=== PATIENT | female | born 1985 | race Caucasian/White ===

== ENCOUNTER 2017-01-21 23:23 | Inpatient (IN) | payer OTHER ==
[2017-01-21] MEDS ORDERED: ONDANSETRON 4 MG/2 ML VIAL IVP ONE (23:37)
[2017-01-21] MEDS ORDERED: NORMAL SALINE 10 ML SYRINGE FLUSH IVP PRN (23:37)
[2017-01-21] MEDS ORDERED: Sodium Chloride 0.9% 1,000 ML PRIMARY IV ONE (23:37)
[2017-01-21] MEDS: HYDROmorphone 2 MG/1 ML IVP ONE (23:42)
[2017-01-22] MEDS ORDERED: diphenhydrAMINE 50 MG/1 ML VIAL IVP ONE ×2 (00:05→01:56)
[2017-01-22] MEDS ORDERED: methylPREDNISolone 125 MG/2 ML VIAL IVP ONE (00:05)
[2017-01-22 00:19] LABS: BLOOD UREA NITROGEN 9 mg/dL (7-22); BUN/CREATININE RATIO 12.85 (6-20); CALCIUM 9.2 mg/dL (8.7-10.7); EST GLOMERULAR FILTRATION > 60 (>60 ml/min/1.73m(2)); LIPASE 52 IU/L (23-300); SERUM ALBUMIN 4.2 g/dL (3.5-4.8)
[2017-01-22 00:21] LABS: C-REACTIVE PROTEIN < 0.5 mg/dL (0.0-0.9)
[2017-01-22] MEDS: HYDROmorphone 2 MG/1 ML IVP ONE (00:34)
[2017-01-22] MEDS ORDERED: fentaNYL Inj 100 MCG/2 ML VIAL ONE (02:00)
[2017-01-22] MEDS ORDERED: fentaNYL Inj 100 MCG/2 ML VIAL IVP ONE (02:04)
[2017-01-22 02:35] LABS: BASOPHILS # (AUTO) 0.02 10*3/UL; BASOPHILS % (AUTO) 0.2 % (0-1); EOSINOPHILS # (AUTO) 0.04 10*3/UL; EOSINOPHILS % (AUTO) 0.4 % (0-8); HEMATOCRIT 42.3 % (37.0-47.0); HEMOGLOBIN 14.3 g/dL (12.0-16.0); LYMPHOCYTES # (AUTO) 1.59 10*3/uL; MEAN CORPUSCULAR HEMOGLOBIN 31.8 PG (27-31); MEAN CORPUSCULAR HGB CONC 33.8 g/dL (33-37); MEAN PLATELET VOLUME 10.2 FL (7.4-12.2); MONOCYTES # (AUTO) 0.25 10*3/UL (0.3-0.8); MONOCYTES % (AUTO) 2.5 % (5-15); NEUTROPHILS # (AUTO) 8.06 10*3/UL; NEUTROPHILS % (AUTO) 80.9 % (50-80); PLATELET MORPHOLOGY COMMENT NORMAL MORPHOLOGY (NORM); RBC MORPHOLOGY COMMENT NORMAL MORPHOLOGY (NORM); WBC MORPHOLOGY COMMENT NORMAL MORPHOLOGY (NORM)
[2017-01-22] MEDS ORDERED: Ertapenem Inj 1 GM in Sodium Chloride 0.9% 100 ML IV SCH (03:45)
[2017-01-22] MEDS ORDERED: MORPHINE SULFATE 2 MG/1 ML IV PRN (03:49)
[2017-01-22] MEDS ORDERED: NORMAL SALINE 10 ML SYRINGE FLUSH IVP PRN ×4 (03:49→09:49)
[2017-01-22] MEDS ORDERED: Sodium Chloride 0.9% 1,000 ML PRIMARY IV SCH (04:00)
--- NOTE | 2017-01-22 04:04 | PDOC ---
Nausea/Vomiting/Diarrhea HPI - General Chief Complaint: Nausea / Vomiting / Diarrhea Stated Complaint: abdominal pain, nausea and vomiting Date Seen by Provider: 01/21/17 Time Seen by Provider: 23:55 Source: POSITIVE: Patient Exam Limitations: POSITIVE: No limitations Nurse's Notes Reviewed & Considered: Yes - History of Present Illness Initial Comments: The patient is a biological male transgender who identifies as a female. He states that for the past 24 hours he's had right-sided abdominal pain, somewhat more in the upper quadrant that in the lower quadrant. He states he had a fever earlier today. He states that in the past he had an ultrasound which showed gallstones; old records were reviewed and he did have a gallbladder and liver ultrasound on 06/14/2012 for evaluation of right upper quadrant abdominal pain which showed cholesterol flakes versus tiny gallstones. Subsequent HIDA scan done 06/14/2012 was normal, however. 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 However, he states that 2 weeks ago he had a " mini stroke"and was taken off of his Coumadin at that time. He has a history of chronic pain, narcotic dependent. He takes oxycodone and OxyContin as an outpatient. History of narcotic dependency. He smokes a pack of cigarettes per day. He states he does not use alcohol. 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 He's had breast augmentation. He states he is allergic to iodine, but has had IV contrast in the past but states he has been premedicated with Benadryl prior to IV contrast. Body Location Affected: REPORTS: Abdomen Timing: REPORTS: Constant Duration: >24 hours (Approximately 24 hours) Severity: Moderate Quality: REPORTS: "Pain" Abdominal Pain Onset Location: REPORTS: RUQ, RLQ Abdominal Pain Radiation: REPORTS: No radiation Context: REPORTS: None Modifying Factors: improves with: Vomiting, Palpation Associated Symptoms: REPORTS: Vomiting, Abdominal Pain (Right sided as above; see diagram) Similar Symptoms Previously: Yes (history of right upper abdominal discomfort in the past as above.) Recent Care Received: REPORTS: Denies Any Prior Injuries Related to Current Complaint?: No - Patient Home Medications Home Medications: Home Medications Estradiol 4 mg PO BID 10/14/15 Spironolactone 100 mg PO DAILY 10/14/15 Ondansetron [Zofran Odt] 8 mg SL Q6H PRN PRN 02/17/16 oxyCODONE ER Tab [OxyCONTIN Tab] 30 mg PO Q4HR 04/28/16 Amitriptyline HCl 100 mg PO BEDTIME 01/22/17 Gabapentin 300 mg PO PRN PRN 01/22/17 oxyCODONE IR Tab [OxyIR Tab] 60 mg PO Q4H 01/22/17 - Patient Allergies Allergies/Adverse Reactions: Allergies Allergy/AdvReac Type Severity Reaction Status Date / Time cyclobenzaprine HCl Allergy Severe HIVES Verified 01/22/17 00:36 [From Flexeril] venom-honey bee Allergy Severe Anaphylaxis Verified 01/22/17 00:36 [bee venom (honey bee)] iodine Allergy Intermediate RASH Verified 01/22/17 00:36 Iodine and Iodide Containing Allergy Intermediate VOMITING Verified 01/22/17 00: 36 Produc ketorolac tromethamine Allergy Intermediate HIVES Verified 01/22/17 00:36 [From Toradol] lactose [Lactose] Allergy Intermediate NOT Verified 01/22/17 00:36 APPLICABLE adhesive tape AdvReac Intermediate RASH Verified 01/22/17 00:36 SEA FOOD AdvReac Intermediate HIVES Uncoded 01/22/17 00:36 Past Medical History - heen HEENT History: Hard of Hearing, Other (please comment) Additional HEENT History: 50% loss in r ear, MULTIPLE DENTAL CARIES Cardiovascular History: Hypertension, Previous RI, Other (please comment) Additional Cardiovasular History: OPEN HEART SURGERY TO REMOVE THYMOMA (2012) Respiratory History: Asthma, Other (please comment) Additional Respiratory History: SMOKER Gastrointestinal History: GERD, Peptic Ulcer Disease Additional Gastrointestinal History: ABD PAIN N/V Genitourinary History: Denies History Additional Genitourinary History: N/A Endocrine History: Denies History Musculoskeletal History: Arthritis, Back Pain Prosthesis or Implant: Yes (breasts; has lump left breast. 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 PT STATES SHE HAD A STROKE 12/26 Blood Disorders: Other (please comment) Additional Blood Disorders History: Non-Hodgkin's lymphoma Psychiatric History: Depression, Anxiety Disorders, OCD, PTSD Additional Psychiatric History: hx self cutting History of Sexually Transmitted Diseases: No Female Reproductive History: Denies History Obstetrical History: Denies History Cancer History: Other (please comment) Cancer Treatment / Date(s) of Treatment: 2001 In Past Year Been Physically Harmed or Verbally Threatened: No History of MDRO: Yes Other Type of MDRO: MRSA in throat 5 years ago, been tested multiple times within last month History of Other Communicable Diseases: No History of Exposure to Communicable Disease: No Tobacco Use: Current Every Day Smoker Alcohol Use: None Substance Use Type: None, Opiate Pain Medication Previous Surgical History: Yes Type / Date of Surgery: BREAST AUGMENTATION, RIGHT KNEE SURG.X3, RIGHT HAND SURG.X3, ORCHIECTOMY, TONSILLECTOMY, LYMPH NODE REMOVAL.; OPEN HEART SURGERY, THYMOMA REMOVAL; HERNIA REPAIR Anesthesia Reactions: No Malignant Hyperthermia: No Significant Family History: No pertinent family hx Past Medical History Reviewed: Reviewed - No Changes ROS - Limitations ROS Limitations: No Limitations Constitution: REPORTS: Fever Cardiovascular: REPORTS: Denies Cardiac Symptoms Respiratory: REPORTS: Denies Resp Symptoms Neurological: REPORTS: Denies Neuro Symptoms Gastrointestinal: REPORTS: Abdominal Pain, Nausea, Vomitting Endocrine: REPORTS: Denies Symptoms Musculoskeletal: REPORTS: Denies MS Symptoms Genitourinary: REPORTS: Denies Symptoms Eyes: REPORTS: Denies Symptoms ENT: REPORTS: Denies Symptoms Skin: REPORTS: Denies Skin Symptoms Lympathic: REPORTS: Denies Lympathic Symptoms Immunologic: POSITIVE: Denies Symptoms Psychiatric: POSITIVE: Denies Psych Symptoms Nausea/Vomiting/Diarrhea Exam - General Appearance General Appearance: POSITIVE: Alert, Cooperative, No Acute Distress, No Evidence of Trauma - HEENT HEENT: POSITIVE: Head Inspection Nml, Eyes Inspection Nml, Ears Inspection Nml, Nose Inspection Nml, Oral/Dental Inspect. Nml, Pharynx Inspect. Nml, PERRL, EOMI - Neck Neck: POSITIVE: Supple, Normal Inspection, Non Tender - Respiratory Respiratory: POSITIVE: No Respiratory Distress, Breath Sounds Normal, Chest Non- Tender - Cardiovascular Cardiovascular: POSITIVE: Regular Rate and Rhythm, Heart Sounds Normal, Equal Pulses, Strong Pulses Peripheral Pulses: Radial (R): 2+, Radial (L): 2+ - Chest Chest: POSITIVE: Non Tender - Abdomen Abdomen: Soft: (All Quadrants), Normal Bowel Sounds: (All Quadrants), Denies Tenderness: (LLQ), (LUQ), No Splenomegaly: (All Quadrants), No Hepatomegaly: ( All Quadrants), No Guarding: (All Quadrants), No Rebound: (All Quadrants), No Palpable Pulse: (All Quadrants), No Palpabale Mass: (All Quadrants), No Distention: (All Quadrants), No Rigidity: (All Quadrants), Tenderness Noted: ( RUQ), (RLQ) Additional Abdominal Details: Abdominal examination shows bowel sounds to be present. Patient expresses tenderness on palpation in the right half the abdomen; actually is somewhat more tender in the right upper quadrant than in the right lower quadrant. No masses, organomegaly or rebound. - Back Back: POSITIVE: Normal Inspection. 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 Lab Results Reviewed: Yes Lab Results:: Laboratory Results 01/22/17 01/22/17 Range/Units 00:03 03:45 WBC 9.97 (4.8-10.8) 10^3/uL RBC 4.50 (4.20-5.40) 10^6/uL Hgb 14.3 (12.0-16.0) g/dL Hct 42.3 (37.0-47.0) % MCV 94.0 (81-99) FL MCH 31.8 H (27-31) PG MCHC 33.8 (33-37) g/dL RDW Std Deviation 43.3 (39-50) fL RDW Coeff of Brennan 12.9 (11.5-14.5) % Plt Count 264 (140-350) 10*3/uL MPV 10.2 (7.4-12.2) FL Immature Gran % (Auto) 0.1 (0-5) % Neut % (Auto) 80.9 H (50-80) % Lymph % (Auto) 15.9 (10-50) % Candler % (Auto) 2.5 L (5-15) % Eos % (Auto) 0.4 (0-8) % Baso % (Auto) 0.2 (0-1) % Immature Gran # (Auto) 0.01 10*3/UL Neut # (Auto) 8.06 10*3/UL Lymph # (Auto) 1.59 10*3/uL Candler # (Auto) 0.25 L (0.3-0.8) 10*3/UL Eos # (Auto) 0.04 10*3/UL Baso # (Auto) 0.02 10*3/UL WBC Morphology Comment Normal morphology (NORM) Plt Morphology Comment Normal morphology (NORM) RBC Morph Comment Normal morphology (NORM) PT 10.6 (9.7-11.4) secs INR 1.03 (0.00-5.90) N/A Sodium 137 (135-145) meq/L Potassium 3.1 L (3.8-5.2) meq/L Chloride 105 (98-112) meq/L Carbon Dioxide 23 (23-33) meq/L Anion Gap 9 (5-20) BUN 9 (7-22) mg/dL Creatinine 0.7 (0.50-1.20) mg/dL Estimated GFR > 60 (>60 ml/min/1.73m(2)) BUN/Creatinine Ratio 12.85 (6-20) Glucose 96 (78-110) mg/dL Calculated Osmolality 282.0 (267-292) mOsm/kg Calcium 9.2 (8.7-10.7) mg/dL Total Bilirubin 0.9 (0.3-1.2) mg/dL AST 50 H (8-39) IU/L ALT 48 (9-52) IU/L Alkaline Phosphatase 80 (38-126) IU/L C-Reactive Protein < 0.5 (0.0-0.9) mg/dL Total Protein 7.5 (6.1-8.0) g/dL Albumin 4.2 (3.5-4.8) g/dL Globulin 3.2 (2.50-4.10) g/dL Albumin/Globulin Ratio 1.30 (1.3-2.0) mg/g Amylase 82 (30-110) U/L Lipase 52 (23-300) IU/L Serum Alcohol < 10 (0-10) mg/dL - Patient's Progress Pain Medication Addressed: POSITIVE: Yes (Dilaudid and fentanyl given for pain; Zofran for nausea) School/Work Release Addressed: POSITIVE: Not Applicable Re-examine Time: 03:15 Re-Examine Comment: Discomfort somewhat less. 1 g Invanz ordered. Case discussed with Dr. Duff, surgeon Status: POSITIVE: Unchanged, Re-Examined - Consult Consult (If Yes, Name of Consulting MD & Time Called): Yes (Dr. Duff, surgeon,[id number]) Consulting MD will see pt:: [place]ITIVE[place] [facility] [place] Counseled: POSITIVE: Patient, RE: Lab Results, RE: Radiology Results, RE: DX, RE : Need for F/U Patient Care Time - Estimated PCT Patient Care Time (In Minutes): 60 Vital Signs - Recent Vital Signs Vital Signs: Vital Signs (Last 8 hours) Temp Pulse Resp BP Pulse Ox 01/21/17 23:23 97.6 F 91 18 122/86 95 - VS Reviewed Vital Signs Reviewed: Yes Discharge Clinical Impression: Abdominal pain, Appendicitis Discharge Disposition: Admit to Inpatient Condition: Stable Follow Up With: Michelle Suggs [Primary Care Provider] - Date Decision to Admit to Inpatient: 01/22/17 Time Decision to Admit to Inpatient: 03:15
--- NOTE | 2017-01-22 04:59 | PDOC ---
History and Physical - History of Present Illness Date and Time of Service: 01/23/2016 at 0 450 Chief Complaint: Abdominal pain History of Present Illness: This is a 34-year-old female who comes in with a multitude of abdominal complaints. Started with right lower quadrant pain that has now kind come generalized. There is associated nausea vomiting and diarrhea. Patient states that the nausea vomiting has occurred first patient has a complicated history with multiple postoperative infections. SHe states she still fighting a hand infection from surgery that he had. She is on long-term antibiotic therapy currently taken Ancef. She states states that she had a fever. But, been afebrile in the emergency department. Patient's white count is within normal limits. CT scan was read as an early appendicitis Past Medical History Medical History: 1. Right hand cellulitis. 2. History of non-Hodgkin's lymphoma. 3. Developmental dysplasia of the hips bilaterally Surgical History: Hip surgery. Hernia repair about 6 months ago. Breast augmentation. Boxers fracture repair on right hand with subsequent hardware removal with one of the screws having a broken had and still being in place. Patient states that her last surgery was about 8 years ago or so for this. Pertinent Family History: Significant for diabetes Past Social History: He is engaged and has a fianc. Smokes. 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 Tobacco Use: Current Every Day Smoker Do you dip or chew tobacco: No Substance Use Type: None, Opiate Pain Medication Medication / Allergies Home Medications: Home Medications Medication Instructions Recorded Confirmed Type Estradiol 4 mg PO BID 10/14/15 01/22/17 History Spironolactone 100 mg PO DAILY 10/14/15 01/22/17 History Ondansetron [Zofran Odt] 8 mg SL Q6H PRN PRN 02/17/16 01/22/17 History oxyCODONE ER Tab [OxyCONTIN Tab] 30 mg PO Q4HR 04/28/16 01/22/17 History Amitriptyline HCl 100 mg PO BEDTIME 01/22/17 01/22/17 History Gabapentin 300 mg PO PRN PRN 01/22/17 01/22/17 History oxyCODONE IR Tab [OxyIR Tab] 60 mg PO Q4H 01/22/17 01/22/17 History Allergies/Adverse Reactions: Allergies Allergy/AdvReac Type Severity Reaction Status Date / Time cyclobenzaprine HCl Allergy Severe HIVES Verified 01/22/17 00:36 [From Flexeril] venom-honey bee Allergy Severe Anaphylaxis Verified 01/22/17 00:36 [bee venom (honey bee)] iodine Allergy Intermediate RASH Verified 01/22/17 00:36 Iodine and Iodide Containing Allergy Intermediate VOMITING Verified 01/22/17 00: 36 Produc ketorolac tromethamine Allergy Intermediate HIVES Verified 01/22/17 00:36 [From Toradol] lactose [Lactose] Allergy Intermediate NOT Verified 01/22/17 00:36 APPLICABLE adhesive tape AdvReac Intermediate RASH Verified 01/22/17 00:36 SEA FOOD AdvReac Intermediate HIVES Uncoded 01/22/17 00:36 Review of Systems - Constitutional Constitutional: REPORTS: Negative System Review - Integumentary Integumentary: REPORTS: Negative System Review - Respiratory Respiratory: REPORTS: Negative System Review, Other (Patient states he just got over pneumonia) - Cardiovascular Cardiovascular: REPORTS: Palpitations, Other (Had atrial fibrillation after his chest surgery) - Gastrointestinal Gastrointestinal / Abdominal: REPORTS: Nausea, Vomiting, Diarrhea - Genitourinary Genitourinary: REPORTS: Negative System Review - Musculoskeletal Musculoskeletal: REPORTS: Joint Pain - Hands - Hematlogic / Lymphatic Hematologic / Lymphatic: REPORTS: Lymphoma Exam - General General Appearance: POSITIVE: No Acute Distress, Cooperative - Eye Eye Exam: POSITIVE: PERRL, EOMI - ENT ENT Exam: POSITIVE: Normal Exam - Neck Neck Exam: POSITIVE: Full ROM - Respiratory Respiratory Exam: POSITIVE: Clear to Auscultation - Bilaterally, Breathing Non Labored - Cardiovascular Cardiovascular Exam: POSITIVE: RRR, No Murmur - GI/Abdominal GI/Abdominal Exam: POSITIVE: Normal Bowel Sounds, Non Distended, Positive for RUQ Pain, No Hepatomegaly, No Splenomegaly Additional GI/Abdominal Exam Details: Patient also has left lower quadrant pain on deep palpation Results - Labs CBC and BMP: 01/22/17 00:03 01/22/17 00:03 Assessment and Plan - Patient Problems (1) Appendicitis Current Visit: Yes Status: Acute - Assessment / Plan Additional Assessment/Plan Details: A lengthy discussion with Joanna about treatment options. I talked about both nonoperative and operative interventions. I discussed demonstrate laparoscopic versus open. Went over the risk and benefits of but all treatment options. Patient understands these. Joanna has elected to have a laparoscopic appendectomy. This be taken at first available time which is roughly around 8 AM
[2017-01-22] MEDS ORDERED: NALOXONE 0.4 MG/1 ML VIAL IVP PRN (05:35)
[2017-01-22] MEDS ORDERED: Lactated Ringers 1,000 ML PRIMARY IV SCH ×3 (05:35→09:49)
[2017-01-22] MEDS ORDERED: MORPHINE SULFATE 2 MG/1 ML IVP PRN (05:35)
[2017-01-22 06:03] LABS: BILIRUBIN,URINE NEGATIVE (NEG); COLOR,URINE YELLOW; GLUCOSE, URINE (UA) NEGATIVE (NEG); NITRATE,URINE NEGATIVE (NEG); OCCULT BLOOD,URINE Trace-intact (NEG); PROTEIN,URINE NEGATIVE (NEG); UROBILINOGEN,URINE 0.2 EU/dL (0.2)
[2017-01-22 06:13] LABS: CLARITY,URINE CLEAR (CLEAR); RBC,URINE 0-1 /hpf; SQUAMOUS EPITHELIAL CELL,UR RARE; URINE SAMPLE TYPE CLEAN CATCH URINE; WBC,URINE 0
[2017-01-22] MEDS ORDERED: ROCURONIUM 10 MG/1 ML - 5 ML VIAL IVP ONE (07:55)
[2017-01-22] MEDS ORDERED: KETAMINE 100 MG/1 ML - 5 ML ONE (07:58)
[2017-01-22] MEDS ORDERED: KETOROLAC 30 MG/1 ML VIAL ONE (07:58)
[2017-01-22] MEDS ORDERED: LIDOCAINE MPF 2% - 5 ML (20 MG/1 ML) ONE (07:58)
[2017-01-22] MEDS ORDERED: MIDAZOLAM 5 MG/1 ML ONE (07:58)
[2017-01-22] MEDS ORDERED: fentaNYL Inj 250 MCG/5 ML VIAL ONE (07:58)
[2017-01-22] MEDS ORDERED: ONDANSETRON 4 MG/2 ML VIAL ONE (07:58)
[2017-01-22] MEDS ORDERED: BUPivacaine Inj 0.25% PF - 10ml vial ONE (08:14)
[2017-01-22] MEDS ORDERED: ONDANSETRON 4 MG/2 ML VIAL IVP PRN (08:15)
[2017-01-22] MEDS ORDERED: HYDROmorphone 2 MG/1 ML IVP PRN (08:15)
[2017-01-22] MEDS ORDERED: PROMETHAZINE 25 MG/1 ML VIAL IM PRN (08:15)
[2017-01-22] MEDS ORDERED: fentaNYL Inj 100 MCG/2 ML VIAL IVP PRN (08:15)
[2017-01-22] MEDS ORDERED: METOPROLOL TARTRATE 5 MG/5 ML VIAL ONE (08:42)
[2017-01-22] MEDS ORDERED: HYDROmorphone 2 MG/1 ML ONE ×3 (08:43→09:49)
[2017-01-22] MEDS ORDERED: Lactated Ringers 1,000 ML PRIMARY IV ONE (08:51)
[2017-01-22] MEDS ORDERED: SUGAMMADEX SODIUM 200 MG/2 ML VIAL IV ONE (09:05)
[2017-01-22] MEDS ORDERED: Acetaminophen 1000mg Inj 100 ML IV ONE (09:29)
[2017-01-22] MEDS ORDERED: Acetaminophen 1000mg Inj 1,000 MG in Premix 1 BAG IV ONE (09:29)
--- NOTE | 2017-01-22 09:36 | GEN.OPNOTE ---
Operative Note Surgery Date: 01/22/17 Preoperative Diagnosis: Appendicitis Postoperative Diagnosis: Appendicitis Procedure: Laparoscopic appendectomy Surgeon: Cristhian Rangel MD Anesthesia Provider: Timoteo Plata CRNA Anesthesia Type: General Estimated Blood Loss (mL): 2 Fluids: Please see anesthesia notes in EMR. Patient got 1 g of Invanz emergency department Pathology: Appendix sent to pathology Indications: Patient had enlargement and mucosal enhancement appendix on a CT scan Findings: Swollen appendix Complications: None Operative Summary: Patient is brought in operative room. Placed supine position. Given general trach anesthesia. Prepped draped sterile fashion. Timeout performed per protocols. Made a small incision below the umbilicus. Pneumoperitoneum was made after insertion of a Veress needle. After adequate pneumoperitoneum, a 10 mm trocar was placed using the Visiport. Under direct laparoscopic visualization a 5 mm was placed through stab incision just above the pubic bone. We identified a swollen appendix. Patient had no other inflammatory condition that is identified. There is no pus or purulent material in the abdominal cavity. Patient's gallbladder liver spleen and stomach and remainder small intestine: Appeared be normal. No evidence incisional or inguinal hernias. I then placed a 10 mm through a stab incision left lower quadrant under direct laparoscopic visualization. Appropriate sedation was obtained. Using the gyrus I cauterized and divided the mesoappendix. The 2 Endoloops on the base of the appendix and then dividing the appendix using the gyrus. Appendix is brought up to the 10 mm trocar site. Reinspection showed no active bleeding. No current fluid. No evidence of intra-abdominal injuries. Pneumoperitoneum was deinsufflated. The fascial defects were closed with simple running sutures of 0 Vicryl suture. Skin reapproximated using 4-0 Vicryl continuous running septic restitch is. Steri-Strips applied sterile dressings applied. Counts were correct. Patient transferred recovery room in stable condition. Patient Problems - Patient Problem List (1) Appendicitis Current Visit: Yes Status: Acute
[2017-01-22] MEDS ORDERED: GABAPENTIN 300 MG CAPSULE PO PRN (09:49)
[2017-01-22] MEDS: oxyCODONE ER 10 MG TAB PO SCH ×2 (10:50→15:16)
[2017-01-22] MEDS: NICOTINE 14 MG /DAY PATCH TRANSDERM SCH ×2 (10:50→15:16)
[2017-01-22] MEDS ORDERED: oxyCODONE IR Tab 15 MG TAB PO SCH (13:00)
[2017-01-22 14:53] VITALS: RESP 16; TEMP 98.8
--- NOTE | 2017-01-22 15:03 | DCSUMMARY ---
Discharge Summary Admit Date: 01/22/17 Discharge Date: 01/22/17 Admitting Diagnosis: appendicitis Discharge Diagnosis: Appendicitis localized peritonitis Primary Surgery and Date: Appendectomy laparoscopic Hospital Course: Patient came in the hospital for observation for acute appendicitis. Patient was given a dose of Invanz. Patient then wanted to have laparoscopic appendectomy. She underwent a laparoscopic appendectomy without any problems. Patient was ready be discharged on the day of surgery. She is discharged in stable and improved condition. Patient takes chronic narcotics so she'll go back to her her normal dose. She'll follow-up with her primary care doctor and to 3 days discussed DVT prophylaxis (since patient has a known history of DVTs. ) For laparoscopic appendectomy I do not feel DVT prophylaxis as needed. Also patient follow-up with me in one week Exam - Vitals Vital Signs: Vital Signs Temperature 98.8 F Temperature Source Temporal Artery Scan Pulse Rate [Pulse Oximeter] 94 Pulse Rate 93 Respiratory Rate 16 Blood Pressure [Right Arm] 119/75 Blood Pressure 126/70 Pulse Ox 95 Oxygen Flow Rate 2 Oxygen Flow Rate 2 Oxygen Delivery Method Room Air Height 5 ft 9 in Weight 80.966 kg - GI/Abdominal Additional GI/Abdominal Exam Details: Dressings are dry. Patient has incisional pain only. Patient Problems - Patient Problem List (1) Appendicitis Current Visit: Yes Status: Acute
[2017-01-22] MEDS ORDERED: ESTRADIOL 4 MG PO SCH (21:00)
[2017-01-22] MEDS ORDERED: AMITRIPTYLINE 25 MG TABLET PO SCH (21:00)
[2017-01-23] MEDS ORDERED: Ertapenem Inj 1 GM in Sodium Chloride 0.9% 100 ML IV SCH (04:00)
[2017-01-23] MEDS ORDERED: Spironolactone Tab 50 MG TAB PO SCH (09:00)
--- NOTE | 2017-01-26 14:31 | DI ---
CT ABDOMEN WITHOUT CONTRAST, CT PELVIS WITHOUT CONTRAST. Clinical information: Abdominal pain. Comparison CT 05/14/14. Technique: Axial images were acquired from the lung bases through the ischial tuberosities without c ontrast. MPR. Absent IV contrast precludes adequate evaluation of viscera and vessels, including lymph nodes. Findings Chest: Lungs: Bibasilar atelectasis without focal consolidation or pleural effusion. No pneumothorax. Pericardial effusion: No pericardial effusion. Breast augmentation changes noted. Abdomen: Liver: No calcification or adjacent inflammatory change. Gallbladder: Distended with bile, no adjacent inflammatory change. Pancreas: No adjacent inflammatory change. Adrenals: Usual non-contrast appearance. Spleen: Usual non-contrast appearance. Kidneys/Ureters: Normal position. No hydronephrosis. Bilateral punctate nephroliths. Pelvis: Bowel: Non-obstructive pattern. Appendix is mildly enlarged, measuring 7-8mm(coronal image # 50; axia l image 84). Small right lower quadrant lymph nodes are present. No significant inflammatory change o r adjacent fluid collection. Peritoneum: No large volume free intraperitoneal fluid or air noted. Bladder: Distended with urine. Bones: No acute osseous abnormality. Impression: 1. Appendix is mildly enlarged (7-8mm) and retrocecal in location. Findings concerning for early patricia endicitis. Small right lower quadrant lymph nodes are present. No significant inflammatory change or adjacent fluid collection. Correlation with clinical exam and laboratory values requested. 2. Small, bilateral nephroliths which have a similar appearance to the comparison study. No ureteral calculi or hydronephrosis.
--- NOTE | 2017-01-26 14:31 | DI ---
EXAMINATION: CT ABDOMEN AND CT PELVIS WITH CONTRAST. COMPARISON: Noncontrast CT from 2 hours prior. CLINICAL STATEMENT: Abdomen pain. TECHNIQUE: Helical CT scanning was performed from the lung bases, through the abdomen and pelvis, to the level of lesser trochanters following the administration of IV contrast material. MPR. Overall im age quality satisfactory. FINDINGS: LUNG BASES/LOWER HEART: Basilar atelectasis, no focal basilar consolidation, pleural effusion or pneumothorax. No pericardial effusion. ABDOMEN/PELVIS: LIVER: Homogeneous parenchymal attenuation. GALLBLADDER: Distended with bile, no calcified gallstones noted. No adjacent inflammatory change. PANCREAS: No adjacent inflammatory change. ADRENAL GLANDS: Maintain their triangular shape. SPLEEN: Normal enhancement pattern. KIDNEYS: Anatomic location. No hydronephrosis. 1.3 cm left interpolar low attenuation lesion, probabl e cyst. GREAT VESSELS: Enhance unremarkably. FREE INTRAPERITONEAL FLUID: No large volume. VARIABLY DISTENDED BOWEL LOOPS: Non-obstructive bowel gas pattern. APPENDIX: Measures mildly enlarged at 7-8mm (coronal image 50) with mild increased mucosal enhancemen t suggested of the distal appendix. No significant adjacent inflammatory change is noted. OSSEOUS STRUCTURES: No acute osseous abnormality. IMPRESSION: 1. Mild enlargement of the appendix measuring 7-8 mm with mild wall enhancement and prominent adjacen t lymph nodes. CT findings concerning for early appendicitis. No significant adjacent stranding, fl uid collection or evidence of perforation. 2. Punctate nephroliths, non-obstructive. 3. Small, probable left renal cyst. @ RECOMMENDATION: Surgical consultation and correlation with examination and laboratory values.
== END 2017-01-22 13:13 | disposition home or self-care (01) | DRG 340 ==
LOC: ER 23:23 → MED/SURG 01-22 03:49 → OPS 01-22 08:15 → MED/SURG 01-22 09:55
PROVIDERS: ADMIT Emergency Medicine; ATTEND Surgery
PROC: 0DTJ4ZZ Resection of Appendix, Percutaneous Endoscopic Approach (ICD-10-PCS; principal; 2017-01-22 08:21)
DX: K35.3 Acute appendicitis with localized peritonitis (principal)
CPT/HCPCS: 74176; 74177; 80053; 80320; 81001; 81003; 82150; 83690; 85025; 85610; 86140; 99284; J0131; J1170; J1200; J1335; J1885; J2001; J2250; J2270; J2405; J3010; J7030; J7050; J7120

== ENCOUNTER 2017-02-01 10:14 | Inpatient (IN) | payer OTHER ==
[2017-02-01 10:32] LABS: HEMATOCRIT 41.1 % (37.0-47.0); HEMOGLOBIN 13.8 g/dL (12.0-16.0); MEAN CORPUSCULAR HEMOGLOBIN 31.9 PG (27-31); MEAN CORPUSCULAR HGB CONC 33.6 g/dL (33-37); MEAN CORPUSCULAR VOLUME 94.9 FL (81-99); MEAN PLATELET VOLUME 10.3 FL (7.4-12.2); RED BLOOD COUNT 4.33 10^6/uL (4.20-5.40)
[2017-02-01 10:44] LABS: PLATELET MORPHOLOGY COMMENT NORMAL MORPHOLOGY (NORM); RBC MORPHOLOGY COMMENT NORMAL MORPHOLOGY (NORM); WBC MORPHOLOGY COMMENT NORMAL MORPHOLOGY (NORM)
[2017-02-01 10:45] LABS: BAND NEUTROPHILS % 2 % (0-10); BASOPHILS % (MANUAL) 0 % (0-1); EOSINOPHILS % (MANUAL) 0 % (0-8); LYMPHOCYTES % (MANUAL) 17 % (10-50); MONOCYTES % (MANUAL) 5 % (0-12); NEUTROPHILS % (MANUAL) 76 % (50-80)
[2017-02-01] MEDS ORDERED: diphenhydrAMINE 50 MG/1 ML VIAL ONE (11:00)
[2017-02-01] MEDS ORDERED: diphenhydrAMINE 50 MG/1 ML VIAL IVP ONE ×2 (11:03→15:41)
[2017-02-01] MEDS ORDERED: NORMAL SALINE 10 ML SYRINGE FLUSH IVP PRN ×4 (12:30→15:41)
[2017-02-01] MEDS ORDERED: Ertapenem Inj 1 GM in Sodium Chloride 0.9% 100 ML IV SCH (12:30)
[2017-02-01] MEDS ORDERED: Lactated Ringers 1,000 ML PRIMARY IV SCH ×3 (12:30→15:30)
[2017-02-01] MEDS ORDERED: Ondansetron ODT Tab 4 MG TAB PO PRN ×2 (12:32→15:41)
[2017-02-01] MEDS ORDERED: oxyCODONE IR Tab 15 MG TAB PO SCH (12:45)
--- NOTE | 2017-02-01 13:01 | DI ---
CT ABDOMEN SCAN WITH IV CONTRAST, 02/01/2017 10:20 AM : Clinical History: Status post appendectomy approximately 10 days earlier. Now with right lower quadra nt pain and fever. The additional history was supplied to me by the attending physician. Previous Exam: 01/22/2014. Scans are performed from the lower lung bases through the liver and kidneys with IV contrast. 636, ml of Isovue 300 was injected IV. The patient declined rectal contrast. The lung bases are clear. The liver is normal. The gallbladder is grossly normal. There is no abnorma lity of the spleen, pancreas, and adrenal glands. Both kidneys are normal in size, shape, position an d contour. There is no hydronephrosis or hydroureter. Both kidneys demonstrate nonobstructing 4-5 mm diameter renal calculi. There is one calculus in the lower pole of the right kidney and a calculus in the left upper pole and another in the left lower pole. No ureteral calculi are identified. There ar e no abnormally enlarged lymph nodes in the upper abdomen, but they have increased in size and number since the previous study. No ascites is present. READIN. There are bilateral small 4-5 mm nonobstructing renal calculi without evidence of hydronephrosis or hydroureter or ureteral calculi. 2. The remainder of the exam is normal. The lymph nodes in the upper abdomen have increased in size and number since the last study but are not pathologic by CT criteria. CT PELVIS SCAN WITH IV CONTRAST, 02/01/2017 10:20 AM: Clinical History: See above. Previous Exam: 01/22/2017. Scans are performed from just superior to the umbilicus to the symphysis pubis with IV contrast. This is the same bolus of contrast used for the CT scans of the abdomen. Scans through the lower abdomen and pelvis show no masses or abnormal fluid collections. There is an increase in the number and size of the lymph nodes in the right side of the pelvis since the last exa m. There is a roughly 5 x 5 x 6 cm fluid containing mass in the right lower quadrant and this also gagnon s gas bubbles within it. The perimeter of this mass shows enhancement and is consistent with a postop erative abscess. There are loops of bowel draped over the anterior aspect of this mass. The small bow el is normal. The terminal ileum and ileocecal valve are draped over the superior aspect of this mass . The remainder of the colon is normal. There are no hernias. READING: There is a 5 x 5 x 6 cm fluid and gas filled mass in the right lower quadrant consistent with a posto perative abscess.
[2017-02-01] MEDS ORDERED: fentaNYL Inj 250 MCG/5 ML VIAL ONE (13:16)
[2017-02-01] MEDS ORDERED: ROCURONIUM 10 MG/1 ML - 5 ML VIAL IVP ONE (13:16)
[2017-02-01] MEDS ORDERED: MIDAZOLAM 5 MG/1 ML ONE (13:17)
[2017-02-01] MEDS ORDERED: KETAMINE 100 MG/1 ML - 5 ML ONE (13:17)
--- NOTE | 2017-02-01 13:37 | PDOC ---
History and Physical - History of Present Illness Date and Time of Service: 02/01/2017 at 1330 Chief Complaint: Fevers History of Present Illness: Patient is about 2 weeks out from having an appendectomy. Patient is been having persistent fevers since surgery. She's been running up to 103 fever. The fevers now are every 12 hours. She's developing right lower quadrant abdominal pain. Patient is in fevers first postoperative day sows fell is atelectasis. Now since the fevers are more persistent and cyclic a white count was ordered which is 13,000 CT scan shows of fluid collection in the right lower quadrant consistent with an abscess Past Medical History Medical History: Status post excision of thymoma. Breast augmentation. Appendectomy Tobacco Use: Current Every Day Smoker Substance Use Type: Opiate Pain Medication Medication / Allergies Home Medications: Home Medications Medication Instructions Recorded Confirmed Type Estradiol 4 mg PO BID 10/14/15 02/01/17 History Spironolactone 100 mg PO DAILY 10/14/15 02/01/17 History Ondansetron [Zofran Odt] 8 mg SL Q6H PRN PRN 02/17/16 02/01/17 History oxyCODONE ER Tab [OxyCONTIN Tab] 30 mg PO BID 04/28/16 02/01/17 History Amitriptyline HCl 100 mg PO BEDTIME 01/22/17 02/01/17 History oxyCODONE IR Tab [OxyIR Tab] 60 mg PO Q4H 01/22/17 02/01/17 History Promethazine HCl [Phenergan] 25 mg PO BEDTIME 02/01/17 02/01/17 History Allergies/Adverse Reactions: Allergies Allergy/AdvReac Type Severity Reaction Status Date / Time cyclobenzaprine HCl Allergy Severe HIVES Verified 01/22/17 06:39 [From Flexeril] venom-honey bee Allergy Severe Anaphylaxis Verified 01/22/17 06:39 [bee venom (honey bee)] iodine Allergy Intermediate RASH Verified 01/22/17 06:39 Iodine and Iodide Containing Allergy Intermediate VOMITING Verified 01/22/17 06: 39 Produc ketorolac tromethamine Allergy Intermediate HIVES Verified 01/22/17 06:39 [From Toradol] lactose [Lactose] Allergy Intermediate NOT Verified 01/22/17 06:39 APPLICABLE adhesive tape AdvReac Intermediate RASH Verified 01/22/17 06:39 SEA FOOD AdvReac Intermediate HIVES Uncoded 01/22/17 06:39 Review of Systems - Constitutional Constitutional: REPORTS: General Health Good, Fever/Chills - Integumentary Integumentary: REPORTS: Negative System Review - Respiratory Respiratory: REPORTS: Negative System Review - Cardiovascular Cardiovascular: REPORTS: Negative System Review - Gastrointestinal Gastrointestinal / Abdominal: REPORTS: Abdominal Pain - Musculoskeletal Musculoskeletal: REPORTS: Negative System Review Exam - Vitals Vital Signs: Vital Signs Temperature 102.8 F Temperature Source Oral Pulse Rate [Pulse Oximeter] 133 Pulse Rate [Apical] 131 Respiratory Rate 18 Blood Pressure [Left Arm] 129/75 Pulse Ox 91 Oxygen Delivery Method Room Air Height 5 ft 9.5 in Weight 77.247 kg - General General Appearance: POSITIVE: No Acute Distress, Cooperative - Head Head Exam: POSITIVE: Normocephalic - Eye Eye Exam: POSITIVE: PERRL - Neck Neck Exam: POSITIVE: Full ROM - Respiratory Respiratory Exam: POSITIVE: Clear to Auscultation - Bilaterally, Breathing Non Labored - Cardiovascular Cardiovascular Exam: POSITIVE: RRR - GI/Abdominal GI/Abdominal Exam: POSITIVE: Normal Bowel Sounds, Non Distended, Soft, Positive for RUQ Pain, No Hepatomegaly, No Splenomegaly - Rectal Rectal Exam: POSITIVE: Deferred - External Exam: POSITIVE: Deferred - Extremities Extremities Exam: POSITIVE: Full ROM Results - Labs CBC and BMP: 02/01/17 10:21 Labs - Last 24 Hours: Laboratory Results 02/01/17 Range/Units 10:21 WBC 13.39 H (4.8-10.8) 10^3/uL RBC 4.33 (4.20-5.40) 10^6/uL Hgb 13.8 (12.0-16.0) g/dL Hct 41.1 (37.0-47.0) % MCV 94.9 (81-99) FL MCH 31.9 H (27-31) PG MCHC 33.6 (33-37) g/dL RDW Std Deviation 42.3 (39-50) fL RDW Coeff of Brennan 12.4 (11.5-14.5) % Plt Count 382 H (140-350) 10*3/uL MPV 10.3 (7.4-12.2) FL Neutrophils % (Manual) 76 (50-80) % Band Neutrophils % 2 (0-10) % Lymphocytes % (Manual) 17 (10-50) % Monocytes % (Manual) 5 (0-12) % Eosinophils % (Manual) 0 (0-8) % Basophils % (Manual) 0 (0-1) % Metamyelocytes % Not Reportable Myelocytes % Not Reportable Promyelocytes % Not Reportable Blast Cells Not Reportable WBC Morphology Comment Normal morphology (NORM) Plt Morphology Comment Normal morphology (NORM) RBC Morph Comment Normal morphology (NORM) Assessment and Plan - Patient Problems (1) Postoperative abscess Current Visit: Yes Status: Acute - Assessment / Plan Additional Assessment/Plan Details: Patient has a postoperative abscess. Most likely related to an appendectomy. The CT scan has been reviewed by this radiologist at [facility]. He does not see a clear plane to do a percutaneous drainage. Therefore, the patient needs have open I&D of abscess. Risks benefits surgery explained to her. She has signed informed consent.
[2017-02-01] MEDS ORDERED: LIDOCAINE W/ SODIUM BICARB 0.5 ML SYR ONE (13:50)
[2017-02-01] MEDS ORDERED: ESMOLOL HCL 100 MG/10 ML VIAL ONE (14:11)
[2017-02-01] MEDS ORDERED: HYDROmorphone 2 MG/1 ML ONE ×2 (14:18→14:52)
[2017-02-01] MEDS ORDERED: SUGAMMADEX SODIUM 200 MG/2 ML VIAL IV ONE (14:48)
[2017-02-01] MEDS ORDERED: Lactated Ringers 2,000 ML PRIMARY IV ONE (14:48)
[2017-02-01] MEDS ORDERED: Acetaminophen 1000mg Inj 100 ML IV ONE (15:07)
--- NOTE | 2017-02-01 15:11 | GEN.OPNOTE ---
Operative Note Surgery Date: 02/01/17 Preoperative Diagnosis: Postoperative abscess Postoperative Diagnosis: Appendiceal abscess Procedure: I&D of the abscess Surgeon: Cristhian Rangel MD Anesthesia Provider: Dolores Montanez CRNA Anesthesia Type: General Estimated Blood Loss (mL): 5 Fluids: Lactated Ringer's please see anesthesia notes in EMR. 1 g of Invanz Pathology: Cultures obtained Indications: Patient is partially 2 weeks out from having an appendectomy. Patient is developed postoperative appendiceal abscess. The CT scan was viewed by invasive radiologist. The invasive radiologist did not think he can do a percutaneous drainage of the abscess cavity. Findings: Appendiceal abscess Operative Summary: Patient is brought in operative room placed supine position given general trach anesthesia. Prepped draped sterile fashion. Timeout performed per protocols. I then made a skin incision overlying the palpable mass. Hemostasis obtained left cautery dissection to [place] tissue left cautery. Patient has small lipoma that was removed. I then did a Fabricio Miah muscle-splitting incision. Posterior sheath was opened sharply. Patient had omentum covering large phlegmonous mass. I believe this represented abscess cavity. I gently peeled off's loop was small bowel. This allowed me get into the abscess cavity. There is a large amount of greenish purulent material. No fecalith material seen. I then obtained cultures from the abscess cavity. We irrigated until clear. I then further broke up any loculations. There appeared be adequate hemostasis. A large round drain was then brought out through a percutaneous incision and place into the abscess cavity. Was a posterior sheath with 0 Vicryl contents running suture. Anterior fascia she was 0 Prolene contents running suture. Skin was then irrigated with a 30 mL syringe through an 18 angiocatheter to irrigate out the subcutaneous tissue. Skin reapproximated using tico. The drain is soft up to suction. The patient tolerates it well the were no competitions. Counts were correct. Patient Problems - Patient Problem List (1) Postoperative abscess Current Visit: Yes Status: Acute
[2017-02-01] MEDS ORDERED: ATROPINE SULFATE 0.4 MG/1 ML VIAL IVP PRN (15:21)
[2017-02-01] MEDS ORDERED: ONDANSETRON 4 MG/2 ML VIAL IVP PRN ×2 (15:21→20:50)
[2017-02-01] MEDS ORDERED: Ondansetron ODT Tab 8 MG TAB PO PRN (15:21)
[2017-02-01] MEDS ORDERED: PROMETHAZINE 25 MG/1 ML VIAL IM PRN (15:21)
[2017-02-01] MEDS ORDERED: HYDROmorphone 2 MG/1 ML IVP PRN (15:21)
[2017-02-01] MEDS ORDERED: PROMETHAZINE 25 MG/1 ML VIAL IM ONE (15:25)
[2017-02-01] MEDS ORDERED: fentaNYL Inj 100 MCG/2 ML VIAL ONE (15:37)
[2017-02-01] MEDS ORDERED: Meperidine Inj 50 MG/ML CARPUJECT IVP ONE (15:41)
[2017-02-01] MEDS ORDERED: fentaNYL Inj 100 MCG/2 ML VIAL IVP PRN (15:41)
[2017-02-01] MEDS ORDERED: MORPHINE SULFATE 2 MG/1 ML IVP PRN (15:41)
[2017-02-01] MEDS: oxyCODONE IR Tab 15 MG TAB PO SCH ×2 (16:10→20:36)
[2017-02-01] MEDS ORDERED: MORPHINE SULFATE 10 MG/1 ML IV PRN (16:18)
[2017-02-01] MEDS ORDERED: MORPHINE SULFATE 4 MG/1 ML IV PRN (16:18)
[2017-02-01] MEDS ORDERED: MORPHINE SULFATE 2 MG/1 ML IV PRN (16:18)
[2017-02-01] MEDS: Meperidine Inj 50 MG/ML CARPUJECT IVP PRN ×7 (17:16→23:43)
[2017-02-01] MEDS: HEPARIN 5000 UNIT/1 ML SUBCUT SCH (17:43)
[2017-02-01] MEDS: oxyCODONE ER 10 MG TAB PO SCH (18:51)
[2017-02-01] MEDS ORDERED: oxyCODONE ER 10 MG TAB PO SCH (19:00)
[2017-02-01] MEDS: Lactated Ringers 1,000 ML PRIMARY IV SCH (19:01)
[2017-02-01] MEDS: Metoprolol TARTRATE Tab 25 MG TAB PO SCH (20:35)
[2017-02-01] MEDS: AMITRIPTYLINE 25 MG TABLET PO SCH (20:36)
[2017-02-01] MEDS: NICOTINE 21 MG /DAY PATCH TRANSDERM SCH (20:38)
[2017-02-01] MEDS ORDERED: AMITRIPTYLINE 25 MG TABLET PO SCH (21:00)
[2017-02-01] MEDS: ESTRADIOL 4 MG PO SCH (23:14)
[2017-02-01] MEDS: Acetaminophen 1000mg Inj 1,000 MG in Premix 1 BAG IV PRN (23:40)
[2017-02-02] MEDS: HEPARIN 5000 UNIT/1 ML SUBCUT SCH ×3 (01:02→16:15)
[2017-02-02] MEDS: Meperidine Inj 50 MG/ML CARPUJECT IVP PRN ×7 (01:03→08:23)
[2017-02-02] MEDS: oxyCODONE IR Tab 15 MG TAB PO SCH ×6 (01:03→20:30)
[2017-02-02 05:22] LABS: BASOPHILS # (AUTO) 0.03 10*3/UL; BASOPHILS % (AUTO) 0.3 % (0-1); EOSINOPHILS # (AUTO) 0.06 10*3/UL; EOSINOPHILS % (AUTO) 0.5 % (0-8); HEMATOCRIT 35.7 % (37.0-47.0); HEMOGLOBIN 11.9 g/dL (12.0-16.0); LYMPHOCYTES # (AUTO) 2.08 10*3/uL; MEAN CORPUSCULAR HEMOGLOBIN 31.7 PG (27-31); MEAN CORPUSCULAR HGB CONC 33.3 g/dL (33-37); MEAN CORPUSCULAR VOLUME 95.2 FL (81-99); MEAN PLATELET VOLUME 10.6 FL (7.4-12.2); MONOCYTES # (AUTO) 2.04 10*3/UL (0.3-0.8); MONOCYTES % (AUTO) 17.3 % (5-15); NEUTROPHILS # (AUTO) 7.53 10*3/UL; NEUTROPHILS % (AUTO) 63.9 % (50-80); RED BLOOD COUNT 3.75 10^6/uL (4.20-5.40)
[2017-02-02] MEDS: Lactated Ringers 1,000 ML PRIMARY IV SCH ×4 (05:22→22:57)
[2017-02-02 05:42] LABS: BLOOD UREA NITROGEN 6 mg/dL (7-22); CALCIUM 8.2 mg/dL (8.7-10.7); EST GLOMERULAR FILTRATION > 60 (>60 ml/min/1.73m(2))
[2017-02-02 05:51] LABS: PLATELET MORPHOLOGY COMMENT NORMAL MORPHOLOGY (NORM); RBC MORPHOLOGY COMMENT NORMAL MORPHOLOGY (NORM); WBC MORPHOLOGY COMMENT NORMAL MORPHOLOGY (NORM)
[2017-02-02] MEDS: oxyCODONE ER 10 MG TAB PO SCH (07:03)
[2017-02-02] MEDS ORDERED: MEPERIDINE HCL/PF 100 MG/1 ML INJECTION ONE (08:16)
[2017-02-02] MEDS: NICOTINE 21 MG /DAY PATCH TRANSDERM SCH (08:24)
[2017-02-02] MEDS: Spironolactone Tab 50 MG TAB PO SCH (08:25)
[2017-02-02] MEDS: Metoprolol TARTRATE Tab 25 MG TAB PO SCH ×2 (08:25→20:30)
[2017-02-02] MEDS ORDERED: Meperidine Inj 50 MG/ML CARPUJECT IM PRN (08:33)
[2017-02-02] MEDS ORDERED: oxyCODONE ER 10 MG TAB PO ONE (08:47)
[2017-02-02] MEDS ORDERED: Spironolactone Tab 50 MG TAB PO SCH (09:00)
[2017-02-02] MEDS ORDERED: Ertapenem Inj 1 GM in Sodium Chloride 0.9% 100 ML IV SCH (12:30)
[2017-02-02] MEDS: ESTRADIOL 4 MG PO SCH ×2 (12:44→21:00)
[2017-02-02] MEDS: MEPERIDINE HCL/PF 100 MG/1 ML INJECTION IM PRN ×4 (12:47→23:16)
--- NOTE | 2017-02-02 13:05 | CRNA.PROGR ---
Anesthesia Note Anesthesia Progress Note: Up in chair at bedside. Still getting i.v Vital Signs (24 hrs) Temp Pulse Pulse Pulse Resp BP BP 02/02/17 12:16 97.8 F 97 18 110/64 02/02/17 06:58 98.5 F 106 H 18 02/02/17 05:01 02/02/17 04:07 98.2 F 84 16 02/02/17 01:00 98.7 F 91 18 02/01/17 20:58 100.6 F H 110 H 20 02/01/17 19:00 131 H 110 H 20 02/01/17 18:17 99.9 F H 105 H 20 02/01/17 17:00 98.9 F 121 H 18 02/01/17 16:29 99.3 F 113 H 20 02/01/17 15:50 99.2 F 97 17 122/76 02/01/17 15:40 99.0 F 110 H 20 141/82 02/01/17 15:30 99.0 F 110 H 20 128/72 02/01/17 15:25 100.1 F H 109 H 18 130/82 02/01/17 15:20 100.2 F H 112 H 20 122/89 02/01/17 15:15 99.8 F H 115 H 22 102/74 02/01/17 15:10 99.8 F H 116 H 19 125/98 02/01/17 15:05 99.8 F H 112 H 20 111/77 BP Pulse Ox 02/02/17 12:16 92 02/02/17 06:58 119/71 91 02/02/17 05:01 97 02/02/17 04:07 110/71 98 02/02/17 01:00 108/62 98 02/01/17 20:58 118/64 97 02/01/17 19:00 02/01/17 18:17 112/61 95 02/01/17 17:00 114/66 94 02/01/17 16:29 115/63 90 02/01/17 15:50 02/01/17 15:40 02/01/17 15:30 02/01/17 15:25 02/01/17 15:20 02/01/17 15:15 02/01/17 15:10 02/01/17 15:05 supplement to oral pain meds. States pain control is getting better.Transient nausea last night. Denies sore throat or respiratory difficulties. No apparent anesthetic difficulties.
[2017-02-02] MEDS ORDERED: LIDOCAINE W/ SODIUM BICARB 0.5 ML SYR ONE (17:28)
[2017-02-02] MEDS: AMITRIPTYLINE 25 MG TABLET PO SCH (20:30)
[2017-02-02] MEDS: OXYCODONE 40 MG PO SCH (20:30)
[2017-02-02] MEDS ORDERED: Patch Removal PATCH TRANSDERM SCH (21:00)
[2017-02-02] MEDS: Acetaminophen 1000mg Inj 1,000 MG in Premix 1 BAG IV PRN (22:36)
[2017-02-03] MEDS: HEPARIN 5000 UNIT/1 ML SUBCUT SCH ×2 (00:25→08:48)
[2017-02-03] MEDS: oxyCODONE IR Tab 15 MG TAB PO SCH ×3 (00:25→08:40)
[2017-02-03] MEDS: MEPERIDINE HCL/PF 100 MG/1 ML INJECTION IM PRN (03:00)
[2017-02-03 05:11] LABS: RED BLOOD COUNT 3.64 10^6/uL (4.20-5.40)
[2017-02-03 05:36] LABS: HEMATOCRIT 35.2 % (37.0-47.0); HEMOGLOBIN 11.5 g/dL (12.0-16.0); MEAN CORPUSCULAR HEMOGLOBIN 31.6 PG (27-31); MEAN CORPUSCULAR HGB CONC 32.7 g/dL (33-37); MEAN CORPUSCULAR VOLUME 96.7 FL (81-99)
[2017-02-03] MEDS ORDERED: LIDOCAINE W/ SODIUM BICARB 0.5 ML SYR ONE (06:24)
[2017-02-03 06:50] LABS: PLATELET MORPHOLOGY COMMENT NORMAL MORPHOLOGY (NORM); RBC MORPHOLOGY COMMENT NORMAL MORPHOLOGY (NORM); WBC MORPHOLOGY COMMENT SEE COMMENTS (NORM)
[2017-02-03 06:51] LABS: NEUTROPHILS % (MANUAL) 47 % (50-80)
[2017-02-03 06:52] LABS: BAND NEUTROPHILS % 0 % (0-10); BASOPHILS % (MANUAL) 1 % (0-1); EOSINOPHILS % (MANUAL) 2 % (0-8); LYMPHOCYTES % (MANUAL) 43 % (10-50); MONOCYTES % (MANUAL) 7 % (0-12)
[2017-02-03] MEDS: NICOTINE 21 MG /DAY PATCH TRANSDERM SCH (08:40)
[2017-02-03] MEDS: OXYCODONE 40 MG PO SCH (08:41)
[2017-02-03] MEDS: Spironolactone Tab 50 MG TAB PO SCH (08:41)
[2017-02-03] MEDS: Metoprolol TARTRATE Tab 25 MG TAB PO SCH (08:42)
[2017-02-03] MEDS: ESTRADIOL 4 MG PO SCH (08:50)
[2017-02-03 08:53] VITALS: RESP 20; TEMP 98.7
[2017-02-03] MEDS ORDERED: metroNIDAZOLE Tab 500 MG TAB PO SCH (09:00)
[2017-02-03] MEDS ORDERED: CIPROFLOXACIN 500 MG TABLET PO SCH (09:00)
--- NOTE | 2017-02-15 11:45 | DCSUMMARY ---
Discharge Summary Admit Date: 02/01/17 Discharge Date: 02/03/17 Admitting Diagnosis: postoperative abscess Discharge Diagnosis: Postoperative abscess Primary Surgery and Date: 02/01/2017 I&D of an abscess Hospital Course: Patient came in with fever. CT scan showed she had a 6 cm abscess. The abscess cannot be drained percutaneously therefore she was taken to surgery for an I&D of abscess. Patient had loculations of abscess that were broken up at the time. Drain was placed. Postoperatively patient did very well. Her white count returned to normal. She was afebrile. Only having serous fluid out of the wound. Patient was able to be discharged on antibiotics and the drain. She 'll follow-up in one week's time. The patient will be discharged on her normal pain medication. This will be managed by her primary care provider. Joanna does understand from her use of narcotics that she is going to have pain that may not be controlled by her normal dose of her narcotics. Therefore, she is always 1 have some postoperative pain. Exam - Vitals Vital Signs: Vital Signs Temperature 98.7 F Temperature Source Temporal Artery Scan Pulse Rate [Pulse Oximeter] 93 Pulse Rate [Apical] 90 Pulse Rate 97 Respiratory Rate 20 Blood Pressure [Right Arm] 123/81 Blood Pressure [Left Arm] 110/64 Blood Pressure 122/76 Pulse Ox 94 Oxygen Flow Rate 2.5 Oxygen Flow Rate 3 Oxygen Delivery Method Room Air Height 5 ft 9 in Weight 80.921 kg - General General Appearance: POSITIVE: No Acute Distress, Cooperative - Respiratory Respiratory Exam: POSITIVE: Clear to Auscultation - Bilaterally - Cardiovascular Cardiovascular Exam: POSITIVE: RRR - GI/Abdominal GI/Abdominal Exam: POSITIVE: Non Tender, Non Distended Patient Problems - Patient Problem List (1) Postoperative abscess Status: Acute
== END 2017-02-03 11:56 | disposition home or self-care (01) | DRG 356 ==
LOC: CT 10:14 → MED/SURG 12:00 → OPS 13:45 → MED/SURG 15:55
PROVIDERS: ADMIT Surgery; ATTEND Surgery
PROC: 0W9G00Z Drainage of Peritoneal Cavity with Drainage Device, Open Approach (ICD-10-PCS; principal; 2017-02-01 13:00)
DX: R10.30 Lower abdominal pain, unspecified (principal); K35.3 Acute appendicitis with localized peritonitis; R50.82 Postprocedural fever; Z09 Encounter for follow-up examination after completed treatment for conditions other than malignant neoplasm
CPT/HCPCS: 36415; 74177; 80048; 85007; 85025; 87070; 87075; 87077; 87185; 87186; 87205; 87641; 94150; 94761; J0131; J1170; J1200; J1335; J1644; J2175; J2250; J2270; J2405; J2550; J3010; J7050; J7120

== ENCOUNTER 2017-02-12 11:58 | Inpatient (IN) | payer OTHER ==
[2017-02-12] MEDS ORDERED: NORMAL SALINE 10 ML SYRINGE FLUSH IVP PRN ×2 (12:24→16:19)
[2017-02-12] MEDS ORDERED: ONDANSETRON 4 MG/2 ML VIAL IVP ONE (12:24)
[2017-02-12] MEDS ORDERED: Sodium Chloride 0.9% 1,000 ML PRIMARY IV ONE (12:24)
[2017-02-12] MEDS ORDERED: HYDROmorphone 2 MG/1 ML IVP ONE ×2 (12:24→13:48)
[2017-02-12 13:10] LABS: BASOPHILS # (AUTO) 0.06 10*3/UL; BASOPHILS % (AUTO) 0.9 % (0-1); EOSINOPHILS # (AUTO) 0.24 10*3/UL; EOSINOPHILS % (AUTO) 3.4 % (0-8); HEMATOCRIT 46.4 % (37.0-47.0); HEMOGLOBIN 15.5 g/dL (12.0-16.0); MEAN CORPUSCULAR HEMOGLOBIN 31.7 PG (27-31); MEAN CORPUSCULAR HGB CONC 33.4 g/dL (33-37); MEAN CORPUSCULAR VOLUME 94.9 FL (81-99); MEAN PLATELET VOLUME 10.5 FL (7.4-12.2); MONOCYTES # (AUTO) 0.59 10*3/UL (0.3-0.8); MONOCYTES % (AUTO) 8.4 % (5-15); NEUTROPHILS # (AUTO) 3.63 10*3/UL; NEUTROPHILS % (AUTO) 51.6 % (50-80); RED BLOOD COUNT 4.89 10^6/uL (4.20-5.40)
[2017-02-12 13:14] LABS: PLATELET MORPHOLOGY COMMENT NORMAL MORPHOLOGY (NORM); RBC MORPHOLOGY COMMENT NORMAL MORPHOLOGY (NORM); WBC MORPHOLOGY COMMENT NORMAL MORPHOLOGY (NORM)
[2017-02-12 13:21] LABS: BLOOD UREA NITROGEN 7 mg/dL (7-22); CALCIUM 9.6 mg/dL (8.7-10.7); EST GLOMERULAR FILTRATION > 60 (>60 ml/min/1.73m(2)); LIPASE 148 IU/L (23-300); SERUM ALBUMIN 4.7 g/dL (3.5-4.8)
[2017-02-12] MEDS ORDERED: methylPREDNISolone 125 MG/2 ML VIAL IVP ONE (13:35)
[2017-02-12] MEDS ORDERED: diphenhydrAMINE 50 MG/1 ML VIAL IVP ONE (13:35)
--- NOTE | 2017-02-12 14:35 | DI ---
HISTORY: Abdominal pain. Rupture of operative images and site with pus. Appendectomy on 01/22/2017. Post operative abscess 02/01/2017. COMPARISON: Prior study of 02/01/2017. TECHNIQUE: Contiguous axial enhanced images of the abdomen and pelvis were obtained from the lung ba ses through the ischial tuberosities. The images were then submitted for interpretation. FINDINGS: There are bilateral breast implants. Limited sections of the lung bases demonstrate no foc al pulmonary mass. ThelLiver, spleen, gallbladder, pancreas, both kidneys, and both adrenal glands demonstrate no acute interval change. Cystic-appearing lesion, and calcification in the left kidney appear stable. The previously noted intraperitoneal abscess in the right lower quadrant, is smaller. This measures probably 1.4 cm in the current study, and was approximately 6.0 cm on the prior study. The patient is status post appendectomy. There is a residual phlegmon noted in the right lower quadr ant. The urinary bladder is partially distended. The uterus is not clearly identified. The aorta and IVC demonstrate no acute findings. There is moderate constipation. The small bowel loops are not dilated. There is no free intraperito hermilo air. There is subcutaneous emphysema overlying the skin of the right lower quadrant. Visualized osseous structures demonstrate no destructive abnormality. IMPRESSION: 1. Compared to prior exam, the right lower quadrant abscess is smaller. There is a phlegmon in the r ight lower quadrant. Oral and rectal contrast would be helpful. Fistulas cannot be excluded.
[2017-02-12] MEDS ORDERED: Meperidine Inj 50 MG/ML CARPUJECT IVP PRN (16:07)
[2017-02-12 16:18] LABS: BILIRUBIN,URINE NEGATIVE (NEG); CLARITY,URINE CLEAR (CLEAR); COLOR,URINE YELLOW; GLUCOSE, URINE (UA) NEGATIVE (NEG); NITRATE,URINE NEGATIVE (NEG); OCCULT BLOOD,URINE NEGATIVE (NEG); PH,URINE 5.5 (5.0-8.5); PROTEIN,URINE NEGATIVE (NEG); URINE SAMPLE TYPE CLEAN CATCH URINE; UROBILINOGEN,URINE 0.2 EU/dL (0.2)
[2017-02-12] MEDS ORDERED: LIDOCAINE W/ SODIUM BICARB 0.5 ML SYR SUBD PRN (16:19)
[2017-02-12] MEDS ORDERED: OXYCODONE HCL PO PRN (16:19)
--- NOTE | 2017-02-12 16:21 | PDOC ---
History and Physical - History of Present Illness History of Present Illness: This very nice 31-year-old patient with past medical history significant for multiple postop infections on chronic antibiotics was seen by infectious disease in [place] on chronic antibiotics the patient no longer sees them. Had some right lower quadrant pain in early January diagnosed with appendicitis with CT scan and was taken to the OR by Dr. ana Shook she had a postop abscess which was taking care of Dr. ana Shook and the patient apparently is on Clinda and Keflex at one time now Cipro. Comes back to the ER because her wound dehiscence and abscess on CT scan in the right lower quadrant but only 1.5 cm compared to 6 it was earlier in the month. She states that she is resistant to antibiotics Dr. Graham and discussed the case with Dr. Wright he called me and he wanted the patient on Invanz. I added that 1 g of Vanco 1 because of her gram-positive cocci on initial Gram stain. At present time the patient is comfortable with her usual home meds for chronic pain but the patient states that last time she was here she had to have some Demerol on top of what she usually takes. Demerol is the only medication that did help her after multiple trials of others Past Medical History Medical History: Status post excision of thymoma. Breast augmentation. Appendectomy Surgical History: Hip surgery. Hernia repair about 6 months ago. Breast augmentation. Boxers fracture repair on right hand with subsequent hardware removal with one of the screws having a broken had and still being in place. Patient states that her last surgery was about 8 years ago or so for this. Pertinent Family History: Significant for diabetes Past Social History: He is engaged and has a fianc. Smokes. 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 Tobacco Use: Current Every Day Smoker Do you dip or chew tobacco: No Substance Use Type: Opiate Pain Medication Medication / Allergies Home Medications: Home Medications Medication Instructions Recorded Confirmed Type Estradiol 2 tab PO BID 10/14/15 02/01/17 History Spironolactone 1 tab PO DAILY 10/14/15 02/01/17 History Amitriptyline HCl 2 tab PO BEDTIME 01/22/17 02/01/17 History Metoprolol Tartrate Tab 1 tab PO BID 02/01/17 02/01/17 History [Lopressor Tab] Promethazine HCl [Phenergan] 1 tab PO BEDTIME 02/01/17 02/01/17 History Ciprofloxacin HCl [Cipro HCl] 500 mg PO BID #14 tab 02/03/17 Rx metroNIDAZOLE Tab [Flagyl Tab] 500 mg PO TID #21 tab 02/03/17 Rx Ondansetron [Ondansetron Odt] 1 tab PO Q8H PRN tab 02/07/17 History Oxycodone HCl 2 tab PO Q4H PRN tab 02/07/17 History Oxycodone HCl [Oxycodone Hcl Er] 1 tab PO BID tab 02/07/17 History Allergies/Adverse Reactions: Allergies Allergy/AdvReac Type Severity Reaction Status Date / Time cyclobenzaprine HCl Allergy Severe HIVES Verified 02/02/17 22:40 [From Flexeril] venom-honey bee Allergy Severe Anaphylaxis Verified 02/02/17 22:40 [bee venom (honey bee)] iodine Allergy Intermediate RASH Verified 02/02/17 22:40 Iodine and Iodide Containing Allergy Intermediate VOMITING Verified 02/02/17 22: 40 Produc ketorolac tromethamine Allergy Intermediate HIVES Verified 02/02/17 22:40 [From Toradol] lactose [Lactose] Allergy Intermediate NOT Verified 02/02/17 22:40 APPLICABLE adhesive tape AdvReac Intermediate RASH Verified 02/02/17 22:40 SEA FOOD AdvReac Intermediate HIVES Uncoded 02/02/17 22:40 Review of Systems - Review of Systems All Systems: Reviewed & No Additional Complaints Except as Stated - Respiratory Respiratory: DENIES: Negative System Review, Cough, Sputum, Dyspnea At Rest, Dyspnea with Exertion, Pleuritic Pain, Hemoptysis, Wheezing, Other, See HPI - Cardiovascular Cardiovascular: DENIES: Negative System Review, Chest Pain, Edema, Syncope, Palpitations, Orthopnea, Paroxysmal Nocturnal Dyspnea, Other, See HPI - Gastrointestinal Gastrointestinal / Abdominal: REPORTS: See HPI - Neurological Neurologic: DENIES: Negative System Review, Headache, Numbness/Paresthesia, Tremors, Weakness, Seizures, Head Trauma, LOC, Dizziness, Confusion, Memory Loss , Difficulty Walking, Incoordination, Other, See HPI Exam - Vitals Vital Signs: Vital Signs Temperature 98.2 F Temperature Source Temporal Artery Scan Pulse Rate [Pulse Oximeter 119 Radial] Pulse Rate 101 Respiratory Rate 16 Blood Pressure [Right Arm] 101/74 Blood Pressure 122/82 Pulse Ox 98 Oxygen Delivery Method Room Air Height 5 ft 9 in Weight 72.575 kg - General General Appearance: POSITIVE: No Acute Distress, Cooperative - Head Head Exam: POSITIVE: Normal Inspection, Normocephalic, Atraumatic - Respiratory Respiratory Exam: POSITIVE: Clear to Auscultation - Bilaterally, Breathing Non Labored, Normal To Percussion - Cardiovascular Cardiovascular Exam: POSITIVE: RRR, No Murmur, No Clicks, No Gallops - GI/Abdominal GI/Abdominal Exam: POSITIVE: Normal Bowel Sounds, Non Tender, Non Distended, Soft Additional GI/Abdominal Exam Details: Wound the right lower quadrant is that he states does not look red - Extremities Extremities Exam: POSITIVE: No Clubbing Present, No Edema Present - Neurological Neurological Exam: POSITIVE: Alert, Oriented x 3, CN II-XII Intact, No Facial Droop, Speech Intact / Clear Results - Labs CBC and BMP: 02/12/17 12:40 02/12/17 12:40 Labs - Last 24 Hours: Laboratory Results 02/12/17 Range/Units 12:40 WBC 7.03 (4.8-10.8) 10^3/uL RBC 4.89 (4.20-5.40) 10^6/uL Hgb 15.5 (12.0-16.0) g/dL Hct 46.4 (37.0-47.0) % MCV 94.9 (81-99) FL MCH 31.7 H (27-31) PG MCHC 33.4 (33-37) g/dL RDW Std Deviation 44.2 (39-50) fL RDW Coeff of Brennan 13.1 (11.5-14.5) % Plt Count 436 H (140-350) 10*3/uL MPV 10.5 (7.4-12.2) FL Immature Gran % (Auto) 0.1 (0-5) % Neut % (Auto) 51.6 (50-80) % Lymph % (Auto) 35.6 (10-50) % Falls % (Auto) 8.4 (5-15) % Eos % (Auto) 3.4 (0-8) % Baso % (Auto) 0.9 (0-1) % Immature Gran # (Auto) 0.01 10*3/UL Neut # (Auto) 3.63 10*3/UL Lymph # (Auto) 2.50 10*3/uL Falls # (Auto) 0.59 (0.3-0.8) 10*3/UL Eos # (Auto) 0.24 10*3/UL Baso # (Auto) 0.06 10*3/UL WBC Morphology Comment Normal morphology (NORM) Plt Morphology Comment Normal morphology (NORM) RBC Morph Comment Normal morphology (NORM) Sodium 139 (135-145) meq/L Potassium 4.4 (3.8-5.2) meq/L Chloride 102 (98-112) meq/L Carbon Dioxide 23 (23-33) meq/L Anion Gap 14 (5-20) BUN 7 (7-22) mg/dL Creatinine 0.7 (0.50-1.20) mg/dL Estimated GFR > 60 (>60 ml/min/1.73m(2)) BUN/Creatinine Ratio 10.00 (6-20) Glucose 84 (78-110) mg/dL Calculated Osmolality 284.0 (267-292) mOsm/kg Calcium 9.6 (8.7-10.7) mg/dL Total Bilirubin 0.3 (0.3-1.2) mg/dL AST 20 (8-39) IU/L ALT 36 (9-52) IU/L Alkaline Phosphatase 122 (38-126) IU/L Total Protein 8.4 H (6.1-8.0) g/dL Albumin 4.7 (3.5-4.8) g/dL Globulin 3.7 (2.50-4.10) g/dL Albumin/Globulin Ratio 1.20 L (1.3-2.0) mg/g Amylase 115 H (30-110) U/L Lipase 148 (23-300) IU/L Assessment and Plan - Patient Problems (1) Postoperative abscess Current Visit: No Status: Acute Comment: Case was discussed with general surgery Dr. Graham will discuss this with the ER and nurses for wound dressing and antibiotics (2) Wound dehiscence Current Visit: Yes Status: Acute Comment: Deferred to general surgery patient will like to see the surgeon that was involved initially which is Dr. ana Shook I will give him a call tomorrow (3) Chronic pain syndrome Current Visit: No Status: Acute Comment: Resume home meds
[2017-02-12] MEDS: Meperidine Inj 50 MG/ML CARPUJECT IVP PRN ×3 (16:40→23:21)
[2017-02-12] MEDS: Ertapenem Inj 1 GM in Sodium Chloride 0.9% 100 ML IV SCH (16:48)
[2017-02-12] MEDS ORDERED: oxyCODONE IR Tab 15 MG TAB PO PRN (17:01)
[2017-02-12] MEDS: oxyCODONE IR Tab 15 MG TAB PO PRN ×2 (17:20→20:50)
--- NOTE | 2017-02-12 17:25 | CONSULT ---
Consult Note - Consult Consult Date: 02/12/17 Reason for Consult: PreOp Consulation : General Surgery Requesting Physician: Dr. Johana Haynes Primary Care Provider: Rodney Rangel MD - History of Present Illness History of Present Illness: Patient is a 31-year-old who underwent laparoscopic appendectomy on 01/22/2017. Her appendix was normal without appendicitis. She had postoperative fever and chills. On 02/01/[address] scan which showed a large abscess. Interventional radiology felt it was not amenable to percutaneous drainage. Dr. Rangel took her back to surgery and did an open drainage of the abscess. A Brian-Yang drain was placed. Cultures grew Escherichia coli on the aerobic cultures and Bacteroides fragilis on the anaerobic cultures. She was sent home on Augmentin. She saw Dr. Rangel last week on 02/07/2017 and he removed the drain. She presented to the emergency room today. The wound had dehisced. She reports greenish yellow thick drainage. Her white count was normal. She reports fevers at home to 103. She is eating okay. Her bowel function is normal. CT scan was done which shows a small 1.4 cm abscess with a surrounding phlegmon. Patient has been on antibiotics for a long time, she reports the last year and a half. These have mostly been for a staph infection in her arm. Patient was admitted to the hospitalist service and I'm asked to see her in consultation. Review of Systems - Constitutional Constitutional: REPORTS: Fever/Chills, See HPI - Gastrointestinal Gastrointestinal / Abdominal: REPORTS: Abdominal Pain, See HPI Past Medical History Medical History: Status post excision of thymoma. Breast augmentation. Appendectomy Surgical History: Hip surgery. Hernia repair about 6 months ago. Breast augmentation. Boxers fracture repair on right hand with subsequent hardware removal with one of the screws having a broken had and still being in place. Patient states that her last surgery was about 8 years ago or so for this. Excision of thymoma. Appendectomy, laparoscopic. Open drainage of wound abscess with drain placement. Pertinent Family History: Significant for diabetes Past Social History: He is engaged and has a fianc. Smokes. 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 Tobacco Use: Current Every Day Smoker Do you dip or chew tobacco: No Substance Use Type: Opiate Pain Medication Medication / Allergies Home Medications: Home Medications Medication Instructions Recorded Confirmed Type Estradiol 2 tab PO BID 10/14/15 02/01/17 History Spironolactone 1 tab PO DAILY 10/14/15 02/01/17 History Amitriptyline HCl 2 tab PO BEDTIME 01/22/17 02/01/17 History Metoprolol Tartrate Tab 1 tab PO BID 02/01/17 02/01/17 History [Lopressor Tab] Promethazine HCl [Phenergan] 1 tab PO BEDTIME 02/01/17 02/01/17 History Ciprofloxacin HCl [Cipro HCl] 500 mg PO BID #14 tab 02/03/17 Rx metroNIDAZOLE Tab [Flagyl Tab] 500 mg PO TID #21 tab 02/03/17 Rx Ondansetron [Ondansetron Odt] 1 tab PO Q8H PRN tab 02/07/17 History Oxycodone HCl 2 tab PO Q4H PRN tab 02/07/17 History Oxycodone HCl [Oxycodone Hcl Er] 1 tab PO BID tab 02/07/17 History Allergies/Adverse Reactions: Allergies Allergy/AdvReac Type Severity Reaction Status Date / Time cyclobenzaprine HCl Allergy Severe HIVES Verified 02/02/17 22:40 [From Flexeril] venom-honey bee Allergy Severe Anaphylaxis Verified 02/02/17 22:40 [bee venom (honey bee)] iodine Allergy Intermediate RASH Verified 02/02/17 22:40 Iodine and Iodide Containing Allergy Intermediate VOMITING Verified 02/02/17 22: 40 Produc ketorolac tromethamine Allergy Intermediate HIVES Verified 02/02/17 22:40 [From Toradol] lactose [Lactose] Allergy Intermediate NOT Verified 02/02/17 22:40 APPLICABLE adhesive tape AdvReac Intermediate RASH Verified 02/02/17 22:40 SEA FOOD AdvReac Intermediate HIVES Uncoded 02/02/17 22:40 Exam - Vitals Vital Signs: Vital Signs Pulse Rate [Pulse Oximeter 107 Radial] Respiratory Rate 20 Oxygen Delivery Method Room Air Height 5 ft 9 in Weight 72.575 kg - General General Appearance: POSITIVE: No Acute Distress, Cooperative - Respiratory Respiratory Exam: POSITIVE: Clear to Auscultation - Bilaterally, Breathing Non Labored - Cardiovascular Cardiovascular Exam: POSITIVE: RRR, No Murmur - GI/Abdominal GI/Abdominal Exam: POSITIVE: Normal Bowel Sounds, Non Distended, Soft Additional GI/Abdominal Exam Details: Open right lower quadrant appendectomy incision. Minimal drainage at this time. Tender around the incision. Results - Labs CBC and BMP: 02/12/17 12:40 02/12/17 12:40 - Imaging Status: Image Reviewed by Me, Report Reviewed by Me Assessment and Plan - Patient Problems (1) status post drainage intra-abdominal abs Current Visit: Yes Status: Acute Priority: High Diagnosis Date: 02/01/17 Comment: Abscess incompletely treated. Have recommended admission for inpatient antibiotics. Would recommend at least 3 days of inpatient IV antibiotics. With her failure of oral antibiotics probably needs to complete a 10 day course of IV antibiotics. We will consider an additional 7-10 days of oral antibiotics after the IV antibiotics have been completed. Sometime around 5-7 days I would consider a follow-up CT scan to check for resolution of the abscess. The phlegmon and 1.4 cm abscess should resolve with appropriate antibiotics. We will check the cultures from the current wound infection when they are available. I discussed all this in detail with the patient. We will proceed as outlined. There is no indication for surgical intervention at this time. (2) Wound dehiscence Current Visit: Yes Status: Acute Priority: High Diagnosis Date: 02/12/17 Comment: This is secondary to a postoperative wound infection. We will need to treat with twice a day normal saline and gauze dressing changes. Wound will need to heal by secondary intention. No evidence of fascial disruption. (3) Status post laparoscopic appendectomy Current Visit: Yes Status: Acute Priority: Low Diagnosis Date: 01/22/17 Comment: Complicated by postoperative intra-abdominal abscess.
--- NOTE | 2017-02-12 19:09 | PDOC ---
Abdomen/Flank HPI - General Chief Complaint: Integumentary Stated Complaint: RIGHT ABDOMINAL SURGICAL SITE DEHISCENCE Date Seen by Provider: 02/12/17 Time Seen by Provider: 12:05 Source: POSITIVE: Patient, Old records Exam Limitations: POSITIVE: No limitations Nurse's Notes Reviewed & Considered: Yes - History of Present Illness Initial Comments: The patient is 31 years old. 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 Patient underwent an appendectomy 3 weeks ago. He states that 10 or 11 days ago patient developed a intra-abdominal abscess and had repeat surgery for its drainage. Patient states that yesterday he began to notice some "leaking of fluid"at the incision site in the right lower quadrant. 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 Patient states he thinks he may have been running a fever for the last 5-6 days. Patient has had a resection of a thymoma in the past. No vomiting, diarrhea, melena, hematochezia, hematemesis, dysuria or hematuria. Body Location Affected: REPORTS: Abdomen Timing: REPORTS: Abrupt Duration: 1-3 hours Severity: Moderate Quality: REPORTS: "Pain" Abdominal Pain Onset Location: REPORTS: RLQ Abdominal Pain Radiation: REPORTS: No radiation Context: REPORTS: Other (Patient states he was "stretching out" when the surgical site dehisced.), Recent Surgery (As above) Modifying Factors: improves with: Nothing Associated Symptoms: REPORTS: Fever (Possibly). DENIES: Denies symptoms, Back pain, Bloody Emesis, Chest pain, Coffee Grounds Emesis, Chills, Diaphoresis, Fatigue, Headache, Heartburn, Loss of Appetite, Nausea, Rash, Shortness of breath, Swelling/mass in abdomen, Syncope, Testicular Pain, Vomiting, Weakness, Grossly Bloody Diarrhea, Constipation, Diarrhea, Dysuria, Incontinent Stool, Incontinent Urine, Mucous Diarrhea, Difficulty Walking, Dizziness, Light Headedness, Numbness, Other Similar Symptoms Previously: Yes (as above) Recent Care Received: REPORTS: Recently Seen, Treated by MD, Hospitalized, Surgery (As above) Any Prior Injuries Related to Current Complaint?: No - Patient Home Medications Home Medications: Home Medications Estradiol 2 tab PO BID 10/14/15 Spironolactone 1 tab PO DAILY 10/14/15 Amitriptyline HCl 2 tab PO BEDTIME 01/22/17 Metoprolol Tartrate Tab [Lopressor Tab] 1 tab PO BID 02/01/17 Promethazine HCl [Phenergan] 1 tab PO BEDTIME 02/01/17 Ciprofloxacin HCl [Cipro HCl] 500 mg PO BID #14 tab 02/03/17 metroNIDAZOLE Tab [Flagyl Tab] 500 mg PO TID #21 tab 02/03/17 Ondansetron [Ondansetron Odt] 1 tab PO Q8H PRN tab 02/07/17 Oxycodone HCl 2 tab PO Q4H PRN tab 02/07/17 Oxycodone HCl [Oxycodone Hcl Er] 1 tab PO BID tab 02/07/17 - Patient Allergies Allergies/Adverse Reactions: Allergies Allergy/AdvReac Type Severity Reaction Status Date / Time cyclobenzaprine HCl Allergy Severe HIVES Verified 02/02/17 22:40 [From Flexeril] venom-honey bee Allergy Severe Anaphylaxis Verified 02/02/17 22:40 [bee venom (honey bee)] iodine Allergy Intermediate RASH Verified 02/02/17 22:40 Iodine and Iodide Containing Allergy Intermediate VOMITING Verified 02/02/17 22: 40 Produc ketorolac tromethamine Allergy Intermediate HIVES Verified 02/02/17 22:40 [From Toradol] lactose [Lactose] Allergy Intermediate NOT Verified 02/02/17 22:40 APPLICABLE adhesive tape AdvReac Intermediate RASH Verified 02/02/17 22:40 SEA FOOD AdvReac Intermediate HIVES Uncoded 02/02/17 22:40 Past Medical History - heen HEENT History: Deaf Additional HEENT History: 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 Blood Disorders: Other (please comment) Additional Blood Disorders History: DVT Psychiatric History: Denies History Additional Psychiatric History: hx self cutting History of Sexually Transmitted Diseases: No Obstetrical History: Denies History Cancer History: Other (please comment) Cancer Treatment / Date(s) of Treatment: 2001 In Past Year Been Physically Harmed or Verbally Threatened: No History of MDRO: No Other Type of MDRO: staph History of Other Communicable Diseases: No History of Exposure to Communicable Disease: No Tobacco Use: Current Every Day Smoker Alcohol Use: None Substance Use Type: Opiate Pain Medication Previous Surgical History: Yes Type / Date of Surgery: BREAST AUGMENTATION, RIGHT KNEE SURG.X3, RIGHT HAND SURG.X3, ORCHIECTOMY, TONSILLECTOMY, LYMPH NODE REMOVAL.; OPEN HEART SURGERY, THYMOMA REMOVAL; HERNIA REPAIR Anesthesia Reactions: No Malignant Hyperthermia: No Significant Family History: Asthma, Heart disease, Cancer, Diabetes, Hypertension Past Medical History Reviewed: Reviewed - No Changes ROS - Limitations ROS Limitations: No Limitations Constitution: REPORTS: Fever (Subjectively) Cardiovascular: REPORTS: Denies Cardiac Symptoms Respiratory: REPORTS: Denies Resp Symptoms Neurological: REPORTS: Denies Neuro Symptoms Gastrointestinal: REPORTS: Denies GI Symptoms, Abdominal Pain, Other ( dehiscence of surgical site, appendectomy. As above) Endocrine: REPORTS: Denies Symptoms Musculoskeletal: REPORTS: Denies MS Symptoms Genitourinary: REPORTS: Denies Symptoms Eyes: REPORTS: Denies Symptoms ENT: REPORTS: Denies Symptoms Skin: REPORTS: Denies Skin Symptoms Lympathic: REPORTS: Denies Lympathic Symptoms Immunologic: POSITIVE: Denies Symptoms Psychiatric: POSITIVE: Denies Psych Symptoms Abdominal/Flank Pain PE - General Appearance General Appearance: POSITIVE: Alert, Cooperative, No Acute Distress, No Evidence of Trauma - HEENT HEENT: POSITIVE: Head Inspection Nml, Eyes Inspection Nml, Ears Inspection Nml, Nose Inspection Nml, Oral/Dental Inspect. Nml, Pharynx Inspect. Nml, PERRL, EOMI - Neck Neck: POSITIVE: Normal Inspection, No Apparent Injury - Respiratory Respiratory: POSITIVE: No Respiratory Distress, Breath Sounds Normal, Chest Non- Tender - Cardiovascular Cardiovascular: POSITIVE: Regular Rate and Rhythm, Heart Sounds Normal, Equal Pulses, Strong Pulses Peripheral Pulses: Radial (R): 2+, Radial (L): 2+ - Chest Chest: POSITIVE: Non Tender - Abdomen Abdomen: Soft: (All Quadrants), Normal Bowel Sounds: (All Quadrants), Denies Tenderness: (LLQ), (LUQ), (RUQ), No Splenomegaly: (All Quadrants), No Hepatomegaly: (All Quadrants), No Guarding: (All Quadrants), No Rebound: (All Quadrants), No Palpable Pulse: (All Quadrants), No Palpabale Mass: (All Quadrants), No Distention: (All Quadrants), No Rigidity: (All Quadrants), Tenderness Noted: (RLQ) Additional Abdominal Details: Abdominal examination shows surgical site from previous appendectomy to be dehisced. Dehiscence probed. Underlying fascia appears to be intact. Mild surrounding erythema. Patient has local tenderness on direct palpation about the surgical site. Wound cultures taken along with Gram stain. - Back Back: POSITIVE: Normal Inspection. 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 There is some residual phlegmon noted in the right lower quadrant. Lab Results Reviewed: Yes Lab Results:: Laboratory Results 02/12/17 02/12/17 Range/Units 12:24 12:40 WBC 7.03 (4.8-10.8) 10^3/uL RBC 4.89 (4.20-5.40) 10^6/uL Hgb 15.5 (12.0-16.0) g/dL Hct 46.4 (37.0-47.0) % MCV 94.9 (81-99) FL MCH 31.7 H (27-31) PG MCHC 33.4 (33-37) g/dL RDW Std Deviation 44.2 (39-50) fL RDW Coeff of Brennan 13.1 (11.5-14.5) % Plt Count 436 H (140-350) 10*3/uL MPV 10.5 (7.4-12.2) FL Immature Gran % (Auto) 0.1 (0-5) % Neut % (Auto) 51.6 (50-80) % Lymph % (Auto) 35.6 (10-50) % Summers % (Auto) 8.4 (5-15) % Eos % (Auto) 3.4 (0-8) % Baso % (Auto) 0.9 (0-1) % Immature Gran # (Auto) 0.01 10*3/UL Neut # (Auto) 3.63 10*3/UL Lymph # (Auto) 2.50 10*3/uL Summers # (Auto) 0.59 (0.3-0.8) 10*3/UL Eos # (Auto) 0.24 10*3/UL Baso # (Auto) 0.06 10*3/UL WBC Morphology Comment Normal morphology (NORM) Plt Morphology Comment Normal morphology (NORM) RBC Morph Comment Normal morphology (NORM) Sodium 139 (135-145) meq/L Potassium 4.4 (3.8-5.2) meq/L Chloride 102 (98-112) meq/L Carbon Dioxide 23 (23-33) meq/L Anion Gap 14 (5-20) BUN 7 (7-22) mg/dL Creatinine 0.7 (0.50-1.20) mg/dL Estimated GFR > 60 (>60 ml/min/1.73m(2)) BUN/Creatinine Ratio 10.00 (6-20) Glucose 84 (78-110) mg/dL Calculated Osmolality 284.0 (267-292) mOsm/kg Calcium 9.6 (8.7-10.7) mg/dL Total Bilirubin 0.3 (0.3-1.2) mg/dL AST 20 (8-39) IU/L ALT 36 (9-52) IU/L Alkaline Phosphatase 122 (38-126) IU/L Total Protein 8.4 H (6.1-8.0) g/dL Albumin 4.7 (3.5-4.8) g/dL Globulin 3.7 (2.50-4.10) g/dL Albumin/Globulin Ratio 1.20 L (1.3-2.0) mg/g Amylase 115 H (30-110) U/L Lipase 148 (23-300) IU/L Ur Collection Type Clean catch urine Urine Color Yellow Urine Clarity Clear (CLEAR) Urine pH 5.5 (5.0-8.5) Ur Specific Pruden <=1.005 (1.005-1.030) Urine Protein Negative (NEG) mg/dl Urine Glucose (UA) Negative (NEG) mg/dL Urine Ketones Negative (NEG) Urine Occult Blood Negative (NEG) Urine Nitrate Negative (NEG) Urine Bilirubin Negative (NEG) Urine Urobilinogen 0.2 (0.2) EU/dL Ur Leukocyte Esterase Negative (NEG) Ur Culture Indicated? Culture not set - Patient's Progress Pain Medication Addressed: POSITIVE: Yes (Patient given Dilaudid IV for pain) School/Work Release Addressed: POSITIVE: Not Applicable Re-examine Time: 14:30 Status: POSITIVE: Unchanged, Re-Examined - Consult Consult (If Yes, Name of Consulting MD & Time Called): Yes (Dr. Graham, surgeon, [id number] Gama, hospitalist, [id number]) Consulting MD will see pt:: POSITIVE: [facility] [place] Admit Counseled: POSITIVE: Patient, RE: Lab Results, RE: Radiology Results, RE: DX, RE : Need for F/U Patient Care Time - Estimated PCT Patient Care Time (In Minutes): 50 Vital Signs - Recent Vital Signs Vital Signs: Vital Signs (Last 8 hours) Temp Pulse Resp BP Pulse Ox 02/12/17 13:30 97.8 F 107 H 20 125/74 95 02/12/17 12:08 97.3 F 119 H 16 101/74 98 - VS Reviewed Vital Signs Reviewed: Yes Discharge Clinical Impression: Abscess, Disruption of external surgical wound Discharge Disposition: Admit to Inpatient Condition: Stable Date Decision to Admit to Inpatient: 02/12/17 Time Decision to Admit to Inpatient: 14:30
[2017-02-12] MEDS: metroNIDAZOLE Tab 500 MG TAB PO SCH (20:26)
[2017-02-12] MEDS: Promethazine Tab 25 MG TAB PO SCH (20:27)
[2017-02-12] MEDS: AMITRIPTYLINE 25 MG TABLET PO SCH (20:27)
[2017-02-12] MEDS: Metoprolol TARTRATE Tab 25 MG TAB PO SCH (20:27)
[2017-02-12] MEDS: oxyCODONE ER 10 MG TAB PO SCH (20:29)
[2017-02-12] MEDS: Acetaminophen 1000mg Inj 1,000 MG in Premix 1 BAG IV PRN (20:31)
[2017-02-12] MEDS: ESTRADIOL 2 MG PO SCH (20:35)
[2017-02-13] MEDS: oxyCODONE IR Tab 15 MG TAB PO PRN ×6 (00:29→20:48)
[2017-02-13] MEDS: Meperidine Inj 50 MG/ML CARPUJECT IVP PRN ×12 (01:32→23:10)
[2017-02-13] MEDS: Acetaminophen 1000mg Inj 1,000 MG in Premix 1 BAG IV PRN ×4 (02:47→20:48)
[2017-02-13 04:58] LABS: BLOOD UREA NITROGEN 8 mg/dL (7-22); BUN/CREATININE RATIO 11.42 (6-20); CALCIUM 8.9 mg/dL (8.7-10.7); EST GLOMERULAR FILTRATION > 60 (>60 ml/min/1.73m(2)); SERUM ALBUMIN 3.6 g/dL (3.5-4.8)
[2017-02-13] MEDS: oxyCODONE ER 10 MG TAB PO SCH (08:45)
[2017-02-13] MEDS: ENOXAPARIN SODIUM 40 MG/0.4 ML SYRINGE SUBCUT SCH (08:45)
[2017-02-13] MEDS: Spironolactone Tab 50 MG TAB PO SCH (08:47)
[2017-02-13] MEDS: metroNIDAZOLE Tab 500 MG TAB PO SCH ×3 (08:47→20:49)
[2017-02-13] MEDS: Metoprolol TARTRATE Tab 25 MG TAB PO SCH ×2 (08:47→20:49)
[2017-02-13] MEDS: ESTRADIOL 2 MG PO SCH ×2 (09:16→22:08)
--- NOTE | 2017-02-13 10:54 | PDOC(PROG) ---
Interval History: Patient is doing great has no complaints her pain is the controlled. Objective : Data - Labs CBC and BMP: 02/12/17 12:40 02/13/17 04:40 Labs - Last 24 Hours: Laboratory Results 02/13/17 Range/Units 04:40 Sodium 137 (135-145) meq/L Potassium 4.5 (3.8-5.2) meq/L Chloride 103 (98-112) meq/L Carbon Dioxide 25 (23-33) meq/L Anion Gap 9 (5-20) BUN 8 (7-22) mg/dL Creatinine 0.7 (0.50-1.20) mg/dL Estimated GFR > 60 (>60 ml/min/1.73m(2)) BUN/Creatinine Ratio 11.42 (6-20) Glucose 153 H (78-110) mg/dL Calculated Osmolality 284.0 (267-292) mOsm/kg Calcium 8.9 (8.7-10.7) mg/dL Total Bilirubin 0.2 L (0.3-1.2) mg/dL AST 15 (8-39) IU/L ALT 26 (9-52) IU/L Alkaline Phosphatase 89 (38-126) IU/L Total Protein 6.6 (6.1-8.0) g/dL Albumin 3.6 (3.5-4.8) g/dL Globulin 3.0 (2.50-4.10) g/dL Albumin/Globulin Ratio 1.20 L (1.3-2.0) mg/g Objective : Exam - General General Appearance: Cooperative - Respiratory Respiratory Exam: Clear to Auscultation - Bilaterally, Breathing Non Labored, Normal To Percussion - Cardiovascular Cardiovascular Exam: RRR, No Murmur, No Clicks - GI/Abdominal GI/Abdominal Exam: Non Tender, Non Distended, Soft Assessment and Plan - Patient Problems (1) Postoperative abscess Current Visit: No Status: Acute Comment: Continue antibiotics and wound care. Wound care was also consulted . Cultures are still pending continue Invanz IV daily patient will need 10 days total. I appreciate Dr. Graham's help in the case from the surgical standpoint (2) Wound dehiscence Current Visit: Yes Status: Acute Priority: High Diagnosis Date: 02/12/17 (3) Chronic pain syndrome Current Visit: No Status: Acute Comment: Pain is controlled with patient's home meds plus additional Demerol which is the only other narcotic that helps from previous and past experiences and IV Tylenol the patient is very happy with the care and pain control
--- NOTE | 2017-02-13 11:56 | PDOC(PROG) ---
Date and Time of Service: 02/13/2017 11:45 AM Interval History: Overall about the same. Pain is controlled. Eating okay. Bowel function normal. Winger some pulling and tearing around the incision last night. Objective : Data - Labs CBC and BMP: 02/12/17 12:40 02/13/17 04:40 Labs - Last 24 Hours: Laboratory Results 02/13/17 Range/Units 04:40 Sodium 137 (135-145) meq/L Potassium 4.5 (3.8-5.2) meq/L Chloride 103 (98-112) meq/L Carbon Dioxide 25 (23-33) meq/L Anion Gap 9 (5-20) BUN 8 (7-22) mg/dL Creatinine 0.7 (0.50-1.20) mg/dL Estimated GFR > 60 (>60 ml/min/1.73m(2)) BUN/Creatinine Ratio 11.42 (6-20) Glucose 153 H (78-110) mg/dL Calculated Osmolality 284.0 (267-292) mOsm/kg Calcium 8.9 (8.7-10.7) mg/dL Total Bilirubin 0.2 L (0.3-1.2) mg/dL AST 15 (8-39) IU/L ALT 26 (9-52) IU/L Alkaline Phosphatase 89 (38-126) IU/L Total Protein 6.6 (6.1-8.0) g/dL Albumin 3.6 (3.5-4.8) g/dL Globulin 3.0 (2.50-4.10) g/dL Albumin/Globulin Ratio 1.20 L (1.3-2.0) mg/g - Vital Signs Vital Signs and I&O: Vital Signs - Last Taken Temperature 98.0 F 02/13/17 09:00 Pulse Rate 90 02/13/17 09:00 Respiratory Rate 20 02/13/17 09:00 Blood Pressure 127/73 02/13/17 09:00 Pulse Ox 93 02/13/17 09:00 Intake and Output (24hr x 4 totals) 02/11/17 02/12/17 02/13/17 02/14/17 05:59 05:59 05:59 05:59 Intake Total 740 700 Output Total 300 600 Balance 440 100 Objective : Exam - General General Appearance: No Acute Distress, Cooperative - Respiratory Respiratory Exam: Clear to Auscultation - Bilaterally, Breathing Non Labored - Cardiovascular Cardiovascular Exam: RRR, No Murmur - GI/Abdominal GI/Abdominal Exam: Normal Bowel Sounds, Non Distended, Soft Additional GI/Abdominal Exam Details: Incision looks good. Gently probed. Fascia is intact. Abdominal exam is benign. Assessment and Plan - Patient Problems (1) status post drainage intra-abdominal abs Current Visit: Yes Status: Acute Priority: High Diagnosis Date: 02/01/17 Comment: Wound infection. Continue wet-to-dry dressing changes. Needs further debridement. Await current cultures. See initial consultation regarding recommendations for antibiotics and follow-up CT scan. Surgery will plan to see every couple days unless an acute problem arises. Please do not hesitate to call if further input is needed. (2) Wound dehiscence Current Visit: Yes Status: Acute Priority: High Diagnosis Date: 02/12/17 Comment: Skin and subcutaneous tissue only. Fascia is intact. Continue local wound care.
[2017-02-13] MEDS: Ertapenem Inj 1 GM in Sodium Chloride 0.9% 100 ML IV SCH (16:18)
[2017-02-13] MEDS: NORMAL SALINE 10 ML SYRINGE FLUSH IVP PRN (19:25)
[2017-02-13] MEDS: OXYCODONE PO SCH ×2 (20:49)
[2017-02-13] MEDS: Promethazine Tab 25 MG TAB PO SCH (20:49)
[2017-02-13] MEDS: AMITRIPTYLINE 25 MG TABLET PO SCH (20:49)
[2017-02-14] MEDS: Meperidine Inj 50 MG/ML CARPUJECT IVP PRN ×11 (01:13→23:35)
[2017-02-14] MEDS: oxyCODONE IR Tab 15 MG TAB PO PRN ×6 (01:14→23:35)
[2017-02-14] MEDS: NORMAL SALINE 10 ML SYRINGE FLUSH IVP PRN ×2 (01:15→19:22)
[2017-02-14] MEDS: Acetaminophen 1000mg Inj 1,000 MG in Premix 1 BAG IV PRN ×4 (03:17→21:04)
--- NOTE | 2017-02-14 08:26 | PDOC(PROG) ---
Interval History: Patient is doing well eating breakfast pain is controlled. No nausea no vomiting no diarrhea no chest pain or shortness of breath Objective : Data - Labs CBC and BMP: 02/12/17 12:40 02/13/17 04:40 Objective : Exam - General General Appearance: No Acute Distress, Cooperative - Respiratory Respiratory Exam: Clear to Auscultation - Bilaterally, Breathing Non Labored, Normal To Percussion - Cardiovascular Cardiovascular Exam: RRR Assessment and Plan - Patient Problems (1) Postoperative abscess Current Visit: No Status: Acute Comment: Continue IV antibiotics cultures pending surgery on case. Pain is controlled (2) Wound dehiscence Current Visit: Yes Status: Acute Priority: High Diagnosis Date: 02/12/17 (3) Chronic pain syndrome Current Visit: No Status: Acute
[2017-02-14] MEDS: ENOXAPARIN SODIUM 40 MG/0.4 ML SYRINGE SUBCUT SCH (09:26)
[2017-02-14] MEDS: Spironolactone Tab 50 MG TAB PO SCH (09:26)
[2017-02-14] MEDS: OXYCODONE PO SCH ×4 (09:26→21:06)
[2017-02-14] MEDS: metroNIDAZOLE Tab 500 MG TAB PO SCH ×3 (09:26→21:05)
[2017-02-14] MEDS: Metoprolol TARTRATE Tab 25 MG TAB PO SCH ×2 (09:27→21:05)
[2017-02-14] MEDS: ESTRADIOL 2 MG PO SCH ×2 (10:22→21:06)
--- NOTE | 2017-02-14 12:05 | PTI REPORT ---
Thank you for the referral of Joanna Prado. She was seen on 02/13/17 for an inpatient evaluation secondary to an abdominal abscess that has dehisced. SUBJECTIVE: The patient is a 31-year-old female. The patient reports a complicated past medical history. She reports that she has been on antibiotics for the past 18 months due to difficulties with other surgical incisions opening up. She states most recently she had an appendectomy performed on 01/26/17 followed by a second surgery on 02/01/17 due to an abscess and at this time she is more than likely going to have a third surgery due to a CT scan revealing another abscess underneath the already present wound. She states she has seen multiple doctors and been on a wide variety of antibiotics and states that incisions dehiscing is something that she has had problems with for the past couple of years. She believes at this time that there is really no dressing that will close her present wound at this time due to the presence of another abscess in the fascia as seen by a CT scan. PAST MEDICAL HISTORY: Past medical history can be found in the patient's medical record. OBJECTIVE FINDINGS: The patient presents with a clean dressing over the wound. At this time upon removal, the wound measures 5 centimeters horizontally x 1 centimeter vertically and is 2 centimeters deep. The wound bed itself presents with approximately 20% granulated tissue and 80% slough tissue. With palpation, the patient reports a pain level of 8 to 9/10 on the verbal analog scale (0=no pain , 10=worst pain) following pain medication application. The wound bed presents with a minimal amount of seropurulent drainage as well as well defined edges. ASSESSMENT: Problem List: Infection Complications from an open wound Physical Therapy Goals: To be met by discharge from inpatient: Patient will promote clean wound healing. Patient's wound will decrease in size. TREATMENT PLAN: Patient will be seen on a PRN basis for wound care per wound presentation. INITIAL TREATMENT: Treatment today consisted of the initial evaluation followed by dressing the wound with a combination of Lidocaine Hydrogel and a Collagen Hydrogel in the wound bed with a Tielle secondary dressing. Both the patient and the nursing staff were educated on the purpose of the Lidocaine Hydrogel for pain purposes as well as the Collagen to promote collagen formation. DANDY
--- NOTE | 2017-02-14 12:23 | PT PM DAY ---
Diagnosis : Abdominal Abscess Dehiscence PM - Physical Therapy S: The patient reports that Dr. Graham came in to see her and states that he is not in agreeance with the current wound care treatment and would still like to have it packed with a wet to dry dressing; however, toward the end of the conversation, Dr. Graham did agree that the Lidocaine Hydrogel may be used to maintain a moist environment as well as to help with pain. O: This afternoon the patient's wound was dressed with a second application of Lidocaine Hydrogel followed by sterile saline soaked 4X4 placed in the wound bed. A: The patient is very frustrated at this point, believing that any type of wound care or wound healing is irrelevant. She was hospitalized, not for the open wound (she has treated multiple open wounds at home before) but because of the cyst laying deeper to that wound. She doesn't understand why there is such a focus on the wound healing vs. why she is not having surgery to dehisce and surgically debride the cyst that she was told she has from the CT scan. P: Continue seeing patient on a PRN basis. We changed wound care to the Lidocaine Hydrogel in the wound bed followed by the sterile saline soaked 4X4s with a secondary dressing per Dr. Graham. DANDY
[2017-02-14] MEDS: ONDANSETRON 4 MG/2 ML VIAL IVP PRN (16:34)
[2017-02-14] MEDS: Ertapenem Inj 1 GM in Sodium Chloride 0.9% 100 ML IV SCH (17:07)
[2017-02-14] MEDS: AMITRIPTYLINE 25 MG TABLET PO SCH (21:05)
[2017-02-14] MEDS: Promethazine Tab 25 MG TAB PO SCH (21:06)
[2017-02-15] MEDS: Meperidine Inj 50 MG/ML CARPUJECT IVP PRN ×6 (01:05→11:25)
[2017-02-15] MEDS: NORMAL SALINE 10 ML SYRINGE FLUSH IVP PRN ×2 (03:25→05:34)
[2017-02-15] MEDS: Acetaminophen 1000mg Inj 1,000 MG in Premix 1 BAG IV PRN ×2 (03:25→09:17)
[2017-02-15] MEDS: ONDANSETRON 4 MG/2 ML VIAL IVP PRN (03:26)
[2017-02-15] MEDS: oxyCODONE IR Tab 15 MG TAB PO PRN ×2 (03:26→09:17)
[2017-02-15 04:48] VITALS: RESP 20
[2017-02-15] MEDS: OXYCODONE PO SCH ×2 (08:44)
[2017-02-15] MEDS: ENOXAPARIN SODIUM 40 MG/0.4 ML SYRINGE SUBCUT SCH (08:44)
[2017-02-15] MEDS: metroNIDAZOLE Tab 500 MG TAB PO SCH (08:47)
[2017-02-15] MEDS: Spironolactone Tab 50 MG TAB PO SCH (08:47)
[2017-02-15] MEDS: Metoprolol TARTRATE Tab 25 MG TAB PO SCH (08:48)
[2017-02-15 09:07] VITALS: TEMP 97.4
[2017-02-15] MEDS: ESTRADIOL 2 MG PO SCH (11:18)
--- NOTE | 2017-02-15 11:18 | PDOC(PROG) ---
Date and Time of Service: 02/15/2017 at 1120 Interval History: Patient is a she did very well. Having no problems. Objective : Data - Labs CBC and BMP: 02/12/17 12:40 02/13/17 04:40 - Vital Signs Vital Signs and I&O: Vital Signs - Last Taken Temperature 97.4 F 02/15/17 09:00 Pulse Rate 88 02/15/17 09:00 Respiratory Rate 20 02/15/17 09:00 Blood Pressure 112/61 02/15/17 09:00 Pulse Ox 95 02/15/17 09:00 Intake and Output (24hr x 4 totals) 02/13/17 02/14/17 02/15/17 02/16/17 05:59 05:59 05:59 05:59 Intake Total 740 2530 1586 Output Total 300 1200 200 Balance 440 1330 1386 Objective : Exam - General General Appearance: No Acute Distress - GI/Abdominal Additional GI/Abdominal Exam Details: Wound is clean dry not erythematous abdomen soft nontender Assessment and Plan - Patient Problems (1) Dehiscence of external operation wound Current Visit: Yes Status: Acute - Assessment / Plan Additional Assessment/Plan Details: Would agree with current management of Invanz for 1 week and local wound care.
--- NOTE | 2017-02-15 11:45 | DCSUMMARY ---
Hospitalization Summary Hospital Course: Final Discharge Diagnosis: Current Visit Problems Problem Status Priority Diagnosed Code Wound dehiscence Acute High 02/12/17 T81.30XA status post drainage intra-abdominal abs Acute High 02/01/17 Status post laparoscopic appendectomy Acute Low 01/22/17 Z90.49 Abscess Acute L02.91 Dehiscence of external operation wound Acute T81.31XA Diagnostic Data, Laboratory Data, and Procedures of Signifigance: Laboratory Results 02/12/17 02/12/17 02/13/17 Range/Units 12:24 12:40 04:40 WBC 7.03 (4.8-10.8) 10^3/uL RBC 4.89 (4.20-5.40) 10^6/uL Hgb 15.5 (12.0-16.0) g/dL Hct 46.4 (37.0-47.0) % MCV 94.9 (81-99) FL MCH 31.7 H (27-31) PG MCHC 33.4 (33-37) g/dL RDW Std Deviation 44.2 (39-50) fL RDW Coeff of Brennan 13.1 (11.5-14.5) % Plt Count 436 H (140-350) 10*3/uL MPV 10.5 (7.4-12.2) FL Immature Gran % (Auto) 0.1 (0-5) % Neut % (Auto) 51.6 (50-80) % Lymph % (Auto) 35.6 (10-50) % Andrews % (Auto) 8.4 (5-15) % Eos % (Auto) 3.4 (0-8) % Baso % (Auto) 0.9 (0-1) % Immature Gran # (Auto) 0.01 10*3/UL Neut # (Auto) 3.63 10*3/UL Lymph # (Auto) 2.50 10*3/uL Andrews # (Auto) 0.59 (0.3-0.8) 10*3/UL Eos # (Auto) 0.24 10*3/UL Baso # (Auto) 0.06 10*3/UL WBC Morphology Comment Normal morphology (NORM) Plt Morphology Comment Normal morphology (NORM) RBC Morph Comment Normal morphology (NORM) Sodium 139 137 (135-145) meq/L Potassium 4.4 4.5 (3.8-5.2) meq/L Chloride 102 103 (98-112) meq/L Carbon Dioxide 23 25 (23-33) meq/L Anion Gap 14 9 (5-20) BUN 7 8 (7-22) mg/dL Creatinine 0.7 0.7 (0.50-1.20) mg/dL Estimated GFR > 60 > 60 (>60 ml/min/1.73m(2)) BUN/Creatinine Ratio 10.00 11.42 (6-20) Glucose 84 153 H (78-110) mg/dL Calculated Osmolality 284.0 284.0 (267-292) mOsm/kg Calcium 9.6 8.9 (8.7-10.7) mg/dL Total Bilirubin 0.3 0.2 L (0.3-1.2) mg/dL AST 20 15 (8-39) IU/L ALT 36 26 (9-52) IU/L Alkaline Phosphatase 122 89 (38-126) IU/L Total Protein 8.4 H 6.6 (6.1-8.0) g/dL Albumin 4.7 3.6 (3.5-4.8) g/dL Globulin 3.7 3.0 (2.50-4.10) g/dL Albumin/Globulin Ratio 1.20 L 1.20 L (1.3-2.0) mg/g Amylase 115 H (30-110) U/L Lipase 148 (23-300) IU/L Ur Collection Type Clean catch urine Urine Color Yellow Urine Clarity Clear (CLEAR) Urine pH 5.5 (5.0-8.5) Ur Specific [place] <=1.005 (1.005-1.030) Urine Protein Negative (NEG) mg/dl Urine Glucose (UA) Negative (NEG) mg/dL Urine Ketones Negative (NEG) Urine Occult Blood Negative (NEG) Urine Nitrate Negative (NEG) Urine Bilirubin Negative (NEG) Urine Urobilinogen 0.2 (0.2) EU/dL Ur Leukocyte Esterase Negative (NEG) Ur Culture Indicated? Culture not set Microbiology 02/12/17 12:35 Abdomen Gram Stain - Final 02/12/17 12:35 Abdomen Aerobic Culture - Preliminary History and Physical pertinent to Admission: Course of Hospitalization: This very nice 31-year-old patient with a history of multiple postop infections and chronic antibiotic treatment. The patient had the appendix taken out in early January , patient had the postop complication with abscess which was drained by Dr. ana Shook and continue antibiotics. Was admitted here for dehiscence of her wound Dr. Santino Graham general surgery was on consult reviewed CT scans. Patient was never septic wound care was initiated with wet-to-dry dressings and recommended IV Invanz for a total of 10 days and repeat CAT scan at the end of this course also this morning Dr. ana Shook saw the patient which also recommended the same plan he is using the Multidex for wound care and as instruction the patient on how to use it with wound care. I have arranged for IV home infusion if the patient is approved if not the patient will come to the hospital to get her daily dose of Invanz also the patient will follow-up with Dr. ana Shook as an outpatient On the date of discharge, the patient was examined: Gen.: No acute distress, alert, nontoxic Heart: Regular rate and rhythm, no murmurs, clicks, gallops, or rubs Lungs: Clear to auscultation bilaterally, breathing is nonlabored Abdomen/GI: Normal tones on auscultation, soft, nontender, nondistended patient was also examined by Dr. ana Shook in regards to the wound which he states looks great Musculoskeletal/extremities: No clubbing, cyanosis, or edema Vitals reviewed and are listed below Vital Signs (24 hrs) Temp Pulse Pulse Resp BP Pulse Ox 02/15/17 09:00 97.4 F 88 20 112/61 95 02/15/17 06:35 90 02/15/17 04:48 98.2 F 77 20 112/64 95 02/15/17 04:47 94 02/15/17 00:50 98.1 F 86 18 107/70 94 02/14/17 21:00 98.4 F 105 H 18 117/71 94 02/14/17 17:52 98.5 F 02/14/17 16:52 99.2 F 02/14/17 16:20 97.0 F 89 16 114/75 96 Assessment and Plan: 1. As per discharge assessments above 2. Disposition: Home 3. Condition on discharge, stable and improved. 4. Diet: regular diet 5. Activities: resume normal activities 6. Follow-Up: 1. PCP 2. Dr. ana Shook next week 7. Medications at the Time of Discharge: Home Medications Medication Instructions Recorded Confirmed Type Estradiol 2 tab PO BID 10/14/15 02/14/17 History Spironolactone 1 tab PO DAILY 10/14/15 02/14/17 History Amitriptyline HCl 2 tab PO BEDTIME 01/22/17 02/14/17 History Metoprolol Tartrate Tab 1 tab PO BID 02/01/17 02/14/17 History [Lopressor Tab] Promethazine HCl [Phenergan] 1 tab PO BEDTIME 02/01/17 02/14/17 History Ondansetron [Ondansetron Odt] 1 tab PO Q8H PRN tab 02/07/17 02/14/17 History Oxycodone HCl 2 tab PO Q4H PRN tab 02/07/17 02/14/17 History Oxycodone HCl [Oxycodone HCl ER] 1 tab PO BID tab 02/07/17 02/14/17 History Ertapenem Inj [INVanz Inj] 1 gm IV Q24H #7 vial 02/15/17 Rx 8. Time, care, counseling and coordination of care for this discharge is greater than 30 minutes. Exam - Vitals Vital Signs: Vital Signs Temperature 97.4 F Temperature Source Temporal Artery Scan Pulse Rate [Pulse Oximeter] 88 Pulse Rate [Pulse Oximeter 90 Radial] Respiratory Rate 20 Blood Pressure [Right Arm] 112/61 Pulse Ox 95 Oxygen Flow Rate 2 Oxygen Delivery Method Room Air Height 5 ft 9 in Weight 75.296 kg Patient Problems - Patient Problem List (1) Postoperative abscess Current Visit: No Status: Acute (2) Wound dehiscence Current Visit: Yes Status: Acute Diagnosis Date: 02/12/17 Priority: High (3) Chronic pain syndrome Current Visit: No Status: Acute
[2017-02-15] MEDS: Ertapenem Inj 1 GM in Sodium Chloride 0.9% 100 ML IV SCH (11:52)
--- NOTE | 2017-02-16 09:58 | PT AM DAY ---
Diagnosis : Abdominal Abscess AM - Physical Therapy S: The therapist spoke with nursing staff and they state the dressing was coming off early this morning, so the dressing was changed by the nursing staff. They state after her pain medications this afternoon, we may come up and change the dressings. DANDY
--- NOTE | 2017-02-16 10:19 | PT PM DAY ---
Diagnosis : Abdominal Abscess PM - Physical Therapy S: The patient reports she was given her IV pain medication approximately 10 minutes ago but still continues to have a lot of pain in the wound bed. She states she still hasn't heard anything new from Dr. Graham and is looking forward to seeing Dr. Rangel tomorrow, hoping that the cyst will be surgically dehisced and debrided. O: Today's therapy consisted of a dressing change to the abdomen. The wound was cleansed with wound cleanser followed by Lidocaine Hydrogel put in the wound bed and then a Saline soaked 4X4 followed by a secondary dressing of Mepilex. A: No notable changes were noted in the wound. There was a moderate amount of serosanguineous drainage on the old dressing. P: Continue seeing patient on a PRN basis for wound care. MTDD
--- NOTE | 2017-02-16 10:36 | PT PM DAY ---
Diagnosis : Abdominal Abscess PM - Physical Therapy S: The patient reports she is very irritated at this time. Dr. Rangel was consulted and has decided to keep the patient on an antibiotic regiment only. She is under the understanding the the surgeon will not perform any type of debridement surgery until the cyst shows up on a CT scan greater than 3 centimeters and at this point it is less than 2. She states she was also told by Dr. Rangel to participate with outpatient physical therapy once discharged; although she doesn't see what the point is of healing the wound when the cyst is still present. The patient also reports that Dr. Rangel wanted to change her wound care dressing to Multidex packed with gauze. O: Today's therapy consisted of a dressing change of Multidex in the wound base followed by saline soaked gauze and a 4X4 Mepilex. A: No change is noted in the wound at this time. P: The patient was advised to participate with outpatient physical therapy following discharge from the hospital. DANDY
== END 2017-02-15 12:45 | disposition home or self-care (01) | DRG 919 ==
LOC: ER 11:58 → MED/SURG 15:59
PROVIDERS: ADMIT Internal Medicine; ATTEND Internal Medicine
DX: T81.31XA Disruption of external operation (surgical) wound, not elsewhere classified, initial encounter (principal); K65.1 Peritoneal abscess; T81.4XXA Infection following a procedure, initial encounter
CPT/HCPCS: 36415; 74177; 80053; 81003; 82150; 83690; 85025; 87070; 87075; 87077; 87185; 87186; 87205; 94761; 96361; 96365; 96375; 96376; 97161; 99284; J0131; J1170; J1200; J1335; J1650; J2175; J2405; J3370; J7030; J7050; Q0169

== ENCOUNTER 2017-02-18 13:10 | Emergency (ER) | payer OTHER ==
[2017-02-18] MEDS ORDERED: MORPHINE SULFATE 2 MG/1 ML IVP ONE (13:16)
[2017-02-18] MEDS ORDERED: Sodium Chloride 0.9% 1,000 ML PRIMARY IV ONE (13:16)
[2017-02-18] MEDS ORDERED: ONDANSETRON 4 MG/2 ML VIAL IVP ONE (13:16)
--- NOTE | 2017-02-18 13:16 | PDOC ---
General Adult HPI - General Chief Complaint: General Medical Stated Complaint: energy drained, fever/chills Date Seen by Provider: 02/18/17 Time Seen by Provider: 13:16 Source: POSITIVE: Patient Exam Limitations: POSITIVE: No limitations - History of Present Illness Initial Comment: Mr. Prado is a 31 year old born male living as female coming in today with increased fevers and abdominal discomfort. She recently had her appendix out performed by Dr. perez did here here, which was accompanied by a postop. Negative abdominal abscess and infection. She's been on several different antibiotics, Keflex and Cipro. She was recently admitted to this hospital and she was started on Invanz and they were doing local wound care for the cutaneous incision that is still mildly infected. She was coming in for IV Invanz therapy today and the staff up there heard about her fevers and worsening pain and nausea and so they sent her here for evaluation.Speaking with Joanna, it sounds like she has been having the same issues over the past few weeks and today is just a continuation of that. She is using wet-to-dry dressings on her wound and reports that there is still some yellowish fluid coming out. The pain in the restaurant and is diffuse and bilateral lower quadrants. She denies any dysuria or hematuria has no constipation or diarrhea. Have you received a tetanus shot in the past 10 years?: Yes - Patient Home Medications Home Medications: Home Medications Estradiol 2 tab PO BID 10/14/15 Spironolactone 1 tab PO DAILY 10/14/15 Amitriptyline HCl 2 tab PO BEDTIME 01/22/17 Metoprolol Tartrate Tab [Lopressor Tab] 1 tab PO BID 02/01/17 Promethazine HCl [Phenergan] 1 tab PO BEDTIME 02/01/17 Ondansetron [Ondansetron Odt] 1 tab PO Q8H PRN tab 02/07/17 Oxycodone HCl 2 tab PO Q4H PRN tab 02/07/17 Oxycodone HCl [Oxycodone HCl ER] 1 tab PO BID tab 02/07/17 Ertapenem Inj [INVanz Inj] 1 gm IV Q24H #7 vial 02/15/17 Warfarin Sodium [Coumadin] 5 mg PO DAILY 02/18/17 - Patient Allergies Allergies/Adverse Reactions: Allergies Allergy/AdvReac Type Severity Reaction Status Date / Time cyclobenzaprine HCl Allergy Severe HIVES Verified 02/18/17 13:31 [From Flexeril] venom-honey bee Allergy Severe Anaphylaxis Verified 02/18/17 13:31 [bee venom (honey bee)] iodine Allergy Intermediate RASH Verified 02/18/17 13:31 Iodine and Iodide Containing Allergy Intermediate VOMITING Verified 02/18/17 13: 31 Produc ketorolac tromethamine Allergy Intermediate HIVES Verified 02/18/17 13:31 [From Toradol] lactose [Lactose] Allergy Intermediate NOT Verified 02/18/17 13:31 APPLICABLE adhesive tape AdvReac Intermediate RASH Verified 02/18/17 13:31 SEA FOOD AdvReac Intermediate HIVES Uncoded 02/16/17 13:25 Past Medical History - heen HEENT History: Deaf Additional HEENT History: 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 MRI scheduled ) Additional Musculoskeletal History: UPPER BACK AND NECK INJURY AT WORK IN [employer] FIELD Neurological History: TIA Additional Neurological History: pt reported neuropathy on first three toes on both feet. Blood Disorders: Other (please comment) Additional Blood Disorders History: DVT Psychiatric History: Denies History Additional Psychiatric History: hx self cutting History of Sexually Transmitted Diseases: No Cancer History: Other (please comment) Cancer Treatment / Date(s) of Treatment: 2001 History of MDRO: No Other Type of MDRO: staph History of Other Communicable Diseases: No History of Exposure to Communicable Disease: No Alcohol Use: None Substance Use Type: Opiate Pain Medication Previous Surgical History: Yes Type / Date of Surgery: BREAST AUGMENTATION, RIGHT KNEE SURG.X3, RIGHT HAND SURG.X3, ORCHIECTOMY, TONSILLECTOMY, LYMPH NODE REMOVAL.; OPEN HEART SURGERY, THYMOMA REMOVAL; HERNIA REPAIR Anesthesia Reactions: No Malignant Hyperthermia: No Significant Family History: Asthma, Heart disease, Cancer, Diabetes, Hypertension Past Medical History Reviewed: Reviewed - No Changes ROS - Limitations ROS Limitations: No Limitations Constitution: REPORTS: Chills, Weakness Cardiovascular: REPORTS: Denies Cardiac Symptoms Respiratory: REPORTS: Denies Resp Symptoms Neurological: REPORTS: Denies Neuro Symptoms Gastrointestinal: REPORTS: Abdominal Pain, Nausea, Vomitting Endocrine: REPORTS: Fatigue Musculoskeletal: REPORTS: Muscle Aches Genitourinary: REPORTS: Denies Symptoms Eyes: REPORTS: Denies Symptoms ENT: REPORTS: Denies Symptoms Skin: REPORTS: Skin Lesions Lympathic: REPORTS: Denies Lympathic Symptoms Immunologic: POSITIVE: Denies Symptoms Psychiatric: POSITIVE: Denies Psych Symptoms General Adult Exam - General Appearance General Appearance: POSITIVE: Alert, Cooperative, No Acute Distress - HEENT HEENT: POSITIVE: Head Inspection Nml, Eyes Inspection Nml, Ears Inspection Nml - Pupils Pupil Size: 3 mm: Bilateral - Neck Neck: POSITIVE: Normal Inspection - Respiratory Respiratory: POSITIVE: No Respiratory Distress, Breath Sounds Normal, Chest Non- Tender - Cardiovascular Cardiovascular: POSITIVE: Regular Rate & Rhythm Peripheral Pulses: Radial (R): 2+, Radial (L): 2+ - Abdomen Additional Abdominal Details: There is a 5 cm surgical incision overlying her right lower quadrant. The areas to palpation, however there is no erythema or excessive warmth. There is a small amount of fluid discharge but no allegra pus. The remainder of her lower quadrants on both sides are very tender to palpation with no distention or rebound. 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 Excessive stool in the colon with no evidence of obstruction. Cutaneous surgical wound does not extend past the peritoneum Lab Results Reviewed: Yes Lab Results:: Laboratory Results 02/18/17 02/18/17 Range/Units 13:41 15:18 WBC 10.67 (4.8-10.8) 10^3/uL RBC 4.45 (4.20-5.40) 10^6/uL Hgb 14.0 (12.0-16.0) g/dL Hct 42.7 (37.0-47.0) % MCV 96.0 (81-99) FL MCH 31.5 H (27-31) PG MCHC 32.8 L (33-37) g/dL RDW Std Deviation 44.6 (39-50) fL RDW Coeff of Brennan 13.0 (11.5-14.5) % Plt Count 278 (140-350) 10*3/uL MPV 10.3 (7.4-12.2) FL Immature Gran % (Auto) 0.1 (0-5) % Neut % (Auto) 78.8 (50-80) % Lymph % (Auto) 10.9 (10-50) % [place] % (Auto) 7.7 (5-15) % Eos % (Auto) 2.3 (0-8) % Baso % (Auto) 0.2 (0-1) % Immature Gran # (Auto) 0.01 10*3/UL Neut # (Auto) 8.41 10*3/UL Lymph # (Auto) 1.16 10*3/uL [place] # (Auto) 0.82 H (0.3-0.8) 10*3/UL Eos # (Auto) 0.25 10*3/UL Baso # (Auto) 0.02 10*3/UL WBC Morphology Comment Normal morphology (NORM) Plt Morphology Comment Normal morphology (NORM) RBC Morph Comment Normal morphology (NORM) PT 10.4 (9.7-11.4) secs INR 1.01 (0.00-5.90) N/A Sodium 139 (135-145) meq/L Potassium 3.8 (3.8-5.2) meq/L Chloride 102 (98-112) meq/L Carbon Dioxide 26 (23-33) meq/L Anion Gap 11 (5-20) BUN 4 L (7-22) mg/dL Creatinine 0.6 (0.50-1.20) mg/dL Estimated GFR > 60 (>60 ml/min/1.73m(2)) BUN/Creatinine Ratio 6.66 (6-20) Glucose 78 (78-110) mg/dL Calculated Osmolality 283.0 (267-292) mOsm/kg Calcium 8.8 (8.7-10.7) mg/dL Total Bilirubin 0.5 D (0.3-1.2) mg/dL AST 20 (8-39) IU/L ALT 37 (9-52) IU/L Alkaline Phosphatase 111 (38-126) IU/L Total Protein 7.0 (6.1-8.0) g/dL Albumin 4.0 (3.5-4.8) g/dL Globulin 2.9 (2.50-4.10) g/dL Albumin/Globulin Ratio 1.30 (1.3-2.0) mg/g Lipase 51 (23-300) IU/L - Patient's Progress MDM / ED Course: Ms. Prado is a 31-year-old born male living as female coming in today with continued abdominal discomfort and body aches. Her lab values were all reassuring. The CT scan showed that the abscess in her abdomen has resolved, and the wound to her abdominal wall does not go excessively deep. She received a dose of morphine for pain as well as some Zofran for nausea she also received 1 dose of Demerol for pain. I told her that the CT scan showed that her infection was improving. I recommended that she continue to follow up with her specialist for IV antibiotic therapy and monitoring of her recovery she verbalized her understanding Patient Care Time - Estimated PCT Patient Care Time (In Minutes): 30 Vital Signs - Recent Vital Signs Vital Signs: Vital Signs (Last 8 hours) Temp Pulse Resp BP Pulse Ox 02/18/17 13:20 98.7 F 134 H 16 136/90 97 - VS Reviewed Vital Signs Reviewed: Yes Discharge Clinical Impression: Fatigue, status post drainage intra-abdominal abs Discharge Disposition: Discharged to Home Condition: Fair Additional Instructions: Your CT scan showed that the abscess in your abdomen has healed and isn't there anymore. The wound in your abdominal wall does not go deep, so it is healing as well. Your lab values were all reassuring as well. Follow up with your specialists for continued IV antibiotics and monitoring of your recovery. Follow Up With: Michelle Suggs [Primary Care Provider] -
[2017-02-18] MEDS: NORMAL SALINE 10 ML SYRINGE FLUSH IVP PRN ×2 (13:25→14:31)
[2017-02-18 13:32] VITALS: RESP 16; TEMP 98.7
[2017-02-18 13:47] LABS: BASOPHILS # (AUTO) 0.02 10*3/UL; BASOPHILS % (AUTO) 0.2 % (0-1); EOSINOPHILS # (AUTO) 0.25 10*3/UL; EOSINOPHILS % (AUTO) 2.3 % (0-8); HEMATOCRIT 42.7 % (37.0-47.0); LYMPHOCYTES # (AUTO) 1.16 10*3/uL; MEAN CORPUSCULAR HEMOGLOBIN 31.5 PG (27-31); MEAN CORPUSCULAR HGB CONC 32.8 g/dL (33-37); MEAN PLATELET VOLUME 10.3 FL (7.4-12.2); MONOCYTES # (AUTO) 0.82 10*3/UL (0.3-0.8); MONOCYTES % (AUTO) 7.7 % (5-15); NEUTROPHILS # (AUTO) 8.41 10*3/UL; NEUTROPHILS % (AUTO) 78.8 % (50-80); PLATELET MORPHOLOGY COMMENT NORMAL MORPHOLOGY (NORM); RBC MORPHOLOGY COMMENT NORMAL MORPHOLOGY (NORM); RED BLOOD COUNT 4.45 10^6/uL (4.20-5.40); WBC MORPHOLOGY COMMENT NORMAL MORPHOLOGY (NORM)
[2017-02-18] MEDS ORDERED: Meperidine Inj 50 MG/ML CARPUJECT IVP ONE (13:50)
[2017-02-18 14:07] LABS: BLOOD UREA NITROGEN 4 mg/dL (7-22); BUN/CREATININE RATIO 6.66 (6-20); CALCIUM 8.8 mg/dL (8.7-10.7); EST GLOMERULAR FILTRATION > 60 (>60 ml/min/1.73m(2)); LIPASE 51 IU/L (23-300)
[2017-02-18] MEDS ORDERED: diphenhydrAMINE 50 MG/1 ML VIAL IVP ONE (14:12)
[2017-02-18] MEDS ORDERED: methylPREDNISolone Succ Inj 125 MG in Sodium Chloride 0.9% 100 ML IV ONE (14:17)
[2017-02-18] MEDS ORDERED: methylPREDNISolone 125 MG/2 ML VIAL ONE (14:22)
[2017-02-18] MEDS ORDERED: methylPREDNISolone 125 MG/2 ML VIAL IM ONE (14:33)
--- NOTE | 2017-02-18 15:43 | DI ---
HISTORY: Cough, fever. FINDINGS: The heart is within normal limits with post surgical sternal sutures in position. There i s slight accentuation of the pulmonary vasculature in both lung bases. The lung martin are otherwise essentially clear. IMPRESSION: 1. Slight accentuation of the pulmonary vasculature bilateral lung bases.
--- NOTE | 2017-02-18 16:08 | DI ---
HISTORY: Abdominal pain and fever status post appendectomy 01/22/2017. History of post-surgical abs cess. PREVIOUS EXAM: None available. TECHNIQUE: Multiple helically acquired CT images are obtained through the abdomen and pelvis followi ng the administration of intravenous contrast. FINDINGS: CT images demonstrate postsurgical changes within the right lower quadrant. There is some thickening of the scan, but there is no evidence of fluid collection. There is no free fluid within the abdomen. The urinary bladder is unremarkable. The lung bases are clear. The liver, gallbladder, spleen, pancreas and adrenals are unremarkable. There is a large amount of dried stool throughout the entire colon. IMPRESSION: 1. No evidence of subcutaneous abscess. 2. No evidence of intra-abdominal abscess.
== END 2017-02-18 16:39 | disposition home or self-care (01) ==
LOC: ER 13:10
DX: T81.4XXA Infection following a procedure, initial encounter (principal); R53.83 Other fatigue; M79.1 Myalgia; R50.9 Fever, unspecified
CPT/HCPCS: 36415; 71020; 74177; 80053; 83690; 85025; 85610; 96361; 96374; 96375; 99283; J1200; J2175; J2270; J2405; J7030

== ENCOUNTER 2017-02-19 13:40 | Inpatient (IN) | payer OTHER ==
[2017-02-19] MEDS ORDERED: NORMAL SALINE 10 ML SYRINGE FLUSH IVP PRN (14:01)
[2017-02-19] MEDS ORDERED: Sodium Chloride 0.9% 1,000 ML PRIMARY IV ONE (14:01)
[2017-02-19] MEDS ORDERED: ONDANSETRON 4 MG/2 ML VIAL IVP ONE (14:01)
[2017-02-19] MEDS ORDERED: HYDROmorphone 2 MG/1 ML IVP ONE (14:27)
[2017-02-19 14:32] LABS: BASOPHILS # (AUTO) 0.05 10*3/UL; BASOPHILS % (AUTO) 0.3 % (0-1); EOSINOPHILS # (AUTO) 0.06 10*3/UL; EOSINOPHILS % (AUTO) 0.3 % (0-8); HEMATOCRIT 43.1 % (37.0-47.0); HEMOGLOBIN 14.1 g/dL (12.0-16.0); LYMPHOCYTES # (AUTO) 3.11 10*3/uL; MEAN CORPUSCULAR HEMOGLOBIN 30.9 PG (27-31); MEAN CORPUSCULAR HGB CONC 32.7 g/dL (33-37); MEAN CORPUSCULAR VOLUME 94.5 FL (81-99); MEAN PLATELET VOLUME 10.9 FL (7.4-12.2); MONOCYTES # (AUTO) 1.29 10*3/UL (0.3-0.8); MONOCYTES % (AUTO) 6.8 % (5-15); NEUTROPHILS # (AUTO) 14.39 10*3/UL; RED BLOOD COUNT 4.56 10^6/uL (4.20-5.40)
[2017-02-19 14:33] LABS: PLATELET MORPHOLOGY COMMENT NORMAL MORPHOLOGY (NORM); RBC MORPHOLOGY COMMENT NORMAL MORPHOLOGY (NORM); WBC MORPHOLOGY COMMENT NORMAL MORPHOLOGY (NORM)
--- NOTE | 2017-02-19 14:35 | PDOC ---
General Adult HPI - General Chief Complaint: Abdomen Pain Stated Complaint: RLQ Abd Pain/Syncope Date Seen by Provider: 02/19/17 Time Seen by Provider: 13:45 Source: POSITIVE: Patient Exam Limitations: POSITIVE: No limitations Nurse's Notes Reviewed & Considered: Yes - History of Present Illness Initial Comment: The patient is a 31-year-old who presents to the emergency department with continued complaints of right lower quadrant abdominal pain, nausea and vomiting as well as an episode of passing out. Approximately a month ago she underwent appendectomy here per Dr. Rangel which was complicated postoperatively several weeks later with an intra-abdominal abscess that required surgical drainage. She subsequently developed a wound infection/ seroma which eventually dehisced superficially. She was recently in the hospital getting IV antibiotics and continues to get IV Invanz. She was seen here in the emergency room yesterday secondary to increased pain, fevers and vomiting. She underwent workup including CT scan of her abdomen and pelvis which did not show any recurrent abscess or any other acute findings. Since going home after her emergency room visit yesterday she has had persistent vomiting and has not been able to keep anything down. She also has had continued fever with a temperature earlier this morning of 102.6. Her significant other reports that earlier this morning she heard a thought and went to check on her and found her lying on the floor. She was breathing however was not responding for several minutes. She subsequently came around. The patient states that she does not feel that she is doing well at home and seems to be deteriorating ever since she was discharged from the hospital. After an episode of vomiting just prior to coming to the emergency department she had increased drainage from her incision site and has saturated several dressings with bloody fluid since then. She does have a history of prior DVT and is currently taking Coumadin however she has not been able to keep this down the past couple of days. Have you received a tetanus shot in the past 10 years?: Yes - Patient Home Medications Home Medications: Home Medications Estradiol 2 tab PO BID 10/14/15 Spironolactone 1 tab PO DAILY 10/14/15 Amitriptyline HCl 2 tab PO BEDTIME 01/22/17 Metoprolol Tartrate Tab [Lopressor Tab] 1 tab PO BID 02/01/17 Promethazine HCl [Phenergan] 1 tab PO BEDTIME 02/01/17 Ondansetron [Ondansetron Odt] 1 tab PO Q8H PRN tab 02/07/17 Oxycodone HCl 2 tab PO Q4H PRN tab 02/07/17 Oxycodone HCl [Oxycodone HCl ER] 1 tab PO BID tab 02/07/17 Ertapenem Inj [INVanz Inj] 1 gm IV Q24H #7 vial 02/15/17 Warfarin Sodium [Coumadin] 5 mg PO DAILY 02/18/17 - Patient Allergies Allergies/Adverse Reactions: Allergies Allergy/AdvReac Type Severity Reaction Status Date / Time cyclobenzaprine HCl Allergy Severe HIVES Verified 02/19/17 13:48 [From Flexeril] venom-honey bee Allergy Severe Anaphylaxis Verified 02/19/17 13:48 [bee venom (honey bee)] iodine Allergy Intermediate RASH Verified 02/19/17 13:48 Iodine and Iodide Containing Allergy Intermediate VOMITING Verified 02/19/17 13: 48 Produc ketorolac tromethamine Allergy Intermediate HIVES Verified 02/19/17 13:48 [From Toradol] lactose [Lactose] Allergy Intermediate NOT Verified 02/19/17 13:48 APPLICABLE adhesive tape AdvReac Intermediate RASH Verified 02/19/17 13:48 SEA FOOD AdvReac Intermediate HIVES Uncoded 02/19/17 13:48 Past Medical History - heen HEENT History: Deaf Additional HEENT History: 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 Blood Disorders: Other (please comment) Additional Blood Disorders History: DVT Psychiatric History: Denies History Additional Psychiatric History: hx self cutting History of Sexually Transmitted Diseases: No Female Reproductive History: Denies History LMP: N/A Obstetrical History: Denies History Cancer History: Other (please comment) Cancer Treatment / Date(s) of Treatment: 2001 In Past Year Been Physically Harmed or Verbally Threatened: No History of MDRO: No Other Type of MDRO: staph History of Other Communicable Diseases: No History of Exposure to Communicable Disease: No Tobacco Use: Current Every Day Smoker Alcohol Use: None Substance Use Type: Opiate Pain Medication Previous Surgical History: Yes Type / Date of Surgery: BREAST AUGMENTATION, RIGHT KNEE SURG.X3, RIGHT HAND SURG.X3, ORCHIECTOMY, TONSILLECTOMY, LYMPH NODE REMOVAL.; OPEN HEART SURGERY, THYMOMA REMOVAL; HERNIA REPAIR Anesthesia Reactions: No Malignant Hyperthermia: No Significant Family History: Asthma, Heart disease, Cancer, Diabetes, Hypertension Past Medical History Reviewed: Reviewed - No Changes ROS - Limitations ROS Limitations: No Limitations Constitution: REPORTS: Chills, Fever Cardiovascular: REPORTS: Chest Pain (She reports intermittent chest pains), Heart Racing. DENIES: Edema Respiratory: REPORTS: Cough Non Productive Neurological: DENIES: Numbness, Weakness Gastrointestinal: REPORTS: Abdominal Pain, Nausea, Vomitting, Diarrhea Genitourinary: REPORTS: Denies Symptoms Eyes: REPORTS: Denies Symptoms ENT: REPORTS: Denies Symptoms Skin: DENIES: Rash General Adult Exam - General Appearance General Appearance: POSITIVE: Alert, Cooperative, No Acute Distress - HEENT HEENT: POSITIVE: Head Inspection Nml, Eyes Inspection Nml, Ears Inspection Nml, Dry Mucous Membranes - Neck Neck: POSITIVE: Normal Inspection. NEGATIVE: Lymphadenopathy - Respiratory Respiratory: POSITIVE: No Respiratory Distress, Breath Sounds Normal, Other ( Midline scar from previous chest surgery) - Cardiovascular Cardiovascular: POSITIVE: Regular Rate & Rhythm, No Murmur Peripheral Pulses: Dorsalis-pedis (R): 2+, Dorsalis-pedis (L): 2+ - Abdomen Abdomen: Soft: (All Quadrants), No Distention: (All Quadrants) Additional Abdominal Details: She has an open incision in the right lower quadrant from recent surgery, this is dehisced down to the level of the muscle, the wound itself has good granulation tissue within the wound, there is minimal serosanguineous drainage from the wound, no surrounding erythema or induration - Skin Skin: POSITIVE: Normal Color, No Rash - Extremities Extremity: Normal ROM: (All Extremities), Normal Inspection: (All Extremities) - Neurological / Psychological Neurological: POSITIVE: Other (No focal neurologic deficits) General Adult Progress - Results Reviewed by me Lab Results Reviewed: Yes Lab Results:: Laboratory Results 02/19/17 Range/Units 14:20 WBC 18.93 H (4.8-10.8) 10^3/uL RBC 4.56 (4.20-5.40) 10^6/uL Hgb 14.1 (12.0-16.0) g/dL Hct 43.1 (37.0-47.0) % MCV 94.5 (81-99) FL MCH 30.9 (27-31) PG MCHC 32.7 L (33-37) g/dL RDW Std Deviation 43.5 (39-50) fL RDW Coeff of Brennan 12.9 (11.5-14.5) % Plt Count 291 (140-350) 10*3/uL MPV 10.9 (7.4-12.2) FL Immature Gran % (Auto) 0.2 (0-5) % Neut % (Auto) 76.0 (50-80) % Lymph % (Auto) 16.4 (10-50) % [place] % (Auto) 6.8 (5-15) % Eos % (Auto) 0.3 (0-8) % Baso % (Auto) 0.3 (0-1) % Immature Gran # (Auto) 0.03 10*3/UL Neut # (Auto) 14.39 10*3/UL Lymph # (Auto) 3.11 10*3/uL [place] # (Auto) 1.29 H (0.3-0.8) 10*3/UL Eos # (Auto) 0.06 10*3/UL Baso # (Auto) 0.05 10*3/UL WBC Morphology Comment Normal morphology (NORM) Plt Morphology Comment Normal morphology (NORM) RBC Morph Comment Normal morphology (NORM) PT 10.0 (9.7-11.4) secs INR 0.97 (0.00-5.90) N/A D-Dimer 0.28 (0.00-0.59) mg/L Sodium 140 (135-145) meq/L Potassium 3.7 L (3.8-5.2) meq/L Chloride 104 (98-112) meq/L Carbon Dioxide 22 L (23-33) meq/L Anion Gap 14 (5-20) BUN 8 (7-22) mg/dL Creatinine 0.7 (0.50-1.20) mg/dL Estimated GFR > 60 (>60 ml/min/1.73m(2)) BUN/Creatinine Ratio 11.42 (6-20) Glucose 98 (78-110) mg/dL Calculated Osmolality 287.0 (267-292) mOsm/kg Lactic Acid 1.0 (0.70-2.10) MMOL/L Calcium 9.4 (8.7-10.7) mg/dL Magnesium 1.7 (1.6-2.4) mg/dL Total Bilirubin 0.3 (0.3-1.2) mg/dL AST 20 (8-39) IU/L ALT 31 (9-52) IU/L Alkaline Phosphatase 117 (38-126) IU/L Troponin I < 0.012 (< 0.040) ng/mL C-Reactive Protein 2.9 H (0.0-0.9) mg/dL Total Protein 7.8 (6.1-8.0) g/dL Albumin 4.3 (3.5-4.8) g/dL Globulin 3.5 (2.50-4.10) g/dL Albumin/Globulin Ratio 1.20 L (1.3-2.0) mg/g Amylase 86 (30-110) U/L Lipase 55 (23-300) IU/L TSH 1.88 (0.2700-4.2000) uIU/mL EKG Interpreted/Reviewed By Me:: Yes EKG Interpretation:: POSITIVE: Normal Sinus Rhythm, Normal Rate, Normal QRS, Normal ST/T, Other (EKG was somewhat limited by artifact from movement) - Patient's Progress MDM / ED Course: An IV was already established and she received 1 L bolus of normal saline as well as Zofran and IV Dilaudid for pain and nausea. Blood cultures and lactate were obtained as well as EKG and other labs. The Dilaudid did not help at all for pain and she was given Demerol 50 mg IV. Her lab work reveals an elevated white count at 18,000. This was normal yesterday at 10,000. Her lactate is normal. Other lab work is essentially unremarkable except for a mildly low potassium at 3.7 and a bicarbonate of 22. Findings were discussed with the patient. Her elevated white count may be stress response from recent vomiting and dehydration as clinically she does not appear to have any worsening wound infection and had an normal CT of her abdomen yesterday. Findings were discussed with Dr. Hallman incision was made to admit observation. The patient is in agreement with this plan. - Consult Counseled: POSITIVE: Patient, RE: Lab Results, RE: DX Patient Care Time - Estimated PCT Patient Care Time (In Minutes): 35 Vital Signs - Recent Vital Signs Vital Signs: Vital Signs (Last 8 hours) Temp Pulse Pulse Resp BP 02/19/17 16:04 110 H 17 02/19/17 13:42 98.2 F 122 H 16 136/88 - VS Reviewed Vital Signs Reviewed: Yes Discharge Clinical Impression: Wound dehiscence, Nausea and vomiting, Abdominal pain, Leukocytosis, Syncope Discharge Disposition: Admit to Observation Condition: Fair
[2017-02-19 14:41] LABS: BLOOD UREA NITROGEN 8 mg/dL (7-22); BUN/CREATININE RATIO 11.42 (6-20); C-REACTIVE PROTEIN 2.9 mg/dL (0.0-0.9); CALCIUM 9.4 mg/dL (8.7-10.7); EST GLOMERULAR FILTRATION > 60 (>60 ml/min/1.73m(2)); LIPASE 55 IU/L (23-300); MAGNESIUM 1.7 mg/dL (1.6-2.4); SERUM ALBUMIN 4.3 g/dL (3.5-4.8)
--- NOTE | 2017-02-19 15:07 | EKG ---
[address] [place] [address] Measurements Intervals [place] Rate: 114 P: 80 GA: 132 QRS: 76 QRSD: 89 T: -32 QT: 302 QTc: 369 Interpretive Statements SINUS TACHYCARDIA with considerable baseline artifact somewhat compromising reading MODERATE T-WAVE ABNORMALITY, CONSIDER INFERIOR ISCHEMIA [-0.1+ mV T WAVE IN II/aVF] Compared to ECG 05/11/2013 11:12:38 T-wave abnormality now present Possible ischemia now present Sinus rhythm no longer present Electronically Signed On 02-20-17 08:07:43 MDT by Lisandro Dumont MD [email or web address]
[2017-02-19] MEDS ORDERED: Meperidine Inj 50 MG/ML CARPUJECT IVP ONE ×2 (15:09→21:16)
[2017-02-19] MEDS ORDERED: ERTAPENEM 1 GM VIAL IV SCH (16:00)
[2017-02-19] MEDS ORDERED: LIDOCAINE W/ SODIUM BICARB 0.5 ML SYR SUBD PRN (16:03)
[2017-02-19] MEDS ORDERED: Sodium Chloride 0.9% 100 ML IV ONE (16:27)
[2017-02-19] MEDS: Sodium Chloride 0.9% 1,000 ML PRIMARY IV SCH (16:41)
[2017-02-19] MEDS ORDERED: Sodium Chloride 0.9% 1,000 ML IV ONE (16:52)
--- NOTE | 2017-02-19 17:10 | PDOC ---
History and Physical - History of Present Illness Date and Time of Service: 02/19/2017, 1650 Chief Complaint: Abdominal pain History of Present Illness: This is a 31-year-old transgendered female who presents in the setting of a recent appendectomy done laparoscopically with subsequent abscess that developed. It is my understanding that on the initial surgery, pus was noted. The patient has been on Invanz, for about 7 days, and the abscess that occurred postoperatively and had to be drained surgically has resolved by CT scan as of yesterday. The patient has not had any fevers, but had nausea and vomiting and abdominal pain developed over night and worsened throughout the day. She came in for evaluation, and was given some Demerol, anti-emetics, and it was felt with a white blood cell count of 18,000 at the patient should be admitted. I will admitted the patient doesn't observation here initially, and after seeing her wound, I think the wound is best addressed with a wound VAC. We had some discussions about pain management as well as the patient has been a chronic narcotic user for chronic pain syndrome, and feels that Demerol works best and hospital situations. I do not prescribe Demerol in the hospital, but fentanyl may be something that will help. The patient is been trying to manage her pain at home but just got worse and it appeared that the lower quadrant wound in the abdomen got bigger. That is why she came in for evaluation. There did not appear to be any other exacerbating factors. She does admit to missing on Invanz dose yesterday. Past Medical History Medical History: 1. Status post excision of thymoma. 2. History of non- Hodgkin's lymphoma. 3. Breast augmentation. 4. Appendectomy with subsequent abscess that has now resolved and postoperative nonhealing wound. Surgical History: 1. 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 2. Hernia repair. 3. Breast augmentation. 4. Boxers fracture repair on right hand with subsequent hardware removal with one of the screws having a broken had and still being in place. Patient states that her last surgery was about 9 years ago or so for this. Working on trying to get the rest of the hardware out but has been having trouble getting an orthopedic surgeon. 5. Excision of thymoma. 6. Appendectomy, laparoscopic. 7. Open drainage of abdominal wound abscess with drain placement. Pertinent Family History: Significant for diabetes Past Social History: Smoker, does not drink alcohol. Lives in [place], [place]. Has a significant other with 5 kids and she states on primarily to help raise the 5 children. Her primary care provider is in [place], [place]. 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 Tobacco Use: Current Every Day Smoker Substance Use Type: Opiate Pain Medication (Chronic use due to chronic pain syndrome.) Alcohol Use: None Medication / Allergies Home Medications: Home Medications Medication Instructions Recorded Confirmed Type Estradiol 2 tab PO BID 10/14/15 02/19/17 History Spironolactone 1 tab PO DAILY 10/14/15 02/19/17 History Amitriptyline HCl 2 tab PO BEDTIME 01/22/17 02/19/17 History Metoprolol Tartrate Tab 1 tab PO BID 02/01/17 02/19/17 History [Lopressor Tab] Promethazine HCl [Phenergan] 1 tab PO BEDTIME 02/01/17 02/19/17 History Ondansetron [Ondansetron Odt] 1 tab PO Q8H PRN tab 02/07/17 02/19/17 History Oxycodone HCl 2 tab PO Q4H PRN tab 02/07/17 02/19/17 History Oxycodone HCl [Oxycodone HCl ER] 1 tab PO BID tab 02/07/17 02/19/17 History Ertapenem Inj [INVanz Inj] 1 gm IV Q24H #7 vial 02/15/17 02/19/17 Rx Warfarin Sodium [Coumadin] 5 mg PO DAILY 02/18/17 02/19/17 History Allergies/Adverse Reactions: Allergies Allergy/AdvReac Type Severity Reaction Status Date / Time cyclobenzaprine HCl Allergy Severe HIVES Verified 02/19/17 13:48 [From Flexeril] venom-honey bee Allergy Severe Anaphylaxis Verified 02/19/17 13:48 [bee venom (honey bee)] iodine Allergy Intermediate RASH Verified 02/19/17 13:48 Iodine and Iodide Containing Allergy Intermediate VOMITING Verified 02/19/17 13: 48 Produc ketorolac tromethamine Allergy Intermediate HIVES Verified 02/19/17 13:48 [From Toradol] lactose [Lactose] Allergy Intermediate NOT Verified 02/19/17 13:48 APPLICABLE adhesive tape AdvReac Intermediate RASH Verified 02/19/17 13:48 SEA FOOD AdvReac Intermediate HIVES Uncoded 02/19/17 13:48 Review of Systems - Review of Systems All Systems: Reviewed & No Additional Complaints Except as Stated (I did a 12 point review systems and it is negative other than that discussed in history present illness.) Exam - Vitals Vital Signs: Vital Signs Temperature 98.5 F Temperature Source Temporal Artery Scan Pulse Rate [Apical] 110 Pulse Rate 111 Respiratory Rate 20 Blood Pressure 117/86 Pulse Ox 92 Oxygen Delivery Method Room Air Height 5 ft 9 in Weight 165 lb - General General Appearance: POSITIVE: No Acute Distress, Cooperative - Head Head Exam: POSITIVE: Normal Inspection, Normocephalic, Atraumatic - Eye Eye Exam: POSITIVE: No Scleral Icterus - ENT ENT Exam: POSITIVE: Mucous Membranes Moist - Respiratory Respiratory Exam: POSITIVE: Clear to Auscultation - Bilaterally, Breathing Non Labored, Normal to Percussion and Palpation - Cardiovascular Cardiovascular Exam: POSITIVE: RRR (Was tachycardic in the emergency room, currently has a normal heart rate on my exam.), No Murmur, No Clicks, No Gallops , No Rubs, No JVD - GI/Abdominal GI/Abdominal Exam: POSITIVE: Normal Bowel Sounds, Non Distended, Soft Additional GI/Abdominal Exam Details: As a right lower quadrant 2-1/2-3 inch incision that is deep, appears to have great granulation tissue, does not appear infected. - External Exam: POSITIVE: Deferred Exam: POSITIVE: Deferred - Extremities Extremities Exam: POSITIVE: No Clubbing Present, No Edema Present, No Cyanosis Present Additional Extremities Exam Details: Right hand has scarring from prior surgeries, does not appear erythematous and is not tender to palpation. - Back Back Exam: POSITIVE: No CVA Tenderness - Neurological Neurological Exam: POSITIVE: Alert, Oriented x 3, No Facial Droop, Speech Intact / Clear, Moves All Extremities Equally - Psychiatric Psychiatric Exam: POSITIVE: Anxious - Integumentary Integumentary Exam: POSITIVE: Normal Color, Warm, Dry Additional Integumentary Exam Details: Incision as described above in right lower quadrant. Results - Labs CBC and BMP: 02/19/17 14:20 02/19/17 14:20 Labs - Last 24 Hours: Laboratory Results 02/19/17 Range/Units 14:20 WBC 18.93 H (4.8-10.8) 10^3/uL RBC 4.56 (4.20-5.40) 10^6/uL Hgb 14.1 (12.0-16.0) g/dL Hct 43.1 (37.0-47.0) % MCV 94.5 (81-99) FL MCH 30.9 (27-31) PG MCHC 32.7 L (33-37) g/dL RDW Std Deviation 43.5 (39-50) fL RDW Coeff of Brennan 12.9 (11.5-14.5) % Plt Count 291 (140-350) 10*3/uL MPV 10.9 (7.4-12.2) FL Immature Gran % (Auto) 0.2 (0-5) % Neut % (Auto) 76.0 (50-80) % Lymph % (Auto) 16.4 (10-50) % [place] % (Auto) 6.8 (5-15) % Eos % (Auto) 0.3 (0-8) % Baso % (Auto) 0.3 (0-1) % Immature Gran # (Auto) 0.03 10*3/UL Neut # (Auto) 14.39 10*3/UL Lymph # (Auto) 3.11 10*3/uL [place] # (Auto) 1.29 H (0.3-0.8) 10*3/UL Eos # (Auto) 0.06 10*3/UL Baso # (Auto) 0.05 10*3/UL WBC Morphology Comment Normal morphology (NORM) Plt Morphology Comment Normal morphology (NORM) RBC Morph Comment Normal morphology (NORM) PT 10.0 (9.7-11.4) secs INR 0.97 (0.00-5.90) N/A D-Dimer 0.28 (0.00-0.59) mg/L Sodium 140 (135-145) meq/L Potassium 3.7 L (3.8-5.2) meq/L Chloride 104 (98-112) meq/L Carbon Dioxide 22 L (23-33) meq/L Anion Gap 14 (5-20) BUN 8 (7-22) mg/dL Creatinine 0.7 (0.50-1.20) mg/dL Estimated GFR > 60 (>60 ml/min/1.73m(2)) BUN/Creatinine Ratio 11.42 (6-20) Glucose 98 (78-110) mg/dL Calculated Osmolality 287.0 (267-292) mOsm/kg Lactic Acid 1.0 (0.70-2.10) MMOL/L Calcium 9.4 (8.7-10.7) mg/dL Magnesium 1.7 (1.6-2.4) mg/dL Total Bilirubin 0.3 (0.3-1.2) mg/dL AST 20 (8-39) IU/L ALT 31 (9-52) IU/L Alkaline Phosphatase 117 (38-126) IU/L Troponin I < 0.012 (< 0.040) ng/mL C-Reactive Protein 2.9 H (0.0-0.9) mg/dL Total Protein 7.8 (6.1-8.0) g/dL Albumin 4.3 (3.5-4.8) g/dL Globulin 3.5 (2.50-4.10) g/dL Albumin/Globulin Ratio 1.20 L (1.3-2.0) mg/g Amylase 86 (30-110) U/L Lipase 55 (23-300) IU/L TSH 1.88 (0.2700-4.2000) uIU/mL - Imaging Status: Report Reviewed by Me (I reviewed the CT scan reports from yesterday, and there is no evidence of abscess.) Assessment and Plan - Patient Problems (1) Nonhealing surgical wound Current Visit: Yes Status: Acute Qualifiers: Encounter type: initial encounter Qualified Description: Non-healing surgical wound, initial encounter Qualifier Code(s): (T81.89XA) Other complications of procedures, not elsewhere classified, initial encounter (2) Postoperative abscess Current Visit: Yes Status: Acute (3) Dehydration Current Visit: Yes Status: Acute (4) Transgendered Current Visit: Yes Status: Acute (5) Leukocytosis Current Visit: Yes Status: Acute Comment: I think related to be margination with dehydration. (6) Tobacco abuse Current Visit: Yes Status: Acute (7) Chronic pain syndrome Current Visit: No Status: Acute - Assessment / Plan Additional Assessment/Plan Details: Admit the patient. Given the nonhealing surgical wound, I think the patient may need an inpatient stay to address wound care, hand arrange for wound VAC. Patient's having significant amount of pain surrounding the wound dressing changes that is requiring more than normal pain medications at home. Continue home medications although with history of DVTs, I think the patient might be better treated on Eliquis given difficulties of Coumadin management in a patient this young and what I suspect is probable noncompliance given a normal INR today. Continue Invanz and finish 4 more doses to complete 10 days of therapy. IV fluids. Check labs tomorrow. Nicotine patch. May discuss with surgery tomorrow as Dr. Rangel is back in town tomorrow and is television tube inspector tomorrow. I don't think there is any acute surgical issue right now. We'll have to do wet to dry dressing change for now until we can get a wound VAC placed tomorrow.
[2017-02-19] MEDS: oxyCODONE IR Tab 15 MG TAB PO PRN ×2 (17:13→20:58)
[2017-02-19] MEDS: HYDROmorphone 2 MG/1 ML IVP PRN ×2 (17:13→21:00)
[2017-02-19] MEDS ORDERED: NICOTINE 21 MG /DAY PATCH TRANSDERM ONE (17:21)
[2017-02-19] MEDS: ONDANSETRON 4 MG/2 ML VIAL IVP PRN ×2 (17:28→22:32)
[2017-02-19] MEDS: NORMAL SALINE 10 ML SYRINGE FLUSH IVP PRN ×2 (17:29→19:27)
[2017-02-19] MEDS: Meperidine Inj 50 MG/ML CARPUJECT IVP PRN ×2 (17:47→21:00)
[2017-02-19] MEDS: fentaNYL Inj 100 MCG/2 ML VIAL IVP PRN ×2 (19:27→22:35)
--- NOTE | 2017-02-19 20:25 | DI ---
CLINICAL HISTORY: Cough. PREVIOUS EXAM: February 18, 2017. FINDINGS/TECHNIQUE: PA and lateral views of the chest are obtained, and demonstrate clear lungs. The cardiomediastinum and bony thorax are unremarkable. Patient is status post sternotomy. There is no infiltrate nor effusion. Skeletal structures are unremarkable. IMPRESSION: 1. No acute disease.
[2017-02-19] MEDS: Promethazine Tab 25 MG TAB PO SCH (20:54)
[2017-02-19] MEDS: ACETAMINOPHEN 325 MG TABLET PO PRN (20:55)
[2017-02-19] MEDS: Apixaban Tab 2.5 MG TABLET PO SCH (20:56)
[2017-02-19] MEDS: Metoprolol TARTRATE Tab 25 MG TAB PO SCH (20:56)
[2017-02-19] MEDS: AMITRIPTYLINE 25 MG TABLET PO SCH (20:57)
[2017-02-19] MEDS: oxyCODONE ER 10 MG TAB PO SCH (20:58)
[2017-02-19] MEDS ORDERED: Warfarin 5 MG TAB PO SCH (21:00)
[2017-02-20] MEDS: diphenhydrAMINE 50 MG/1 ML VIAL IVP PRN ×3 (00:03→20:00)
[2017-02-20] MEDS: Sodium Chloride 0.9% 1,000 ML PRIMARY IV SCH ×3 (00:10→19:45)
[2017-02-20] MEDS: oxyCODONE IR Tab 15 MG TAB PO PRN ×6 (01:09→22:05)
[2017-02-20] MEDS: Meperidine Inj 50 MG/ML CARPUJECT IVP PRN ×6 (01:10→22:05)
[2017-02-20] MEDS: fentaNYL Inj 100 MCG/2 ML VIAL IVP PRN ×7 (01:10→22:05)
[2017-02-20] MEDS: ACETAMINOPHEN 325 MG TABLET PO PRN ×3 (04:55→17:51)
[2017-02-20] MEDS: ONDANSETRON 4 MG/2 ML VIAL IVP PRN ×4 (04:55→17:52)
[2017-02-20 06:05] LABS: BASOPHILS # (AUTO) 0.03 10*3/UL; BASOPHILS % (AUTO) 0.4 % (0-1); EOSINOPHILS # (AUTO) 0.39 10*3/UL; EOSINOPHILS % (AUTO) 5.2 % (0-8); HEMATOCRIT 36.9 % (37.0-47.0); HEMOGLOBIN 11.7 g/dL (12.0-16.0); LYMPHOCYTES # (AUTO) 3.76 10*3/uL; MEAN CORPUSCULAR HEMOGLOBIN 30.6 PG (27-31); MEAN CORPUSCULAR HGB CONC 31.7 g/dL (33-37); MEAN CORPUSCULAR VOLUME 96.6 FL (81-99); MEAN PLATELET VOLUME 11.2 FL (7.4-12.2); MONOCYTES # (AUTO) 0.68 10*3/UL (0.3-0.8); NEUTROPHILS # (AUTO) 2.65 10*3/UL; NEUTROPHILS % (AUTO) 35.3 % (50-80); RED BLOOD COUNT 3.82 10^6/uL (4.20-5.40)
[2017-02-20 06:17] LABS: PLATELET MORPHOLOGY COMMENT NORMAL MORPHOLOGY (NORM); RBC MORPHOLOGY COMMENT NORMAL MORPHOLOGY (NORM); WBC MORPHOLOGY COMMENT NORMAL MORPHOLOGY (NORM)
[2017-02-20 06:21] LABS: BLOOD UREA NITROGEN 7 mg/dL (7-22); BUN/CREATININE RATIO 11.66 (6-20); CALCIUM 8.1 mg/dL (8.7-10.7); EST GLOMERULAR FILTRATION > 60 (>60 ml/min/1.73m(2))
[2017-02-20] MEDS: HYDROmorphone 2 MG/1 ML IVP PRN ×4 (07:08→19:59)
[2017-02-20] MEDS: NORMAL SALINE 10 ML SYRINGE FLUSH IVP PRN (07:08)
[2017-02-20] MEDS: Spironolactone Tab 50 MG TAB PO SCH (08:54)
[2017-02-20] MEDS: Apixaban Tab 2.5 MG TABLET PO SCH ×2 (08:54→20:08)
[2017-02-20] MEDS: Metoprolol TARTRATE Tab 25 MG TAB PO SCH ×2 (08:55→20:08)
[2017-02-20] MEDS: oxyCODONE ER 10 MG TAB PO SCH (08:56)
[2017-02-20] MEDS: NICOTINE 21 MG /DAY PATCH TRANSDERM SCH (08:56)
[2017-02-20] MEDS: Patch Removal PATCH TRANSDERM SCH (08:57)
--- NOTE | 2017-02-20 14:41 | PDOC(PROG) ---
Date and Time of Service: 02/20/2017, 1440 Interval History: No chest pain and no shortness of breath. Has had some nausea and vomiting, and we ordered an upper GI series, and on the most recent imaging I spoke with radiology and it appears that there is still contents in the stomach suggesting delayed gastric emptying which would not be surprised given opiate use. Patient states her pain is controlled. Objective : Data - Labs CBC and BMP: 02/20/17 05:57 02/20/17 05:57 Labs - Last 24 Hours: Laboratory Results 02/20/17 Range/Units 05:57 WBC 7.52 (4.8-10.8) 10^3/uL RBC 3.82 L (4.20-5.40) 10^6/uL Hgb 11.7 L (12.0-16.0) g/dL Hct 36.9 L (37.0-47.0) % MCV 96.6 (81-99) FL MCH 30.6 (27-31) PG MCHC 31.7 L (33-37) g/dL RDW Std Deviation 45.2 (39-50) fL RDW Coeff of Brennan 13.2 (11.5-14.5) % Plt Count 225 (140-350) 10*3/uL MPV 11.2 (7.4-12.2) FL Immature Gran % (Auto) 0.1 (0-5) % Neut % (Auto) 35.3 L (50-80) % Lymph % (Auto) 50.0 (10-50) % [place] % (Auto) 9.0 (5-15) % Eos % (Auto) 5.2 (0-8) % Baso % (Auto) 0.4 (0-1) % Immature Gran # (Auto) 0.01 10*3/UL Neut # (Auto) 2.65 10*3/UL Lymph # (Auto) 3.76 10*3/uL [place] # (Auto) 0.68 (0.3-0.8) 10*3/UL Eos # (Auto) 0.39 10*3/UL Baso # (Auto) 0.03 10*3/UL WBC Morphology Comment Normal morphology (NORM) Plt Morphology Comment Normal morphology (NORM) RBC Morph Comment Normal morphology (NORM) Sodium 139 (135-145) meq/L Potassium 4.2 (3.8-5.2) meq/L Chloride 108 (98-112) meq/L Carbon Dioxide 22 L (23-33) meq/L Anion Gap 9 (5-20) BUN 7 (7-22) mg/dL Creatinine 0.6 (0.50-1.20) mg/dL Estimated GFR > 60 (>60 ml/min/1.73m(2)) BUN/Creatinine Ratio 11.66 (6-20) Glucose 94 (78-110) mg/dL Calculated Osmolality 285.0 (267-292) mOsm/kg Calcium 8.1 L (8.7-10.7) mg/dL Objective : Exam - General General Appearance: No Acute Distress, Cooperative Additional General Exam Details: Vital Signs - Last Taken Temperature 97.7 F 02/20/17 11:08 Pulse Rate 77 02/20/17 11:08 Respiratory Rate 18 02/20/17 11:08 Blood Pressure 114/72 02/20/17 11:08 Pulse Ox 95 02/20/17 11:08 - Respiratory Respiratory Exam: Clear to Auscultation - Bilaterally, Breathing Non Labored - Cardiovascular Cardiovascular Exam: RRR, No Murmur, No Clicks, No Gallops, No Rubs, No JVD - GI/Abdominal GI/Abdominal Exam: Normal Bowel Sounds, Non Tender, Non Distended, Soft - Extremities Extremities Exam: No Clubbing Present, No Edema Present, No Cyanosis Present - Neurological Neurological Exam: Alert, Oriented x 3, No Facial Droop, Speech Intact / Clear, Moves All Extremities Equally Assessment and Plan - Patient Problems (1) Nonhealing surgical wound Current Visit: Yes Status: Acute Qualifiers: Encounter type: initial encounter Qualified Description: Non-healing surgical wound, initial encounter Qualifier Code(s): (T81.89XA) Other complications of procedures, not elsewhere classified, initial encounter (2) Nausea and vomiting Current Visit: Yes Status: Acute (3) Postoperative abscess Current Visit: Yes Status: Acute (4) Dehydration Current Visit: Yes Status: Acute (5) Transgendered Current Visit: Yes Status: Acute (6) Leukocytosis Current Visit: Yes Status: Acute (7) Tobacco abuse Current Visit: Yes Status: Acute (8) Chronic pain syndrome Current Visit: Yes Status: Chronic - Assessment / Plan Additional Assessment/Plan Details: We're working towards getting a wound VAC on an outpatient basis. Hopefully will have an answer later today or tomorrow. Plan is for discharge tomorrow with wound VAC. Given the continued nausea and vomiting, doing an upper GI series today with small bowel follow-through. It appears delayed, we will do a delayed gastric emptying study as an outpatient as I suspect this patient probably has delayed gastric emptying. We'll discuss with Joanna and determine whether or not that should be done here or up in [place] with her primary care provider. Stop fluids today. I discussed with surgery and they're fine with the wound VAC and will see the patient in a week or so.
[2017-02-20] MEDS: Ertapenem Inj 1 GM in Sodium Chloride 0.9% 100 ML IV SCH (15:30)
[2017-02-20] MEDS: OXYCODONE PO SCH ×2 (20:08)
[2017-02-20] MEDS: AMITRIPTYLINE 25 MG TABLET PO SCH (20:08)
[2017-02-20] MEDS: Promethazine Tab 25 MG TAB PO SCH (20:08)
[2017-02-21] MEDS: oxyCODONE IR Tab 15 MG TAB PO PRN ×3 (01:55→10:27)
[2017-02-21] MEDS: Meperidine Inj 50 MG/ML CARPUJECT IVP PRN ×3 (01:58→10:28)
[2017-02-21] MEDS: fentaNYL Inj 100 MCG/2 ML VIAL IVP PRN ×3 (01:58→10:28)
[2017-02-21 05:41] VITALS: RESP 16
[2017-02-21] MEDS: ACETAMINOPHEN 325 MG TABLET PO PRN (05:43)
[2017-02-21 06:16] VITALS: TEMP 97
[2017-02-21] MEDS: Ertapenem Inj 1 GM in Sodium Chloride 0.9% 100 ML IV SCH (08:12)
[2017-02-21] MEDS: NICOTINE 21 MG /DAY PATCH TRANSDERM SCH (08:12)
[2017-02-21] MEDS: Spironolactone Tab 50 MG TAB PO SCH (08:13)
[2017-02-21] MEDS: OXYCODONE PO SCH ×2 (08:13)
[2017-02-21] MEDS: Apixaban Tab 2.5 MG TABLET PO SCH (08:14)
[2017-02-21] MEDS: Metoprolol TARTRATE Tab 25 MG TAB PO SCH (08:14)
[2017-02-21] MEDS: Patch Removal PATCH TRANSDERM SCH (08:14)
--- NOTE | 2017-02-21 09:51 | DI ---
XR UPPER GI W/SBFT,02/20/2017 10:55 AM: Clinical History: Vomiting. Previous Exam: None at this facility. Findings: Multiple images are obtained following the oral administration of thin barium, and demonstrate normal course, caliber and signal are of the esophagus without filling defects or strictures. The stomach demonstrates normal size, shape and distensibility, but there is no emptying of the stoma ch despite 2 hours of monitoring. Small bowel loops are not well evaluated as there was only visibility on the 2 hour image after there has been significant dilution. There was no evidence of dilated small bowel even though the small javy wel was not well evaluated. Impression: Extremely delayed gastric emptying with no visibility of contrast into the small bowel until the 2 ho ur images were performed. This is most consistent with delayed gastric emptying or gastric outlet obs truction. Small bowel loops were not well evaluated as evaluation of the small bowel requires fairly rapid olvera sit of contrast before dilution occurs. There are no gross abnormalities within the visible small bow el.
--- NOTE | 2017-02-21 10:45 | DCSUMMARY ---
Hospitalization Summary Admit Date: 02/19/17 Discharge Date: 02/21/17 Primary Diagnosis:: postoperative nonhealing wound infection. Secondary Diagnosis:: Delayed gastric emptying. Hospital Course: This is a very pleasant 31-year-old female who had a recent appendectomy and developed a loculated abscess that had to be surgically drained. Since that surgical drainage, the patient had been on Invanz, and she came in with complaints of nausea and vomiting and fever. The white blood cell count was elevated to around 18,000, but it appeared more consistent with dehydration as CT scan on the showed evidence that the abscess had completely resolved. We admitted the patient for nonhealing surgical wound, pain related to this, and for hydration in the setting of dehydration. She tolerated IV fluids very well, and the white blood cell count returned to normal and no fevers occur during the hospital stay. In terms of the wound, we did a wet to dry dressings and arrange for an outpatient wound VAC. We stopped Invanz on the day of discharge, completing 9 days of chemotherapy. Given that the abscess is resolved I think we can stop but it clearly. I will note that Joanna missed a dose on the . Either way, the abscess is resolved. She is showing no signs of infection at this time. The wound is clear, has good granulation tissue, no drainage. The patient had intermittent nausea and vomiting, and given narcotic use, and history for Joanna that she has had problems with eating larger meals since childhood, we were able to find a study from [facility] in 2011 that confirms delayed gastric emptying with a half time of emptying of solids phase of the 181 minutes with normal semisolid phase being documented to 60 minutes on that study. We also did a small bowel follow-through study here that suggested delayed gastric emptying as it took over 2 hours for any contrast to empty into the small bowel. We discussed Reglan therapy, risks and benefits of this, including tardive dyskinesia and long-term side effects of use of this medication. I think it would be appropriate for the patient to stop Zofran and Phenergan at this time as they can certainly increase gastric emptying times. The PT and INR were normal on admission. The patient has documented history of recurrent DVTs. We discussed going on eliquis, the benefits thereof, the risks associated with this medication as well as reversibility and non-reversibility aspects, dietary anaphylaxis, medication and finances. She chose to go on eliquis. Given resolution of these issues, today the patient still has some abdominal pain, albeit better controlled, no chest pain, no shortness breath, and no nausea and vomiting today. Assessment and Plan: 1. As per discharge assessments noted 2. Disposition: Patient is discharged home. 3. Condition on discharge, stable and improved. 4. Diet: regular diet, 6 small meals per day 5. Activities: resume normal activities, with VAC therapy as per physical therapy 6. Follow-Up: 1. See primary care provider in [place] today. 2. 7. Medications at the Time of Discharge: Home Medications Medication Instructions Recorded Confirmed Type Estradiol 2 tab PO BID 10/14/15 02/19/17 History Spironolactone 1 tab PO DAILY 10/14/15 02/19/17 History Amitriptyline HCl 2 tab PO BEDTIME 01/22/17 02/19/17 History Metoprolol Tartrate Tab 1 tab PO BID 02/01/17 02/19/17 History [Lopressor Tab] Oxycodone HCl 2 tab PO Q4H PRN tab 02/07/17 02/19/17 History Oxycodone HCl [Oxycodone HCl ER] 1 tab PO BID tab 02/07/17 02/19/17 History Apixaban [Eliquis] 2.5 mg PO BID #60 tab 02/21/17 Rx Metoclopramide HCl [Reglan] 10 mg PO AC PRN #120 tablet 02/21/17 Rx 8. Time, care, counseling and coordination of care for this discharge is greater than 30 minutes. Exam - Vitals Vital Signs: Vital Signs Temperature 97 F Temperature Source Temporal Artery Scan Pulse Rate [Apical] 98 Pulse Rate [Pulse Oximeter] 102 Respiratory Rate 16 Blood Pressure [Right Arm] 112/75 Pulse Ox 90 Oxygen Delivery Method Room Air Height 5 ft 9 in Weight 168 lb 9.6 oz - General General Appearance: POSITIVE: No Acute Distress, Cooperative - Eye Eye Exam: POSITIVE: No Scleral Icterus - Respiratory Respiratory Exam: POSITIVE: Clear to Auscultation - Bilaterally, Breathing Non Labored - Cardiovascular Cardiovascular Exam: POSITIVE: RRR, No Murmur, No Clicks, No Gallops, No Rubs, No JVD - GI/Abdominal GI/Abdominal Exam: POSITIVE: Normal Bowel Sounds, Non Distended, Soft - Extremities Extremities Exam: POSITIVE: No Clubbing Present, No Edema Present, No Cyanosis Present - Neurological Neurological Exam: POSITIVE: Alert, Oriented x 3, No Facial Droop, Speech Intact / Clear, Moves All Extremities Equally Data Perinent Studies: Laboratory Results 02/19/17 02/20/17 Range/Units 14:20 05:57 WBC 18.93 H 7.52 (4.8-10.8) 10^3/uL RBC 4.56 3.82 L (4.20-5.40) 10^6/uL Hgb 14.1 11.7 L (12.0-16.0) g/dL Hct 43.1 36.9 L (37.0-47.0) % MCV 94.5 96.6 (81-99) FL MCH 30.9 30.6 (27-31) PG MCHC 32.7 L 31.7 L (33-37) g/dL RDW Std Deviation 43.5 45.2 (39-50) fL RDW Coeff of Brennan 12.9 13.2 (11.5-14.5) % Plt Count 291 225 (140-350) 10*3/uL MPV 10.9 11.2 (7.4-12.2) FL Immature Gran % (Auto) 0.2 0.1 (0-5) % Neut % (Auto) 76.0 35.3 L (50-80) % Lymph % (Auto) 16.4 50.0 (10-50) % [place] % (Auto) 6.8 9.0 (5-15) % Eos % (Auto) 0.3 5.2 (0-8) % Baso % (Auto) 0.3 0.4 (0-1) % Immature Gran # (Auto) 0.03 0.01 10*3/UL Neut # (Auto) 14.39 2.65 10*3/UL Lymph # (Auto) 3.11 3.76 10*3/uL [place] # (Auto) 1.29 H 0.68 (0.3-0.8) 10*3/UL Eos # (Auto) 0.06 0.39 10*3/UL Baso # (Auto) 0.05 0.03 10*3/UL WBC Morphology Comment Normal morphology Normal morphology (NORM) Plt Morphology Comment Normal morphology Normal morphology (NORM) RBC Morph Comment Normal morphology Normal morphology (NORM) PT 10.0 (9.7-11.4) secs INR 0.97 (0.00-5.90) N/A D-Dimer 0.28 (0.00-0.59) mg/L Sodium 140 139 (135-145) meq/L Potassium 3.7 L 4.2 (3.8-5.2) meq/L Chloride 104 108 (98-112) meq/L Carbon Dioxide 22 L 22 L (23-33) meq/L Anion Gap 14 9 (5-20) BUN 8 7 (7-22) mg/dL Creatinine 0.7 0.6 (0.50-1.20) mg/dL Estimated GFR > 60 > 60 (>60 ml/min/1.73m(2)) BUN/Creatinine Ratio 11.42 11.66 (6-20) Glucose 98 94 (78-110) mg/dL Calculated Osmolality 287.0 285.0 (267-292) mOsm/kg Lactic Acid 1.0 (0.70-2.10) MMOL/L Calcium 9.4 8.1 L (8.7-10.7) mg/dL Magnesium 1.7 (1.6-2.4) mg/dL Total Bilirubin 0.3 (0.3-1.2) mg/dL AST 20 (8-39) IU/L ALT 31 (9-52) IU/L Alkaline Phosphatase 117 (38-126) IU/L Troponin I < 0.012 (< 0.040) ng/mL C-Reactive Protein 2.9 H (0.0-0.9) mg/dL Total Protein 7.8 (6.1-8.0) g/dL Albumin 4.3 (3.5-4.8) g/dL Globulin 3.5 (2.50-4.10) g/dL Albumin/Globulin Ratio 1.20 L (1.3-2.0) mg/g Amylase 86 (30-110) U/L Lipase 55 (23-300) IU/L TSH 1.88 (0.2700-4.2000) uIU/mL Patient Problems - Patient Problem List (1) Nonhealing surgical wound Current Visit: Yes Status: Acute Comment: This is causing the patient some abdominal pain. I think it will improve as the wound closes, but it's difficult to predict this, particularly given chronic pain syndrome. I did mention that to the patient through the hospital stay. Qualifiers: Encounter type: initial encounter Qualified Description: Non-healing surgical wound, initial encounter Qualifier Code(s): (T81.89XA) Other complications of procedures, not elsewhere classified, initial encounter (2) Delayed gastric emptying Current Visit: Yes Status: Acute (3) Nausea and vomiting Current Visit: Yes Status: Acute (4) Postoperative abscess Current Visit: Yes Status: Acute Qualifiers: Encounter type: initial encounter Qualified Description: Postoperative abscess, initial encounter Qualifier Code(s): (T81.4XXA) Infection following a procedure, initial encounter (5) Dehydration Current Visit: Yes Status: Acute (6) Transgendered Current Visit: Yes Status: Acute (7) Leukocytosis Current Visit: Yes Status: Resolved Qualifiers: Leukocytosis type: leukemoid reaction Qualified Description: Leukemoid reaction Qualifier Code(s): (D72.823) Leukemoid reaction (8) Tobacco abuse Current Visit: Yes Status: Acute (9) Chronic pain syndrome Current Visit: Yes Status: Chronic
[2017-02-21] MEDS: HYDROmorphone 2 MG/1 ML IVP PRN (10:58)
--- NOTE | 2017-02-21 16:40 | PTI REPORT ---
Thank you for the referral of Joanna Prado. She was seen on 02/20/17 for an inpatient evaluation secondary to a dehisced abdominal wound. SUBJECTIVE: The patient is a 31-year-old female. The patient reports she was recently discharged from the hospital with the same problem she is having now. She states she underwent a laparoscopic appendectomy on January 21, 2017 and was sent home. The incision dehisced on February 01 and she underwent a debridement type surgery. She recently was in the hospital due to incontrollable pain as well as lack of healing of the incision. When she went to the emergency room a CT scan was done per the patient which showed an abscess underneath the open incisional wound. She states at this time she is very frustrated with her care ; she has been on an antibiotic for the past 18 months. As of now, the plan is to be discharged tomorrow after the placement of the wound vac per Dr. Hallman. PAST MEDICAL HISTORY: Past medical history can be found in the patient's medical record. OBJECTIVE FINDINGS: Pain: The patient reports a pain level anywhere from an 8 to 10/10 on the verbal analog scale (0=no pain, 10=worst pain). She is currently using IV pain medication to control her pain. Wound: The patient presents with an open wound in the right lower abdomen region that measures 4 centimeters x 2 centimeters and is 2 centimeters deep with a moderate amount of serosanguineous drainage. The wound bed has well defined borders and has no signs of slough tissue or eschar in the wound bed at this time. ASSESSMENT: Problem List: Delayed wound healing Physical Therapy Goals: To be met by discharge from inpatient: Patient will promote clean wound healing. Patient will be educated on propre skin care. TREATMENT PLAN: Patient will be seen on a PRN basis for wound care at this time per physician's orders. She is to receive wet to dry dressings on a PRN basis. The plan is to have the patient discharged from the hospital and placed on a wound vac as an outpatient physical therapy patient. INITIAL TREATMENT: Treatment today consisted of the initial evaluation followed by cleansing the wound area with wound cleanser and redressing the wound with wet to dry dressing with Mepilex. The therapist has contacted [facility] to start the process of ordering a wound vac for when the patient is discharged from the hospital tomorrow so she may be seen as an outpatient with application of the wound vac at that time. DANDY
== END 2017-02-21 11:10 | disposition home or self-care (01) | DRG 863 ==
LOC: ER 13:40 → MED/SURG 15:46 → OBSVTOIN 17:24
PROVIDERS: ADMIT Family Medicine; ATTEND Family Medicine
DX: T81.4XXA Infection following a procedure, initial encounter (principal); L02.91 Cutaneous abscess, unspecified; K30 Functional dyspepsia; R11.2 Nausea with vomiting, unspecified; E86.0 Dehydration; Z72.0 Tobacco use; G89.4 Chronic pain syndrome
CPT/HCPCS: 36415; 71020; 74249; 80048; 80053; 82150; 83605; 83690; 83735; 84443; 84484; 85025; 85379; 85610; 86140; 87040; 93005; 93010; 96374; 96375; 97161; 99285; J1170; J1200; J1335; J2175; J2405; J3010; J7030; J7050; Q0169

== ENCOUNTER 2017-04-02 09:20 | Inpatient (IN) | payer OTHER ==
[2017-04-02] MEDS ORDERED: Prochlorperazine Edisylate Inj 10mg/2ml vial IVP ONE (09:37)
[2017-04-02] MEDS: Sodium Chloride 0.9% 1,000 ML PRIMARY IV ONE ×2 (09:45→11:45)
[2017-04-02] MEDS: Meperidine Inj 50 MG/ML CARPUJECT IVP ONE ×2 (09:53→11:42)
[2017-04-02] MEDS ORDERED: diphenhydrAMINE 50 MG/1 ML VIAL IVP ONE (09:57)
[2017-04-02 10:05] LABS: HEMATOCRIT 45.1 % (37.0-47.0); HEMOGLOBIN 15.5 g/dL (12.0-16.0); MEAN CORPUSCULAR HEMOGLOBIN 31.3 PG (27-31); MEAN CORPUSCULAR HGB CONC 34.4 g/dL (33-37); MEAN CORPUSCULAR VOLUME 90.9 FL (81-99); MEAN PLATELET VOLUME 10.3 FL (7.4-12.2); RED BLOOD COUNT 4.96 10^6/uL (4.20-5.40)
[2017-04-02 10:06] LABS: BASOPHILS # (AUTO) 0.02 10*3/UL; BASOPHILS % (AUTO) 0.2 % (0-1); EOSINOPHILS # (AUTO) 0.02 10*3/UL; EOSINOPHILS % (AUTO) 0.2 % (0-8); LYMPHOCYTES # (AUTO) 1.27 10*3/uL; MONOCYTES # (AUTO) 0.42 10*3/UL (0.3-0.8); MONOCYTES % (AUTO) 3.8 % (5-15); NEUTROPHILS # (AUTO) 9.31 10*3/UL; NEUTROPHILS % (AUTO) 84.2 % (50-80); PLATELET MORPHOLOGY COMMENT NORMAL MORPHOLOGY (NORM); RBC MORPHOLOGY COMMENT NORMAL MORPHOLOGY (NORM); WBC MORPHOLOGY COMMENT NORMAL MORPHOLOGY (NORM)
[2017-04-02 10:10] LABS: BLOOD UREA NITROGEN 5 mg/dL (7-22); BUN/CREATININE RATIO 7.14 (6-20); CALCIUM 9.6 mg/dL (8.7-10.7); EST GLOMERULAR FILTRATION > 60 (>60 ml/min/1.73m(2)); LIPASE 45 IU/L (23-300); SERUM ALBUMIN 4.6 g/dL (3.5-4.8)
[2017-04-02 10:18] LABS: C-REACTIVE PROTEIN < 0.5 mg/dL (0.0-0.9)
[2017-04-02] MEDS ORDERED: methylPREDNISolone 125 MG/2 ML VIAL IVP ONE (10:18)
[2017-04-02] MEDS ORDERED: Meperidine Inj 50 MG/ML CARPUJECT IVP ONE (11:38)
--- NOTE | 2017-04-02 12:01 | DI ---
HISTORY: Lower abdominal pain. COMPARISON: Report from 02/18/2017. TECHNIQUE: Contiguous transaxial computed tomographic images were obtained of the abdomen and pelvis per routine protocol with IV contrast. Coronal and sagittal reformat images were performed. FINDINGS: LUNG BASES: Clear. INFERIOR MEDIASTINUM: Unremarkable. LIVER: Normal in size and attenuation with no focal abnormalities. GALLBLADDER AND BILE DUCTS: Gallbladder is normal in appearance with no gallbladder wall thickening or pericholecystic fluid. No biliary dilatation. SPLEEN: Normal in size and attenuation with no focal abnormalities. PANCREAS: Normal in size and attenuation with no focal abnormalities. ADRENALS: Normal in size and attenuation with no focal abnormalities. : A small low density lesion is not characterizable in the left kidney but is likely a cyst. There are single small stones within both kidneys. No evidence of urinary obstruction or obstructing urin mateo calculi. Ureters are normal throughout their course. Urinary bladder is within normal limits. GI: There is mild thickening of the descending colon which may be due to decompression versus a mild colitis. Status post appendectomy. PELVIS: Within normal limits with no mass identified. VESSELS: Aorta is normal in size with no evidence of aneurysm or rupture. BONES: No acute bony abnormality. No suspicious osteolytic or osteoblastic lesion. SOFT TISSUES: Small amount of gas and edema is seen within the right rectus abdominis muscle. IMPRESSION: 1. Small amount of gas and edema is seen within the right rectus abdominis muscle. Correlate for rec ent surgery versus less likely infection. 2. There is mild thickening of the descending colon which may be due to decompression versus a mild c olitis. 3. A small low density lesion is not characterizable in the left kidney but is likely a cyst. There are single small stones within both kidneys.
[2017-04-02] MEDS ORDERED: NORMAL SALINE 10 ML SYRINGE FLUSH IVP PRN ×7 (12:39→15:25)
--- NOTE | 2017-04-02 12:42 | PDOC ---
Abdomen/Flank HPI - General Chief Complaint: Abdomen Pain Stated Complaint: abdominal pain Date Seen by Provider: 04/02/17 Time Seen by Provider: 09:40 Source: POSITIVE: Patient Exam Limitations: POSITIVE: No limitations Nurse's Notes Reviewed & Considered: Yes - History of Present Illness Initial Comments: The patient is a 32-year-old female who presents to the emergency department with increasing right lower quadrant abdominal pain. She had an appendectomy earlier this spring that was complicated by development of intra-abdominal abscess requiring incision and drainage with subsequent wound infection and dehiscence. She has been on a wound VAC up until 2 days ago. The incision seem to be healing at that point. Over the past 24 hour she's developed increased pain just above the incision which she describes as feeling deep in the tissue. She does continue to have intermittent fevers and reports a temperature of 103 last night. She has been taking oxycodone and Dilaudid for pain today without any pain relief. She has chronic nausea and vomiting intermittently as well as chronic constipation. She denies any urinary symptoms. She is still taking Keflex for the wound infection and previously was treated with Invanz in February. - Patient Home Medications Home Medications: Home Medications Estradiol 2 tab PO BID 10/14/15 Spironolactone 1 tab PO DAILY 10/14/15 Amitriptyline HCl 2 tab PO BEDTIME 01/22/17 Metoprolol Tartrate Tab [Lopressor Tab] 1 tab PO BID 02/01/17 Oxycodone HCl 2 tab PO Q4H PRN tab 02/07/17 Oxycodone HCl [Oxycodone HCl ER] 1 tab PO BID tab 02/07/17 Hydromorphone HCl [Dilaudid] 8 mg PO Q4H tab 03/09/17 Cephalexin [Keflex] 1,000 mg PO TID 04/02/17 Promethazine HCl [Phenergan] 25 mg PO Q6H PRN 04/02/17 Warfarin Sodium 5 mg PO DAILY 04/02/17 - Patient Allergies Allergies/Adverse Reactions: Allergies Allergy/AdvReac Type Severity Reaction Status Date / Time cyclobenzaprine HCl Allergy Severe HIVES Verified 02/21/17 06:23 [From Flexeril] venom-honey bee Allergy Severe Anaphylaxis Verified 02/21/17 06:23 [bee venom (honey bee)] iodine Allergy Intermediate RASH Verified 02/21/17 06:23 Iodine and Iodide Containing Allergy Intermediate VOMITING Verified 02/21/17 06: 23 Produc ketorolac tromethamine Allergy Intermediate HIVES Verified 02/21/17 06:23 [From Toradol] lactose [Lactose] Allergy Intermediate NOT Verified 02/21/17 06:23 APPLICABLE adhesive tape AdvReac Intermediate RASH Verified 02/21/17 06:23 SEA FOOD AdvReac Intermediate HIVES Uncoded 02/21/17 06:23 Past Medical History - heen HEENT History: Deaf Additional HEENT History: 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 MRI scheduled ) Additional Musculoskeletal History: UPPER BACK AND NECK INJURY AT WORK IN [employer] Neurological History: TIA Additional Neurological History: pt reported neuropathy on first three toes on both feet. Blood Disorders: Other (please comment) Additional Blood Disorders History: DVT Psychiatric History: Denies History Additional Psychiatric History: hx self cutting History of Sexually Transmitted Diseases: No Cancer History: Other (please comment) Cancer Treatment / Date(s) of Treatment: 2001 In Past Year Been Physically Harmed or Verbally Threatened: No History of MDRO: No Other Type of MDRO: staph History of Other Communicable Diseases: No History of Exposure to Communicable Disease: No Tobacco Use: Current Every Day Smoker Alcohol Use: None Substance Use Type: Opiate Pain Medication Previous Surgical History: Yes Type / Date of Surgery: BREAST AUGMENTATION, RIGHT KNEE SURG.X3, RIGHT HAND SURG.X3, ORCHIECTOMY, TONSILLECTOMY, LYMPH NODE REMOVAL.; OPEN HEART SURGERY, THYMOMA REMOVAL; HERNIA REPAIR Anesthesia Reactions: No Malignant Hyperthermia: No Significant Family History: Asthma, Heart disease, Cancer, Diabetes, Hypertension Past Medical History Reviewed: Reviewed - No Changes ROS - Limitations ROS Limitations: No Limitations Constitution: REPORTS: Fever (Temp up to 103 last night) Cardiovascular: REPORTS: Denies Cardiac Symptoms Respiratory: REPORTS: Denies Resp Symptoms Gastrointestinal: REPORTS: Abdominal Pain, Nausea, Vomitting, Constipation Musculoskeletal: REPORTS: Denies MS Symptoms Eyes: REPORTS: Denies Symptoms ENT: REPORTS: Denies Symptoms Abdominal/Flank Pain PE - General Appearance General Appearance: POSITIVE: Alert, Cooperative, No Acute Distress - HEENT HEENT: POSITIVE: Head Inspection Nml, Eyes Inspection Nml, Ears Inspection Nml, Nose Inspection Nml. NEGATIVE: Dry Mucous Membranes - Neck Neck: POSITIVE: Normal Inspection - Respiratory Respiratory: POSITIVE: No Respiratory Distress, Breath Sounds Normal - Cardiovascular Cardiovascular: POSITIVE: Regular Rate and Rhythm, Heart Sounds Normal - Abdomen Abdomen: Soft: (All Quadrants), Normal Bowel Sounds: (All Quadrants), No Distention: (All Quadrants) Additional Abdominal Details: She does have an incision in the right lower quadrant which is mostly healed, there is still small open area and some minimal purulent drainage, she does have significant tenderness primarily above the wound however generalized tenderness all around the wound, no obvious induration of the tissue around the wound - Skin Skin: POSITIVE: Intact, No Rash - Extremities Extremity: Normal ROM: (All Extremities), Normal Inspection: (All Extremities) - Neurological Neurological: POSITIVE: Oriented X3, Motor Normal, Sensation Normal, Other (No focal neurologic deficits) Abdomen Progress - Results Reviewed by me Xrays/CTs/US Reviewed by me: Yes Discussed with Radiologist: Yes Radiology Findings: CT scan of the abdomen and pelvis reveals some edema and gas collection in the rectus sheath on the right side which is new from previous CT scan in early February, no obvious abscess formation per radiologist. Lab Results Reviewed: Yes Lab Results:: Laboratory Results 04/02/17 Range/Units 09:45 WBC 11.05 H (4.8-10.8) 10^3/uL RBC 4.96 (4.20-5.40) 10^6/uL Hgb 15.5 (12.0-16.0) g/dL Hct 45.1 (37.0-47.0) % MCV 90.9 (81-99) FL MCH 31.3 H (27-31) PG MCHC 34.4 (33-37) g/dL RDW Std Deviation 43.6 (39-50) fL RDW Coeff of Brennan 13.4 (11.5-14.5) % Plt Count 279 (140-350) 10*3/uL MPV 10.3 (7.4-12.2) FL Immature Gran % (Auto) 0.1 (0-5) % Neut % (Auto) 84.2 H (50-80) % Lymph % (Auto) 11.5 (10-50) % [place] % (Auto) 3.8 L (5-15) % Eos % (Auto) 0.2 (0-8) % Baso % (Auto) 0.2 (0-1) % Immature Gran # (Auto) 0.01 10*3/UL Neut # (Auto) 9.31 10*3/UL Lymph # (Auto) 1.27 10*3/uL [place] # (Auto) 0.42 (0.3-0.8) 10*3/UL Eos # (Auto) 0.02 10*3/UL Baso # (Auto) 0.02 10*3/UL WBC Morphology Comment Normal morphology (NORM) Plt Morphology Comment Normal morphology (NORM) RBC Morph Comment Normal morphology (NORM) PT 10.6 (9.7-11.4) secs INR 1.00 (0.00-5.90) N/A Sodium 138 (135-145) meq/L Potassium 4.0 (3.8-5.2) meq/L Chloride 103 (98-112) meq/L Carbon Dioxide 24 (23-33) meq/L Anion Gap 11 (5-20) BUN 5 L (7-22) mg/dL Creatinine 0.7 (0.50-1.20) mg/dL Estimated GFR > 60 (>60 ml/min/1.73m(2)) BUN/Creatinine Ratio 7.14 (6-20) Glucose 131 H (78-110) mg/dL Calculated Osmolality 284.0 (267-292) mOsm/kg Calcium 9.6 (8.7-10.7) mg/dL Total Bilirubin 0.5 (0.3-1.2) mg/dL AST 23 (8-39) IU/L ALT 28 (9-52) IU/L Alkaline Phosphatase 78 (38-126) IU/L C-Reactive Protein < 0.5 (0.0-0.9) mg/dL Total Protein 7.7 (6.1-8.0) g/dL Albumin 4.6 (3.5-4.8) g/dL Globulin 3.1 (2.50-4.10) g/dL Albumin/Globulin Ratio 1.40 (1.3-2.0) mg/g Amylase 90 (30-110) U/L Lipase 45 (23-300) IU/L - Patient's Progress MDM / ED Course: The patient was afebrile on arrival. IV was established and she did receive Demerol 50 mg IV as well as Compazine 5 mg IV for pain and nausea. Her white blood cell count is mildly elevated with a normal CRP. A CT scan of the abdomen and pelvis was ordered. The patient does have a contrast allergy and she therefore was given Solu-Medrol 125 mg and Benadryl 50 mg IV prior to the CT. CT scan of the abdomen and pelvis does show some edema and gas in the rectal sheath on the right side concerning for possible infection per radiologist. Surgical consultation was obtained from Dr. Rangel who is familiar with the patient from previous procedures. Because of the CT findings and concern for possible deep tissue infection his current plan is to take the patient to the operating room for exploration. These findings and recommendations were discussed with the patient and she is in agreement with current plan. - Consult Counseled: POSITIVE: Patient, Family, RE: Lab Results, RE: Radiology Results, RE : DX Patient Care Time - Estimated PCT Patient Care Time (In Minutes): 35 Vital Signs - Recent Vital Signs Vital Signs: Vital Signs (Last 8 hours) Temp Pulse Resp BP Pulse Ox 04/02/17 09:34 97.4 F 122 H 18 112/77 97 - VS Reviewed Vital Signs Reviewed: Yes Discharge Clinical Impression: Abdominal pain, Local infection of wound Discharge Disposition: Transferred to OR Condition: Stable Date Decision to Admit to Inpatient: 04/02/17 Time Decision to Admit to Inpatient: 12:40
[2017-04-02] MEDS ORDERED: Ertapenem Inj 1 GM in Sodium Chloride 0.9% 100 ML IV SCH ×2 (12:45→15:25)
[2017-04-02] MEDS ORDERED: Lactated Ringers 1,000 ML PRIMARY IV SCH ×3 (12:45→14:30)
--- NOTE | 2017-04-02 12:47 | PDOC ---
History and Physical - History of Present Illness Date and Time of Service: 03/30/2017 at 1240 Chief Complaint: Abdominal wall pain History of Present Illness: This is a 32-year-old female who is having abdominal pain. She stated that she started having pain on Monday the . The it's got to the point of the pain is so severe that her pain medication no longer is adequate and she cannot sleep. Patient also reports having 103 fever. She states she started draining some greenish drainage from her incision. Patient had a white count of 11.01. In the patients on Coumadin her INR is only 1.0. Patient has CT scan of the abdomen and pelvis which shows no intra-abdominal abscesses but there is some inflammatory condition of the rectus sheath and some air in the rectus muscle. Patient did have a postoperative abscess after laparoscopic appendectomy. Patient is subsequently has developed a wound abscess. Patient is on chronic narcotic use Past Medical History Medical History: 1. Status post excision of thymoma. 2. History of non- Hodgkin's lymphoma. 3. Breast augmentation. 4. Appendectomy with subsequent abscess that has now resolved and postoperative nonhealing wound. Surgical History: 1. 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 2. Hernia repair. 3. Breast augmentation. 4. Boxers fracture repair on right hand with subsequent hardware removal with one of the screws having a broken had and still being in place. Patient states that her last surgery was about 9 years ago or so for this. Working on trying to get the rest of the hardware out but has been having trouble getting an orthopedic surgeon. 5. Excision of thymoma. 6. Appendectomy, laparoscopic. 7. Open drainage of abdominal wound abscess with drain placement. Pertinent Family History: Significant for diabetes Past Social History: Smoker, does not drink alcohol. Lives in [place], [place]. Has a significant other with 5 kids and she states on primarily to help raise the 5 children. Her primary care provider is in [place], [place]. 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 Tobacco Use: Current Every Day Smoker Substance Use Type: Opiate Pain Medication Additional Past Medical History Comments: Patient status post laparoscopic appendectomy patient. Patient developed an intra-abdominal abscess after this. Patient then developed a wound infection. Medication / Allergies Home Medications: Home Medications Medication Instructions Recorded Confirmed Type Estradiol 2 tab PO BID 10/14/15 04/02/17 History Spironolactone 1 tab PO DAILY 10/14/15 04/02/17 History Amitriptyline HCl 2 tab PO BEDTIME 01/22/17 04/02/17 History Metoprolol Tartrate Tab 1 tab PO BID 02/01/17 04/02/17 History [Lopressor Tab] Oxycodone HCl 2 tab PO Q4H PRN tab 02/07/17 04/02/17 History Oxycodone HCl [Oxycodone HCl ER] 1 tab PO BID tab 02/07/17 04/02/17 History Hydromorphone HCl [Dilaudid] 8 mg PO Q4H tab 03/09/17 04/02/17 History Cephalexin [Keflex] 1,000 mg PO TID 04/02/17 04/02/17 History Promethazine HCl [Phenergan] 25 mg PO Q6H PRN 04/02/17 04/02/17 History Warfarin Sodium 5 mg PO DAILY 04/02/17 04/02/17 History Allergies/Adverse Reactions: Allergies Allergy/AdvReac Type Severity Reaction Status Date / Time cyclobenzaprine HCl Allergy Severe HIVES Verified 02/21/17 06:23 [From Flexeril] venom-honey bee Allergy Severe Anaphylaxis Verified 02/21/17 06:23 [bee venom (honey bee)] iodine Allergy Intermediate RASH Verified 02/21/17 06:23 Iodine and Iodide Containing Allergy Intermediate VOMITING Verified 02/21/17 06: 23 Produc ketorolac tromethamine Allergy Intermediate HIVES Verified 02/21/17 06:23 [From Toradol] lactose [Lactose] Allergy Intermediate NOT Verified 02/21/17 06:23 APPLICABLE adhesive tape AdvReac Intermediate RASH Verified 02/21/17 06:23 SEA FOOD AdvReac Intermediate HIVES Uncoded 02/21/17 06:23 Review of Systems - Constitutional Constitutional: REPORTS: Fever/Chills - Integumentary Integumentary: REPORTS: Superficial Wound - Respiratory Respiratory: REPORTS: Negative System Review Exam - Vitals Vital Signs: Vital Signs Temperature 97.4 F Temperature Source Temporal Artery Scan Pulse Rate [Pulse Oximeter] 122 Respiratory Rate 18 Blood Pressure [Left Arm] 112/77 Pulse Ox 97 Oxygen Delivery Method Room Air Height 5 ft 9 in Weight 72.575 kg - General General Appearance: POSITIVE: No Acute Distress, Cooperative - Neck Neck Exam: POSITIVE: Full ROM - Respiratory Respiratory Exam: POSITIVE: Clear to Auscultation - Bilaterally - Cardiovascular Cardiovascular Exam: POSITIVE: RRR - GI/Abdominal Additional GI/Abdominal Exam Details: Patient has incisional pain. Otherwise benign physical examination. No rebound , no rigidity, no guarding. Patient's incision is clean. There is some hyper granulation tissue located at the lateral quarter of the incision. Results - Labs CBC and BMP: 04/02/17 09:45 04/02/17 09:45 Labs - Last 24 Hours: Laboratory Results 04/02/17 Range/Units 09:45 WBC 11.05 H (4.8-10.8) 10^3/uL RBC 4.96 (4.20-5.40) 10^6/uL Hgb 15.5 (12.0-16.0) g/dL Hct 45.1 (37.0-47.0) % MCV 90.9 (81-99) FL MCH 31.3 H (27-31) PG MCHC 34.4 (33-37) g/dL RDW Std Deviation 43.6 (39-50) fL RDW Coeff of Brennan 13.4 (11.5-14.5) % Plt Count 279 (140-350) 10*3/uL MPV 10.3 (7.4-12.2) FL Immature Gran % (Auto) 0.1 (0-5) % Neut % (Auto) 84.2 H (50-80) % Lymph % (Auto) 11.5 (10-50) % [place] % (Auto) 3.8 L (5-15) % Eos % (Auto) 0.2 (0-8) % Baso % (Auto) 0.2 (0-1) % Immature Gran # (Auto) 0.01 10*3/UL Neut # (Auto) 9.31 10*3/UL Lymph # (Auto) 1.27 10*3/uL [place] # (Auto) 0.42 (0.3-0.8) 10*3/UL Eos # (Auto) 0.02 10*3/UL Baso # (Auto) 0.02 10*3/UL WBC Morphology Comment Normal morphology (NORM) Plt Morphology Comment Normal morphology (NORM) RBC Morph Comment Normal morphology (NORM) PT 10.6 (9.7-11.4) secs INR 1.00 (0.00-5.90) N/A Sodium 138 (135-145) meq/L Potassium 4.0 (3.8-5.2) meq/L Chloride 103 (98-112) meq/L Carbon Dioxide 24 (23-33) meq/L Anion Gap 11 (5-20) BUN 5 L (7-22) mg/dL Creatinine 0.7 (0.50-1.20) mg/dL Estimated GFR > 60 (>60 ml/min/1.73m(2)) BUN/Creatinine Ratio 7.14 (6-20) Glucose 131 H (78-110) mg/dL Calculated Osmolality 284.0 (267-292) mOsm/kg Calcium 9.6 (8.7-10.7) mg/dL Total Bilirubin 0.5 (0.3-1.2) mg/dL AST 23 (8-39) IU/L ALT 28 (9-52) IU/L Alkaline Phosphatase 78 (38-126) IU/L C-Reactive Protein < 0.5 (0.0-0.9) mg/dL Total Protein 7.7 (6.1-8.0) g/dL Albumin 4.6 (3.5-4.8) g/dL Globulin 3.1 (2.50-4.10) g/dL Albumin/Globulin Ratio 1.40 (1.3-2.0) mg/g Amylase 90 (30-110) U/L Lipase 45 (23-300) IU/L Assessment and Plan - Patient Problems (1) Wound infection Current Visit: Yes Status: Acute - Assessment / Plan Additional Assessment/Plan Details: I discussed the differential diagnosis with the patient. Given the fact that there is some new free air seen at then a wound there is possibility she developed a necrotizing wound infection. I discussed with her doing exploratory laparotomy or put on IV antibiotics. Patient has a fear of being on long-term antibiotics. (She has been on IV antibiotics for 20 months for a hand infection) this he would like to do the exploratory surgery. Patient has a history of DVTs and her INR is only 1.0 will start her on subcutaneous heparin postoperatively and get her on proper dose of Coumadin
[2017-04-02] MEDS ORDERED: Sodium Chloride 0.9% 100 ML IV ONE (12:58)
[2017-04-02] MEDS ORDERED: ERTAPENEM 1 GM VIAL ONE (12:58)
[2017-04-02] MEDS ORDERED: LIDOCAINE MPF 2% - 5 ML (20 MG/1 ML) ONE (13:11)
[2017-04-02] MEDS ORDERED: MIDAZOLAM 5 MG/1 ML ONE (13:13)
[2017-04-02] MEDS ORDERED: fentaNYL Inj 250 MCG/5 ML VIAL ONE ×2 (13:13→13:48)
[2017-04-02] MEDS ORDERED: ROCURONIUM 10 MG/1 ML - 5 ML VIAL IVP ONE (13:14)
[2017-04-02] MEDS ORDERED: METOPROLOL TARTRATE 5 MG/5 ML VIAL ONE (13:49)
[2017-04-02] MEDS ORDERED: SUFENTANIL 50 MCG/1 ML ONE (13:55)
[2017-04-02] MEDS ORDERED: MEPERIDINE HCL/PF 100 MG/1 ML INJECTION ONE (14:03)
[2017-04-02] MEDS ORDERED: BUPivacaine Liposome/PF (Exparel) Inj 20ml vial INFIL ONE (14:05)
[2017-04-02] MEDS ORDERED: BUPivacaine Inj 0.25% PF - 10ml vial ONE (14:07)
[2017-04-02] MEDS ORDERED: SUGAMMADEX SODIUM 200 MG/2 ML VIAL IV ONE (14:13)
[2017-04-02] MEDS ORDERED: KETOROLAC 30 MG/1 ML VIAL ONE (14:14)
[2017-04-02] MEDS ORDERED: LIDOCAINE W/ SODIUM BICARB 0.5 ML SYR SUBD PRN (14:28)
[2017-04-02] MEDS ORDERED: CALCIUM CARBONATE 500 MG (TUMS) CHEWABLE TABLET PO PRN ×2 (14:28→15:25)
[2017-04-02] MEDS ORDERED: ONDANSETRON 4 MG/2 ML VIAL IVP PRN (14:28)
[2017-04-02] MEDS ORDERED: KETOROLAC 15 MG/1 ML VIAL IVP PRN ×2 (14:28→15:25)
--- NOTE | 2017-04-02 14:28 | GEN.OPNOTE ---
Operative Note Surgery Date: 04/02/17 Preoperative Diagnosis: Possible soft tissue infection of her previous and surgical wound Postoperative Diagnosis: Granulation tissue of the wound carried down to the suture line Procedure: Incision and drainage Surgeon: Cristhian Rangel MD Anesthesia Provider: Sreedhar Kilgore CRNA Anesthesia Type: General Estimated Blood Loss (mL): 2 Fluids: 1 g of Invanz given preoperative. Lactated Ringer's please see anesthesia notes in EMR Pathology: Skin sent Indications: This is a patient had a postoperative wound infection. Patient states that starting again increasing abdominal pain. Patient reports 103 temperature. 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 Findings: Patient had some hyper granulation tissue and a fibrous tract extending from the incision down to the suture line. No signs of infection identified Complications: None Operative Summary: Patient is brought in operative room placed supine position given general trach anesthesia. Prepped draped sterile fashion. Timeout performed per protocol. He is electrocautery completely excised the previous surgical site. There is a fibrous band of hyper granulation tissue extending from the skin edge all the way down to the suture line. This possibly could represent a chronic inflammatory or infectious process. This fibrous track was then excised off the suture. I then removed the Prolene suture. All granulation tissue it's. Had good healthy fatty tissue and fascia to be identified. I did open up the suture line and to explore the rectus muscle itself found no evidence of inflammatory process. There is no purulent material. The air may have been just trapped air from the wound VAC and the granulation tissue. I cannot say 100% of this was the fact that I did not identify any inflammatory infectious process there is no necrotic muscle are fascia. I then used pulse lavage completely clean the wound. Given the fact the patient has chronic problem with the infections after all her major surgeries his fellow is best of packed this wound. I use Multidex and gauze to pack the wound. Will get a wound VAC on as soon as possible. Patient tolerated procedure well the were no complications. Counts were correct Patient Problems - Patient Problem List (1) Wound infection Current Visit: Yes Status: Acute
[2017-04-02] MEDS ORDERED: Meperidine Inj 50 MG/ML CARPUJECT IVP PRN ×2 (14:35→15:25)
[2017-04-02 14:36] LABS: BILIRUBIN,URINE NEGATIVE (NEG); CLARITY,URINE CLEAR (CLEAR); COLOR,URINE YELLOW; GLUCOSE, URINE (UA) NEGATIVE (NEG); NITRATE,URINE NEGATIVE (NEG); OCCULT BLOOD,URINE Trace-intact (NEG); PROTEIN,URINE NEGATIVE (NEG); UROBILINOGEN,URINE 0.2 EU/dL (0.2)
[2017-04-02] MEDS: Meperidine Inj 50 MG/ML CARPUJECT IVP PRN ×7 (14:45→23:27)
[2017-04-02] MEDS ORDERED: Acetaminophen 1000mg Inj 1,000 MG in Premix 1 BAG IV ONE (14:47)
[2017-04-02] MEDS ORDERED: Acetaminophen 1000mg Inj 100 ML IV ONE (14:49)
[2017-04-02 14:52] LABS: URINE SAMPLE TYPE CLEAN CATCH URINE
[2017-04-02 14:53] LABS: RBC,URINE 0-1 /hpf; SQUAMOUS EPITHELIAL CELL,UR FEW
[2017-04-02] MEDS: Acetaminophen 1000mg Inj 1,000 MG in Premix 1 BAG IV PRN ×2 (14:57→20:58)
[2017-04-02] MEDS ORDERED: DIAZEPAM 10 MG/2 ML (5 MG/1 ML) CARPUJECT ONE (15:06)
[2017-04-02] MEDS: DIAZEPAM 10 MG/2 ML (5 MG/1 ML) CARPUJECT IVP PRN ×2 (15:10→15:17)
[2017-04-02] MEDS: oxyCODONE IR Tab 15 MG TAB PO PRN ×2 (16:10→20:55)
[2017-04-02] MEDS: AMITRIPTYLINE 25 MG TABLET PO SCH (20:54)
[2017-04-02] MEDS: oxyCODONE ER Tab 20 MG TAB PO SCH (20:55)
[2017-04-02] MEDS: Warfarin 5 MG TAB PO SCH (20:55)
[2017-04-02] MEDS: oxyCODONE ER 10 MG TAB PO SCH (20:55)
[2017-04-02] MEDS: HYDROmorphone Tab 4 MG TAB PO PRN (21:28)
[2017-04-02] MEDS: Lactated Ringers 1,000 ML PRIMARY IV SCH (22:21)
[2017-04-02] MEDS: ONDANSETRON 4 MG/2 ML VIAL IVP PRN (23:37)
[2017-04-03] MEDS: Meperidine Inj 50 MG/ML CARPUJECT IVP PRN ×12 (00:29→13:43)
[2017-04-03] MEDS: oxyCODONE IR Tab 15 MG TAB PO PRN ×7 (00:44→23:52)
[2017-04-03] MEDS: HYDROmorphone Tab 4 MG TAB PO PRN (02:48)
[2017-04-03] MEDS: Lactated Ringers 1,000 ML PRIMARY IV SCH ×2 (03:06→09:32)
[2017-04-03] MEDS: ONDANSETRON 4 MG/2 ML VIAL IVP PRN (04:38)
[2017-04-03] MEDS: Acetaminophen 1000mg Inj 1,000 MG in Premix 1 BAG IV PRN ×2 (05:23→20:34)
[2017-04-03 05:29] LABS: BASOPHILS # (AUTO) 0.01 10*3/UL; BASOPHILS % (AUTO) 0.1 % (0-1); EOSINOPHILS # (AUTO) 0 10*3/UL; EOSINOPHILS % (AUTO) 0 % (0-8); HEMATOCRIT 38.7 % (37.0-47.0); HEMOGLOBIN 13.1 g/dL (12.0-16.0); LYMPHOCYTES # (AUTO) 2.16 10*3/uL; MEAN CORPUSCULAR HEMOGLOBIN 30.9 PG (27-31); MEAN CORPUSCULAR HGB CONC 33.9 g/dL (33-37); MEAN CORPUSCULAR VOLUME 91.3 FL (81-99); MEAN PLATELET VOLUME 10.9 FL (7.4-12.2); MONOCYTES % (AUTO) 5.1 % (5-15); NEUTROPHILS # (AUTO) 12.61 10*3/UL; NEUTROPHILS % (AUTO) 80.8 % (50-80); PLATELET MORPHOLOGY COMMENT NORMAL MORPHOLOGY (NORM); RBC MORPHOLOGY COMMENT NORMAL MORPHOLOGY (NORM); RED BLOOD COUNT 4.24 10^6/uL (4.20-5.40); WBC MORPHOLOGY COMMENT NORMAL MORPHOLOGY (NORM)
[2017-04-03 05:30] LABS: BLOOD UREA NITROGEN 6 mg/dL (7-22); CALCIUM 8.9 mg/dL (8.7-10.7); EST GLOMERULAR FILTRATION > 60 (>60 ml/min/1.73m(2))
[2017-04-03] MEDS: oxyCODONE ER 10 MG TAB PO SCH ×2 (08:48→20:35)
[2017-04-03] MEDS: Promethazine Tab 25 MG TAB PO PRN ×2 (08:48→16:16)
[2017-04-03] MEDS: oxyCODONE ER Tab 20 MG TAB PO SCH ×2 (08:48→20:35)
[2017-04-03] MEDS: Spironolactone Tab 50 MG TAB PO SCH (08:48)
--- NOTE | 2017-04-03 10:30 | PDOC(PROG) ---
Subjective Post Op Day: postop day 1 Pain Management: PO Preston Catheter: No Diet: Regular Date and Time of Service: 04/03/2017 at 9:30 Interval History: Patient is having incisional pain otherwise doing fine Objective : Data - Labs CBC and BMP: 04/03/17 04:40 04/03/17 04:40 Labs - Last 24 Hours: Laboratory Results 04/02/17 04/03/17 Range/Units 14:30 04:40 WBC 15.61 H (4.8-10.8) 10^3/uL RBC 4.24 (4.20-5.40) 10^6/uL Hgb 13.1 (12.0-16.0) g/dL Hct 38.7 (37.0-47.0) % MCV 91.3 (81-99) FL MCH 30.9 (27-31) PG MCHC 33.9 (33-37) g/dL RDW Std Deviation 42.5 (39-50) fL RDW Coeff of [place] 13.1 (11.5-14.5) % Plt Count 230 (140-350) 10*3/uL MPV 10.9 (7.4-12.2) FL Immature Gran % (Auto) 0.2 (0-5) % Neut % (Auto) 80.8 H (50-80) % Lymph % (Auto) 13.8 (10-50) % [place] % (Auto) 5.1 (5-15) % Eos % (Auto) 0 (0-8) % Baso % (Auto) 0.1 (0-1) % Immature Gran # (Auto) 0.03 10*3/UL Neut # (Auto) 12.61 10*3/UL Lymph # (Auto) 2.16 10*3/uL [place] # (Auto) 0.80 (0.3-0.8) 10*3/UL Eos # (Auto) 0 10*3/UL Baso # (Auto) 0.01 10*3/UL WBC Morphology Comment Normal morphology (NORM) Plt Morphology Comment Normal morphology (NORM) RBC Morph Comment Normal morphology (NORM) Sodium 137 (135-145) meq/L Potassium 4.0 (3.8-5.2) meq/L Chloride 105 (98-112) meq/L Carbon Dioxide 24 (23-33) meq/L Anion Gap 8 (5-20) BUN 6 L (7-22) mg/dL Creatinine 0.6 (0.50-1.20) mg/dL Estimated GFR > 60 (>60 ml/min/1.73m(2)) BUN/Creatinine Ratio 10.00 (6-20) Glucose 102 (78-110) mg/dL Calculated Osmolality 281.0 (267-292) mOsm/kg Calcium 8.9 (8.7-10.7) mg/dL Ur Collection Type Clean catch urine Urine Color Yellow Urine Clarity Clear (CLEAR) Urine pH 5.0 (5.0-8.5) Ur Specific [place] <=1.005 (1.005-1.030) Urine Protein Negative (NEG) mg/dl Urine Glucose (UA) Negative (NEG) mg/dL Urine Ketones Negative (NEG) Urine Occult Blood Trace-intact H (NEG) Urine Nitrate Negative (NEG) Urine Bilirubin Negative (NEG) Urine Urobilinogen 0.2 (0.2) EU/dL Ur Leukocyte Esterase Negative (NEG) Urine RBC 0-1 (NONE) /hpf Urine WBC None (NONE) Ur Squamous Epith Cells Few (NONE) Ur Renal Epithelial Cell None (NONE) Urine Crystals None Urine Bacteria None (NONE) Urine Casts None (NONE) Urine Mucus None (NONE) Urine Trichomonas None (NONE) Urine Yeast None (NONE) Ur Culture Indicated? Culture not set - Vital Signs Vital Signs and I&O: Vital Signs - Last Taken Temperature 97.4 F 04/03/17 06:41 Pulse Rate 100 04/03/17 07:00 Respiratory Rate 20 04/03/17 06:41 Blood Pressure 107/66 04/03/17 06:41 Pulse Ox 98 04/03/17 06:41 Intake and Output (24hr x 4 totals) 04/01/17 04/02/17 04/03/17 04/04/17 05:59 05:59 05:59 05:59 Intake Total 2420 490 Output Total 5 Balance 2415 490 Objective : Exam - General General Appearance: Cooperative - GI/Abdominal Additional GI/Abdominal Exam Details: Wound is been explored and looked at today. There is no evidence of infection Assessment and Plan - Patient Problems (1) Wound infection Current Visit: Yes Status: Acute - Assessment / Plan Additional Assessment/Plan Details: We'll work on getting her an outpatient wound VAC. They this can be placed prior to discharge. Discharge tomorrow morning
[2017-04-03] MEDS: MEPERIDINE HCL/PF 100 MG/1 ML INJECTION IVP PRN ×9 (14:56→23:52)
[2017-04-03] MEDS: AMITRIPTYLINE 25 MG TABLET PO SCH (20:35)
[2017-04-03] MEDS: Warfarin 5 MG TAB PO SCH (20:35)
[2017-04-04] MEDS: MEPERIDINE HCL/PF 100 MG/1 ML INJECTION IVP PRN ×6 (02:04→08:14)
[2017-04-04] MEDS: oxyCODONE IR Tab 15 MG TAB PO PRN ×2 (03:21→07:19)
[2017-04-04 06:37] VITALS: RESP 17; TEMP 97
[2017-04-04] MEDS: HYDROmorphone Tab 4 MG TAB PO PRN (06:57)
[2017-04-04] MEDS: Spironolactone Tab 50 MG TAB PO SCH (08:14)
[2017-04-04] MEDS: oxyCODONE ER 10 MG TAB PO SCH (08:14)
[2017-04-04] MEDS: oxyCODONE ER Tab 20 MG TAB PO SCH (08:14)
--- NOTE | 2017-04-04 08:47 | DCSUMMARY ---
Discharge Summary Admit Date: 04/02/17 Discharge Date: 04/04/17 Admitting Diagnosis: infected wound Discharge Diagnosis: Same. Chronic opiate dependency Primary Surgery and Date: 01/31/2017 removal of foreign body of abdominal wall Hospital Course: Patient was admitted with a possible necrotizing fasciitis. Patient increasing pain in his surgical site that was infected. Also developed what appeared to be some air in the fascia. She is taking a wound exploration there is a fibrous sinus tract draining down to the previous suture line. Therefore the suture line was removed. Found no evidence of fasciitis. No evidence of necrotic muscle. Patient received 1 dose of Invanz. She is continued on her antibiotics which is a combination of Keflex and clindamycin. We kept in the hospital to get a wound VAC. Condition on discharge was improved. Exam - Vitals Vital Signs: Vital Signs Temperature 97 F Temperature Source Temporal Artery Scan Pulse Rate [Apical] 100 Pulse Rate [Pulse Oximeter] 114 Respiratory Rate 17 Blood Pressure [Left Arm] 127/79 Pulse Ox 94 Oxygen Flow Rate 2 Oxygen Delivery Method Room Air Height 5 ft 9 in Weight 78.109 kg - General General Appearance: POSITIVE: No Acute Distress, Cooperative - ENT ENT Exam: POSITIVE: Normal Exam - GI/Abdominal GI/Abdominal Exam: POSITIVE: Soft Patient Problems - Patient Problem List (1) Wound infection Current Visit: Yes Status: Acute
== END 2017-04-04 08:56 | disposition home or self-care (01) | DRG 857 ==
LOC: ER 09:20 → SDSC 12:50 → OPS 12:57 → MED/SURG 15:28
PROVIDERS: ADMIT Surgery; ATTEND Surgery
PROC: 0JC80ZZ Extirpation of Matter from Abdomen Subcutaneous Tissue and Fascia, Open Approach (ICD-10-PCS; 2017-04-02)
PROC: 0W9F0ZZ Drainage of Abdominal Wall, Open Approach (ICD-10-PCS; principal; 2017-04-02 12:30)
DX: T81.4XXA Infection following a procedure, initial encounter (principal); F11.20 Opioid dependence, uncomplicated; Z18.89 Other specified retained foreign body fragments; Z72.0 Tobacco use
CPT/HCPCS: 36415; 74177; 80048; 80053; 81001; 81003; 82150; 83605; 83690; 85025; 85610; 86140; 87040; 94761; 96361; 96374; 96375; 99284; J0131; J0780; J1200; J1335; J1885; J2001; J2175; J2250; J2405; J3010; J3360; J7030; J7050; Q0169

== ENCOUNTER 2017-04-06 11:09 | Emergency (ER) | payer OTHER ==
[2017-04-06] MEDS ORDERED: ONDANSETRON 4 MG/2 ML VIAL IVP ONE (11:44)
[2017-04-06] MEDS ORDERED: Sodium Chloride 0.9% 1,000 ML PRIMARY IV ONE (11:44)
[2017-04-06] MEDS ORDERED: HYDROmorphone 2 MG/1 ML IVP ONE (11:44)
[2017-04-06] MEDS ORDERED: NORMAL SALINE 10 ML SYRINGE FLUSH IVP PRN (11:44)
[2017-04-06] MEDS ORDERED: diphenhydrAMINE 50 MG/1 ML VIAL IVP ONE (11:46)
[2017-04-06] MEDS ORDERED: methylPREDNISolone 125 MG/2 ML VIAL ONE (11:46)
[2017-04-06] MEDS ORDERED: diphenhydrAMINE 50 MG/1 ML VIAL ONE (11:46)
[2017-04-06] MEDS ORDERED: methylPREDNISolone Succ Inj 125 MG in Sodium Chloride 0.9% 100 ML IV ONE (11:47)
[2017-04-06] MEDS ORDERED: methylPREDNISolone 125 MG/2 ML VIAL IVP ONE (12:01)
[2017-04-06] MEDS ORDERED: MEPERIDINE HCL/PF 100 MG/1 ML INJECTION IVP ONE (12:01)
[2017-04-06 12:06] LABS: BASOPHILS % (AUTO) 0.3 % (0-1); EOSINOPHILS % (AUTO) 6.9 % (0-8); HEMATOCRIT 41.4 % (37.0-47.0); HEMOGLOBIN 14.2 g/dL (12.0-16.0); MEAN CORPUSCULAR HEMOGLOBIN 31.3 PG (27-31); MEAN CORPUSCULAR HGB CONC 34.3 g/dL (33-37); MEAN CORPUSCULAR VOLUME 91.2 FL (81-99); MEAN PLATELET VOLUME 10.3 FL (7.4-12.2); MONOCYTES % (AUTO) 8.4 % (5-15); NEUTROPHILS % (AUTO) 41.5 % (50-80); RED BLOOD COUNT 4.54 10^6/uL (4.20-5.40)
[2017-04-06 12:07] LABS: BASOPHILS # (AUTO) 0.02 10*3/UL; BLOOD UREA NITROGEN 7 mg/dL (7-22); CALCIUM 8.6 mg/dL (8.7-10.7); EOSINOPHILS # (AUTO) 0.53 10*3/UL; EST GLOMERULAR FILTRATION > 60 (>60 ml/min/1.73m(2)); LIPASE 56 IU/L (23-300); LYMPHOCYTES # (AUTO) 3.31 10*3/uL; MONOCYTES # (AUTO) 0.65 10*3/UL (0.3-0.8); NEUTROPHILS # (AUTO) 3.21 10*3/UL; PLATELET MORPHOLOGY COMMENT NORMAL MORPHOLOGY (NORM); RBC MORPHOLOGY COMMENT NORMAL MORPHOLOGY (NORM); SERUM ALBUMIN 4.1 g/dL (3.5-4.8); WBC MORPHOLOGY COMMENT NORMAL MORPHOLOGY (NORM)
[2017-04-06 12:54] LABS: BILIRUBIN,URINE NEGATIVE (NEG); CLARITY,URINE CLEAR (CLEAR); COLOR,URINE YELLOW; GLUCOSE, URINE (UA) NEGATIVE (NEG); NITRATE,URINE NEGATIVE (NEG); OCCULT BLOOD,URINE NEGATIVE (NEG); PH,URINE 7.5 (5.0-8.5); PROTEIN,URINE NEGATIVE (NEG); UROBILINOGEN,URINE 0.2 EU/dL (0.2)
[2017-04-06 12:55] LABS: URINE SAMPLE TYPE VOIDED SPECIMEN
[2017-04-06 13:05] VITALS: RESP 18; TEMP 97.3
[2017-04-06] MEDS ORDERED: Meperidine Inj 50 MG/ML CARPUJECT IVP ONE (13:47)
--- NOTE | 2017-04-06 14:27 | DI ---
CT ABD W/CN AND PELVIS W/CN,04/06/2017 11:45 AM: Clinical History: Abdominal pain Previous Exam: April 02, 2017 Findings: Multiple helically acquired CT images are obtained through the abdomen and pelvis following the intra venous administration of 75 cc of Isovue 300, and demonstrate clear lung bases. The cardiomediastinum is unremarkable. Bilateral breast implants are seen. The urinary bladder is unremarkable. There are few scattered mesenteric lymph nodes. There is no sign ificant retroperitoneal lymphadenopathy. There is no abscess identified. The anterior abdominal wall is unremarkable. There is no significant lymphadenopathy. There are a few shotty mesenteric lymph nodes. The gallbladder and spleen are unremarkable. There are some postsurgical changes within the right lower quadrant. Impression: 1. Defect within the subcutaneous fat of the right lower quadrant without evidence of abscess. 2. No acute intra-abdominal nor intrapelvic pathology.
--- NOTE | 2017-04-06 15:00 | PDOC ---
General Adult HPI - General Chief Complaint: Wound Recheck / Suture Removal Stated Complaint: pain Date Seen by Provider: 04/06/17 Time Seen by Provider: 11:25 Source: POSITIVE: Patient, Old records Exam Limitations: POSITIVE: No limitations Nurse's Notes Reviewed & Considered: Yes - History of Present Illness Initial Comment: The patient is a 32-year-old male. Patient had an appendectomy 2 months ago which has been complicated by wound infections and a intraperitoneal abscess. Patient states he's had his wound debrided several times and has had postoperative abscess surgically drained. He was admitted this past Monday and had his most recent wound debridement. He was discharged the day before yesterday. The patient is a transgendered female, biological male. He has a long-standing history of chronic pain disorder and narcotic dependency. He states he is under the care of of a painter maintenance in [place]. He takes oxycodone and OxyContin for pain. He denies any fevers or chills. No nausea, vomiting, diarrhea, melena, hematochezia, hematemesis, dysuria or hematuria. No coughs. No chest or leg pain. He complains of abdominal pain, especially around the area of his open appendectomy surgical site. Have you received a tetanus shot in the past 10 years?: Yes Body Location Affected: REPORTS: Abdomen Timing: REPORTS: Constant Duration: >1 week Severity: Moderate Quality: REPORTS: "Pain" Context: REPORTS: Recent Surgery (As above) Modifying Factors: improves with: Analgesics (On chronic narcotic analgesics for chronic pain syndrome) Similar Symptoms Previously: Yes Recent Care Received: REPORTS: Recently Seen, Treated by MD, Hospitalized, Surgery Any Prior Injuries Related to Current Complaint?: No - Patient Home Medications Home Medications: Home Medications Estradiol 2 tab PO BID 10/14/15 Spironolactone 1 tab PO DAILY 10/14/15 Amitriptyline HCl 2 tab PO BEDTIME 01/22/17 Metoprolol Tartrate Tab [Lopressor Tab] 1 tab PO BID 02/01/17 Oxycodone HCl 2 tab PO Q4H PRN tab 02/07/17 Oxycodone HCl [Oxycodone HCl ER] 1 tab PO BID tab 02/07/17 Hydromorphone HCl [Dilaudid] 8 mg PO Q4H tab 03/09/17 Promethazine HCl [Phenergan] 25 mg PO Q6H PRN 04/02/17 Clindamycin HCl 300 mg PO 04/06/17 - Patient Allergies Allergies/Adverse Reactions: Allergies Allergy/AdvReac Type Severity Reaction Status Date / Time cyclobenzaprine HCl Allergy Severe HIVES Verified 04/06/17 11:13 [From Flexeril] venom-honey bee Allergy Severe Anaphylaxis Verified 04/06/17 11:13 [bee venom (honey bee)] iodine Allergy Intermediate RASH Verified 04/06/17 11:13 Iodine and Iodide Containing Allergy Intermediate VOMITING Verified 04/06/17 11: 13 Produc ketorolac tromethamine Allergy Intermediate HIVES Verified 04/06/17 11:13 [From Toradol] lactose [Lactose] Allergy Intermediate NOT Verified 04/06/17 11:13 APPLICABLE adhesive tape AdvReac Intermediate RASH Verified 04/06/17 11:13 SEA FOOD AdvReac Intermediate HIVES Uncoded 04/06/17 11:13 Past Medical History - heen HEENT History: Deaf Additional HEENT History: 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 Blood Disorders: Other (please comment) Additional Blood Disorders History: DVT Psychiatric History: Other (please comment) Additional Psychiatric History: hx self cutting History of Sexually Transmitted Diseases: No Female Reproductive History: Other (please comment) Additional Female Reproductive History: patient is transgender, identifies female Cancer History: Other (please comment) Cancer Treatment / Date(s) of Treatment: 2001 In Past Year Been Physically Harmed or Verbally Threatened: No History of MDRO: Yes Other Type of MDRO: staph History of Other Communicable Diseases: No History of Exposure to Communicable Disease: No Tobacco Use: Current Every Day Smoker Alcohol Use: None Substance Use Type: None, Opiate Pain Medication Previous Surgical History: Yes Type / Date of Surgery: BREAST AUGMENTATION, RIGHT KNEE SURG.X3, RIGHT HAND SURG.X3, ORCHIECTOMY, TONSILLECTOMY, LYMPH NODE REMOVAL.; OPEN HEART SURGERY, THYMOMA REMOVAL; HERNIA REPAIR Anesthesia Reactions: No Malignant Hyperthermia: No Family History of Malignant Hyperthermia: No Significant Family History: Asthma, Heart disease, Cancer, Diabetes, Hypertension Past Medical History Reviewed: Reviewed - No Changes ROS - Limitations ROS Limitations: No Limitations Constitution: REPORTS: Denies Symptoms Cardiovascular: REPORTS: Denies Cardiac Symptoms Respiratory: REPORTS: Denies Resp Symptoms Neurological: REPORTS: Denies Neuro Symptoms Gastrointestinal: REPORTS: Abdominal Pain Endocrine: REPORTS: Denies Symptoms Musculoskeletal: REPORTS: Denies MS Symptoms Genitourinary: REPORTS: Denies Symptoms Eyes: REPORTS: Denies Symptoms ENT: REPORTS: Denies Symptoms Skin: REPORTS: Other (Surgical site, right lower quadrant left open to heal by secondary intention. No drainage. No signs of infection.) Lympathic: REPORTS: Denies Lympathic Symptoms Immunologic: POSITIVE: Denies Symptoms Psychiatric: POSITIVE: Denies Psych Symptoms General Adult Exam - General Appearance General Appearance: POSITIVE: Alert, Cooperative, No Acute Distress, No Evidence of Trauma - HEENT HEENT: POSITIVE: Head Inspection Nml, Eyes Inspection Nml, Ears Inspection Nml, Nose Inspection Nml, Oral/Dental Inspect. Nml, Pharynx Inspect. Nml, PERRL, EOMI - Neck Neck: POSITIVE: Normal Inspection, Thyroid Normal - Respiratory Respiratory: POSITIVE: No Respiratory Distress, Breath Sounds Normal, Chest Non- Tender - Cardiovascular Cardiovascular: POSITIVE: Regular Rate & Rhythm, No Murmur, No Gallop, PMI Normal Peripheral Pulses: Radial (R): 2+, Radial (L): 2+ - Abdomen Abdomen: Soft: (All Quadrants), Normal Bowel Sounds: (All Quadrants), No Splenomegaly: (All Quadrants), No Hepatomegaly: (All Quadrants), No Guarding: ( All Quadrants), No Rebound: (All Quadrants), No Palpable Pulse: (All Quadrants) , No Palpabale Mass: (All Quadrants), No Distention: (All Quadrants), No Rigidity: (All Quadrants), Tenderness Noted: (RUQ), (RLQ), (LUQ) Additional Abdominal Details: Abdominal examination shows bowel sounds to be active. Patient complains of discomfort on palpation over the abdomen, somewhat more on the right lower area than elsewhere. Surgical site, right lower quadrant, has been left open to heal by secondary intention. There is no drainage. No swelling. No redness or swelling around skin margins. - Back Back: POSITIVE: Normal Inspection - Skin Skin: POSITIVE: Other (Skin over her surgical site, right lower quadrant has been left open to heal by secondary intention. 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 No acute intra-abdominal or intrapelvic pathology. Lab Results Reviewed: Yes Lab Results:: Laboratory Results 04/06/17 04/06/17 Range/Units 11:55 12:52 WBC 7.73 (4.8-10.8) 10^3/uL RBC 4.54 (4.20-5.40) 10^6/uL Hgb 14.2 (12.0-16.0) g/dL Hct 41.4 (37.0-47.0) % MCV 91.2 (81-99) FL MCH 31.3 H (27-31) PG MCHC 34.3 (33-37) g/dL RDW Std Deviation 44.0 (39-50) fL RDW Coeff of [place] 13.4 (11.5-14.5) % Plt Count 242 (140-350) 10*3/uL MPV 10.3 (7.4-12.2) FL Immature Gran % (Auto) 0.1 (0-5) % Neut % (Auto) 41.5 L (50-80) % Lymph % (Auto) 42.8 (10-50) % [place] % (Auto) 8.4 (5-15) % Eos % (Auto) 6.9 (0-8) % Baso % (Auto) 0.3 (0-1) % Immature Gran # (Auto) 0.01 10*3/UL Neut # (Auto) 3.21 10*3/UL Lymph # (Auto) 3.31 10*3/uL [place] # (Auto) 0.65 (0.3-0.8) 10*3/UL Eos # (Auto) 0.53 10*3/UL Baso # (Auto) 0.02 10*3/UL WBC Morphology Comment Normal morphology (NORM) Plt Morphology Comment Normal morphology (NORM) RBC Morph Comment Normal morphology (NORM) Sodium 139 (135-145) meq/L Potassium 3.5 L (3.8-5.2) meq/L Chloride 103 (98-112) meq/L Carbon Dioxide 26 (23-33) meq/L Anion Gap 10 (5-20) BUN 7 (7-22) mg/dL Creatinine 0.7 (0.50-1.20) mg/dL Estimated GFR > 60 (>60 ml/min/1.73m(2)) BUN/Creatinine Ratio 10.00 (6-20) Glucose 102 (78-110) mg/dL Calculated Osmolality 285.0 (267-292) mOsm/kg Calcium 8.6 L (8.7-10.7) mg/dL Total Bilirubin 0.2 L D (0.3-1.2) mg/dL AST 17 (8-39) IU/L ALT 30 (9-52) IU/L Alkaline Phosphatase 76 (38-126) IU/L Total Protein 6.9 (6.1-8.0) g/dL Albumin 4.1 (3.5-4.8) g/dL Globulin 2.8 (2.50-4.10) g/dL Albumin/Globulin Ratio 1.40 (1.3-2.0) mg/g Amylase 73 (30-110) U/L Lipase 56 (23-300) IU/L Ur Collection Type Voided specimen Urine Color Yellow Urine Clarity Clear (CLEAR) Urine pH 7.5 (5.0-8.5) Ur Specific [place] 1.015 (1.005-1.030) Urine Protein Negative (NEG) mg/dl Urine Glucose (UA) Negative (NEG) mg/dL Urine Ketones Negative (NEG) Urine Occult Blood Negative (NEG) Urine Nitrate Negative (NEG) Urine Bilirubin Negative (NEG) Urine Urobilinogen 0.2 (0.2) EU/dL Ur Leukocyte Esterase Negative (NEG) Ur Culture Indicated? Culture not set - Patient's Progress Pain Medication Addressed: POSITIVE: Yes (Patient given Demerol IV in the emergency room for pain control; no narcotic prescriptions given on discharge.) School/Work Release Addressed: POSITIVE: Not Applicable Re-Examine Time: 14:28 Status: POSITIVE: Unchanged, Re-Examined Antibiotics Given: No - Consult Counseled: POSITIVE: Patient, RE: Lab Results, RE: Radiology Results, RE: DX, RE : Need for F/U Patient Care Time - Estimated PCT Patient Care Time (In Minutes): 60 Vital Signs - Recent Vital Signs Vital Signs: Vital Signs (Last 8 hours) Temp Pulse Resp BP Pulse Ox 04/06/17 11:12 97.3 F 107 H 18 122/87 97 - VS Reviewed Vital Signs Reviewed: Yes Discharge Clinical Impression: Chronic pain syndrome, Wound dehiscence, Narcotic addiction Discharge Disposition: Discharged to Home Condition: Stable Patient Instructions Given at Discharge: Chronic Pain (ED), Chronic Wound Care (ED) Additional Instructions: There are no signs of wound abscess or infection. Please follow-up with your surgeon as he has directed. Also please follow-up with your painter maintenance. I will not prescribe you narcotics from the emergency room. Return as necessary. Follow Up With: NONE,NONE [Primary Care Provider] - (Instructions as above. Return as necessary.)
== END 2017-04-06 14:28 | disposition home or self-care (01) ==
LOC: ER 11:09
DX: T81.31XA Disruption of external operation (surgical) wound, not elsewhere classified, initial encounter (principal); G89.4 Chronic pain syndrome; F11.20 Opioid dependence, uncomplicated
CPT/HCPCS: 74177; 80053; 81003; 82150; 83690; 85025; 96361; 96374; 96375; 96376; 99283 ×2; J1200; J2175; J2405; J2930; J7030

== ENCOUNTER 2017-04-07 12:52 | Inpatient (IN) | payer OTHER ==
[2017-04-07] MEDS ORDERED: Sodium Chloride 0.9% 1,000 ML PRIMARY IV ONE (13:35)
[2017-04-07] MEDS ORDERED: KETOROLAC 15 MG/1 ML VIAL IVP ONE (13:35)
[2017-04-07] MEDS ORDERED: ONDANSETRON 4 MG/2 ML VIAL IVP ONE (13:35)
--- NOTE | 2017-04-07 13:43 | PDOC ---
Skin Rash/Insect/Abscess HPI - General Chief Complaint: Laceration / Wound Stated Complaint: wound Date Seen by Provider: 04/07/17 Time Seen by Provider: 13:37 Source: POSITIVE: Patient, Old records Exam Limitations: POSITIVE: No limitations Nurse's Notes Reviewed & Considered: Yes - History of Present Illness Initial Comments: This is a 32-year-old biological male who comes in complaining of right lower quadrant pain and incisional problems. Patient to been seen multiple times for wound infection. Was seen yesterday here in the emergency department at which time he had normal lab findings with a normal white count, normal CT scan of his abdomen showing no abscess and no acute intra-abdominal or intrapelvic abnormalities. He states he is having headaches, fever chills and sweats, nausea vomiting and diarrhea. Denies any chest pain or shortness of breath no cough. He is adversarial in his department. Present during examination was the chief medical technologist. Initially patient had a wound VAC in place that they removed because it was causing increasing pain. It is noted that the patient has been putting his fingers into his wound and has no covering dressing over his wound. Have you received a tetanus shot in the past 10 years?: Yes Body Location Affected: REPORTS: Abdomen (Right lower quadrant) Timing: REPORTS: Constant Duration: Unknown Severity: Moderate Quality: REPORTS: "Pain" Identified Causes: REPORTS: Yes (open Appendectomy incision) Suspected Etiology: REPORTS: Other (Appendectomy) Similar Symptoms Previously: No Recent Care Received: REPORTS: Recently Seen, Treated by MD Any Prior Injuries Related to Current Complaint?: No - Patient Home Medications Home Medications: Home Medications Estradiol 2 tab PO BID 10/14/15 Spironolactone 1 tab PO DAILY 10/14/15 Amitriptyline HCl 2 tab PO BEDTIME 01/22/17 Metoprolol Tartrate Tab [Lopressor Tab] 1 tab PO BID 02/01/17 Oxycodone HCl 2 tab PO Q4H PRN tab 02/07/17 Oxycodone HCl [Oxycodone HCl ER] 1 tab PO BID tab 02/07/17 Hydromorphone HCl [Dilaudid] 8 mg PO Q4H tab 03/09/17 Promethazine HCl [Phenergan] 25 mg PO Q6H PRN 04/02/17 Clindamycin HCl 300 mg PO 04/06/17 - Patient Allergies Allergies/Adverse Reactions: Allergies Allergy/AdvReac Type Severity Reaction Status Date / Time cyclobenzaprine HCl Allergy Severe HIVES Verified 04/06/17 11:13 [From Flexeril] venom-honey bee Allergy Severe Anaphylaxis Verified 04/06/17 11:13 [bee venom (honey bee)] iodine Allergy Intermediate RASH Verified 04/06/17 11:13 Iodine and Iodide Containing Allergy Intermediate VOMITING Verified 04/06/17 11: 13 Produc ketorolac tromethamine Allergy Intermediate HIVES Verified 04/06/17 11:13 [From Toradol] lactose [Lactose] Allergy Intermediate NOT Verified 04/06/17 11:13 APPLICABLE adhesive tape AdvReac Intermediate RASH Verified 04/06/17 11:13 SEA FOOD AdvReac Intermediate HIVES Uncoded 04/06/17 11:13 Past Medical History - heen HEENT History: Deaf Additional HEENT History: 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 Blood Disorders: Other (please comment) Additional Blood Disorders History: DVT Psychiatric History: Other (please comment) Additional Psychiatric History: hx self cutting History of Sexually Transmitted Diseases: No Cancer History: Denies History, Other (please comment) Cancer Treatment / Date(s) of Treatment: 2001 In Past Year Been Physically Harmed or Verbally Threatened: No History of MDRO: Yes Other Type of MDRO: staph History of Other Communicable Diseases: No History of Exposure to Communicable Disease: No Tobacco Use: Current Every Day Smoker Alcohol Use: None Substance Use Type: None, Opiate Pain Medication Previous Surgical History: Yes Type / Date of Surgery: BREAST AUGMENTATION, RIGHT KNEE SURG.X3, RIGHT HAND SURG.X3, ORCHIECTOMY, TONSILLECTOMY, LYMPH NODE REMOVAL.; OPEN HEART SURGERY, THYMOMA REMOVAL; HERNIA REPAIR Anesthesia Reactions: No Malignant Hyperthermia: No Significant Family History: Asthma, Heart disease, Cancer, Diabetes, Hypertension ROS - Limitations ROS Limitations: No Limitations Constitution: REPORTS: Chills, Fever, Diaphoresis Cardiovascular: REPORTS: Denies Cardiac Symptoms Respiratory: REPORTS: Denies Resp Symptoms Neurological: REPORTS: Denies Neuro Symptoms Gastrointestinal: REPORTS: Abdominal Pain, Nausea, Vomitting, Diarrhea Endocrine: REPORTS: Denies Symptoms Musculoskeletal: REPORTS: Denies MS Symptoms Genitourinary: REPORTS: Denies Symptoms Eyes: REPORTS: Denies Symptoms ENT: REPORTS: Denies Symptoms Skin: REPORTS: Denies Skin Symptoms Lympathic: REPORTS: Denies Lympathic Symptoms Immunologic: POSITIVE: Denies Symptoms Psychiatric: POSITIVE: Denies Psych Symptoms Skin Rash/Insect/Abscess Exam - General Appearance General Appearance: REPORTS: Alert, Cooperative, No Acute Distress, No Evidence of Trauma - Skin Skin: REPORTS: Warm, Dry, Normal Color, Other (open right lower quadrant incision with serous fluid present. There is no evidence of infection with no erythema, no exudate, no heat, and no purulent discharge.) Skin Location: REPORTS: Other (Right lower quadrant open incision consistent with appendectomy.) Skin Character: REPORTS: Other (No rash present) Skin Symptoms: REPORTS: Warmth, Tenderness (No induration or exudate present, no erythema.) - Extremities Extremity: Non-Tender: (All Extremities), Normal ROM: (All Extremities), Normal Inspection: (All Extremities) - HEENT HEENT: POSITIVE: Head Inspection Nml, Eyes Inspection Nml, Ears Inspection Nml, Nose Inspection Nml, Oral/Dental Inspect. Nml, Pharynx Inspect. Nml, PERRL, EOMI - Neck Neck: REPORTS: Trachea Midline, No Swelling - Respiratory Respiratory: REPORTS: No Respiratory Distress, Breath Sounds Normal - Cardiovascular Cardiovascular: REPORTS: Regular Rate and Rhythm, Heart Sounds Normal - Abdomen Abdomen: Soft: (All Quadrants), Normal Bowel Sounds: (All Quadrants), Tenderness Noted: (RLQ) - Neurological / Psychological Neurological: REPORTS: Oriented X3, process analyst Normal As Tested, Motor Normal, Sensation Normal, 5, 6 Procedures - Laceration/Wound Repair Did patient have a laceration repair: No Skin Rash/Abscess Progress - Results Reviewed by me Labs Normal Except for:: Abnormal Lab Results: Entire Visit 04/07/17 Range/Units 14:00 WBC 18.93 H (4.8-10.8) 10^3/uL MCH 31.4 H (27-31) PG [place] # (Auto) 1.43 H (0.3-0.8) 10*3/UL C-Reactive Protein 1.4 H (0.0-0.9) mg/dL Lab Results Reviewed: Yes - Patient's Progress Pain Medication Addressed: POSITIVE: Yes Re-Examine Time:: 16:50 Status: POSITIVE: Improved MDM / ED Course: Patient was evaluated, blood drawn and sent to the lab for studies. Findings: CBC shows white count elevated to 19. Potential metabolic panel is unremarkable. Gram stain and wound cultures are pending Assessment: Wound infection. Plan: Hospitalist admission for IV antibiotics, wound VAC placement, and pain control. Consultation with Dr. Padilla who graciously came to the emergency department and evaluated the patient. It was either collective opinion that patient needed to be admitted for further evaluation of nonhealing surgical wound, possible IV antibiotics, and pain control. - Consult Consult (If Yes, Name of Consulting MD & Time Called): Yes (Dr. Hallman 16:00 hrs) Consulting MD will see pt:: [place] [facility] [place] Counseled: POSITIVE: Patient, RE: Lab Results, RE: DX, RE: Need for F/U Patient Care Time - Estimated PCT Patient Care Time (In Minutes): 60 Vital Signs - Recent Vital Signs Vital Signs: Vital Signs (Last 8 hours) Temp Pulse Resp BP Pulse Ox 04/07/17 12:52 98 F 129 H 20 123/86 96 - VS Reviewed Vital Signs Reviewed: Yes Discharge Clinical Impression: Dehiscence of surgical wound, Nonhealing surgical wound Discharge Disposition: Admit to Inpatient Condition: Good Date Decision to Admit to Inpatient: 04/07/17 Time Decision to Admit to Inpatient: 16:00
[2017-04-07 14:24] LABS: HEMOGLOBIN 14.6 g/dL (12.0-16.0); RED BLOOD COUNT 4.65 10^6/uL (4.20-5.40)
[2017-04-07 14:25] LABS: BASOPHILS # (AUTO) 0.01 10*3/UL; BASOPHILS % (AUTO) 0.1 % (0-1); EOSINOPHILS # (AUTO) 0.15 10*3/UL; EOSINOPHILS % (AUTO) 0.8 % (0-8); HEMATOCRIT 41.8 % (37.0-47.0); LYMPHOCYTES # (AUTO) 4.07 10*3/uL; MEAN CORPUSCULAR HEMOGLOBIN 31.4 PG (27-31); MEAN CORPUSCULAR HGB CONC 34.9 g/dL (33-37); MEAN CORPUSCULAR VOLUME 89.9 FL (81-99); MEAN PLATELET VOLUME 10.7 FL (7.4-12.2); MONOCYTES # (AUTO) 1.43 10*3/UL (0.3-0.8); MONOCYTES % (AUTO) 7.6 % (5-15); NEUTROPHILS # (AUTO) 13.21 10*3/UL; NEUTROPHILS % (AUTO) 69.7 % (50-80); PLATELET MORPHOLOGY COMMENT NORMAL MORPHOLOGY (NORM); RBC MORPHOLOGY COMMENT NORMAL MORPHOLOGY (NORM); WBC MORPHOLOGY COMMENT NORMAL MORPHOLOGY (NORM)
[2017-04-07] MEDS ORDERED: ONDANSETRON 4 MG/2 ML VIAL IVP PRN (16:59)
[2017-04-07] MEDS ORDERED: ACETAMINOPHEN 325 MG TABLET PO PRN (16:59)
[2017-04-07] MEDS ORDERED: LIDOCAINE W/ SODIUM BICARB 0.5 ML SYR SUBD PRN (16:59)
[2017-04-07] MEDS ORDERED: Promethazine Tab 25 MG TAB PO PRN (16:59)
[2017-04-07] MEDS ORDERED: POTASSIUM CHLORIDE 20 MEQ TAB PO ONE (16:59)
[2017-04-07] MEDS ORDERED: Meperidine Inj 50 MG/ML CARPUJECT IVP PRN (17:00)
[2017-04-07] MEDS: diphenhydrAMINE 25 MG CAPSULE PO SCH ×2 (17:36→22:24)
[2017-04-07] MEDS: predniSONE Tab 20 MG, predniSONE Tab 10 MG PO SCH ×4 (17:36→22:23)
[2017-04-07] MEDS ORDERED: HYDROmorphone Tab 4 MG TAB PO SCH ×2 (18:00→23:15)
[2017-04-07] MEDS: oxyCODONE IR Tab 15 MG TAB PO PRN ×2 (18:22→22:41)
[2017-04-07] MEDS ORDERED: LIDOCAINE HCL 5 ML JEL TOPICAL SCH (19:45)
[2017-04-07] MEDS: Meperidine Inj 50 MG/ML CARPUJECT IVP PRN ×2 (21:02→22:40)
[2017-04-07] MEDS: AMITRIPTYLINE 25 MG TABLET PO SCH (21:04)
[2017-04-07] MEDS: Metoprolol TARTRATE Tab 25 MG TAB PO SCH (21:05)
[2017-04-07] MEDS: oxyCODONE ER 10 MG TAB PO SCH (21:05)
[2017-04-07] MEDS: oxyCODONE ER Tab 20 MG TAB PO SCH (21:05)
--- NOTE | 2017-04-07 22:15 | PDOC ---
History and Physical - History of Present Illness Date and Time of Service: 04/07/2017, 1700 Chief Complaint: Abdominal wound pain History of Present Illness: This is a 32-year-old transgendered male, who recently had an appendectomy. After the appendix was removed, the patient developed a small postoperative abscess that had to be managed surgically. The wound that had developed after the surgeries in the right lower quadrant required wound VAC for healing. Over the last 5-6 weeks, the patient has seen almost complete closure of the wound, but then developed symptoms of pain, possible fever, and was placed on antibiotics. Washout was done on April 02, with resultant fibrous tissue being noted but no signs of infection. Postoperatively, the patient was supposed to go on a wound VAC but she states that it is very difficult to tolerate wound VAC therapy due to significant increase in pain. Patient's white blood cell count was normal yesterday, and though she complained of fevers number recorded in the emergency room. A CT scan of the abdomen and pelvis did not reveal any evidence of abscess. Pain medications for chronic pain medicine at home have not been helpful to control this. The patient also states that the wound is draining although it is not clear serous or pustular type fluid. The patient provided me some pictures to look at on her phone, and it cleared to be some cloudy discharge or drainage from the wound but none currently on tonight's examination. It is filled with the wet-to-dry dressings and there is no surrounding erythema on the skin. The patient states that she's not had problems with wound healing and the last couple of years and states that this could be because of the immune deficiency she was told she had recently by her primary provider. She has stated that Demerol IV is about the only medication that seems to control her pain. I spoke with surgery, it was recommended to consider using jelly lidocaine in the wound to help with numbing and help decrease pain as well. Movement doesn't seem to be playing a role at all in the pain. He has been on clindamycin presumptively for possible wound infection. Gram stain today show gram-positive cocci but appears consistent with skin gila. Although white blood cell count is up, and the patient is tachycardic, there is no fever. Past Medical History Medical History: 1. 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 2. Transgendered. 3. Delayed gastric emptying. 4. Status post excision of thymoma. 5. History of non-Hodgkin's lymphoma. 6. Breast augmentation. 7. Appendectomy with subsequent abscess that has now resolved and postoperative nonhealing wound. 8. Transgendered Surgical History: 1. 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 2. Hernia repair. 3. Breast augmentation. 4. Boxer's fracture repair on right hand with subsequent hardware removal with one of the screws having a broken had and still being in place. She has stated that she is working on trying to get the rest of the hardware out but has been having trouble getting an orthopedic surgeon. 5. Excision of thymoma. 6. Appendectomy, laparoscopic. 7. Open drainage of abdominal wound abscess with drain placement. Pertinent Family History: Significant for diabetes Past Social History: Smoker, does not drink alcohol. Lives in [place], [place]. Has a significant other with 5 kids and she states she stays at home primarily to help raise the 5 children. Her primary care provider is in [place], [place]. 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 Tobacco Use: Current Every Day Smoker Substance Use Type: None, Opiate Pain Medication Alcohol Use: None Medication / Allergies Home Medications: Home Medications Medication Instructions Recorded Confirmed Type Estradiol 2 tab PO BID 10/14/15 04/06/17 History Spironolactone 1 tab PO DAILY 10/14/15 04/06/17 History Amitriptyline HCl 2 tab PO BEDTIME 01/22/17 04/06/17 History Metoprolol Tartrate Tab 1 tab PO BID 02/01/17 04/06/17 History [Lopressor Tab] Oxycodone HCl 2 tab PO Q4H PRN tab 02/07/17 04/06/17 History Oxycodone HCl [Oxycodone HCl ER] 1 tab PO BID tab 02/07/17 04/06/17 History Hydromorphone HCl [Dilaudid] 8 mg PO Q4H tab 03/09/17 04/06/17 History Promethazine HCl [Phenergan] 25 mg PO Q6H PRN 04/02/17 04/06/17 History Clindamycin HCl 300 mg PO 04/06/17 History Allergies/Adverse Reactions: Allergies Allergy/AdvReac Type Severity Reaction Status Date / Time cyclobenzaprine HCl Allergy Severe HIVES Verified 04/06/17 11:13 [From Flexeril] venom-honey bee Allergy Severe Anaphylaxis Verified 04/06/17 11:13 [bee venom (honey bee)] iodine Allergy Intermediate RASH Verified 04/06/17 11:13 Iodine and Iodide Containing Allergy Intermediate VOMITING Verified 04/06/17 11: 13 Produc ketorolac tromethamine Allergy Intermediate HIVES Verified 04/06/17 11:13 [From Toradol] lactose [Lactose] Allergy Intermediate NOT Verified 04/06/17 11:13 APPLICABLE adhesive tape AdvReac Intermediate RASH Verified 04/06/17 11:13 SEA FOOD AdvReac Intermediate HIVES Uncoded 04/06/17 11:13 Review of Systems - Review of Systems All Systems: Reviewed & No Additional Complaints Except as Stated (I did a 12 point review systems and is negative except for that as per history of present illness and that noted below.) - Respiratory Respiratory: DENIES: Negative System Review, Cough, Sputum, Dyspnea At Rest, Dyspnea with Exertion, Pleuritic Pain, Hemoptysis, Wheezing, Other, See HPI - Cardiovascular Cardiovascular: REPORTS: Other (Patient states that she has had chronic tachycardia. Etiology appears unknown.) - Gastrointestinal Gastrointestinal / Abdominal: REPORTS: Other (No complaints of diarrhea or constipation.), See HPI - Hematlogic / Lymphatic Hematologic / Lymphatic: REPORTS: Other (History of non-Hodgkin's lymphoma. Patient also has had a history of blood clots.) Exam - Vitals Vital Signs: Vital Signs Temperature 97.4 F Temperature Source Temporal Artery Scan Pulse Rate [Pulse Oximeter] 117 Respiratory Rate 20 Blood Pressure [Left Arm] 116/90 Pulse Ox 95 Oxygen Delivery Method Room Air Height 5 ft 9 in Weight 162 lb - General General Appearance: POSITIVE: No Acute Distress, Cooperative - Head Head Exam: POSITIVE: Normal Inspection, Normocephalic, Atraumatic - Eye Eye Exam: POSITIVE: No Scleral Icterus - ENT ENT Exam: POSITIVE: Mucous Membranes Moist - Neck Neck Exam: POSITIVE: Normal Inspection, No Tenderness, No Thyromegaly - Respiratory Respiratory Exam: POSITIVE: Clear to Auscultation - Bilaterally, Breathing Non Labored, Normal to Percussion and Palpation - Cardiovascular Cardiovascular Exam: POSITIVE: No Murmur, No Clicks, No Gallops, No Rubs, Tachycardia, No JVD - GI/Abdominal GI/Abdominal Exam: POSITIVE: Normal Bowel Sounds, Non Distended, Soft Additional GI/Abdominal Exam Details: Right lower quadrant incision is clean, dry, intact wound is packed with wet-to- dry dressings, no surrounding erythema on the skin. Some tenderness to palpation. - Rectal Rectal Exam: POSITIVE: Deferred - External Exam: POSITIVE: Deferred Exam: POSITIVE: Deferred - Extremities Extremities Exam: POSITIVE: No Clubbing Present, No Edema Present, No Cyanosis Present - Back Back Exam: POSITIVE: No CVA Tenderness - Neurological Neurological Exam: POSITIVE: Alert, Oriented x 3, No Facial Droop, Speech Intact / Clear, Moves All Extremities Equally - Psychiatric Psychiatric Exam: POSITIVE: Anxious - Integumentary Integumentary Exam: POSITIVE: Normal Color, Warm, Dry, Intact (With the exception of right lower quadrant postsurgical wound.) Results - Labs CBC and BMP: 04/07/17 14:00 Labs - Last 24 Hours: Laboratory Results 04/07/17 Range/Units 14:00 WBC 18.93 H (4.8-10.8) 10^3/uL RBC 4.65 (4.20-5.40) 10^6/uL Hgb 14.6 (12.0-16.0) g/dL Hct 41.8 (37.0-47.0) % MCV 89.9 (81-99) FL MCH 31.4 H (27-31) PG MCHC 34.9 (33-37) g/dL RDW Std Deviation 42.2 (39-50) fL RDW Coeff of Brennan 13.0 (11.5-14.5) % Plt Count 274 (140-350) 10*3/uL MPV 10.7 (7.4-12.2) FL Immature Gran % (Auto) 0.3 (0-5) % Neut % (Auto) 69.7 (50-80) % Lymph % (Auto) 21.5 (10-50) % [place] % (Auto) 7.6 (5-15) % Eos % (Auto) 0.8 (0-8) % Baso % (Auto) 0.1 (0-1) % Immature Gran # (Auto) 0.06 10*3/UL Neut # (Auto) 13.21 10*3/UL Lymph # (Auto) 4.07 10*3/uL [place] # (Auto) 1.43 H (0.3-0.8) 10*3/UL Eos # (Auto) 0.15 10*3/UL Baso # (Auto) 0.01 10*3/UL WBC Morphology Comment Normal morphology (NORM) Plt Morphology Comment Normal morphology (NORM) RBC Morph Comment Normal morphology (NORM) C-Reactive Protein 1.4 H (0.0-0.9) mg/dL Assessment and Plan - Patient Problems (1) Intractable pain Current Visit: Yes Status: Acute (2) Nonhealing surgical wound Current Visit: Yes Status: Acute Qualifiers: Encounter type: subsequent encounter Qualified Description: Non- healing surgical wound, subsequent encounter Qualifier Code(s): (T81.89XD ) Other complications of procedures, not elsewhere classified, subsequent encounter (3) Delayed gastric emptying Current Visit: Yes Status: Chronic (4) Transgendered Current Visit: Yes Status: Chronic (5) Chronic pain syndrome Current Visit: Yes Status: Chronic - Assessment / Plan Additional Assessment/Plan Details: I'll admit the patient. Despite my reluctance to provide Demerol for patient pain relief, this is something that Joanna seems to respond well to in terms of her pain relief and at this time I will go ahead and order that. I would like to get her pain under better control so that we can get the wound VAC reapplied and continue with improvements in this nonhealing surgical wound. The patient states that she feels if her pains control she'll better be able to tolerate a wound VAC application. We also want to monitor for potential infection during this hospital stay. continue home medications Check CBC tomorrow I discussed with surgery, if the patient is still in the hospital on Monday, they will see the patient. Otherwise at this point, as there is no evidence of infection of the wound, we will hold off on antibiotics. It was also recommended consider using lidocaine jelly to try and numb wound is much as possible to help the pain improved. PT will be consult for wound care management along with wound VAC therapy. I discussed the above plan of pain control, resumption of wound VAC therapy, and monitoring for infection during the hospital stay. The patient agreed with that plan.
[2017-04-07] MEDS ORDERED: ZINC OXIDE 57 GM OINT TOPICAL PRN (22:43)
[2017-04-07] MEDS ORDERED: HYDROmorphone Tab 4 MG TAB PO ONE (23:15)
[2017-04-07] MEDS: ESTRADIOL 2 MG PO SCH (23:36)
[2017-04-07] MEDS ORDERED: HYDROmorphone 2 MG TABLET PO ONE (23:45)
[2017-04-08] MEDS: Meperidine Inj 50 MG/ML CARPUJECT IVP PRN ×8 (00:34→23:29)
[2017-04-08] MEDS: oxyCODONE IR Tab 15 MG TAB PO PRN ×6 (02:32→23:30)
[2017-04-08] MEDS ORDERED: HYDROmorphone Tab 4 MG TAB PO SCH (03:00)
[2017-04-08] MEDS ORDERED: HYDROmorphone 2 MG TABLET PO SCH (03:45)
[2017-04-08 05:33] LABS: BLOOD UREA NITROGEN 6 mg/dL (7-22); CALCIUM 8.8 mg/dL (8.7-10.7); EST GLOMERULAR FILTRATION > 60 (>60 ml/min/1.73m(2))
[2017-04-08 07:09] LABS: HEMATOCRIT 39.4 % (37.0-47.0); HEMOGLOBIN 13.2 g/dL (12.0-16.0); MEAN CORPUSCULAR VOLUME 91.8 FL (81-99); RED BLOOD COUNT 4.29 10^6/uL (4.20-5.40)
[2017-04-08 07:10] LABS: BASOPHILS # (AUTO) 0 10*3/UL; BASOPHILS % (AUTO) 0 % (0-1); EOSINOPHILS # (AUTO) 0 10*3/UL; EOSINOPHILS % (AUTO) 0 % (0-8); LYMPHOCYTES # (AUTO) 1.22 10*3/uL; MEAN CORPUSCULAR HEMOGLOBIN 30.8 PG (27-31); MEAN CORPUSCULAR HGB CONC 33.5 g/dL (33-37); MEAN PLATELET VOLUME 11.2 FL (7.4-12.2); MONOCYTES # (AUTO) 0.59 10*3/UL (0.3-0.8); MONOCYTES % (AUTO) 3.6 % (5-15); NEUTROPHILS # (AUTO) 14.32 10*3/UL; NEUTROPHILS % (AUTO) 88.6 % (50-80); PLATELET MORPHOLOGY COMMENT NORMAL MORPHOLOGY (NORM); RBC MORPHOLOGY COMMENT NORMAL MORPHOLOGY (NORM); WBC MORPHOLOGY COMMENT NORMAL MORPHOLOGY (NORM)
[2017-04-08] MEDS ORDERED: Acetaminophen 1000mg Inj 1,000 MG in Premix 1 BAG IV ONE (07:35)
[2017-04-08] MEDS: ASCORBIC ACID 500 MG TABLET PO SCH (08:43)
[2017-04-08] MEDS: oxyCODONE ER 10 MG TAB PO SCH ×2 (08:43→21:20)
[2017-04-08] MEDS: Spironolactone Tab 50 MG TAB PO SCH (08:43)
[2017-04-08] MEDS: oxyCODONE ER Tab 20 MG TAB PO SCH ×2 (08:44→21:21)
[2017-04-08] MEDS: Metoprolol TARTRATE Tab 25 MG TAB PO SCH ×2 (08:44→21:21)
[2017-04-08] MEDS: POTASSIUM CHLORIDE 20 MEQ TAB PO SCH (08:44)
[2017-04-08] MEDS: HYDROmorphone 2 MG/1 ML IVP PRN ×5 (08:48→22:20)
[2017-04-08] MEDS ORDERED: predniSONE Tab 20 MG, predniSONE Tab 10 MG PO SCH ×4 (09:00)
[2017-04-08] MEDS: Sodium Chloride 0.9% 1,000 ML PRIMARY IV SCH ×2 (09:54→09:55)
[2017-04-08] MEDS: ESTRADIOL 2 MG PO SCH ×2 (09:56→22:28)
[2017-04-08] MEDS: NORMAL SALINE 10 ML SYRINGE FLUSH IVP PRN ×8 (10:49→23:30)
[2017-04-08] MEDS: MEPERIDINE HCL/PF 100 MG/1 ML INJECTION IVP PRN ×4 (12:49→21:19)
--- NOTE | 2017-04-08 15:07 | PDOC(PROG) ---
Date and Time of Service: 04/08/2017, 1501 Interval History: No complains of chest pain, shortness breath, nausea or vomiting. Wound is at an 8 on a pain scale of 1-10. Reduced today to some degree. I examined the wound at bedside with physical therapy and nursing present, no evidence of drainage. Good granulation tissue. No evidence of infection. Objective : Data - Labs CBC and BMP: 04/08/17 04:25 04/08/17 04:25 Labs - Last 24 Hours: Laboratory Results 04/08/17 Range/Units 04:25 WBC 16.18 H (4.8-10.8) 10^3/uL RBC 4.29 (4.20-5.40) 10^6/uL Hgb 13.2 (12.0-16.0) g/dL Hct 39.4 (37.0-47.0) % MCV 91.8 (81-99) FL MCH 30.8 (27-31) PG MCHC 33.5 (33-37) g/dL RDW Std Deviation 43.0 (39-50) fL RDW Coeff of Brennan 13.2 (11.5-14.5) % Plt Count 261 (140-350) 10*3/uL MPV 11.2 (7.4-12.2) FL Immature Gran % (Auto) 0.3 (0-5) % Neut % (Auto) 88.6 H (50-80) % Lymph % (Auto) 7.5 L (10-50) % [place] % (Auto) 3.6 L (5-15) % Eos % (Auto) 0 (0-8) % Baso % (Auto) 0 (0-1) % Immature Gran # (Auto) 0.05 10*3/UL Neut # (Auto) 14.32 10*3/UL Lymph # (Auto) 1.22 10*3/uL [place] # (Auto) 0.59 (0.3-0.8) 10*3/UL Eos # (Auto) 0 10*3/UL Baso # (Auto) 0 10*3/UL WBC Morphology Comment Normal morphology (NORM) Plt Morphology Comment Normal morphology (NORM) RBC Morph Comment Normal morphology (NORM) Sodium 135 (135-145) meq/L Potassium 4.3 (3.8-5.2) meq/L Chloride 104 (98-112) meq/L Carbon Dioxide 22 L (23-33) meq/L Anion Gap 9 (5-20) BUN 6 L (7-22) mg/dL Creatinine 0.6 (0.50-1.20) mg/dL Estimated GFR > 60 (>60 ml/min/1.73m(2)) BUN/Creatinine Ratio 10.00 (6-20) Glucose 143 H (78-110) mg/dL Calculated Osmolality 279.0 (267-292) mOsm/kg Calcium 8.8 (8.7-10.7) mg/dL Total Bilirubin 0.7 D (0.3-1.2) mg/dL AST 28 (8-39) IU/L ALT 17 (9-52) IU/L Alkaline Phosphatase 77 (38-126) IU/L Total Protein 6.7 (6.1-8.0) g/dL Albumin 4.0 (3.5-4.8) g/dL Globulin 2.7 (2.50-4.10) g/dL Albumin/Globulin Ratio 1.40 (1.3-2.0) mg/g Objective : Exam - General General Appearance: No Acute Distress, Cooperative Additional General Exam Details: Vital Signs - Last Taken Temperature 97.6 F 04/08/17 11:09 Pulse Rate 81 04/08/17 11:09 Respiratory Rate 16 04/08/17 11:09 Blood Pressure 120/83 04/08/17 11:09 Pulse Ox 96 04/08/17 11:09 - Eye Eye Exam: No Scleral Icterus - Respiratory Respiratory Exam: Clear to Auscultation - Bilaterally, Breathing Non Labored - Cardiovascular Cardiovascular Exam: RRR, No Murmur, No Clicks, No Gallops, No Rubs, No JVD - GI/Abdominal GI/Abdominal Exam: Normal Bowel Sounds, Non Distended, Soft Additional GI/Abdominal Exam Details: Tenderness around the wound, some induration around the wound edges but no erythema and no drainage from the wound at the time of examination. Nurse's notes appreciated from last night. Good wound bed and good granulation tissue - Extremities Extremities Exam: No Clubbing Present, No Edema Present, No Cyanosis Present - Neurological Neurological Exam: Alert, Oriented x 3, No Facial Droop, Speech Intact / Clear, Moves All Extremities Equally Assessment and Plan - Patient Problems (1) Intractable pain Current Visit: Yes Status: Acute (2) Nonhealing surgical wound Current Visit: Yes Status: Acute Qualifiers: Encounter type: subsequent encounter Qualified Description: Non- healing surgical wound, subsequent encounter Qualifier Code(s): (T81.89XD ) Other complications of procedures, not elsewhere classified, subsequent encounter (3) Delayed gastric emptying Current Visit: Yes Status: Chronic (4) Transgendered Current Visit: Yes Status: Chronic (5) Chronic pain syndrome Current Visit: Yes Status: Chronic (6) History of pulmonary embolism Current Visit: Yes Status: Acute - Assessment / Plan Additional Assessment/Plan Details: Reassuring that the CT scan of the chest was negative. No evidence of PE Continue eliquis for prevention. In terms of the wound, continue dressing changes with physical therapy and reapply wound VAC as an outpatient when pain is controlled enough that patient can be discharged. Continue current pain regimen with IV Dilaudid, Demerol, by mouth medications as well. We will trial ultrasound, and TENS, zinc oxide, and vitamin C to see if this helps the wound heal and helps reduce pain. No signs of infection. Continue off antibiotics. White blood cell count slightly improved today. I discussed above with the patient, physical therapy, nursing and they all agreed.
[2017-04-08] MEDS: AMITRIPTYLINE 25 MG TABLET PO SCH (21:20)
[2017-04-08] MEDS: Apixaban Tab 2.5 MG TABLET PO SCH (21:21)
[2017-04-09] MEDS: HYDROmorphone 2 MG/1 ML IVP PRN ×7 (01:16→21:50)
[2017-04-09] MEDS: NORMAL SALINE 10 ML SYRINGE FLUSH IVP PRN ×8 (01:17→21:51)
[2017-04-09] MEDS: Meperidine Inj 50 MG/ML CARPUJECT IVP PRN ×9 (03:13→21:50)
[2017-04-09] MEDS: oxyCODONE IR Tab 15 MG TAB PO PRN ×5 (04:55→23:38)
[2017-04-09 05:44] LABS: MEAN CORPUSCULAR HGB CONC 33.3 g/dL (33-37); MEAN CORPUSCULAR VOLUME 92.9 FL (81-99); MEAN PLATELET VOLUME 11.1 FL (7.4-12.2); NEUTROPHILS % (AUTO) 57.6 % (50-80)
[2017-04-09 05:45] LABS: BASOPHILS % (AUTO) 0.1 % (0-1); EOSINOPHILS % (AUTO) 1.2 % (0-8); LYMPHOCYTES # (AUTO) 4.17 10*3/uL; MONOCYTES # (AUTO) 1.79 10*3/UL (0.3-0.8); MONOCYTES % (AUTO) 12.3 % (5-15)
[2017-04-09 05:46] LABS: BASOPHILS # (AUTO) 0.02 10*3/UL; EOSINOPHILS # (AUTO) 0.18 10*3/UL; PLATELET MORPHOLOGY COMMENT NORMAL MORPHOLOGY (NORM); RBC MORPHOLOGY COMMENT NORMAL MORPHOLOGY (NORM); WBC MORPHOLOGY COMMENT NORMAL MORPHOLOGY (NORM)
[2017-04-09] MEDS: ASCORBIC ACID 500 MG TABLET PO SCH (08:08)
[2017-04-09] MEDS: oxyCODONE ER Tab 20 MG TAB PO SCH ×2 (08:08→21:03)
[2017-04-09] MEDS: Spironolactone Tab 50 MG TAB PO SCH (08:08)
[2017-04-09] MEDS: POTASSIUM CHLORIDE 20 MEQ TAB PO SCH (08:09)
[2017-04-09] MEDS: oxyCODONE ER 10 MG TAB PO SCH ×2 (08:09→21:03)
[2017-04-09] MEDS: Apixaban Tab 2.5 MG TABLET PO SCH ×2 (08:09→21:03)
[2017-04-09] MEDS: Metoprolol TARTRATE Tab 25 MG TAB PO SCH ×2 (08:09→21:04)
[2017-04-09] MEDS: ESTRADIOL 2 MG PO SCH ×2 (09:13→20:25)
--- NOTE | 2017-04-09 11:23 | PT.PROG ---
Progress Note Progress Note: S; Pt. states she is doing ok. She c/o pain just inferior to her wound site. States the wound bed itself may be feeling slightly better, but the pain underneath the wound is what is progressively getting worse. O: Treatment consisted of wound care including removal of the soiled dressing followed by placing electric stim around the wound in the form of IFC to assist with pain management x 10 minutes. Patient then received ultrasound over the wound and its edges. The wound was covered with tegaderm. Following these modalities, the wound was then repacked with promogran juanpablo to the wound bed and packed with cutimed gauze. Wound was covered with mepilix as her taiwo skin has become visibly sensitive to the adhesive and is breaking out. A: Pt's wound bed continues to present with granulation tissue on the wound edges as well as smooth muscle tissue on the wound bed. Pt. is very tender to palpation on inferior area of wound with a notable ridge which is felt upon palpation. It does present slightly swollen, but at this time not concerning swollen. It was discussed with patient to lay flat in her bed more often through out the day as gravity may be pooling some of her drainage leading to the increase in sensitivity and swelling. P: Continue per POC to increase wound healing. Malena Harper, EXCAVATOR OPERATOR
--- NOTE | 2017-04-09 18:01 | PDOC(PROG) ---
Date and Time of Service: 04/09/2017, 1800 Interval History: No complains of chest pain, shortness breath, nausea or vomiting. The wound is monitored much better control in terms of pain, still has some serous drainage. No evidence of infection in the wound. Just below the wound, the patient has some induration that's very tender, but not red or erythematous. No fevers. White blood cell count is down Objective : Data - Labs CBC and BMP: 04/09/17 04:55 04/08/17 04:25 Labs - Last 24 Hours: Laboratory Results 04/09/17 Range/Units 04:55 WBC 14.59 H (4.8-10.8) 10^3/uL RBC 4.20 (4.20-5.40) 10^6/uL Hgb 13.0 (12.0-16.0) g/dL Hct 39.0 (37.0-47.0) % MCV 92.9 (81-99) FL MCH 31.0 (27-31) PG MCHC 33.3 (33-37) g/dL RDW Std Deviation 44.3 (39-50) fL RDW Coeff of Brennan 13.5 (11.5-14.5) % Plt Count 230 (140-350) 10*3/uL MPV 11.1 (7.4-12.2) FL Immature Gran % (Auto) 0.2 (0-5) % Neut % (Auto) 57.6 (50-80) % Lymph % (Auto) 28.6 (10-50) % [place] % (Auto) 12.3 (5-15) % Eos % (Auto) 1.2 (0-8) % Baso % (Auto) 0.1 (0-1) % Immature Gran # (Auto) 0.03 10*3/UL Neut # (Auto) 8.40 10*3/UL Lymph # (Auto) 4.17 10*3/uL [place] # (Auto) 1.79 H (0.3-0.8) 10*3/UL Eos # (Auto) 0.18 10*3/UL Baso # (Auto) 0.02 10*3/UL WBC Morphology Comment Normal morphology (NORM) Plt Morphology Comment Normal morphology (NORM) RBC Morph Comment Normal morphology (NORM) Objective : Exam - General General Appearance: No Acute Distress, Cooperative Additional General Exam Details: Vital Signs - Last Taken Temperature 97.7 F 04/09/17 16:58 Pulse Rate 104 H 04/09/17 16:58 Respiratory Rate 18 04/09/17 16:58 Blood Pressure 111/80 04/09/17 16:58 Pulse Ox 96 04/09/17 16:58 - Eye Eye Exam: No Scleral Icterus - ENT ENT Exam: Mucous Membranes Moist - Respiratory Respiratory Exam: Clear to Auscultation - Bilaterally, Breathing Non Labored - Cardiovascular Cardiovascular Exam: RRR, No Murmur, No Clicks, No Gallops, No Rubs, JVD - GI/Abdominal GI/Abdominal Exam: Normal Bowel Sounds, Non Distended, Soft Additional GI/Abdominal Exam Details: Tender specifically below the wound. On my exam the skin is somewhat indurated , but not erythematous. Tender to touch. - Extremities Extremities Exam: No Clubbing Present, No Edema Present, No Cyanosis Present - Neurological Neurological Exam: Alert, Oriented x 3, No Facial Droop, Speech Intact / Clear, Moves All Extremities Equally Assessment and Plan - Patient Problems (1) Intractable pain Current Visit: Yes Status: Acute Comment: Improving and the wound. As noted above, there is some induration below the wound but no erythema or anything to suggest infection. I question a fluid collection or seroma (2) Nonhealing surgical wound Current Visit: Yes Status: Acute Qualifiers: Encounter type: subsequent encounter Qualified Description: Non- healing surgical wound, subsequent encounter Qualifier Code(s): (T81.89XD ) Other complications of procedures, not elsewhere classified, subsequent encounter (3) Delayed gastric emptying Current Visit: Yes Status: Chronic (4) Transgendered Current Visit: Yes Status: Chronic (5) Chronic pain syndrome Current Visit: Yes Status: Chronic (6) History of pulmonary embolism Current Visit: Yes Status: Acute - Assessment / Plan Additional Assessment/Plan Details: Continue with pain medications, dressing changes, for now. Hold off on antibiotics at this time. I'm not convinced on exam that this is infected, and no fevers, and white blood cell count has decreased. I will get an ultrasound of the abdomen just below the wound to see if there is any superficial abscess, or seroma. Would plan to notify Dr. Rangel of patient admission tomorrow, and hopefully we can develop a plan to get the patient to outpatient wound therapy with wound VAC application. Continuing vitamin C, zinc oxide, and ultrasound therapy with physical therapy to help reduce pain around the wound.
--- NOTE | 2017-04-09 19:10 | DI ---
HISTORY: Indurated wound. Question superficial abscess. PREVIOUS EXAM: None available. TECHNIQUE: Multiple views of the mid and lower abdomen are obtained. FINDINGS: Images demonstrate heterogeneous density within the subcutaneous fat of the abdomen with s ome posterior shadowing. This area lies 1-2 cm below the wound. IMPRESSION: 1. Heterogeneous echogenicity within the subcutaneous fat of the mid abdomen. Cannot completely rule out the possibility of an abscess although this is not an obvious abscess. CT with contrast may be h elpful to further assess question. NOTIFICATION: The above findings were phoned to Cherry Barbosa in the ER Department on 04/09/2017 at 9:18pm EST.
[2017-04-09] MEDS: AMITRIPTYLINE 25 MG TABLET PO SCH (21:03)
[2017-04-10] MEDS: HYDROmorphone 2 MG/1 ML IVP PRN ×7 (01:27→21:35)
[2017-04-10] MEDS: Meperidine Inj 50 MG/ML CARPUJECT IVP PRN ×4 (01:27→11:36)
[2017-04-10] MEDS: NORMAL SALINE 10 ML SYRINGE FLUSH IVP PRN ×5 (01:28→18:12)
[2017-04-10] MEDS: oxyCODONE IR Tab 15 MG TAB PO PRN ×5 (04:33→21:35)
[2017-04-10 05:30] LABS: BASOPHILS # (AUTO) 0.03 10*3/UL; BASOPHILS % (AUTO) 0.2 % (0-1); EOSINOPHILS # (AUTO) 0.28 10*3/UL; HEMATOCRIT 39.2 % (37.0-47.0); LYMPHOCYTES # (AUTO) 3.68 10*3/uL; MEAN CORPUSCULAR HEMOGLOBIN 31.1 PG (27-31); MEAN CORPUSCULAR HGB CONC 33.2 g/dL (33-37); MEAN CORPUSCULAR VOLUME 93.8 FL (81-99); MONOCYTES # (AUTO) 1.91 10*3/UL (0.3-0.8); MONOCYTES % (AUTO) 13.9 % (5-15); NEUTROPHILS # (AUTO) 7.84 10*3/UL; NEUTROPHILS % (AUTO) 56.8 % (50-80); RED BLOOD COUNT 4.18 10^6/uL (4.20-5.40)
[2017-04-10 05:31] LABS: PLATELET MORPHOLOGY COMMENT NORMAL MORPHOLOGY (NORM); RBC MORPHOLOGY COMMENT NORMAL MORPHOLOGY (NORM); WBC MORPHOLOGY COMMENT NORMAL MORPHOLOGY (NORM)
[2017-04-10] MEDS: ASCORBIC ACID 500 MG TABLET PO SCH (09:09)
[2017-04-10] MEDS: Apixaban Tab 2.5 MG TABLET PO SCH ×2 (09:10→20:31)
[2017-04-10] MEDS: oxyCODONE ER Tab 20 MG TAB PO SCH ×2 (09:10→20:31)
[2017-04-10] MEDS: Spironolactone Tab 50 MG TAB PO SCH (09:10)
[2017-04-10] MEDS: oxyCODONE ER 10 MG TAB PO SCH ×2 (09:10→20:31)
[2017-04-10] MEDS: Metoprolol TARTRATE Tab 25 MG TAB PO SCH ×2 (09:11→20:31)
[2017-04-10] MEDS: POTASSIUM CHLORIDE 20 MEQ TAB PO SCH (09:11)
[2017-04-10] MEDS: ESTRADIOL 2 MG PO SCH ×2 (10:01→20:33)
--- NOTE | 2017-04-10 12:04 | PTI REPORT ---
Thank you for the referral of Joanna Prado. She was seen on 04/08/17 for an inpatient evaluation secondary to an abdominal wound. SUBJECTIVE: The patient is a 32-year-old female who presented to the ER yesterday due to having pain of 10/10 around an open wound that she has on the right side of her lower abdomen. The patient was admitted to the hospital due to her pain. The patient states that she went to the ER last Monday where they ended up doing an I&D on an open wound that she had from a previous issue with an appendectomy. The patient had been receiving outpatient wound care, but it was a non-healing wound at that time. They did the I&D and she was released from the hospital on Monday. She stated she was doing pretty well on Monday but starting she began to have more pain as well as a great deal of swelling and drainage from her wound so she came to the ER on Monday and was admitted to the hospital. We did consult with Dr. Hallman and her did indicate that he would like to try some ultrasound or electric stimulation for pain modulation and also to help promote her wound healing. The patient was on a wound vac prior to her last hospital admittance but was unable to utilize the wound vac secondary to the pain with the dressing changes. For now the doctor would like us to pack the wound. PAST MEDICAL HISTORY: Past medical history can be found in the patient's medical record. OBJECTIVE FINDINGS: General observations: The patient is alert and oriented to setting upon PT arrival. The patient did receive pain medications just prior to our dressing change. Pain: The patient reports a pain level of 8/10 on the verbal analog scale (0=no pain, 10=worst pain) around her entire wound in the right lower abdomen. The patient states that her pain does go down to a 5/10 with pain meds, but the pain meds usually only last about an hour. Wound presentation: The wound measured 2.3 centimeters wide x 6.3 centimeters long with a depth of 1.9 centimeters. The wound bed looked clean with 90% granulation tissue. ASSESSMENT: The patient has fair potential for wound healing due to the length of time that she has had this wound. We know that we won't close the wound while she is an inpatient but we will continue with outpatient therapy orders. Once her pain is under control, we will resume the wound vac. Problem List: Non healing surgical wound Pain Short-Term Goals: To be met by discharge from inpatient: Patient will promote sterile wound healing with dressing changes PRN. Patient's pain level will be controlled with modalities including interferential current and ultrasound as tolerated by the patient. Long-Term Goals: To be met following discharge from inpatient: Patient will resume outpatient physical therapy for wound care PRN for dressing changes and modalities for pain modulation. TREATMENT PLAN: Patient will be seen B.I.D during the week and one time per day over the weekend as an inpatient for wound care. INITIAL TREATMENT: Treatment today consisted of the initial evaluation. The patient's old dressing was removed; she had ABD pad and gauze over the wound and the wound bed was packed with a gauze dressing. Upon removal of the old dressing there was copious amounts of drainage noted on all the gauze pads and through the ABD pad. Lidocaine was applied to the wound bed due to the patient's pain she was experiencing. Interferential current was set up around the wound in order to promote pain modulation. Following the interferential current, Cami collagen was placed in the bottom of the wound and then the wound was packed with Cutimed dressing and covered with an absorbent pad and an ABD pad due to the copious amounts of drainage. Nursing staff was present during our dressing change and were instructed that the ABD and foam pad could be changed PRN. We are going to try to leave the Cutimed and collagen in the wound for 1-2 days depending on the integrity of the dressing and the amount of drainage. DANDY
--- NOTE | 2017-04-10 14:16 | PDOC(PROG) ---
Interval History: Patient is doing well. She states there is some induration below her open wound no fevers Objective : Data - Labs CBC and BMP: 04/10/17 04:30 04/08/17 04:25 Labs - Last 24 Hours: Laboratory Results 04/10/17 Range/Units 04:30 WBC 13.79 H (4.8-10.8) 10^3/uL RBC 4.18 L (4.20-5.40) 10^6/uL Hgb 13.0 (12.0-16.0) g/dL Hct 39.2 (37.0-47.0) % MCV 93.8 (81-99) FL MCH 31.1 H (27-31) PG MCHC 33.2 (33-37) g/dL RDW Std Deviation 45.1 (39-50) fL RDW Coeff of Brennan 13.6 (11.5-14.5) % Plt Count 264 (140-350) 10*3/uL MPV 11.0 (7.4-12.2) FL Immature Gran % (Auto) 0.4 (0-5) % Neut % (Auto) 56.8 (50-80) % Lymph % (Auto) 26.7 (10-50) % [place] % (Auto) 13.9 (5-15) % Eos % (Auto) 2.0 (0-8) % Baso % (Auto) 0.2 (0-1) % Immature Gran # (Auto) 0.05 10*3/UL Neut # (Auto) 7.84 10*3/UL Lymph # (Auto) 3.68 10*3/uL [place] # (Auto) 1.91 H (0.3-0.8) 10*3/UL Eos # (Auto) 0.28 10*3/UL Baso # (Auto) 0.03 10*3/UL WBC Morphology Comment Normal morphology (NORM) Plt Morphology Comment Normal morphology (NORM) RBC Morph Comment Normal morphology (NORM) Objective : Exam - General General Appearance: Cooperative - GI/Abdominal Additional GI/Abdominal Exam Details: Induration below her open wound of the right lower quadrant does not look red but it is hard Assessment and Plan - Patient Problems (1) Dehiscence of surgical wound Current Visit: Yes Status: Acute (2) Nonhealing surgical wound Current Visit: Yes Status: Acute Qualifiers: Encounter type: subsequent encounter Qualified Description: Non- healing surgical wound, subsequent encounter Qualifier Code(s): (T81.89XD ) Other complications of procedures, not elsewhere classified, subsequent encounter (3) Pain Current Visit: Yes Status: Acute - Assessment / Plan Additional Assessment/Plan Details: We will have the general surgeon look at the wound in regards to the induration right below it. I did discuss the case with him he did debrided with some mild fluid collection was drained we will cover for MRSA and cultures were resent by Dr. ana Shook increase Demerol to 60 every 2 hours this is the only thing that works for the patient for her pain hopefully things will improve we will also order a wound VAC
--- NOTE | 2017-04-10 14:27 | PDOC(PROG) ---
Date and Time of Service: 04/10/2017 at 1400 hrs. Interval History: Patient states that she is in a hard indurated area underneath her lower part of her incision Objective : Data - Labs CBC and BMP: 04/10/17 04:30 04/08/17 04:25 Labs - Last 24 Hours: Laboratory Results 04/10/17 Range/Units 04:30 WBC 13.79 H (4.8-10.8) 10^3/uL RBC 4.18 L (4.20-5.40) 10^6/uL Hgb 13.0 (12.0-16.0) g/dL Hct 39.2 (37.0-47.0) % MCV 93.8 (81-99) FL MCH 31.1 H (27-31) PG MCHC 33.2 (33-37) g/dL RDW Std Deviation 45.1 (39-50) fL RDW Coeff of Brennan 13.6 (11.5-14.5) % Plt Count 264 (140-350) 10*3/uL MPV 11.0 (7.4-12.2) FL Immature Gran % (Auto) 0.4 (0-5) % Neut % (Auto) 56.8 (50-80) % Lymph % (Auto) 26.7 (10-50) % [place] % (Auto) 13.9 (5-15) % Eos % (Auto) 2.0 (0-8) % Baso % (Auto) 0.2 (0-1) % Immature Gran # (Auto) 0.05 10*3/UL Neut # (Auto) 7.84 10*3/UL Lymph # (Auto) 3.68 10*3/uL [place] # (Auto) 1.91 H (0.3-0.8) 10*3/UL Eos # (Auto) 0.28 10*3/UL Baso # (Auto) 0.03 10*3/UL WBC Morphology Comment Normal morphology (NORM) Plt Morphology Comment Normal morphology (NORM) RBC Morph Comment Normal morphology (NORM) - Vital Signs Vital Signs and I&O: Vital Signs - Last Taken Temperature 97.5 F 04/10/17 12:30 Pulse Rate 115 H 04/10/17 12:30 Respiratory Rate 16 04/10/17 12:30 Blood Pressure 123/97 04/10/17 12:30 Pulse Ox 96 04/10/17 12:30 Intake and Output (24hr x 4 totals) 04/08/17 04/09/17 04/10/17 04/11/17 05:59 05:59 05:59 05:59 Intake Total 720 1280 2330 180 Output Total 200 Balance 720 1080 2330 180 Objective : Exam - General General Appearance: No Acute Distress, Cooperative - GI/Abdominal Additional GI/Abdominal Exam Details: Patient has a red indurated area underneath her incision. The canal the wound I gently probed it with a Q-tip. There is probably a pocket that was 2.54 cm in greatest depth. This had watery fluid in it. I did anaerobic and aerobic cultures. Assessment and Plan - Patient Problems (1) Nonhealing surgical wound Current Visit: Yes Status: Acute Qualifiers: Encounter type: subsequent encounter Qualified Description: Non- healing surgical wound, subsequent encounter Qualifier Code(s): (T81.89XD ) Other complications of procedures, not elsewhere classified, subsequent encounter - Assessment / Plan Additional Assessment/Plan Details: Would like to get a wound VAC on the patient. This is tunneling underneath I believe it may be's staff. New cultures are pending
--- NOTE | 2017-04-10 15:33 | PT PM DAY ---
Diagnosis : Abdominal Wound PM - Physical Therapy S: The patient reports she is having a lot of pain, not necessarily in the wound itself, but just below the wound. She states she is more concerned with the hardened area just distal to the open wound area and is frustrated that the physicians don't appear to be listening to her. She states this is how all of her staph infections start; there will be a hardened area and until they surgically open up, the pain keeps intensifying. She states none of the modalities including the electrical stimulation or the ultrasound have helped with the pain; again stating they seem to be focusing on the wound as opposed to the cause of her pain as well as the hardened area below the wound. O: After speaking with Dr. Rangel, the patient, and the nursing staff-- physical therapy's role in her care will continue to be for clean wound care. Today's therapy consisted of removing the dressing per Dr. Rangel's orders so he could have a visual inspection. The wound was measured at 8 centimeters long x 0.5 centimeters wide x 2 centimeters deep and was 3 centimeters tunneling at the [address] Rangel's bedside palpation of the wound bed and surrounding areas, the drainage was moderate and was serosanguineous. The wound has well defined edges and borders with areas of redness surrounding it. There is skin irritation surrounding the taiwo area from continued adhesive use. The wound was redressed with Cutimed followed by a 6X6 Mepilex. The Cutimed was supplied by the physical therapy department. A: The therapist spoke with Dr. Rangel and it was agreed upon that a wound vac would be appropriate at this time. The therapist also re-explained to Dr. Rangel that an order will have to be placed. Even though the patient does have an outpatient freedom vac, it will not be able to be used while hospitalized. At this time we will continue to perform clean wound dressings until a wound vac can be ordered by the hospital. P: Continue seeing patient BID during the week and one time per day over the weekend until discharge. The therapist spoke with [facility] [place]. In the meantime we will perform dressing changes as needed. DANDY
[2017-04-10] MEDS: MEPERIDINE HCL/PF 100 MG/1 ML INJECTION IVP PRN ×4 (15:56→22:20)
[2017-04-10] MEDS: AMITRIPTYLINE 25 MG TABLET PO SCH (20:31)
[2017-04-11] MEDS: HYDROmorphone 2 MG/1 ML IVP PRN ×8 (00:21→22:03)
[2017-04-11] MEDS: MEPERIDINE HCL/PF 100 MG/1 ML INJECTION IVP PRN ×11 (00:21→22:03)
[2017-04-11] MEDS: oxyCODONE IR Tab 15 MG TAB PO PRN ×6 (02:07→22:03)
[2017-04-11] MEDS: NORMAL SALINE 10 ML SYRINGE FLUSH IVP PRN ×3 (03:02→18:02)
[2017-04-11 07:04] LABS: EOSINOPHILS % (AUTO) 1.4 % (0-8); HEMATOCRIT 39.4 % (37.0-47.0); HEMOGLOBIN 13.1 g/dL (12.0-16.0); MEAN CORPUSCULAR HEMOGLOBIN 30.6 PG (27-31); MEAN CORPUSCULAR HGB CONC 33.2 g/dL (33-37); MEAN CORPUSCULAR VOLUME 92.1 FL (81-99); MONOCYTES % (AUTO) 13.6 % (5-15); RED BLOOD COUNT 4.28 10^6/uL (4.20-5.40)
[2017-04-11 07:05] LABS: BASOPHILS # (AUTO) 0.02 10*3/UL; BASOPHILS % (AUTO) 0.1 % (0-1); EOSINOPHILS # (AUTO) 0.25 10*3/UL; LYMPHOCYTES # (AUTO) 2.71 10*3/uL; MONOCYTES # (AUTO) 2.36 10*3/UL (0.3-0.8); NEUTROPHILS # (AUTO) 11.97 10*3/UL; PLATELET MORPHOLOGY COMMENT NORMAL MORPHOLOGY (NORM); RBC MORPHOLOGY COMMENT NORMAL MORPHOLOGY (NORM); WBC MORPHOLOGY COMMENT NORMAL MORPHOLOGY (NORM)
--- NOTE | 2017-04-11 09:21 | PDOC(PROG) ---
Subjective Post Op Day: at 9 AM 04/11/2017 Pain Management: PO Objective : Data - Labs CBC and BMP: 04/11/17 04:50 04/08/17 04:25 Labs - Last 24 Hours: Laboratory Results 04/11/17 Range/Units 04:50 WBC 17.36 H (4.8-10.8) 10^3/uL RBC 4.28 (4.20-5.40) 10^6/uL Hgb 13.1 (12.0-16.0) g/dL Hct 39.4 (37.0-47.0) % MCV 92.1 (81-99) FL MCH 30.6 (27-31) PG MCHC 33.2 (33-37) g/dL RDW Std Deviation 43.0 (39-50) fL RDW Coeff of Brennan 13.3 (11.5-14.5) % Plt Count 280 (140-350) 10*3/uL MPV 11.0 (7.4-12.2) FL Immature Gran % (Auto) 0.3 (0-5) % Neut % (Auto) 69.0 (50-80) % Lymph % (Auto) 15.6 (10-50) % [place] % (Auto) 13.6 (5-15) % Eos % (Auto) 1.4 (0-8) % Baso % (Auto) 0.1 (0-1) % Immature Gran # (Auto) 0.05 10*3/UL Neut # (Auto) 11.97 10*3/UL Lymph # (Auto) 2.71 10*3/uL [place] # (Auto) 2.36 H (0.3-0.8) 10*3/UL Eos # (Auto) 0.25 10*3/UL Baso # (Auto) 0.02 10*3/UL WBC Morphology Comment Normal morphology (NORM) Plt Morphology Comment Normal morphology (NORM) RBC Morph Comment Normal morphology (NORM) - Vital Signs Vital Signs and I&O: Vital Signs - Last Taken Temperature 97.1 F 04/11/17 07:18 Pulse Rate 105 H 04/11/17 07:18 Respiratory Rate 16 04/11/17 07:18 Blood Pressure 139/81 04/11/17 07:18 Pulse Ox 95 04/11/17 07:18 Intake and Output (24hr x 4 totals) 04/09/17 04/10/17 04/11/17 04/12/17 05:59 05:59 05:59 05:59 Intake Total 1280 2330 1320 Output Total 200 Balance 1080 2330 1320 Objective : Exam - General General Appearance: No Acute Distress, Cooperative - GI/Abdominal Additional GI/Abdominal Exam Details: The inferior aspect the wound is still red indurated and more painful. After removing the packing I could see what appeared to be a little purulent material from the inferior aspect the wound but just underneath the skin. Gentle probing revealed that this actually was an abscess cavity. Is able to get about 20 mL of pus out of the subcutaneous tissue. This tracked deep and inferiorly to the area I opened up yesterday. I then irrigated the wound until clear fluid. Put a piece of packing into this area. And then repacked the wound. Assessment and Plan - Patient Problems (1) Nonhealing surgical wound Current Visit: Yes Status: Acute Qualifiers: Encounter type: subsequent encounter Qualified Description: Non- healing surgical wound, subsequent encounter Qualifier Code(s): (T81.89XD ) Other complications of procedures, not elsewhere classified, subsequent encounter - Assessment / Plan Additional Assessment/Plan Details: Continue wet-to-dry dressings. Await wound VAC
[2017-04-11] MEDS: Spironolactone Tab 50 MG TAB PO SCH (09:29)
[2017-04-11] MEDS: oxyCODONE ER Tab 20 MG TAB PO SCH ×2 (09:29→20:41)
[2017-04-11] MEDS: ASCORBIC ACID 500 MG TABLET PO SCH (09:29)
[2017-04-11] MEDS: Apixaban Tab 2.5 MG TABLET PO SCH ×2 (09:29→20:42)
[2017-04-11] MEDS: oxyCODONE ER 10 MG TAB PO SCH ×2 (09:30→20:41)
[2017-04-11] MEDS: POTASSIUM CHLORIDE 20 MEQ TAB PO SCH (09:30)
[2017-04-11] MEDS: Metoprolol TARTRATE Tab 25 MG TAB PO SCH ×2 (09:58→20:42)
[2017-04-11] MEDS: ESTRADIOL 2 MG PO SCH ×2 (10:16→20:09)
--- NOTE | 2017-04-11 11:32 | PT.PROG ---
Progress Note Progress Note: Patient will not be seen today due to Dr. Rangel seeing her this morning.
--- NOTE | 2017-04-11 12:01 | PDOC(PROG) ---
Interval History: Patient is doing well no complaints pain is controlled and Dr. ana Shook drained the abscess and some fluid from his wound Objective : Data - Labs CBC and BMP: 04/11/17 04:50 04/08/17 04:25 Labs - Last 24 Hours: Laboratory Results 04/11/17 Range/Units 04:50 WBC 17.36 H (4.8-10.8) 10^3/uL RBC 4.28 (4.20-5.40) 10^6/uL Hgb 13.1 (12.0-16.0) g/dL Hct 39.4 (37.0-47.0) % MCV 92.1 (81-99) FL MCH 30.6 (27-31) PG MCHC 33.2 (33-37) g/dL RDW Std Deviation 43.0 (39-50) fL RDW Coeff of Brennan 13.3 (11.5-14.5) % Plt Count 280 (140-350) 10*3/uL MPV 11.0 (7.4-12.2) FL Immature Gran % (Auto) 0.3 (0-5) % Neut % (Auto) 69.0 (50-80) % Lymph % (Auto) 15.6 (10-50) % [place] % (Auto) 13.6 (5-15) % Eos % (Auto) 1.4 (0-8) % Baso % (Auto) 0.1 (0-1) % Immature Gran # (Auto) 0.05 10*3/UL Neut # (Auto) 11.97 10*3/UL Lymph # (Auto) 2.71 10*3/uL [place] # (Auto) 2.36 H (0.3-0.8) 10*3/UL Eos # (Auto) 0.25 10*3/UL Baso # (Auto) 0.02 10*3/UL WBC Morphology Comment Normal morphology (NORM) Plt Morphology Comment Normal morphology (NORM) RBC Morph Comment Normal morphology (NORM) Objective : Exam - General General Appearance: No Acute Distress, Cooperative - Head Head Exam: Normal Inspection, Atraumatic Assessment and Plan - Patient Problems (1) Dehiscence of surgical wound Current Visit: Yes Status: Acute Comment: Abscess of the wound drained by Dr. ana Shook continue vancomycin cultures are pending also we have ordered a wound VAC Dr. ana Shook will be involved very closely with the management of wound (2) Nonhealing surgical wound Current Visit: Yes Status: Acute Qualifiers: Encounter type: subsequent encounter Qualified Description: Non- healing surgical wound, subsequent encounter Qualifier Code(s): (T81.89XD ) Other complications of procedures, not elsewhere classified, subsequent encounter (3) Pain Current Visit: Yes Status: Acute
[2017-04-11] MEDS: Cefepime Inj 2 GM in Sodium Chloride 0.9% 100 ML IV SCH (20:39)
[2017-04-11] MEDS: AMITRIPTYLINE 25 MG TABLET PO SCH (20:41)
[2017-04-11] MEDS: Acetaminophen 1000mg Inj 1,000 MG in Premix 1 BAG IV PRN (22:36)
[2017-04-12] MEDS: MEPERIDINE HCL/PF 100 MG/1 ML INJECTION IVP PRN ×10 (00:03→21:33)
[2017-04-12] MEDS: oxyCODONE IR Tab 15 MG TAB PO PRN ×5 (01:56→20:01)
[2017-04-12] MEDS: HYDROmorphone 2 MG/1 ML IVP PRN ×7 (02:00→21:33)
[2017-04-12 05:14] LABS: BASOPHILS # (AUTO) 0.04 10*3/UL; BASOPHILS % (AUTO) 0.4 % (0-1); EOSINOPHILS # (AUTO) 0.41 10*3/UL; EOSINOPHILS % (AUTO) 4.5 % (0-8); HEMATOCRIT 39.1 % (37.0-47.0); HEMOGLOBIN 13.1 g/dL (12.0-16.0); LYMPHOCYTES # (AUTO) 2.63 10*3/uL; MEAN CORPUSCULAR HEMOGLOBIN 31.2 PG (27-31); MEAN CORPUSCULAR HGB CONC 33.5 g/dL (33-37); MEAN CORPUSCULAR VOLUME 93.1 FL (81-99); MEAN PLATELET VOLUME 10.6 FL (7.4-12.2); MONOCYTES % (AUTO) 15.3 % (5-15); NEUTROPHILS # (AUTO) 4.68 10*3/UL
[2017-04-12 05:18] LABS: PLATELET MORPHOLOGY COMMENT NORMAL MORPHOLOGY (NORM); RBC MORPHOLOGY COMMENT NORMAL MORPHOLOGY (NORM); WBC MORPHOLOGY COMMENT NORMAL MORPHOLOGY (NORM)
[2017-04-12] MEDS: Cefepime Inj 2 GM in Sodium Chloride 0.9% 100 ML IV SCH (05:35)
[2017-04-12] MEDS: NORMAL SALINE 10 ML SYRINGE FLUSH IVP PRN ×2 (05:35→10:45)
[2017-04-12] MEDS: POTASSIUM CHLORIDE 20 MEQ TAB PO SCH (08:13)
[2017-04-12] MEDS: oxyCODONE ER 10 MG TAB PO SCH ×2 (08:13→21:34)
[2017-04-12] MEDS: Apixaban Tab 2.5 MG TABLET PO SCH ×2 (08:13→21:34)
[2017-04-12] MEDS: Spironolactone Tab 50 MG TAB PO SCH (08:13)
[2017-04-12] MEDS: ASCORBIC ACID 500 MG TABLET PO SCH (08:13)
[2017-04-12] MEDS: oxyCODONE ER Tab 20 MG TAB PO SCH ×2 (08:14→21:34)
[2017-04-12] MEDS: Metoprolol TARTRATE Tab 25 MG TAB PO SCH ×2 (08:14→21:34)
--- NOTE | 2017-04-12 08:41 | PDOC(PROG) ---
Date and Time of Service: 04/12/2017 at 940 Interval History: Patient has no complaints Objective : Data - Labs CBC and BMP: 04/12/17 04:24 04/08/17 04:25 Labs - Last 24 Hours: Laboratory Results 04/12/17 Range/Units 04:24 WBC 9.18 (4.8-10.8) 10^3/uL RBC 4.20 (4.20-5.40) 10^6/uL Hgb 13.1 (12.0-16.0) g/dL Hct 39.1 (37.0-47.0) % MCV 93.1 (81-99) FL MCH 31.2 H (27-31) PG MCHC 33.5 (33-37) g/dL RDW Std Deviation 43.3 (39-50) fL RDW Coeff of Brennan 13.2 (11.5-14.5) % Plt Count 281 (140-350) 10*3/uL MPV 10.6 (7.4-12.2) FL Immature Gran % (Auto) 0.2 (0-5) % Neut % (Auto) 51.0 (50-80) % Lymph % (Auto) 28.6 (10-50) % [place] % (Auto) 15.3 H (5-15) % Eos % (Auto) 4.5 (0-8) % Baso % (Auto) 0.4 (0-1) % Immature Gran # (Auto) 0.02 10*3/UL Neut # (Auto) 4.68 10*3/UL Lymph # (Auto) 2.63 10*3/uL [place] # (Auto) 1.40 H (0.3-0.8) 10*3/UL Eos # (Auto) 0.41 10*3/UL Baso # (Auto) 0.04 10*3/UL WBC Morphology Comment Normal morphology (NORM) Plt Morphology Comment Normal morphology (NORM) RBC Morph Comment Normal morphology (NORM) - Vital Signs Vital Signs and I&O: Vital Signs - Last Taken Temperature 97.1 F 04/12/17 07:51 Pulse Rate 98 04/12/17 07:51 Respiratory Rate 18 04/12/17 07:51 Blood Pressure 117/80 04/12/17 07:51 Pulse Ox 96 04/12/17 07:51 Intake and Output (24hr x 4 totals) 04/10/17 04/11/17 04/12/17 04/13/17 05:59 05:59 05:59 05:59 Intake Total 2330 1320 1968 Output Total 50 Balance 2330 1320 1918 Objective : Exam - GI/Abdominal Additional GI/Abdominal Exam Details: Patient will return the redness has gone away now she has just induration. I probed the abscess cavity no further pus is coming out of it. She still has induration with no erythema superior to the wound. I cannot induce any pockets or fluctuant areas in this area. I do believe that this is just inflammatory nature. Physical therapy is placed in a wound VAC Assessment and Plan - Patient Problems (1) Nonhealing surgical wound Current Visit: Yes Status: Acute Qualifiers: Encounter type: subsequent encounter Qualified Description: Non- healing surgical wound, subsequent encounter Qualifier Code(s): (T81.89XD ) Other complications of procedures, not elsewhere classified, subsequent encounter - Assessment / Plan Additional Assessment/Plan Details: We'll have the wound VAC placed today. Reevaluate on Monday. Continue antibiotics. Cultures coming back staph hemolyticus.
--- NOTE | 2017-04-12 09:56 | DI ---
HISTORY: Tachycardia. COMPARISON: CT Chest 04/23/13. TECHNIQUE: CTA of the chest was performed with contrast and submitted for interpretation. FINDINGS: There is no evidence of pulmonary embolus. The pulmonary vascularity is within normal limi ts. The heart is normal in size. The aorta is normal in caliber. The central airway is patent. T here is no evidence of focal consolidation, pleural effusion or pneumothorax. No acute skeletal patho logy is seen. Bilateral breast implants appear intact. Gallbladder sludge may be present. Otherwise, the imaged portions of the upper abdomen are grossly u nremarkable. IMPRESSION: 1. No pulmonary embolus. Unremarkable CT chest. NOTIFICATION: The above findings were phoned to Cem Mcfadden in the ER Department on 04/07/2017 at 2 1:22 pm EST.
--- NOTE | 2017-04-12 13:02 | PDOC(PROG) ---
Interval History: Patient has no complaints pain is controlled Objective : Data - Labs CBC and BMP: 04/12/17 04:24 04/08/17 04:25 Labs - Last 24 Hours: Laboratory Results 04/12/17 Range/Units 04:24 WBC 9.18 (4.8-10.8) 10^3/uL RBC 4.20 (4.20-5.40) 10^6/uL Hgb 13.1 (12.0-16.0) g/dL Hct 39.1 (37.0-47.0) % MCV 93.1 (81-99) FL MCH 31.2 H (27-31) PG MCHC 33.5 (33-37) g/dL RDW Std Deviation 43.3 (39-50) fL RDW Coeff of Brennan 13.2 (11.5-14.5) % Plt Count 281 (140-350) 10*3/uL MPV 10.6 (7.4-12.2) FL Immature Gran % (Auto) 0.2 (0-5) % Neut % (Auto) 51.0 (50-80) % Lymph % (Auto) 28.6 (10-50) % [place] % (Auto) 15.3 H (5-15) % Eos % (Auto) 4.5 (0-8) % Baso % (Auto) 0.4 (0-1) % Immature Gran # (Auto) 0.02 10*3/UL Neut # (Auto) 4.68 10*3/UL Lymph # (Auto) 2.63 10*3/uL [place] # (Auto) 1.40 H (0.3-0.8) 10*3/UL Eos # (Auto) 0.41 10*3/UL Baso # (Auto) 0.04 10*3/UL WBC Morphology Comment Normal morphology (NORM) Plt Morphology Comment Normal morphology (NORM) RBC Morph Comment Normal morphology (NORM) Objective : Exam - General General Appearance: Cooperative - Head Head Exam: Normal Inspection - Respiratory Respiratory Exam: Clear to Auscultation - Bilaterally, Breathing Non Labored - Cardiovascular Cardiovascular Exam: RRR, No Murmur - GI/Abdominal Additional GI/Abdominal Exam Details: Deferred to general surgery I do not want really unpack the wound please see his note from physical exam Assessment and Plan - Patient Problems (1) Dehiscence of surgical wound Current Visit: Yes Status: Acute Comment: This is being taken care of by Dr. ana Shook no more fluid abscesses pockets continue antibiotics patient is on vancomycin following cultures I did add cefepime because of the gram-negative in one of the cultures we'll continue to follow leukocytosis is resolved wound VAC been applied today (2) Nonhealing surgical wound Current Visit: Yes Status: Acute Qualifiers: Encounter type: subsequent encounter Qualified Description: Non- healing surgical wound, subsequent encounter Qualifier Code(s): (T81.89XD ) Other complications of procedures, not elsewhere classified, subsequent encounter (3) Pain Current Visit: Yes Status: Acute
[2017-04-12 16:42] LABS: INTERPRETATION SEE COMMENTS (())
[2017-04-12] MEDS: Acetaminophen 1000mg Inj 1,000 MG in Premix 1 BAG IV PRN (19:14)
[2017-04-12] MEDS: AMITRIPTYLINE 25 MG TABLET PO SCH (21:35)
[2017-04-13] MEDS: HYDROmorphone 2 MG/1 ML IVP PRN ×3 (00:14→05:22)
[2017-04-13] MEDS: oxyCODONE IR Tab 15 MG TAB PO PRN ×6 (00:14→22:35)
[2017-04-13] MEDS: MEPERIDINE HCL/PF 100 MG/1 ML INJECTION IVP PRN ×8 (00:14→21:33)
[2017-04-13] MEDS: NORMAL SALINE 10 ML SYRINGE FLUSH IVP PRN ×2 (00:15→08:38)
[2017-04-13] MEDS ORDERED: HYDROmorphone 2 MG TABLET PO PRN (07:26)
[2017-04-13] MEDS: Apixaban Tab 2.5 MG TABLET PO SCH ×2 (08:38→20:30)
[2017-04-13] MEDS: oxyCODONE ER 10 MG TAB PO SCH ×2 (08:38→20:30)
[2017-04-13] MEDS: ASCORBIC ACID 500 MG TABLET PO SCH (08:38)
[2017-04-13] MEDS: oxyCODONE ER Tab 20 MG TAB PO SCH ×2 (08:38→20:30)
[2017-04-13] MEDS: Spironolactone Tab 50 MG TAB PO SCH (08:38)
[2017-04-13] MEDS: POTASSIUM CHLORIDE 20 MEQ TAB PO SCH (08:38)
[2017-04-13] MEDS: Multivitamin Tab 1 TAB PO SCH (08:38)
[2017-04-13] MEDS: Metoprolol TARTRATE Tab 25 MG TAB PO SCH ×2 (08:38→20:30)
[2017-04-13] MEDS: HYDROmorphone Tab 4 MG TAB PO PRN ×4 (10:12→22:35)
--- NOTE | 2017-04-13 10:53 | PDOC(PROG) ---
Interval History: Patient has no complaints she would like to see Dr. ana Shook to look at her wound again her wound VAC is been applied we have discussed the trending down on her pain meds we increased the the time between her Demerol she continues to take her by mouth usual home medications Objective : Data - Labs CBC and BMP: 04/12/17 04:24 04/08/17 04:25 Labs - Last 24 Hours: Laboratory Results 04/08/17 Range/Units 05:00 Plasma Total Porphyrins <1.0 (<=1.0) mcg/dL Plasma Porphyrin Intrp See comments (()) Misc Test Comment See comments (()) Objective : Exam - Respiratory Respiratory Exam: Clear to Auscultation - Bilaterally, Breathing Non Labored, Normal To Percussion - Cardiovascular Cardiovascular Exam: RRR, No Murmur Assessment and Plan - Patient Problems (1) Dehiscence of surgical wound Current Visit: Yes Status: Acute Comment: Wound VAC is on the wound continue wound care as per general surgery recommendations (2) Nonhealing surgical wound Current Visit: Yes Status: Acute Qualifiers: Encounter type: subsequent encounter Qualified Description: Non- healing surgical wound, subsequent encounter Qualifier Code(s): (T81.89XD ) Other complications of procedures, not elsewhere classified, subsequent encounter (3) Pain Current Visit: Yes Status: Acute Comment: Pain is controlled with usual home medications on top of Demerol 60 mg IV every 3 now instead of every 2
--- NOTE | 2017-04-13 13:03 | PDOC(PROG) ---
Date and Time of Service: 04/13/2017 at 1300 Interval History: Patient states doing fine denies any fevers or chills Objective : Data - Labs CBC and BMP: 04/12/17 04:24 04/08/17 04:25 Labs - Last 24 Hours: Laboratory Results 04/08/17 Range/Units 05:00 Plasma Total Porphyrins <1.0 (<=1.0) mcg/dL Plasma Porphyrin Intrp See comments (()) Misc Test Comment See comments (()) - Vital Signs Vital Signs and I&O: Vital Signs - Last Taken Temperature 98.6 F 04/13/17 11:25 Pulse Rate 88 04/13/17 11:25 Respiratory Rate 18 04/13/17 11:25 Blood Pressure 122/72 04/13/17 11:25 Pulse Ox 96 04/13/17 11:25 Intake and Output (24hr x 4 totals) 04/11/17 04/12/17 04/13/17 04/14/17 05:59 05:59 05:59 05:59 Intake Total 1320 1968 822 Output Total 50 Balance 1320 1918 822 Objective : Exam - General General Appearance: No Acute Distress, Cooperative - GI/Abdominal Additional GI/Abdominal Exam Details: Patient is a wound VAC on. This from the skin around the some indurations both above and below but I do not see any actual signs of infection. There is no fluctuations no erythema. Assessment and Plan - Patient Problems (1) Nonhealing surgical wound Current Visit: Yes Status: Acute Qualifiers: Encounter type: subsequent encounter Qualified Description: Non- healing surgical wound, subsequent encounter Qualifier Code(s): (T81.89XD ) Other complications of procedures, not elsewhere classified, subsequent encounter - Assessment / Plan Additional Assessment/Plan Details: At this point think it actually looks really good. Will take the wound VAC off and repeat examine the wound tomorrow.
--- NOTE | 2017-04-13 15:13 | PT AM DAY ---
Diagnosis : Abdominal Wound AM - Physical Therapy S: Dr. Rangel contacted the therapist prior to seeing the patient. The patient reports her pain has decreased somewhat now that the pocketing around the wounds have opened up. O: Following removing the old dressing, Dr. Rangel used a sterile q-tip to point out all the pocketing at 10 o'clock and 7 o'clock as well as a superficial pocket around the [address] Rangel's recommendation a wound vac was put in place, utilizing both the white VersaFoam and the black GranuFoam. The patient was advised to limit her activity in order to maintain a better seal. A: The wound presented with sanguineous moderate drainage with an appropriate seal following application. P: Continue seeing patient BID during the week and one time per day over the weekend until discharge. The patient's wound vac will be changed on Monday. MTDD
[2017-04-13] MEDS: Acetaminophen 1000mg Inj 1,000 MG in Premix 1 BAG IV PRN (20:26)
[2017-04-13] MEDS: AMITRIPTYLINE 25 MG TABLET PO SCH (20:30)
[2017-04-14] MEDS: MEPERIDINE HCL/PF 100 MG/1 ML INJECTION IVP PRN ×4 (00:39→10:55)
[2017-04-14] MEDS: HYDROmorphone Tab 4 MG TAB PO PRN ×3 (02:38→11:50)
[2017-04-14] MEDS: oxyCODONE IR Tab 15 MG TAB PO PRN ×3 (02:38→11:49)
[2017-04-14 07:35] LABS: BASOPHILS # (AUTO) 0.08 10*3/UL; BASOPHILS % (AUTO) 1.4 % (0-1); EOSINOPHILS # (AUTO) 0.51 10*3/UL; EOSINOPHILS % (AUTO) 8.7 % (0-8); HEMATOCRIT 41.6 % (37.0-47.0); HEMOGLOBIN 13.5 g/dL (12.0-16.0); LYMPHOCYTES # (AUTO) 2.73 10*3/uL; MEAN CORPUSCULAR HEMOGLOBIN 30.5 PG (27-31); MEAN CORPUSCULAR HGB CONC 32.5 g/dL (33-37); MEAN CORPUSCULAR VOLUME 94.1 FL (81-99); MONOCYTES # (AUTO) 0.66 10*3/UL (0.3-0.8); MONOCYTES % (AUTO) 11.3 % (5-15); NEUTROPHILS # (AUTO) 1.85 10*3/UL; NEUTROPHILS % (AUTO) 31.6 % (50-80); RED BLOOD COUNT 4.42 10^6/uL (4.20-5.40)
[2017-04-14] MEDS: NORMAL SALINE 10 ML SYRINGE FLUSH IVP PRN (07:36)
[2017-04-14 07:47] LABS: BLOOD UREA NITROGEN 4 mg/dL (7-22); BUN/CREATININE RATIO 6.66 (6-20); CALCIUM 9.1 mg/dL (8.7-10.7); EST GLOMERULAR FILTRATION > 60 (>60 ml/min/1.73m(2)); SERUM ALBUMIN 3.8 g/dL (3.5-4.8)
[2017-04-14 07:56] LABS: PLATELET MORPHOLOGY COMMENT NORMAL MORPHOLOGY (NORM); RBC MORPHOLOGY COMMENT NORMAL MORPHOLOGY (NORM); WBC MORPHOLOGY COMMENT NORMAL MORPHOLOGY (NORM)
[2017-04-14 08:46] VITALS: RESP 18; TEMP 97
[2017-04-14] MEDS: oxyCODONE ER 10 MG TAB PO SCH (09:06)
[2017-04-14] MEDS: ASCORBIC ACID 500 MG TABLET PO SCH (09:07)
[2017-04-14] MEDS: Apixaban Tab 2.5 MG TABLET PO SCH (09:08)
[2017-04-14] MEDS: oxyCODONE ER Tab 20 MG TAB PO SCH (09:08)
[2017-04-14] MEDS: Multivitamin Tab 1 TAB PO SCH (09:08)
[2017-04-14] MEDS: POTASSIUM CHLORIDE 20 MEQ TAB PO SCH (09:09)
[2017-04-14] MEDS: Metoprolol TARTRATE Tab 25 MG TAB PO SCH (09:09)
[2017-04-14] MEDS: Spironolactone Tab 50 MG TAB PO SCH (09:09)
--- NOTE | 2017-04-14 11:36 | DCSUMMARY ---
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 Leukocytosis Resolved D72.829 Diagnostic Data, Laboratory Data, and Procedures of Signifigance: Laboratory Results 04/07/17 04/08/17 04/08/17 Range/Units 14:00 04:25 05:00 WBC 18.93 H 16.18 H (4.8-10.8) 10^3/uL RBC 4.65 4.29 (4.20-5.40) 10^6/uL Hgb 14.6 13.2 (12.0-16.0) g/dL Hct 41.8 39.4 (37.0-47.0) % MCV 89.9 91.8 (81-99) FL MCH 31.4 H 30.8 (27-31) PG MCHC 34.9 33.5 (33-37) g/dL RDW Std Deviation 42.2 43.0 (39-50) fL RDW Coeff of Brennan 13.0 13.2 (11.5-14.5) % Plt Count 274 261 (140-350) 10*3/uL MPV 10.7 11.2 (7.4-12.2) FL Immature Gran % (Auto) 0.3 0.3 (0-5) % Neut % (Auto) 69.7 88.6 H (50-80) % Lymph % (Auto) 21.5 7.5 L (10-50) % [place] % (Auto) 7.6 3.6 L (5-15) % Eos % (Auto) 0.8 0 (0-8) % Baso % (Auto) 0.1 0 (0-1) % Immature Gran # (Auto) 0.06 0.05 10*3/UL Neut # (Auto) 13.21 14.32 10*3/UL Lymph # (Auto) 4.07 1.22 10*3/uL [place] # (Auto) 1.43 H 0.59 (0.3-0.8) 10*3/UL Eos # (Auto) 0.15 0 10*3/UL Baso # (Auto) 0.01 0 10*3/UL WBC Morphology Comment Normal morphology Normal morphology (NORM) Plt Morphology Comment Normal morphology Normal morphology (NORM) RBC Morph Comment Normal morphology Normal morphology (NORM) Sodium 135 (135-145) meq/L Potassium 4.3 (3.8-5.2) meq/L Chloride 104 (98-112) meq/L Carbon Dioxide 22 L (23-33) meq/L Anion Gap 9 (5-20) BUN 6 L (7-22) mg/dL Creatinine 0.6 (0.50-1.20) mg/dL Estimated GFR > 60 (>60 ml/min/1.73m(2)) BUN/Creatinine Ratio 10.00 (6-20) Glucose 143 H (78-110) mg/dL Calculated Osmolality 279.0 (267-292) mOsm/kg Calcium 8.8 (8.7-10.7) mg/dL Total Bilirubin 0.7 D (0.3-1.2) mg/dL AST 28 (8-39) IU/L ALT 17 (9-52) IU/L Alkaline Phosphatase 77 (38-126) IU/L C-Reactive Protein 1.4 H (0.0-0.9) mg/dL Total Protein 6.7 (6.1-8.0) g/dL Albumin 4.0 (3.5-4.8) g/dL Globulin 2.7 (2.50-4.10) g/dL Albumin/Globulin Ratio 1.40 (1.3-2.0) mg/g Plasma Total Porphyrins <1.0 (<=1.0) mcg/dL Plasma Porphyrin Intrp See comments (()) Misc Test Comment See comments (()) 04/09/17 04/10/17 04/11/17 Range/Units 04:55 04:30 04:50 WBC 14.59 H 13.79 H 17.36 H (4.8-10.8) 10^3/uL RBC 4.20 4.18 L 4.28 (4.20-5.40) 10^6/uL Hgb 13.0 13.0 13.1 (12.0-16.0) g/dL Hct 39.0 39.2 39.4 (37.0-47.0) % MCV 92.9 93.8 92.1 (81-99) FL MCH 31.0 31.1 H 30.6 (27-31) PG MCHC 33.3 33.2 33.2 (33-37) g/dL RDW Std Deviation 44.3 45.1 43.0 (39-50) fL RDW Coeff of Brennan 13.5 13.6 13.3 (11.5-14.5) % Plt Count 230 264 280 (140-350) 10*3/uL MPV 11.1 11.0 11.0 (7.4-12.2) FL Immature Gran % (Auto) 0.2 0.4 0.3 (0-5) % Neut % (Auto) 57.6 56.8 69.0 (50-80) % Lymph % (Auto) 28.6 26.7 15.6 (10-50) % [place] % (Auto) 12.3 13.9 13.6 (5-15) % Eos % (Auto) 1.2 2.0 1.4 (0-8) % Baso % (Auto) 0.1 0.2 0.1 (0-1) % Immature Gran # (Auto) 0.03 0.05 0.05 10*3/UL Neut # (Auto) 8.40 7.84 11.97 10*3/UL Lymph # (Auto) 4.17 3.68 2.71 10*3/uL [place] # (Auto) 1.79 H 1.91 H 2.36 H (0.3-0.8) 10*3/UL Eos # (Auto) 0.18 0.28 0.25 10*3/UL Baso # (Auto) 0.02 0.03 0.02 10*3/UL WBC Morphology Comment Normal morphology Normal morphology Normal morphology (NORM) Plt Morphology Comment Normal morphology Normal morphology Normal morphology (NORM) RBC Morph Comment Normal morphology Normal morphology Normal morphology ( NORM) Sodium (135-145) meq/L Potassium (3.8-5.2) meq/L Chloride (98-112) meq/L Carbon Dioxide (23-33) meq/L Anion Gap (5-20) BUN (7-22) mg/dL Creatinine (0.50-1.20) mg/dL Estimated GFR (>60 ml/min/1.73m(2)) BUN/Creatinine Ratio (6-20) Glucose (78-110) mg/dL Calculated Osmolality (267-292) mOsm/kg Calcium (8.7-10.7) mg/dL Total Bilirubin (0.3-1.2) mg/dL AST (8-39) IU/L ALT (9-52) IU/L Alkaline Phosphatase (38-126) IU/L C-Reactive Protein (0.0-0.9) mg/dL Total Protein (6.1-8.0) g/dL Albumin (3.5-4.8) g/dL Globulin (2.50-4.10) g/dL Albumin/Globulin Ratio (1.3-2.0) mg/g Plasma Total Porphyrins (<=1.0) mcg/dL Plasma Porphyrin Intrp (()) Misc Test Comment (()) 04/12/17 04/14/17 Range/Units 04:24 07:14 WBC 9.18 5.85 (4.8-10.8) 10^3/uL RBC 4.20 4.42 (4.20-5.40) 10^6/uL Hgb 13.1 13.5 (12.0-16.0) g/dL Hct 39.1 41.6 (37.0-47.0) % MCV 93.1 94.1 (81-99) FL MCH 31.2 H 30.5 (27-31) PG MCHC 33.5 32.5 L (33-37) g/dL RDW Std Deviation 43.3 44.3 (39-50) fL RDW Coeff of Brennan 13.2 13.3 (11.5-14.5) % Plt Count 281 323 (140-350) 10*3/uL MPV 10.6 10.0 (7.4-12.2) FL Immature Gran % (Auto) 0.2 0.3 (0-5) % Neut % (Auto) 51.0 31.6 L (50-80) % Lymph % (Auto) 28.6 46.7 (10-50) % [place] % (Auto) 15.3 H 11.3 (5-15) % Eos % (Auto) 4.5 8.7 H (0-8) % Baso % (Auto) 0.4 1.4 H (0-1) % Immature Gran # (Auto) 0.02 0.02 10*3/UL Neut # (Auto) 4.68 1.85 10*3/UL Lymph # (Auto) 2.63 2.73 10*3/uL [place] # (Auto) 1.40 H 0.66 (0.3-0.8) 10*3/UL Eos # (Auto) 0.41 0.51 10*3/UL Baso # (Auto) 0.04 0.08 10*3/UL WBC Morphology Comment Normal morphology Normal morphology (NORM) Plt Morphology Comment Normal morphology Normal morphology (NORM) RBC Morph Comment Normal morphology Normal morphology (NORM) Sodium 140 (135-145) meq/L Potassium 4.0 (3.8-5.2) meq/L Chloride 101 (98-112) meq/L Carbon Dioxide 27 (23-33) meq/L Anion Gap 12 (5-20) BUN 4 L (7-22) mg/dL Creatinine 0.6 (0.50-1.20) mg/dL Estimated GFR > 60 (>60 ml/min/1.73m(2)) BUN/Creatinine Ratio 6.66 (6-20) Glucose 94 (78-110) mg/dL Calculated Osmolality 286.0 (267-292) mOsm/kg Calcium 9.1 (8.7-10.7) mg/dL Total Bilirubin 0.2 L D (0.3-1.2) mg/dL AST 21 (8-39) IU/L ALT 41 D (9-52) IU/L Alkaline Phosphatase 91 (38-126) IU/L C-Reactive Protein (0.0-0.9) mg/dL Total Protein 7.2 (6.1-8.0) g/dL Albumin 3.8 (3.5-4.8) g/dL Globulin 3.4 (2.50-4.10) g/dL Albumin/Globulin Ratio 1.10 L (1.3-2.0) mg/g Plasma Total Porphyrins (<=1.0) mcg/dL Plasma Porphyrin Intrp (()) Misc Test Comment (()) History and Physical pertinent to Admission: Course of Hospitalization: This is a very nice 32-year-old transgender female who had the appendicitis with the postop complications secondary to abscesses also had the drainage done prior to this admission. On this admission the general surgery was consulted because of induration below her wound which was decreased and the fluid was drained a general surgery at the bedside I discussed the case with the Dr. Means infectious disease and read him the culture results consisting with Escherichia coli Citrobacter free on the and the staff he said that staff was skin gila not to worry about it and treat patient with the Levaquin 750 for 10 days in this case. Patient agrees and understands his pain is well-controlled and she has requested to be discharged home today. I have called Dr. ana Shook he did not need to see her of the wound VAC will be changed out by Malena from physical therapy and she will follow with Dr. ana Shook next Monday morning. Appointment was done and her Levaquin was called in at [facility] electronically. On the date of discharge, the patient was examined: Gen.: No acute distress, alert, nontoxic Heart: Regular rate and rhythm, no murmurs, clicks, gallops, or rubs Lungs: Clear to auscultation bilaterally, breathing is nonlabored Abdomen/GI: Normal tones on auscultation, soft, nontender, nondistended Musculoskeletal/extremities: No clubbing, cyanosis, or edema Vitals reviewed and are listed below Assessment and Plan: 1. As per discharge assessments above 2. Disposition: Home 3. Condition on discharge, stable and improved. 4. Diet: regular diet 5. Activities: resume normal activities 6. Follow-Up: 1. PCP 2. 7. Medications at the Time of Discharge: Home Medications Medication Instructions Recorded Confirmed Type Estradiol 2 tab PO BID 10/14/15 04/06/17 History Spironolactone 1 tab PO DAILY 10/14/15 04/06/17 History Amitriptyline HCl 2 tab PO BEDTIME 01/22/17 04/06/17 History Metoprolol Tartrate Tab 1 tab PO BID 02/01/17 04/06/17 History [Lopressor Tab] Oxycodone HCl 2 tab PO Q4H PRN tab 02/07/17 04/06/17 History Oxycodone HCl [Oxycodone HCl ER] 1 tab PO BID tab 02/07/17 04/06/17 History Hydromorphone HCl [Dilaudid] 8 mg PO Q4H tab 03/09/17 04/06/17 History Promethazine HCl [Phenergan] 25 mg PO Q6H PRN 04/02/17 04/06/17 History Clindamycin HCl 300 mg PO 04/06/17 History Levofloxacin Tab [Levaquin Tab] 750 mg PO DAILY #10 tab 04/14/17 Rx 8. Time, care, counseling and coordination of care for this discharge is greater than 30 minutes. Exam - Vitals Vital Signs: Vital Signs Temperature 97.0 F Temperature Source Temporal Artery Scan Pulse Rate [Pulse Oximeter] 93 Respiratory Rate 18 Blood Pressure [Left Arm] 119/90 Pulse Ox 95 Oxygen Flow Rate 35 Oxygen Delivery Method Room Air Height 5 ft 9 in Weight 76.204 kg Patient Problems - Patient Problem List (1) Dehiscence of surgical wound Current Visit: Yes Status: Acute (2) Nonhealing surgical wound Current Visit: Yes Status: Acute Qualifiers: Encounter type: subsequent encounter Qualified Description: Non- healing surgical wound, subsequent encounter Qualifier Code(s): (T81.89XD ) Other complications of procedures, not elsewhere classified, subsequent encounter (3) Pain Current Visit: Yes Status: Acute
[2017-04-14 12:36] LABS: HEPTACARBOXYPORPHYRIN 1 nmol/L (<=7); HEXACARBOXYPORPHYRIN <1 nmol/L (<=2)
[2017-04-19] MEDS ORDERED: LIDOCAINE 2% 20 MG/ML - 20 ML VIAL ONE (15:08)
== END 2017-04-14 12:15 | disposition home or self-care (01) | DRG 920 ==
LOC: ER 12:52 → MED/SURG 16:36
PROVIDERS: ADMIT Family Medicine; ATTEND Family Medicine
DX: T81.31XA Disruption of external operation (surgical) wound, not elsewhere classified, initial encounter (principal); T81.4XXA Infection following a procedure, initial encounter; T81.89XA Other complications of procedures, not elsewhere classified, initial encounter; E86.0 Dehydration; Z86.711 Personal history of pulmonary embolism; R10.9 Unspecified abdominal pain; Z72.0 Tobacco use; K30 Functional dyspepsia; F64.1 Dual role transvestism; D72.829 Elevated white blood cell count, unspecified; Y83.6 Removal of other organ (partial) (total) as the cause of abnormal reaction of the patient, or of later complication, without mention of misadventure at the time of the procedure
CPT/HCPCS: 36000; 36415; 71275; 76705; 80053; 84110; 84120; 84311; 85025; 86140; 87040; 87070; 87075; 87077; 87186; 87205; 94761; 97014; 97035; 97161; 99284; A4556; J0131; J0692; J1170; J2175; J3370; J7050; J7512; Q0163; Q0169

== ENCOUNTER 2017-04-18 08:52 | Inpatient (IN) | payer OTHER ==
[2017-04-18] MEDS ORDERED: KETOROLAC 15 MG/1 ML VIAL IVP ONE (09:09)
[2017-04-18] MEDS ORDERED: ONDANSETRON 4 MG/2 ML VIAL IVP ONE (09:09)
[2017-04-18] MEDS ORDERED: Sodium Chloride 0.9% 1,000 ML PRIMARY IV ONE (09:09)
--- NOTE | 2017-04-18 09:17 | PDOC ---
Skin Rash/Insect/Abscess HPI - General Chief Complaint: Integumentary Stated Complaint: WORSENED R ABD WOUND INFECT/? ABCESS Date Seen by Provider: 04/18/17 Time Seen by Provider: 08:50 Source: POSITIVE: Patient, RN/MD Exam Limitations: POSITIVE: No limitations Nurse's Notes Reviewed & Considered: Yes - History of Present Illness Initial Comments: Was sent to the emergency department by his primary care provider Joana WEI for cellulitis and increased drainage from right lower quadrant incision. Patient was recently hospitalized last week with wound infection and started on Levaquin. He is presently on Levaquin. He states he is having fevers to 102, with chills and sweats. No nausea vomiting or diarrhea, no chest pain or shortness of breath, no body aches or arthralgias. Have you received a tetanus shot in the past 10 years?: Yes Body Location Affected: REPORTS: Abdomen Timing: REPORTS: Constant Duration: >1 week Severity: Moderate Quality: REPORTS: "Pain", Throbbing Identified Causes: REPORTS: Possibly When Exposed: REPORTS: Just Prior to Sx Onset Where Exposed: REPORTS: Unknown Suspected Etiology: REPORTS: Other (Wound infection status post appendectomy) Similar Symptoms Previously: Yes Recent Care Received: REPORTS: Recently Seen, Treated by MD, Hospitalized Any Prior Injuries Related to Current Complaint?: No - Patient Home Medications Home Medications: Home Medications Estradiol 4 tab PO BID 10/14/15 Spironolactone 1 tab PO DAILY 10/14/15 Amitriptyline HCl 2 tab PO BEDTIME 01/22/17 Metoprolol Tartrate Tab [Lopressor Tab] 1 tab PO BID 02/01/17 Oxycodone HCl 2 tab PO Q4H PRN tab 02/07/17 Oxycodone HCl [Oxycodone HCl ER] 1 tab PO BID tab 02/07/17 Hydromorphone HCl [Dilaudid] 8 mg PO Q4H tab 03/09/17 Promethazine HCl [Phenergan] 25 mg PO Q6H PRN 04/02/17 Levofloxacin Tab [Levaquin Tab] 750 mg PO DAILY #10 tab 04/14/17 - Patient Allergies Allergies/Adverse Reactions: Allergies Allergy/AdvReac Type Severity Reaction Status Date / Time cyclobenzaprine HCl Allergy Severe HIVES Verified 04/18/17 08:56 [From Flexeril] venom-honey bee Allergy Severe Anaphylaxis Verified 04/18/17 08:56 [bee venom (honey bee)] iodine Allergy Intermediate RASH Verified 04/18/17 08:56 Iodine and Iodide Containing Allergy Intermediate VOMITING Verified 04/18/17 08: 56 Produc ketorolac tromethamine Allergy Intermediate HIVES Verified 04/18/17 08:56 [From Toradol] lactose [Lactose] Allergy Intermediate NOT Verified 04/18/17 08:56 APPLICABLE adhesive tape AdvReac Intermediate RASH Verified 04/18/17 08:56 SEA FOOD AdvReac Intermediate HIVES Uncoded 04/18/17 08:56 Past Medical History - heen HEENT History: Deaf Additional HEENT History: 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 Cardiovascular History: Arrhythmia, Other (please comment) Additional Cardiovasular History: PERSISTENT TACHYCARDIA, THYMOMA BEHIND HEART ( REMOVED) Respiratory History: Denies History, Other (please comment) Additional Respiratory History: SMOKER Gastrointestinal History: Peptic Ulcer Disease Additional Gastrointestinal History: ABD PAIN N/V Genitourinary History: Denies History Additional Genitourinary History: N/A Endocrine History: Denies History Musculoskeletal History: Arthritis, Back Injury, Other (please comment) Prosthesis or Implant: Yes (breasts) Additional Musculoskeletal History: 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 Blood Disorders: Other (please comment) Additional Blood Disorders History: DVT Psychiatric History: Other (please comment) Additional Psychiatric History: hx self cutting History of Sexually Transmitted Diseases: No Cancer History: Other (please comment) Cancer Treatment / Date(s) of Treatment: 2001 In Past Year Been Physically Harmed or Verbally Threatened: No (PER PATIENT) History of MDRO: Yes Other Type of MDRO: STAPH History of Other Communicable Diseases: No History of Exposure to Communicable Disease: No Tobacco Use: Current Every Day Smoker Alcohol Use: None Substance Use Type: Opiate Pain Medication Previous Surgical History: Yes Type / Date of Surgery: BREAST AUGMENTATION, RIGHT KNEE SURG.X5, RIGHT HAND SURG.X3, ORCHIECTOMY, TONSILLECTOMY, LYMPH NODE REMOVAL.; OPEN HEART SURGERY, THYMOMA REMOVAL; HERNIA REPAIR, APPENDECTOMY WITH DEBRIDMENT x2 Anesthesia Reactions: No Malignant Hyperthermia: No Family History of Malignant Hyperthermia: No Significant Family History: Asthma, Heart disease, Cancer, Diabetes, Hypertension ROS - Limitations ROS Limitations: No Limitations Constitution: REPORTS: Chills, Fever, Diaphoresis Cardiovascular: REPORTS: Denies Cardiac Symptoms Respiratory: REPORTS: Denies Resp Symptoms Neurological: REPORTS: Denies Neuro Symptoms Gastrointestinal: REPORTS: Abdominal Pain Endocrine: REPORTS: Denies Symptoms Musculoskeletal: REPORTS: Denies MS Symptoms Genitourinary: REPORTS: Denies Symptoms Eyes: REPORTS: Denies Symptoms ENT: REPORTS: Denies Symptoms Skin: REPORTS: Other (Erythema and induration around right lower quadrant incision.) Lympathic: REPORTS: Denies Lympathic Symptoms Immunologic: POSITIVE: Denies Symptoms Psychiatric: POSITIVE: Denies Psych Symptoms Skin Rash/Insect/Abscess Exam - General Appearance General Appearance: REPORTS: Alert, Cooperative, No Acute Distress - Skin Skin: REPORTS: Warm, Dry, Abscess, Tender Indurated Area, Wtih Erythema, With Lymphangitis, Erythema Skin Location: REPORTS: Abdomen (Right lower quadrant) Skin Symptoms: REPORTS: Warmth, Tenderness, Swelling, Lymphangitis, Induration, Thickening, Inflammation - Extremities Extremity: Non-Tender: (All Extremities), Normal ROM: (All Extremities), Normal Inspection: (All Extremities), Pelvis Stable: (All Extremities) - HEENT HEENT: POSITIVE: Head Inspection Nml, Eyes Inspection Nml, Ears Inspection Nml, Nose Inspection Nml, Oral/Dental Inspect. Nml, Pharynx Inspect. Nml, PERRL, EOMI - Neck Neck: REPORTS: Trachea Midline, No Swelling - Respiratory Respiratory: REPORTS: No Respiratory Distress, Breath Sounds Normal - Cardiovascular Cardiovascular: REPORTS: Heart Sounds Normal, Equal Pulses, Strong Pulses, Tachycardia Peripheral Pulses: Radial (R): 4+ - Abdomen Abdomen: Soft: (All Quadrants), Normal Bowel Sounds: (All Quadrants), Denies Tenderness: (LLQ), (LUQ), (RUQ), Tenderness Noted: (RLQ) - Neurological / Psychological Neurological: REPORTS: Affect Apporpriate, Oriented X3, Motor Normal, Sensation Normal Procedures - Laceration/Wound Repair Did patient have a laceration repair: No Skin Rash/Abscess Progress - Results Reviewed by me Xrays/CTs/US Reviewed by me: Yes Discussed with Radiologist: Yes Labs Normal Except for:: Abnormal Lab Results: Entire Visit 04/18/17 Range/Units 09:40 WBC 13.59 H (4.8-10.8) 10^3/uL MCH 31.1 H (27-31) PG Plt Count 352 H (140-350) 10*3/uL Treasure # (Auto) 1.25 H (0.3-0.8) 10*3/UL Total Bilirubin 0.2 L (0.3-1.2) mg/dL C-Reactive Protein 4.0 H (0.0-0.9) mg/dL Lab Results Reviewed: Yes - Patient's Progress Pain Medication Addressed: POSITIVE: Yes Status: POSITIVE: Improved MDM / ED Course: Patient was evaluated, an IV started, blood drawn and sent to the lab for studies, radiographic examinations were obtained. Findings: CBC shows white count elevated at over 13. Comprehensive metabolic panel is unremarkable. CT scan shows no focal abscess but stranding of fat in the taiwo-incisional region right lower quadrant. Assessment: Cellulitis worsening on Levaquin. Plan: Admission. - Consult Consult (If Yes, Name of Consulting MD & Time Called): Yes (Dr Hallman 13:45) Consulting MD will see pt:: [place]IVE[place] [facility] [place] Counseled: POSITIVE: Patient, Family, RE: Lab Results, RE: Radiology Results, RE : DX, RE: Need for F/U Patient Care Time - Estimated PCT Patient Care Time (In Minutes): 45 Vital Signs - Recent Vital Signs Vital Signs: Vital Signs (Last 8 hours) Temp Pulse Resp BP Pulse Ox 04/18/17 08:52 96.5 F L 130 H 20 124/93 97 - VS Reviewed Vital Signs Reviewed: Yes Discharge Clinical Impression: Cellulitis Discharge Disposition: Admit to Inpatient Condition: Stable Date Decision to Admit to Inpatient: 04/18/17 Time Decision to Admit to Inpatient: 13:45
[2017-04-18] MEDS ORDERED: Acetaminophen 1000mg Inj 1,000 MG in Premix 1 BAG IV ONE (09:27)
[2017-04-18 09:58] LABS: BASOPHILS # (AUTO) 0.13 10*3/UL; EOSINOPHILS # (AUTO) 0.38 10*3/UL; EOSINOPHILS % (AUTO) 2.8 % (0-8); HEMATOCRIT 41.2 % (37.0-47.0); HEMOGLOBIN 14.1 g/dL (12.0-16.0); LYMPHOCYTES # (AUTO) 2.62 10*3/uL; MEAN CORPUSCULAR HEMOGLOBIN 31.1 PG (27-31); MEAN CORPUSCULAR HGB CONC 34.2 g/dL (33-37); MEAN CORPUSCULAR VOLUME 90.9 FL (81-99); MEAN PLATELET VOLUME 9.7 FL (7.4-12.2); MONOCYTES # (AUTO) 1.25 10*3/UL (0.3-0.8); MONOCYTES % (AUTO) 9.2 % (5-15); NEUTROPHILS # (AUTO) 9.19 10*3/UL; NEUTROPHILS % (AUTO) 67.6 % (50-80); RED BLOOD COUNT 4.53 10^6/uL (4.20-5.40)
[2017-04-18 10:05] LABS: PLATELET MORPHOLOGY COMMENT NORMAL MORPHOLOGY (NORM); RBC MORPHOLOGY COMMENT NORMAL MORPHOLOGY (NORM); WBC MORPHOLOGY COMMENT NORMAL MORPHOLOGY (NORM)
[2017-04-18 10:25] LABS: BLOOD UREA NITROGEN 7 mg/dL (7-22); BUN/CREATININE RATIO 11.66 (6-20); CALCIUM 9.2 mg/dL (8.7-10.7); EST GLOMERULAR FILTRATION > 60 (>60 ml/min/1.73m(2)); SERUM ALBUMIN 3.9 g/dL (3.5-4.8)
[2017-04-18] MEDS ORDERED: diphenhydrAMINE 50 MG/1 ML VIAL IVP ONE (10:27)
[2017-04-18] MEDS ORDERED: SODIUM CHLORIDE 0.9% IV ONE (10:27)
[2017-04-18] MEDS ORDERED: METHYLPREDNISOLONE SUCC IV ONE (10:27)
[2017-04-18] MEDS ORDERED: methylPREDNISolone 125 MG/2 ML VIAL ONE (10:41)
[2017-04-18] MEDS ORDERED: methylPREDNISolone 125 MG/2 ML VIAL IVP ONE (10:42)
--- NOTE | 2017-04-18 12:55 | DI ---
CT ABD W/CN AND PELVIS W/CN,04/18/2017 9:09 AM: Clinical History: Open wound within the right lower anterior abdomen. Previous Exam: April 06, 2017 Findings: Multiple helically acquired CT images are obtained through the abdomen and pelvis following intraveno us administration of contrast, and demonstrate clear lung bases. The liver, spleen, pancreas, gallbladder and adrenals are unremarkable. There are stable renal parenc hymal stones bilaterally. Moderate stool seen throughout the colon. There is no free air nor free fluid intra-abdominally. There is an open within the right lower quadrant with surrounding fat stranding. There is also trace amount of fluid following the oblique muscles and there is some skin thickening, but there is no evid ence of organized fluid collection to suggest an abscess at this time. These findings are essentially unchanged from the prior exam. Impression: Open wound in the right lower anterior abdomen with fat stranding skin thickening and some subcutaneo us edema unchanged from the prior exam. There is no evidence of abscess at this time.
[2017-04-18] MEDS ORDERED: LIDOCAINE W/ SODIUM BICARB 0.5 ML SYR SUBD PRN (14:30)
[2017-04-18] MEDS ORDERED: NORMAL SALINE 10 ML SYRINGE FLUSH IVP PRN ×2 (14:30→17:48)
[2017-04-18] MEDS ORDERED: ONDANSETRON 4 MG/2 ML VIAL IVP PRN (14:30)
[2017-04-18] MEDS ORDERED: ACETAMINOPHEN 325 MG TABLET PO PRN (14:30)
[2017-04-18] MEDS ORDERED: Promethazine Tab 25 MG TAB PO PRN (14:30)
[2017-04-18] MEDS ORDERED: OXYCODONE HCL PO PRN (14:30)
[2017-04-18] MEDS: Meperidine Inj 50 MG/ML CARPUJECT IVP PRN ×4 (15:16→22:15)
[2017-04-18] MEDS: oxyCODONE IR Tab 15 MG TAB PO PRN ×2 (15:24→20:00)
[2017-04-18] MEDS ORDERED: NICOTINE 2 MG GUM BUCCAL PRN (16:46)
--- NOTE | 2017-04-18 16:52 | PDOC ---
History and Physical - History of Present Illness Date and Time of Service: 04/18/2017, 1645 Chief Complaint: Skin infection History of Present Illness: This is a pleasant 32-year-old transgendered patient who has chronic pain syndrome, history of DVT/PE, and recently has been dealing with a nonhealing surgical wound in the right lower quadrant. The patient had recently been discharged, but presented today with complaints of possible skin infection again. She stated that she had pain develop on Monday, along with nausea and fevers at home (subjective), and came in for evaluation today after seeing her primary provider. The patient has induration and redness laterally along her wound and it is tender and warm to the touch. A CT scan does not show any deep abscess. That shows increased stranding and inflammatory changes in the subcutaneous tissue. Nothing seemed to make her better or worse. She has been on Levaquin as on the prior admission Citrobacter and Escherichia coli were grown out of the wound. White blood count was elevated today at 13,000. Past Medical History Medical History: 1. 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 2. Transgendered. 3. Delayed gastric emptying. 4. Status post excision of thymoma. 5. History of non-Hodgkin's lymphoma. 6. Tachycardia, non specific. Surgical History: 1. 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 2. Hernia repair. 3. Breast augmentation. 4. Boxer's fracture repair on right hand with subsequent hardware removal with one of the screws having a broken had and still being in place. She had no complaints of this today. 5. Excision of thymoma. 6. Appendectomy, laparoscopic. 7. Open drainage of abdominal wound abscess with drain placement. Drain was removed Pertinent Family History: Significant for diabetes Past Social History: Smoker, upwards of 2 packs per day, does not drink alcohol. Lives in [place], [place]. Has a significant other with 5 kids and she states she stays at home primarily to help raise the 5 children. Her primary care provider is in [place], [place]. 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 Tobacco Use: Current Every Day Smoker Do you dip or chew tobacco: No Substance Use Type: Opiate Pain Medication Alcohol Use: None Medication / Allergies Home Medications: Home Medications Medication Instructions Recorded Confirmed Type Estradiol 4 tab PO BID 10/14/15 04/18/17 History Spironolactone 1 tab PO DAILY 10/14/15 04/18/17 History Amitriptyline HCl 2 tab PO BEDTIME 01/22/17 04/18/17 History Metoprolol Tartrate Tab 1 tab PO BID 02/01/17 04/18/17 History [Lopressor Tab] Oxycodone HCl 2 tab PO Q4H PRN tab 02/07/17 04/18/17 History Oxycodone HCl [Oxycodone HCl ER] 1 tab PO BID tab 02/07/17 04/18/17 History Hydromorphone HCl [Dilaudid] 8 mg PO Q4H tab 03/09/17 04/18/17 History Promethazine HCl [Phenergan] 25 mg PO Q6H PRN 04/02/17 04/18/17 History Levofloxacin Tab [Levaquin Tab] 750 mg PO DAILY #10 tab 04/14/17 04/18/17 Rx Apixaban [Eliquis] 2.5 mg PO BID 04/18/17 04/18/17 History Allergies/Adverse Reactions: Allergies Allergy/AdvReac Type Severity Reaction Status Date / Time cyclobenzaprine HCl Allergy Severe HIVES Verified 04/18/17 08:56 [From Flexeril] venom-honey bee Allergy Severe Anaphylaxis Verified 04/18/17 08:56 [bee venom (honey bee)] iodine Allergy Intermediate RASH Verified 04/18/17 08:56 Iodine and Iodide Containing Allergy Intermediate VOMITING Verified 04/18/17 08: 56 Produc ketorolac tromethamine Allergy Intermediate HIVES Verified 04/18/17 08:56 [From Toradol] lactose [Lactose] Allergy Intermediate NOT Verified 04/18/17 08:56 APPLICABLE adhesive tape AdvReac Intermediate RASH Verified 04/18/17 08:56 SEA FOOD AdvReac Intermediate HIVES Uncoded 04/18/17 08:56 Review of Systems - Review of Systems All Systems: Reviewed & No Additional Complaints Except as Stated (I did a 12 point review of systems and it was negative other than that discussed below and the history of present illness.) - Constitutional Constitutional: REPORTS: Weight Gain (Patient gained 20 pounds in the subsequent week since prior admission.), Fever/Chills - Respiratory Respiratory: DENIES: Negative System Review, Cough, Sputum, Dyspnea At Rest, Dyspnea with Exertion, Pleuritic Pain, Hemoptysis, Wheezing, Other, See HPI - Cardiovascular Cardiovascular: DENIES: Negative System Review, Chest Pain, Edema, Syncope, Palpitations, Orthopnea, Paroxysmal Nocturnal Dyspnea, Other, See HPI - Gastrointestinal Gastrointestinal / Abdominal: REPORTS: Other (Denied constipation, diarrhea, or bloody stool.), See HPI - Hematlogic / Lymphatic Hematologic / Lymphatic: REPORTS: Other (Reported to me that her legs swell from time to time and that has been going on since 2010.) Exam - Vitals Vital Signs: Vital Signs Temperature 97.2 F Temperature Source Temporal Artery Scan Pulse Rate [Apical] 110 Pulse Rate [Pulse Oximeter] 112 Respiratory Rate 18 Blood Pressure [Left Arm] 138/85 Pulse Ox 97 Oxygen Delivery Method Room Air Height 5 ft 9 in Weight 173 lb - General General Appearance: POSITIVE: No Acute Distress, Cooperative - Head Head Exam: POSITIVE: Normal Inspection, Normocephalic, Atraumatic - Eye Eye Exam: POSITIVE: No Scleral Icterus - ENT ENT Exam: POSITIVE: Mucous Membranes Moist - Neck Neck Exam: POSITIVE: Normal Inspection, No Tenderness, No Thyromegaly - Respiratory Respiratory Exam: POSITIVE: Clear to Auscultation - Bilaterally, Breathing Non Labored - Cardiovascular Cardiovascular Exam: POSITIVE: No Murmur, No Clicks, No Gallops, No Rubs, Tachycardia - GI/Abdominal GI/Abdominal Exam: POSITIVE: Normal Bowel Sounds, Non Distended, Soft Additional GI/Abdominal Exam Details: Right lower quadrant abdominal wound appears clean, dry, minimal drainage. To the lateral aspect of this there is redness along the skin, indurated, and tender and warm to touch. Looks consistent with localized cellulitis. - Rectal Rectal Exam: POSITIVE: Deferred - External Exam: POSITIVE: Deferred Exam: POSITIVE: Deferred - Extremities Extremities Exam: POSITIVE: No Clubbing Present, No Edema Present, No Cyanosis Present - Neurological Neurological Exam: POSITIVE: Alert, Oriented x 3, No Facial Droop, Speech Intact / Clear, Moves All Extremities Equally - Psychiatric Psychiatric Exam: POSITIVE: Normal Affect, Normal Mood Results - Labs CBC and BMP: 04/18/17 09:40 04/18/17 09:40 Labs - Last 24 Hours: Laboratory Results 04/18/17 Range/Units 09:40 WBC 13.59 H (4.8-10.8) 10^3/uL RBC 4.53 (4.20-5.40) 10^6/uL Hgb 14.1 (12.0-16.0) g/dL Hct 41.2 (37.0-47.0) % MCV 90.9 (81-99) FL MCH 31.1 H (27-31) PG MCHC 34.2 (33-37) g/dL RDW Std Deviation 43.3 (39-50) fL RDW Coeff of Brennan 13.4 (11.5-14.5) % Plt Count 352 H (140-350) 10*3/uL MPV 9.7 (7.4-12.2) FL Immature Gran % (Auto) 0.1 (0-5) % Neut % (Auto) 67.6 (50-80) % Lymph % (Auto) 19.3 (10-50) % Mcdonough % (Auto) 9.2 (5-15) % Eos % (Auto) 2.8 (0-8) % Baso % (Auto) 1.0 (0-1) % Immature Gran # (Auto) 0.02 10*3/UL Neut # (Auto) 9.19 10*3/UL Lymph # (Auto) 2.62 10*3/uL Mcdonough # (Auto) 1.25 H (0.3-0.8) 10*3/UL Eos # (Auto) 0.38 10*3/UL Baso # (Auto) 0.13 10*3/UL WBC Morphology Comment Normal morphology (NORM) Plt Morphology Comment Normal morphology (NORM) RBC Morph Comment Normal morphology (NORM) Sodium 137 (135-145) meq/L Potassium 4.1 (3.8-5.2) meq/L Chloride 103 (98-112) meq/L Carbon Dioxide 26 (23-33) meq/L Anion Gap 8 (5-20) BUN 7 (7-22) mg/dL Creatinine 0.6 (0.50-1.20) mg/dL Estimated GFR > 60 (>60 ml/min/1.73m(2)) BUN/Creatinine Ratio 11.66 (6-20) Glucose 98 (78-110) mg/dL Calculated Osmolality 281.0 (267-292) mOsm/kg Lactic Acid 0.9 (0.70-2.10) MMOL/L Calcium 9.2 (8.7-10.7) mg/dL Total Bilirubin 0.2 L (0.3-1.2) mg/dL AST 15 (8-39) IU/L ALT 27 (9-52) IU/L Alkaline Phosphatase 90 (38-126) IU/L C-Reactive Protein 4.0 H (0.0-0.9) mg/dL Total Protein 6.7 (6.1-8.0) g/dL Albumin 3.9 (3.5-4.8) g/dL Globulin 2.8 (2.50-4.10) g/dL Albumin/Globulin Ratio 1.30 (1.3-2.0) mg/g - Imaging Status: Report Reviewed by Me (CT scan does not show any deep abscess but there is apparently subcutaneous stranding consistent with inflammation.) Assessment and Plan - Patient Problems (1) Nonhealing surgical wound Current Visit: Yes Status: Acute Qualifiers: Encounter type: subsequent encounter Qualified Description: Non- healing surgical wound, subsequent encounter Qualifier Code(s): (T81.89XD ) Other complications of procedures, not elsewhere classified, subsequent encounter (2) Cellulitis Current Visit: Yes Status: Acute (3) Tobacco abuse Current Visit: Yes Status: Chronic (4) History of pulmonary embolism Current Visit: Yes Status: Chronic (5) Chronic pain syndrome Current Visit: Yes Status: Chronic (6) Delayed gastric emptying Current Visit: Yes Status: Chronic (7) Transgendered Current Visit: Yes Status: Chronic - Assessment / Plan Additional Assessment/Plan Details: Admit the patient. Continue Levaquin for now. Consult surgery, hopefully we can figure out if this needs to be drained surgically. I like to try and get bug identification from this before changing her expanding out antibiotic coverage. Check labs tomorrow. The patient probably would benefit from a swing bed for continued wound care therapy and antibiotic therapy post hospital stay. Smoking cessation education, nicotine replacement. Pain medicines for pain syndrome. Continue DVT prophylaxis, with somewhat swollen legs bilaterally, make sure there are no DVTs and ultrasound legs. I discussed the above plan with the patient and she agreed.
[2017-04-18] MEDS ORDERED: NICOTINE 21 MG /DAY PATCH TRANSDERM SCH (17:00)
[2017-04-18] MEDS: HYDROmorphone 2 MG/1 ML IVP PRN ×3 (17:18→22:15)
[2017-04-18] MEDS: Sodium Chloride 0.9% 1,000 ML PRIMARY IV SCH ×2 (17:45→23:22)
--- NOTE | 2017-04-18 17:48 | PDOC(PROG) ---
Date and Time of Service: 04/18/2017 Interval History: Patient has developed cellulitis possible small abscess lateral to incision. Objective : Data - Labs CBC and BMP: 04/18/17 09:40 04/18/17 09:40 - Vital Signs Vital Signs and I&O: Vital Signs - Last Taken Temperature 97.2 F 04/18/17 16:14 Pulse Rate 112 H 04/18/17 16:14 Respiratory Rate 18 04/18/17 16:14 Blood Pressure 138/85 04/18/17 16:14 Pulse Ox 97 04/18/17 16:14 Intake and Output (24hr x 4 totals) 04/16/17 04/17/17 04/18/17 04/19/17 05:59 05:59 05:59 05:59 Intake Total 655 Output Total 150 Balance 505 Objective : Exam - General General Appearance: No Acute Distress, Cooperative - Head Head Exam: Normal Inspection, Normocephalic, Atraumatic - Eye Eye Exam: Normal Appearance, PERRL, EOMI - GI/Abdominal Additional GI/Abdominal Exam Details: Lateral to the incision patient has a indurated area is no fluctuation and their associated cellulitis on top of this. I'm concerned patient may have a small abscess underneath this. Assessment and Plan - Patient Problems (1) Nonhealing surgical wound Current Visit: Yes Status: Acute Qualifiers: Encounter type: subsequent encounter Qualified Description: Non- healing surgical wound, subsequent encounter Qualifier Code(s): (T81.89XD ) Other complications of procedures, not elsewhere classified, subsequent encounter - Assessment / Plan Additional Assessment/Plan Details: The patient is tobacco or for additional debridement of the wound and possibly a second incision to do open up the abscess.
[2017-04-18] MEDS: Metoprolol TARTRATE Tab 25 MG TAB PO SCH (20:00)
[2017-04-18] MEDS: OXYCODONE PO SCH ×2 (20:01)
--- NOTE | 2017-04-18 20:30 | DI ---
US UP/LOW EXTREMITY VEINS B/L,04/18/2017 4:57 PM: Clinical History: Bilateral lower extremity swelling. Previous Exam: None at this facility. Findings: Multiple grayscale and color Doppler sonographic images are obtained through the deep veins of both l nyla tremors, and demonstrate complete coaptation upon graded compression throughout. There is no echogenic thrombus. There is normal respiratory variation and augmentation. Impression: No evidence of deep venous thrombosis.
[2017-04-18] MEDS ORDERED: OXYCODONE HCL PO SCH (21:00)
[2017-04-18] MEDS ORDERED: AMITRIPTYLINE 25 MG TABLET PO SCH (21:00)
[2017-04-18] MEDS ORDERED: Apixaban 5 MG TABLET PO SCH (21:00)
[2017-04-18] MEDS: ESTRADIOL 2 MG PO SCH (21:15)
[2017-04-18] MEDS ORDERED: Lactated Ringers 1,000 ML PRIMARY IV ONE (23:03)
[2017-04-19] MEDS: oxyCODONE IR Tab 15 MG TAB PO PRN ×6 (00:12→21:02)
[2017-04-19] MEDS: Meperidine Inj 50 MG/ML CARPUJECT IVP PRN ×5 (00:12→08:26)
[2017-04-19] MEDS: HYDROmorphone 2 MG/1 ML IVP PRN ×8 (00:13→22:43)
[2017-04-19] MEDS: Sodium Chloride 0.9% 1,000 ML PRIMARY IV SCH ×3 (04:08→18:48)
[2017-04-19 05:52] LABS: BASOPHILS % (AUTO) 0.1 % (0-1); EOSINOPHILS # (AUTO) 0 10*3/UL; EOSINOPHILS % (AUTO) 0 % (0-8); HEMATOCRIT 37.9 % (37.0-47.0); HEMOGLOBIN 12.6 g/dL (12.0-16.0); MEAN CORPUSCULAR HEMOGLOBIN 30.2 PG (27-31); MEAN CORPUSCULAR HGB CONC 33.2 g/dL (33-37); MEAN CORPUSCULAR VOLUME 90.9 FL (81-99); MEAN PLATELET VOLUME 10.5 FL (7.4-12.2); MONOCYTES # (AUTO) 0.75 10*3/UL (0.3-0.8); MONOCYTES % (AUTO) 4.9 % (5-15); NEUTROPHILS % (AUTO) 82.9 % (50-80); RED BLOOD COUNT 4.17 10^6/uL (4.20-5.40)
[2017-04-19 05:53] LABS: BASOPHILS # (AUTO) 0.01 10*3/UL
[2017-04-19 06:09] LABS: BLOOD UREA NITROGEN 6 mg/dL (7-22); EST GLOMERULAR FILTRATION > 60 (>60 ml/min/1.73m(2))
[2017-04-19 06:10] LABS: PLATELET MORPHOLOGY COMMENT NORMAL MORPHOLOGY (NORM); RBC MORPHOLOGY COMMENT NORMAL MORPHOLOGY (NORM); WBC MORPHOLOGY COMMENT NORMAL MORPHOLOGY (NORM)
[2017-04-19] MEDS: OXYCODONE PO SCH ×4 (08:26→20:49)
[2017-04-19] MEDS: Metoprolol TARTRATE Tab 25 MG TAB PO SCH ×2 (08:27→20:50)
[2017-04-19] MEDS ORDERED: NICOTINE 21 MG /DAY PATCH TRANSDERM SCH (09:00)
[2017-04-19] MEDS ORDERED: Spironolactone Tab 50 MG TAB PO SCH (09:00)
[2017-04-19] MEDS ORDERED: Lactated Ringers 1,000 ML PRIMARY IV SCH ×2 (09:00→16:28)
[2017-04-19] MEDS: ESTRADIOL 2 MG PO SCH (09:36)
[2017-04-19] MEDS: MEPERIDINE HCL/PF 100 MG/1 ML INJECTION IVP PRN ×6 (10:08→22:43)
--- NOTE | 2017-04-19 10:24 | PTI REPORT ---
Thank you for the referral of Joanna Prado. She was seen on 04/18/17 for an inpatient evaluation secondary to an abdominal wound. SUBJECTIVE: The patient is a 32-year-old female. The patient reports she was recently discharged from the hospital on April 14, but came to the ER this morning due to concerns of infection and was subsequently admitted just prior to this physical therapy evaluation. She states she has spoken with Dr. Hallman already and the plan is that she will undergo three days of inpatient stay followed by participating in swingPeeky status until her wound is completely closed. She states, as with her prior visits, that it is not the wound itself that is bothering her, but the subsequent infections and the pocketing that is happening around the wound area. PAST MEDICAL HISTORY: Past medical history can be found in the patient's medical record. OBJECTIVE FINDINGS: Pain: The patient reports a pain level of 10/10 on the verbal analog scale (0= no pain, 10=worst pain) which is why she went to the emergency room. Wound presentation: Wound measurements as of today were 6.2 x 1.5 centimeters. She has tunneling at the 10 o'clock position that is 2.4 centimeters and tunneling at 6 o'clock that is 1.2 centimeters. Pictures are on file with the nursing staff. Upon observation, the wound looks 95% granulated. There was no observable drainage; however, the patient did just come up from the emergency room and there was no drainage on the bandage. ASSESSMENT: Problem List: Open wound Risk of infection Short-Term Goals: To be met by discharge from inpatient: Patient will promote clean wound healing. Patient's wound will decrease in size by 25%. Long-Term Goals: To be met following discharge from inpatient: Patient will have complete wound closure. TREATMENT PLAN: Patient will be seen on a PRN basis for wound care. At this time Dr. Hallman plans on having Dr. Rnagel involved with the case. We may or may not reorder a wound vac, all depending on Dr. Rangel as well as the patient's insurance. INITIAL TREATMENT: Treatment today consisted of the initial evaluation followed by cleansing the wound. The wound measures 6.2 x 1.5 centimeters and has tunneling of 2.4 centimeters at the 10 o'clock position and 1.2 centimeters at the 6 o'clock position. The wound was dressed with Medi-Honey Alginate in the wound base followed by a saline soaked 4X4 in the wound space followed by a 4X4 Mepilex. DANDY
[2017-04-19] MEDS ORDERED: fentaNYL Inj 100 MCG/2 ML VIAL IM PRN (13:21)
[2017-04-19] MEDS ORDERED: LIDOCAINE W/ SODIUM BICARB 0.5 ML SYR ONE (14:01)
[2017-04-19] MEDS ORDERED: MIDAZOLAM 5 MG/1 ML ONE ×2 (14:41→15:26)
[2017-04-19] MEDS ORDERED: fentaNYL Inj 250 MCG/5 ML VIAL ONE (14:41)
[2017-04-19] MEDS ORDERED: LIDOCAINE MPF 2% - 5 ML (20 MG/1 ML) ONE (14:46)
[2017-04-19] MEDS ORDERED: LIDOCAINE 2% 20 MG/ML - 20 ML VIAL INTRADERM ONE (15:08)
[2017-04-19] MEDS ORDERED: fentaNYL Inj 100 MCG/2 ML VIAL IVP PRN (15:18)
[2017-04-19] MEDS ORDERED: Meperidine Inj 50 MG/ML CARPUJECT IVP PRN (15:41)
[2017-04-19] MEDS ORDERED: NORMAL SALINE 10 ML SYRINGE FLUSH IVP PRN (15:41)
--- NOTE | 2017-04-19 15:57 | GEN.OPNOTE ---
Operative Note Surgery Date: 04/19/17 Preoperative Diagnosis: Wound infection Postoperative Diagnosis: Wound infection with abscess Procedure: I&D of abscess uncomplicated Surgeon: Cristhian Rangel MD Anesthesia Provider: Sreedhar Kilgore CRNA Anesthesia Type: General Estimated Blood Loss (mL): 2 Fluids: Please see anesthesia notes in EMR Pathology: Cultures obtained Indications: Patient has back pain that she's having increased pain at the lateral aspect of incision there is some cellulitis associated with this. Findings: A small 1 cm abscess Operative Summary: Patient is brought in operative room. Given LMA anesthesia. Prepped draped sterile fashion. Timeout performed per protocols. I inspected the wound found little fluctuant . From inside the wound gently probed this and open up the cavity there was a small pocket of purulent material cultures obtained. He is electrocautery and extended my incision into this abscess cavity. Hemostased electrocautery. I then excised the abscess cavity. Could not find any tracking down to the previous drain site. The superior and inferior aspects of the incisions appear to be healthy without any abscesses. We pulse lavaged the wound. Put Multidex then and packed the wound open. Patient Problems - Patient Problem List (1) Nonhealing surgical wound Current Visit: Yes Status: Acute Qualifiers: Encounter type: subsequent encounter Qualified Description: Non- healing surgical wound, subsequent encounter Qualifier Code(s): (T81.89XD ) Other complications of procedures, not elsewhere classified, subsequent encounter
[2017-04-19] MEDS ORDERED: NICOTINE 2 MG GUM BUCCAL PRN (16:28)
[2017-04-19] MEDS ORDERED: ACETAMINOPHEN 325 MG TABLET PO PRN (16:28)
[2017-04-19] MEDS: NICOTINE 21 MG /DAY PATCH TRANSDERM SCH (17:01)
[2017-04-19] MEDS: fentaNYL Inj 100 MCG/2 ML VIAL IVP PRN ×4 (17:38→22:42)
--- NOTE | 2017-04-19 17:45 | PDOC(PROG) ---
Date and Time of Service: 04/19/2017, 1740 Interval History: Overall, pain seems controlled on current regimen of Demerol 100 mg every 2 hours. We had some discussions with the patient regarding this dosing as it does exceed the 600 mg limit and explained the risk of potential neurotoxicity, but the patient has such a high tolerance that this dosing seems to help her pain the most. She is aware that if neurotoxicity develops, we would have to discontinue the drug indefinitely. Overall, we are also concerned about continued national shortages of Demerol, and discussed that with the patient. We think a reasonable plan would be to try to continue the Demerol as it is for the next 24-48 hours. At that time, we would change the dosing time interval to every 3 hours, and do staggered fentanyl when necessary pain. We would eventually like to transition her back to her by mouth medications at home. Discussed with nursing as well and I had KELSY Tello, to call the patient's primary provider, LIBRADO De León, to see if we can determine continued best plans to transition to an outpatient as time goes on. In terms of the wound, there was a little extension of erythema and tenderness, no chest pain, no shortness breath, no nausea and vomiting. Objective : Data - Labs CBC and BMP: 04/19/17 04:26 04/19/17 04:26 Labs - Last 24 Hours: Laboratory Results 04/19/17 Range/Units 04:26 WBC 15.31 H (4.8-10.8) 10^3/uL RBC 4.17 L (4.20-5.40) 10^6/uL Hgb 12.6 (12.0-16.0) g/dL Hct 37.9 (37.0-47.0) % MCV 90.9 (81-99) FL MCH 30.2 (27-31) PG MCHC 33.2 (33-37) g/dL RDW Std Deviation 42.4 (39-50) fL RDW Coeff of Brennan 13.1 (11.5-14.5) % Plt Count 332 (140-350) 10*3/uL MPV 10.5 (7.4-12.2) FL Immature Gran % (Auto) 0.3 (0-5) % Neut % (Auto) 82.9 H (50-80) % Lymph % (Auto) 11.8 (10-50) % [place] % (Auto) 4.9 L (5-15) % Eos % (Auto) 0 (0-8) % Baso % (Auto) 0.1 (0-1) % Immature Gran # (Auto) 0.05 10*3/UL Neut # (Auto) 12.70 10*3/UL Lymph # (Auto) 1.80 10*3/uL [place] # (Auto) 0.75 (0.3-0.8) 10*3/UL Eos # (Auto) 0 10*3/UL Baso # (Auto) 0.01 10*3/UL WBC Morphology Comment Normal morphology (NORM) Plt Morphology Comment Normal morphology (NORM) RBC Morph Comment Normal morphology (NORM) Sodium 138 (135-145) meq/L Potassium 4.3 (3.8-5.2) meq/L Chloride 105 (98-112) meq/L Carbon Dioxide 25 (23-33) meq/L Anion Gap 8 (5-20) BUN 6 L (7-22) mg/dL Creatinine 0.5 (0.50-1.20) mg/dL Estimated GFR > 60 (>60 ml/min/1.73m(2)) BUN/Creatinine Ratio 12.00 (6-20) Glucose 112 H (78-110) mg/dL Calculated Osmolality 284.0 (267-292) mOsm/kg Calcium 9.0 (8.7-10.7) mg/dL Objective : Exam - General General Appearance: No Acute Distress, Cooperative Additional General Exam Details: Vital Signs - Last Taken Temperature 96.6 F L 04/19/17 17:00 Pulse Rate 94 04/19/17 17:00 Respiratory Rate 20 04/19/17 17:00 Blood Pressure 126/71 04/19/17 17:00 Pulse Ox 96 04/19/17 17:00 - Respiratory Respiratory Exam: Clear to Auscultation - Bilaterally, Breathing Non Labored - Cardiovascular Cardiovascular Exam: RRR, No Murmur, No Clicks, No Gallops, No Rubs, No JVD - GI/Abdominal GI/Abdominal Exam: Normal Bowel Sounds, Non Distended, Soft Additional GI/Abdominal Exam Details: Tenderness right lower quadrant, with erythema. I spoke with surgery postoperatively. There is a very small subcutaneous abscess that is now improved and drained, with extension of the incision. - Extremities Extremities Exam: No Clubbing Present, No Edema Present, No Cyanosis Present Additional Extremities Exam Details: Edema in lower extremities resolved. - Neurological Neurological Exam: Alert, Oriented x 3, No Facial Droop, Speech Intact / Clear, Moves All Extremities Equally Assessment and Plan - Patient Problems (1) Nonhealing surgical wound Current Visit: Yes Status: Acute Qualifiers: Encounter type: subsequent encounter Qualified Description: Non- healing surgical wound, subsequent encounter Qualifier Code(s): (T81.89XD ) Other complications of procedures, not elsewhere classified, subsequent encounter (2) Cellulitis Current Visit: Yes Status: Acute (3) Tobacco abuse Current Visit: Yes Status: Chronic (4) History of pulmonary embolism Current Visit: Yes Status: Chronic (5) Chronic pain syndrome Current Visit: Yes Status: Chronic (6) Delayed gastric emptying Current Visit: Yes Status: Chronic (7) Transgendered Current Visit: Yes Status: Chronic - Assessment / Plan Additional Assessment/Plan Details: In Terms of antibiotic coverage, continue Levaquin, 750 mg by mouth daily, to . We will await any growth on the current abscess drained today to determine whether or not to extend this antibiotic coverage further. The original length the coverage was discussed with infectious disease in [place]. This was on curbside as the patient does not see them in the clinic. In terms of her pain, I think we have a good plan to try a conservative Demerol dosing availability, and not waste any Demerol dosing when administered for the patient's pain. We have obtained by mouth Demerol as well which we can start on Monday afternoon and see if that helps as well. We discussed this with both the patient, pharmacy, and also placed a call to the patient's primary care provider. Check labs tomorrow. Stop IV fluids. Resume DVT/PE prophylaxis with Eliquis. Luckily, ultrasounds were checked and these were negative.
[2017-04-19] MEDS: AMITRIPTYLINE 25 MG TABLET PO SCH (20:50)
[2017-04-19] MEDS: Apixaban Tab 2.5 MG TABLET PO SCH (20:50)
[2017-04-19] MEDS: ESTRADIOL PO SCH (21:45)
[2017-04-19] MEDS: Promethazine Tab 25 MG TAB PO PRN (22:06)
[2017-04-20] MEDS: fentaNYL Inj 100 MCG/2 ML VIAL IVP PRN ×12 (00:20→21:55)
[2017-04-20] MEDS: MEPERIDINE HCL/PF 100 MG/1 ML INJECTION IVP PRN ×12 (00:20→21:55)
[2017-04-20] MEDS: HYDROmorphone 2 MG/1 ML IVP PRN ×12 (00:20→21:55)
[2017-04-20] MEDS: oxyCODONE IR Tab 15 MG TAB PO PRN ×7 (00:39→23:59)
[2017-04-20 05:40] LABS: BASOPHILS # (AUTO) 0.04 10*3/UL; BASOPHILS % (AUTO) 0.3 % (0-1); EOSINOPHILS % (AUTO) 1.7 % (0-8); HEMATOCRIT 34.8 % (37.0-47.0); HEMOGLOBIN 11.3 g/dL (12.0-16.0); LYMPHOCYTES # (AUTO) 4.35 10*3/uL; MEAN CORPUSCULAR HEMOGLOBIN 30.6 PG (27-31); MEAN CORPUSCULAR HGB CONC 32.5 g/dL (33-37); MEAN CORPUSCULAR VOLUME 94.3 FL (81-99); MEAN PLATELET VOLUME 10.2 FL (7.4-12.2); MONOCYTES # (AUTO) 1.38 10*3/UL (0.3-0.8); NEUTROPHILS % (AUTO) 47.9 % (50-80); RED BLOOD COUNT 3.69 10^6/uL (4.20-5.40)
[2017-04-20 05:43] LABS: BLOOD UREA NITROGEN 3 mg/dL (7-22); CALCIUM 8.2 mg/dL (8.7-10.7); EST GLOMERULAR FILTRATION > 60 (>60 ml/min/1.73m(2))
[2017-04-20 05:52] LABS: PLATELET MORPHOLOGY COMMENT NORMAL MORPHOLOGY (NORM); RBC MORPHOLOGY COMMENT NORMAL MORPHOLOGY (NORM); WBC MORPHOLOGY COMMENT NORMAL MORPHOLOGY (NORM)
[2017-04-20] MEDS: Spironolactone Tab 50 MG TAB PO SCH (08:05)
[2017-04-20] MEDS: Apixaban Tab 2.5 MG TABLET PO SCH ×2 (08:06→21:54)
[2017-04-20] MEDS: Metoprolol TARTRATE Tab 25 MG TAB PO SCH ×2 (08:06→21:54)
[2017-04-20] MEDS: OXYCODONE PO SCH ×4 (08:06→21:54)
[2017-04-20] MEDS: ESTRADIOL PO SCH ×2 (08:21→21:00)
[2017-04-20] MEDS ORDERED: Potassium Chloride Tab 10 MEQ TAB PO ONE (11:14)
--- NOTE | 2017-04-20 11:31 | PDOC(PROG) ---
Date and Time of Service: 04/20/2017 11:26 AM Interval History: Subjective Patient continued to complain from pain in the incision site, she had the surgery done yesterday. Her main symptoms she said with it is worsening pain, swelling and sometimes discharge. This would be her fourth admission. 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 She is on chronic pain medication because of previous infections sounded like in the arm. Objective : Data - Labs CBC and BMP: 04/20/17 04:51 04/20/17 04:51 Labs - Last 24 Hours: Laboratory Results 04/20/17 Range/Units 04:51 WBC 11.50 H (4.8-10.8) 10^3/uL RBC 3.69 L (4.20-5.40) 10^6/uL Hgb 11.3 L (12.0-16.0) g/dL Hct 34.8 L (37.0-47.0) % MCV 94.3 (81-99) FL MCH 30.6 (27-31) PG MCHC 32.5 L (33-37) g/dL RDW Std Deviation 45.1 (39-50) fL RDW Coeff of Brennan 13.8 (11.5-14.5) % Plt Count 252 (140-350) 10*3/uL MPV 10.2 (7.4-12.2) FL Immature Gran % (Auto) 0.3 (0-5) % Neut % (Auto) 47.9 L (50-80) % Lymph % (Auto) 37.8 (10-50) % [place] % (Auto) 12.0 (5-15) % Eos % (Auto) 1.7 (0-8) % Baso % (Auto) 0.3 (0-1) % Immature Gran # (Auto) 0.03 10*3/UL Neut # (Auto) 5.50 10*3/UL Lymph # (Auto) 4.35 10*3/uL [place] # (Auto) 1.38 H (0.3-0.8) 10*3/UL Eos # (Auto) 0.20 10*3/UL Baso # (Auto) 0.04 10*3/UL WBC Morphology Comment Normal morphology (NORM) Plt Morphology Comment Normal morphology (NORM) RBC Morph Comment Normal morphology (NORM) Sodium 140 (135-145) meq/L Potassium 3.4 L (3.8-5.2) meq/L Chloride 105 (98-112) meq/L Carbon Dioxide 29 (23-33) meq/L Anion Gap 6 (5-20) BUN 3 L (7-22) mg/dL Creatinine 0.6 (0.50-1.20) mg/dL Estimated GFR > 60 (>60 ml/min/1.73m(2)) BUN/Creatinine Ratio 5.00 L (6-20) Glucose 95 (78-110) mg/dL Calculated Osmolality 286.0 (267-292) mOsm/kg Calcium 8.2 L (8.7-10.7) mg/dL Objective : Exam - General General Appearance: No Acute Distress, Cooperative - Head Head Exam: Normal Inspection - Eye Eye Exam: Normal Appearance - ENT ENT Exam: Normal Exam - Neck Neck Exam: Normal Inspection - Respiratory Respiratory Exam: Clear to Auscultation - Bilaterally - Cardiovascular Cardiovascular Exam: RRR - GI/Abdominal GI/Abdominal Exam: Non Distended, Soft Additional GI/Abdominal Exam Details: Dressing applied to the wound. The dressing was changed earlier today. I Had a look at a picture of the wound there is minimal erythema based on the picture assessment otherwise looks clean. - Rectal Rectal Exam: Deferred - External Exam: Deferred - Extremities Extremities Exam: Normal Inspection - Back Back Exam: Normal Inspection - Neurological Neurological Exam: Alert, Oriented x 3, CN II-XII Intact, Speech Intact / Clear , Moves All Extremities Equally - Psychiatric Psychiatric Exam: Normal Affect - Integumentary Integumentary Exam: Normal Color Assessment and Plan - Patient Problems (1) Abscess Current Visit: No Status: Acute Comment: Status post incision and drainage of an abscess of the wound. Continue current antibiotics until we have culture result. The issue is pain control I discussed with the patient that we'll keep the same medication for today. Tomorrow we'll see whether we can switch the Dilaudid to by mouth as that was her previous medication. We'll see whether we can decrease the frequency of the Demerol tomorrow. (2) Chronic pain syndrome Current Visit: Yes Status: Chronic Comment: Continue OxyContin and oxycodone. Normally she is on Dilaudid 8 mg every 4 hours. We'll see whether we can switch her to by mouth tomorrow and DC the IV Dilaudid. (3) History of DVT (deep vein thrombosis) Current Visit: Yes Status: Acute Comment: Continue meche.
[2017-04-20] MEDS: Promethazine Tab 25 MG TAB PO PRN (11:57)
--- NOTE | 2017-04-20 14:21 | PT AM DAY ---
Diagnosis : Abdominal Wound AM - Physical Therapy S: The patient reports yesterday she underwent an I&D procedure under Dr. Rangel due to additional pockets found in the vicinity of the wound. O: Today's therapy consisted of removing the post op surgical bandage and packing. The wound now measures 10.5 x 2.0 x 2.7 centimeters and only has tunneling at 2.2 centimeters at the 6 o'clock position. Pictures weer taken and are on file with third floor staff. The wound was redressed with Medi- Honey followed by sterile saline soaked gauze and two 4X4 Mepilexes. A: The wound presents with well defined borders and 100% granulation tissues with moderate serous drainage. P: Continue seeing patient BID during the week and one time per day over the weekend for wound care. MTDD
--- NOTE | 2017-04-20 14:37 | PDOC(PROG) ---
Subjective Post Op Day: postop day 1 Pain Management: Peripheral JUNIOR PARALEGAL Date and Time of Service: 04/20/2017 at 1440 Interval History: Patient states she is feeling better. Objective : Data - Labs CBC and BMP: 04/20/17 04:51 04/20/17 04:51 Labs - Last 24 Hours: Laboratory Results 04/20/17 Range/Units 04:51 WBC 11.50 H (4.8-10.8) 10^3/uL RBC 3.69 L (4.20-5.40) 10^6/uL Hgb 11.3 L (12.0-16.0) g/dL Hct 34.8 L (37.0-47.0) % MCV 94.3 (81-99) FL MCH 30.6 (27-31) PG MCHC 32.5 L (33-37) g/dL RDW Std Deviation 45.1 (39-50) fL RDW Coeff of Brennan 13.8 (11.5-14.5) % Plt Count 252 (140-350) 10*3/uL MPV 10.2 (7.4-12.2) FL Immature Gran % (Auto) 0.3 (0-5) % Neut % (Auto) 47.9 L (50-80) % Lymph % (Auto) 37.8 (10-50) % [place] % (Auto) 12.0 (5-15) % Eos % (Auto) 1.7 (0-8) % Baso % (Auto) 0.3 (0-1) % Immature Gran # (Auto) 0.03 10*3/UL Neut # (Auto) 5.50 10*3/UL Lymph # (Auto) 4.35 10*3/uL [place] # (Auto) 1.38 H (0.3-0.8) 10*3/UL Eos # (Auto) 0.20 10*3/UL Baso # (Auto) 0.04 10*3/UL WBC Morphology Comment Normal morphology (NORM) Plt Morphology Comment Normal morphology (NORM) RBC Morph Comment Normal morphology (NORM) Sodium 140 (135-145) meq/L Potassium 3.4 L (3.8-5.2) meq/L Chloride 105 (98-112) meq/L Carbon Dioxide 29 (23-33) meq/L Anion Gap 6 (5-20) BUN 3 L (7-22) mg/dL Creatinine 0.6 (0.50-1.20) mg/dL Estimated GFR > 60 (>60 ml/min/1.73m(2)) BUN/Creatinine Ratio 5.00 L (6-20) Glucose 95 (78-110) mg/dL Calculated Osmolality 286.0 (267-292) mOsm/kg Calcium 8.2 L (8.7-10.7) mg/dL - Vital Signs Vital Signs and I&O: Vital Signs - Last Taken Temperature 98.2 F 04/20/17 11:49 Pulse Rate 90 04/20/17 12:00 Respiratory Rate 18 04/20/17 11:49 Blood Pressure 119/74 04/20/17 11:49 Pulse Ox 94 04/20/17 11:49 Intake and Output (24hr x 4 totals) 04/18/17 04/19/17 04/20/17 04/21/17 05:59 05:59 05:59 05:59 Intake Total 655 2150 Output Total 150 5 Balance 505 2145 Objective : Exam - General General Appearance: No Acute Distress, Cooperative - Head Head Exam: Normal Inspection, Normocephalic, Atraumatic - Eye Eye Exam: Normal Appearance, PERRL, EOMI - GI/Abdominal Additional GI/Abdominal Exam Details: Soft tissues the wound had actually has good granulation tissue in the base. Assessment and Plan - Patient Problems (1) Nonhealing surgical wound Current Visit: Yes Status: Acute Qualifiers: Encounter type: subsequent encounter Qualified Description: Non- healing surgical wound, subsequent encounter Qualifier Code(s): (T81.89XD ) Other complications of procedures, not elsewhere classified, subsequent encounter - Assessment / Plan Additional Assessment/Plan Details: Overall things patient is doing very well. Continue dressing changes as they are gone. Hopefully get the wound VAC back on.
[2017-04-20] MEDS: NICOTINE 21 MG /DAY PATCH TRANSDERM SCH (17:21)
[2017-04-20] MEDS ORDERED: SODIUM CHLORIDE ONE (19:49)
[2017-04-20] MEDS: AMITRIPTYLINE 25 MG TABLET PO SCH (21:53)
[2017-04-21] MEDS: fentaNYL Inj 100 MCG/2 ML VIAL IVP PRN ×12 (02:01→23:02)
[2017-04-21] MEDS: MEPERIDINE HCL/PF 100 MG/1 ML INJECTION IVP PRN ×12 (02:02→23:03)
[2017-04-21] MEDS: HYDROmorphone 2 MG/1 ML IVP PRN ×4 (02:02→06:03)
[2017-04-21] MEDS: oxyCODONE IR Tab 15 MG TAB PO PRN ×4 (06:03→18:43)
[2017-04-21 06:20] LABS: BASOPHILS # (AUTO) 0.04 10*3/UL; BASOPHILS % (AUTO) 0.5 % (0-1); EOSINOPHILS # (AUTO) 0.32 10*3/UL; EOSINOPHILS % (AUTO) 3.9 % (0-8); HEMATOCRIT 37.2 % (37.0-47.0); HEMOGLOBIN 12.1 g/dL (12.0-16.0); LYMPHOCYTES # (AUTO) 3.34 10*3/uL; MEAN CORPUSCULAR HEMOGLOBIN 30.4 PG (27-31); MEAN CORPUSCULAR HGB CONC 32.5 g/dL (33-37); MEAN CORPUSCULAR VOLUME 93.5 FL (81-99); MEAN PLATELET VOLUME 10.4 FL (7.4-12.2); MONOCYTES # (AUTO) 1.01 10*3/UL (0.3-0.8); MONOCYTES % (AUTO) 12.3 % (5-15); NEUTROPHILS # (AUTO) 3.52 10*3/UL; NEUTROPHILS % (AUTO) 42.7 % (50-80); RED BLOOD COUNT 3.98 10^6/uL (4.20-5.40)
[2017-04-21 06:48] LABS: BLOOD UREA NITROGEN 4 mg/dL (7-22); BUN/CREATININE RATIO 6.66 (6-20); CALCIUM 8.7 mg/dL (8.7-10.7); EST GLOMERULAR FILTRATION > 60 (>60 ml/min/1.73m(2))
[2017-04-21 07:14] LABS: PLATELET MORPHOLOGY COMMENT NORMAL MORPHOLOGY (NORM); RBC MORPHOLOGY COMMENT NORMAL MORPHOLOGY (NORM); WBC MORPHOLOGY COMMENT NORMAL MORPHOLOGY (NORM)
[2017-04-21] MEDS: Spironolactone Tab 50 MG TAB PO SCH (08:06)
[2017-04-21] MEDS: OXYCODONE PO SCH ×4 (08:06→21:03)
[2017-04-21] MEDS: Metoprolol TARTRATE Tab 25 MG TAB PO SCH ×2 (08:07→21:04)
[2017-04-21] MEDS: Apixaban Tab 2.5 MG TABLET PO SCH ×2 (08:07→21:04)
[2017-04-21] MEDS: ESTRADIOL PO SCH ×2 (08:07→21:20)
[2017-04-21] MEDS ORDERED: HYDROmorphone Tab 4 MG TAB PO PRN (09:14)
--- NOTE | 2017-04-21 09:24 | PT.PROG ---
Progress Note Progress Note: S: Pt. states she is doing ok. C/o pain on medial side of incision line, but otherwise states pain about the same. She is trying to back off of the IV pain meds. O: Treatment consisted of dressing change: removal of soiled dressing. cleansed wound with wound cleanser and 4x4, placed medihoney in wound bed, packed wound bed with gauze and covered with mepilex. A: Wound bed presents with 90% granulation tissue, minimal drainage, slight redness noted at wound edges and induration noted on medial aspect of the incision line. Otherwise no s/s of infections. tolerating current dressing. P: Continue per POC to assist with wound healing. Malena Harper, ONCOLOGY NURSE
--- NOTE | 2017-04-21 09:50 | PDOC(PROG) ---
Date and Time of Service: 04/21/2017 9:48 AM Interval History: Subjective Patient continued to complain from pain at the site of surgery but she said that her pain seemed to be slowly making improvement. No other symptoms. Objective : Data - Labs CBC and BMP: 04/21/17 04:15 04/21/17 04:15 Labs - Last 24 Hours: Laboratory Results 04/21/17 Range/Units 04:15 WBC 8.24 (4.8-10.8) 10^3/uL RBC 3.98 L (4.20-5.40) 10^6/uL Hgb 12.1 (12.0-16.0) g/dL Hct 37.2 (37.0-47.0) % MCV 93.5 (81-99) FL MCH 30.4 (27-31) PG MCHC 32.5 L (33-37) g/dL RDW Std Deviation 44.6 (39-50) fL RDW Coeff of Brennan 13.6 (11.5-14.5) % Plt Count 292 (140-350) 10*3/uL MPV 10.4 (7.4-12.2) FL Immature Gran % (Auto) 0.1 (0-5) % Neut % (Auto) 42.7 L (50-80) % Lymph % (Auto) 40.5 (10-50) % [place] % (Auto) 12.3 (5-15) % Eos % (Auto) 3.9 (0-8) % Baso % (Auto) 0.5 (0-1) % Immature Gran # (Auto) 0.01 10*3/UL Neut # (Auto) 3.52 10*3/UL Lymph # (Auto) 3.34 10*3/uL [place] # (Auto) 1.01 H (0.3-0.8) 10*3/UL Eos # (Auto) 0.32 10*3/UL Baso # (Auto) 0.04 10*3/UL WBC Morphology Comment Normal morphology (NORM) Plt Morphology Comment Normal morphology (NORM) RBC Morph Comment Normal morphology (NORM) Sodium 139 (135-145) meq/L Potassium 3.6 L (3.8-5.2) meq/L Chloride 100 (98-112) meq/L Carbon Dioxide 30 (23-33) meq/L Anion Gap 9 (5-20) BUN 4 L (7-22) mg/dL Creatinine 0.6 (0.50-1.20) mg/dL Estimated GFR > 60 (>60 ml/min/1.73m(2)) BUN/Creatinine Ratio 6.66 (6-20) Glucose 81 (78-110) mg/dL Calculated Osmolality 283.0 (267-292) mOsm/kg Calcium 8.7 (8.7-10.7) mg/dL Objective : Exam - General General Appearance: No Acute Distress, Cooperative - Head Head Exam: Normal Inspection, Atraumatic - Eye Eye Exam: Normal Appearance - ENT ENT Exam: Normal Exam - Neck Neck Exam: Normal Inspection - Respiratory Respiratory Exam: Clear to Auscultation - Bilaterally - Cardiovascular Cardiovascular Exam: RRR - GI/Abdominal GI/Abdominal Exam: Normal Bowel Sounds, Non Distended, Soft Additional GI/Abdominal Exam Details: Wound seemed to be clean. Minimal erythema at the edges but otherwise no fluid collection. Granulation tissue developing at the base - External Exam: Deferred - Extremities Extremities Exam: Normal Inspection - Back Back Exam: Normal Inspection - Neurological Neurological Exam: Alert, Oriented x 3, CN II-XII Intact, Moves All Extremities Equally Assessment and Plan - Patient Problems (1) Abscess Current Visit: No Status: Acute Comment: Continue dressing changes. Continue current antibiotics growth showing strep and gram-negative bacilli will see the final culture result. Continue Levaquin for now. White count improved. (2) Chronic pain syndrome Current Visit: Yes Status: Chronic Comment: Same medications but will switch the IV Dilaudid to by mouth Dilaudid she agreed with this plan. (3) History of DVT (deep vein thrombosis) Current Visit: Yes Status: Acute Comment: Continue eliquis
--- NOTE | 2017-04-21 13:20 | PDOC(PROG) ---
Subjective Post Op Day: 2 Date and Time of Service: 04/21/2017 at 1320 Interval History: Patient states the wound is looking better. Feeling better. She started to wean herself off her narcotics Objective : Data - Labs CBC and BMP: 04/21/17 04:15 04/21/17 04:15 Labs - Last 24 Hours: Laboratory Results 04/21/17 Range/Units 04:15 WBC 8.24 (4.8-10.8) 10^3/uL RBC 3.98 L (4.20-5.40) 10^6/uL Hgb 12.1 (12.0-16.0) g/dL Hct 37.2 (37.0-47.0) % MCV 93.5 (81-99) FL MCH 30.4 (27-31) PG MCHC 32.5 L (33-37) g/dL RDW Std Deviation 44.6 (39-50) fL RDW Coeff of Brennan 13.6 (11.5-14.5) % Plt Count 292 (140-350) 10*3/uL MPV 10.4 (7.4-12.2) FL Immature Gran % (Auto) 0.1 (0-5) % Neut % (Auto) 42.7 L (50-80) % Lymph % (Auto) 40.5 (10-50) % [place] % (Auto) 12.3 (5-15) % Eos % (Auto) 3.9 (0-8) % Baso % (Auto) 0.5 (0-1) % Immature Gran # (Auto) 0.01 10*3/UL Neut # (Auto) 3.52 10*3/UL Lymph # (Auto) 3.34 10*3/uL [place] # (Auto) 1.01 H (0.3-0.8) 10*3/UL Eos # (Auto) 0.32 10*3/UL Baso # (Auto) 0.04 10*3/UL WBC Morphology Comment Normal morphology (NORM) Plt Morphology Comment Normal morphology (NORM) RBC Morph Comment Normal morphology (NORM) Sodium 139 (135-145) meq/L Potassium 3.6 L (3.8-5.2) meq/L Chloride 100 (98-112) meq/L Carbon Dioxide 30 (23-33) meq/L Anion Gap 9 (5-20) BUN 4 L (7-22) mg/dL Creatinine 0.6 (0.50-1.20) mg/dL Estimated GFR > 60 (>60 ml/min/1.73m(2)) BUN/Creatinine Ratio 6.66 (6-20) Glucose 81 (78-110) mg/dL Calculated Osmolality 283.0 (267-292) mOsm/kg Calcium 8.7 (8.7-10.7) mg/dL - Vital Signs Vital Signs and I&O: Vital Signs - Last Taken Temperature 96.4 F L 04/21/17 12:22 Pulse Rate 86 04/21/17 12:22 Respiratory Rate 20 04/21/17 12:22 Blood Pressure 128/83 04/21/17 12:22 Pulse Ox 94 04/21/17 12:22 Intake and Output (24hr x 4 totals) 04/19/17 04/20/17 04/21/17 04/22/17 05:59 05:59 05:59 05:59 Intake Total 655 2150 1240 600 Output Total 150 5 Balance 505 2145 1240 600 Objective : Exam - General General Appearance: No Acute Distress, Cooperative - Head Head Exam: Normal Inspection, Normocephalic, Atraumatic - Eye Eye Exam: Normal Appearance, PERRL, EOMI Assessment and Plan - Patient Problems (1) Nonhealing surgical wound Current Visit: Yes Status: Acute Qualifiers: Encounter type: subsequent encounter Qualified Description: Non- healing surgical wound, subsequent encounter Qualifier Code(s): (T81.89XD ) Other complications of procedures, not elsewhere classified, subsequent encounter - Assessment / Plan Additional Assessment/Plan Details: This point was still continue wound care per physical therapy. Discharge when medically stable
[2017-04-21] MEDS: NICOTINE 21 MG /DAY PATCH TRANSDERM SCH (17:03)
[2017-04-21] MEDS: AMITRIPTYLINE 25 MG TABLET PO SCH (21:05)
[2017-04-22] MEDS: fentaNYL Inj 100 MCG/2 ML VIAL IVP PRN ×11 (01:06→22:57)
[2017-04-22] MEDS: oxyCODONE IR Tab 15 MG TAB PO PRN ×5 (01:06→19:35)
[2017-04-22] MEDS: MEPERIDINE HCL/PF 100 MG/1 ML INJECTION IVP PRN ×11 (01:06→22:58)
[2017-04-22] MEDS: NORMAL SALINE 10 ML SYRINGE FLUSH IVP PRN ×6 (07:21→22:58)
[2017-04-22] MEDS: OXYCODONE PO SCH ×4 (09:17→20:36)
[2017-04-22] MEDS: Spironolactone Tab 50 MG TAB PO SCH (09:18)
[2017-04-22] MEDS: Apixaban Tab 2.5 MG TABLET PO SCH ×2 (09:18→20:36)
[2017-04-22] MEDS: Metoprolol TARTRATE Tab 25 MG TAB PO SCH ×2 (09:18→20:36)
--- NOTE | 2017-04-22 09:29 | PDOC(PROG) ---
Date and Time of Service: 04/22/2017 9:25 AM Interval History: Subjective Patient continues to have pain in the area of the wound, rated the pain 8-9 out of 10. Pain goes down to 5 with the pain medication she is getting. No problems with bowel movements. she said he doesn't take any stool softeners at home for pain medications. Objective : Data - Labs CBC and BMP: 04/21/17 04:15 04/21/17 04:15 Objective : Exam - General General Appearance: No Acute Distress, Cooperative - Head Head Exam: Normal Inspection, Atraumatic - Eye Eye Exam: Normal Appearance - Neck Neck Exam: Normal Inspection - GI/Abdominal Additional GI/Abdominal Exam Details: Wound base looks okay there is minimal erythema at the edges but there is an area of induration on the medial aspect of the wound. which is tender. There is no fluctuation - Rectal Rectal Exam: Deferred - External Exam: Deferred - Extremities Extremities Exam: Normal Inspection - Back Back Exam: Normal Inspection - Neurological Neurological Exam: Alert, Oriented x 3, CN II-XII Intact, No Facial Droop, Moves All Extremities Equally - Psychiatric Psychiatric Exam: Normal Affect Assessment and Plan - Patient Problems (1) Abscess Current Visit: No Status: Acute Comment: She is status post drainage continue wound dressing per recommendation of Dr. Ferraro continue current antibiotics. Still waiting for culture result. (2) Chronic pain syndrome Current Visit: Yes Status: Chronic Comment: I discussed with her maybe starting cutting back on the fentanyl however she is resistant now so I think we'll keep the same medications. (3) History of DVT (deep vein thrombosis) Current Visit: Yes Status: Acute Comment: Continue eliquis.
[2017-04-22] MEDS: ESTRADIOL PO SCH (10:36)
--- NOTE | 2017-04-22 10:52 | PDOC(PROG) ---
Date and Time of Service: 04/22/2017 at 1050 Interval History: Patient has a new indurated area in the medial aspect of the wound. It is tender to touch Objective : Data - Labs CBC and BMP: 04/21/17 04:15 04/21/17 04:15 - Vital Signs Vital Signs and I&O: Vital Signs - Last Taken Temperature 98.1 F 04/22/17 08:44 Pulse Rate 98 04/22/17 08:44 Respiratory Rate 18 04/22/17 08:44 Blood Pressure 140/93 04/22/17 08:44 Pulse Ox 92 04/22/17 08:44 Intake and Output (24hr x 4 totals) 04/20/17 04/21/17 04/22/17 04/23/17 05:59 05:59 05:59 05:59 Intake Total 2150 1240 1900 590 Output Total 5 Balance 2145 1240 1900 590 Objective : Exam - GI/Abdominal Additional GI/Abdominal Exam Details: Patient has an area this proximally 3 cm induration near the medial aspect of the wound. There is no erythema associated with this. I gently explored the wound cannot demonstrate any abscess cavities communicating to this. Assessment and Plan - Patient Problems (1) Nonhealing surgical wound Current Visit: Yes Status: Acute Qualifiers: Encounter type: subsequent encounter Qualified Description: Non- healing surgical wound, subsequent encounter Qualifier Code(s): (T81.89XD ) Other complications of procedures, not elsewhere classified, subsequent encounter - Assessment / Plan Additional Assessment/Plan Details: Status post wound abscess. I'm leaving the patient started to develop a new abscess in the medial aspect of the wound. Is not a true area of fluctuation that I can sac and drain. This does not communicate to the wound itself. With like to get a little longer time to see if the declares itself. Since the patient has multiple abscesses after draining her intra-abdominal abscess. I'm reluctant to be super aggressive. I like to do is minimal incisions as possible since she keeps forming new abscess after drainage abscess. Joanna understands this. In this is reasonable like Tracee Hamm itself versus just going do a wide excision.
[2017-04-22] MEDS: NICOTINE 21 MG /DAY PATCH TRANSDERM SCH (17:27)
[2017-04-22] MEDS: AMITRIPTYLINE 25 MG TABLET PO SCH (20:35)
[2017-04-22] MEDS: Promethazine Tab 25 MG TAB PO PRN (20:36)
[2017-04-23] MEDS: fentaNYL Inj 100 MCG/2 ML VIAL IVP PRN ×10 (00:58→21:54)
[2017-04-23] MEDS: MEPERIDINE HCL/PF 100 MG/1 ML INJECTION IVP PRN ×10 (00:58→21:53)
[2017-04-23] MEDS: ONDANSETRON 4 MG/2 ML VIAL IVP PRN ×3 (00:58→17:57)
[2017-04-23] MEDS: oxyCODONE IR Tab 15 MG TAB PO PRN ×4 (01:10→21:52)
[2017-04-23 05:24] LABS: BASOPHILS # (AUTO) 0.07 10*3/UL; BASOPHILS % (AUTO) 0.8 % (0-1); HEMATOCRIT 40.7 % (37.0-47.0); HEMOGLOBIN 13.4 g/dL (12.0-16.0); LYMPHOCYTES # (AUTO) 3.41 10*3/uL; MEAN CORPUSCULAR HEMOGLOBIN 30.9 PG (27-31); MEAN CORPUSCULAR HGB CONC 32.9 g/dL (33-37); MEAN CORPUSCULAR VOLUME 93.8 FL (81-99); MEAN PLATELET VOLUME 9.8 FL (7.4-12.2); MONOCYTES % (AUTO) 10.3 % (5-15); NEUTROPHILS # (AUTO) 3.66 10*3/UL; NEUTROPHILS % (AUTO) 41.9 % (50-80); RED BLOOD COUNT 4.34 10^6/uL (4.20-5.40)
[2017-04-23 05:28] LABS: PLATELET MORPHOLOGY COMMENT NORMAL MORPHOLOGY (NORM); RBC MORPHOLOGY COMMENT NORMAL MORPHOLOGY (NORM); WBC MORPHOLOGY COMMENT NORMAL MORPHOLOGY (NORM)
[2017-04-23] MEDS: NORMAL SALINE 10 ML SYRINGE FLUSH IVP PRN ×4 (07:19→17:53)
--- NOTE | 2017-04-23 08:43 | PDOC(PROG) ---
Date and Time of Service: 04/23/2017 at 840 Interval History: Patient is doing fine Objective : Data - Labs CBC and BMP: 04/23/17 05:00 04/21/17 04:15 Labs - Last 24 Hours: Laboratory Results 04/23/17 Range/Units 05:00 WBC 8.74 (4.8-10.8) 10^3/uL RBC 4.34 (4.20-5.40) 10^6/uL Hgb 13.4 (12.0-16.0) g/dL Hct 40.7 (37.0-47.0) % MCV 93.8 (81-99) FL MCH 30.9 (27-31) PG MCHC 32.9 L (33-37) g/dL RDW Std Deviation 44.4 (39-50) fL RDW Coeff of Brennan 13.5 (11.5-14.5) % Plt Count 320 (140-350) 10*3/uL MPV 9.8 (7.4-12.2) FL Immature Gran % (Auto) 0 (0-5) % Neut % (Auto) 41.9 L (50-80) % Lymph % (Auto) 39.0 (10-50) % [place] % (Auto) 10.3 (5-15) % Eos % (Auto) 8.0 (0-8) % Baso % (Auto) 0.8 (0-1) % Immature Gran # (Auto) 0 10*3/UL Neut # (Auto) 3.66 10*3/UL Lymph # (Auto) 3.41 10*3/uL [place] # (Auto) 0.90 H (0.3-0.8) 10*3/UL Eos # (Auto) 0.70 10*3/UL Baso # (Auto) 0.07 10*3/UL WBC Morphology Comment Normal morphology (NORM) Plt Morphology Comment Normal morphology (NORM) RBC Morph Comment Normal morphology (NORM) - Vital Signs Vital Signs and I&O: Vital Signs - Last Taken Temperature 97.2 F 04/23/17 06:54 Pulse Rate 101 H 04/23/17 06:54 Respiratory Rate 18 04/23/17 06:54 Blood Pressure 110/66 04/23/17 06:54 Pulse Ox 95 04/23/17 06:57 Intake and Output (24hr x 4 totals) 04/21/17 04/22/17 04/23/17 04/24/17 05:59 05:59 05:59 05:59 Intake Total 1240 1900 1610 Balance 1240 1900 1610 Objective : Exam - GI/Abdominal Additional GI/Abdominal Exam Details: The medial aspect of incision actually looks a lot better today. There is no induration no erythema associated with this discomfort little bit of firmness. Does not seem he is tender is was yesterday. Assessment and Plan - Patient Problems (1) Nonhealing surgical wound Current Visit: Yes Status: Acute Qualifiers: Encounter type: subsequent encounter Qualified Description: Non- healing surgical wound, subsequent encounter Qualifier Code(s): (T81.89XD ) Other complications of procedures, not elsewhere classified, subsequent encounter - Assessment / Plan Additional Assessment/Plan Details: Again at this point, there is no abscess. Will continue antibiotics.
--- NOTE | 2017-04-23 08:58 | PDOC(PROG) ---
Date and Time of Service: 04/23/2017 8:43 AM Interval History: Subjective Patient's feels maybe a little bit better, she did have a bowel movement today. Objective : Data - Labs CBC and BMP: 04/23/17 05:00 04/21/17 04:15 Labs - Last 24 Hours: Laboratory Results 04/23/17 Range/Units 05:00 WBC 8.74 (4.8-10.8) 10^3/uL RBC 4.34 (4.20-5.40) 10^6/uL Hgb 13.4 (12.0-16.0) g/dL Hct 40.7 (37.0-47.0) % MCV 93.8 (81-99) FL MCH 30.9 (27-31) PG MCHC 32.9 L (33-37) g/dL RDW Std Deviation 44.4 (39-50) fL RDW Coeff of Brennan 13.5 (11.5-14.5) % Plt Count 320 (140-350) 10*3/uL MPV 9.8 (7.4-12.2) FL Immature Gran % (Auto) 0 (0-5) % Neut % (Auto) 41.9 L (50-80) % Lymph % (Auto) 39.0 (10-50) % [place] % (Auto) 10.3 (5-15) % Eos % (Auto) 8.0 (0-8) % Baso % (Auto) 0.8 (0-1) % Immature Gran # (Auto) 0 10*3/UL Neut # (Auto) 3.66 10*3/UL Lymph # (Auto) 3.41 10*3/uL [place] # (Auto) 0.90 H (0.3-0.8) 10*3/UL Eos # (Auto) 0.70 10*3/UL Baso # (Auto) 0.07 10*3/UL WBC Morphology Comment Normal morphology (NORM) Plt Morphology Comment Normal morphology (NORM) RBC Morph Comment Normal morphology (NORM) Objective : Exam - General General Appearance: No Acute Distress - Head Head Exam: Normal Inspection, Atraumatic - Eye Eye Exam: Normal Appearance - Neck Neck Exam: Normal Inspection - GI/Abdominal Additional GI/Abdominal Exam Details: The wound looks better today compared to yesterday. There is no significant erythema. There is still induration on the medial aspect of the wound but there is no fluctuation. - External Exam: Deferred - Extremities Extremities Exam: Normal Inspection - Back Back Exam: Normal Inspection - Neurological Neurological Exam: Alert, Oriented x 3, CN II-XII Intact, Speech Intact / Clear , Moves All Extremities Equally - Psychiatric Psychiatric Exam: Normal Affect Assessment and Plan - Patient Problems (1) Abscess Current Visit: No Status: Acute Comment: Status post drainage continue dressing changes. Dr. Rangel did see the patient and he suggested increasing the dressing changes to twice a day , does not think she needs surgical intervention today. (2) Chronic pain syndrome Current Visit: Yes Status: Chronic Comment: Same medications, we decided not to change the medication as potentially she may need to have surgery tomorrow, if not then will start to cut back and on we decided we'll start cutting back on the fentanyl first. (3) History of DVT (deep vein thrombosis) Current Visit: Yes Status: Acute Comment: Continue eliquis (4) Hypokalemia Current Visit: Yes Status: Acute Comment: She said she has low potassium and she takes aldactone and potassium. The last time checked potassium was 2 days ago was 3.6 and will recheck it tomorrow.
[2017-04-23] MEDS: Apixaban Tab 2.5 MG TABLET PO SCH ×2 (09:16→21:53)
[2017-04-23] MEDS: OXYCODONE PO SCH ×4 (09:16→21:53)
[2017-04-23] MEDS: Spironolactone Tab 50 MG TAB PO SCH (09:16)
[2017-04-23] MEDS: Metoprolol TARTRATE Tab 25 MG TAB PO SCH ×2 (09:16→21:53)
[2017-04-23] MEDS: NICOTINE 21 MG /DAY PATCH TRANSDERM SCH (18:05)
[2017-04-23] MEDS: AMITRIPTYLINE 25 MG TABLET PO SCH (21:52)
[2017-04-24] MEDS: fentaNYL Inj 100 MCG/2 ML VIAL IVP PRN ×8 (02:15→20:40)
[2017-04-24] MEDS: MEPERIDINE HCL/PF 100 MG/1 ML INJECTION IVP PRN ×6 (02:15→11:31)
[2017-04-24] MEDS: oxyCODONE IR Tab 15 MG TAB PO PRN ×3 (04:41→20:41)
[2017-04-24 05:23] LABS: BLOOD UREA NITROGEN 8 mg/dL (7-22); CALCIUM 9.2 mg/dL (8.7-10.7); EST GLOMERULAR FILTRATION > 60 (>60 ml/min/1.73m(2))
[2017-04-24] MEDS: Spironolactone Tab 50 MG TAB PO SCH (09:00)
[2017-04-24] MEDS: Apixaban Tab 2.5 MG TABLET PO SCH ×2 (09:01→20:41)
[2017-04-24] MEDS: OXYCODONE PO SCH ×4 (09:01→20:41)
[2017-04-24] MEDS: Metoprolol TARTRATE Tab 25 MG TAB PO SCH ×2 (09:01→20:42)
--- NOTE | 2017-04-24 09:54 | PT AM DAY ---
Diagnosis : Abdominal Wound AM - Physical Therapy S: The patient reports she is very concerned about another hardened spot on the left aspect of her wound. She conveyed this to the hospitalist mobile application architect and Dr. Rangel will be notified. O: Today's therapy consisted of dressing flower with Dr. Morales there for physical inspection of the wound. The wound itself has clear, well defined borders and a good granulation base; however, upon palpation there is a hardened area to the left of the outer most edge. It is these types of hardened areas that have in the past revealed themselves as further wound pockets. The wound was dressed with Medi-Honey and packed with 4X4s as well as a 6X6 Mepilex. A: At this time the wound base continues to look good. P: Continue seeing patient per Dr. Rangel's recommendation. [facility]
--- NOTE | 2017-04-24 09:57 | PT AM DAY ---
Diagnosis : Abdominal Wound AM - Physical Therapy S: The patient was not required to be seen. Per nursing staff, Dr. Rangel saw the patient and had already changed the bandage. The bandage has now been moved to a BID. MTDD
--- NOTE | 2017-04-24 12:43 | PDOC(PROG) ---
Interval History: Patient has no complaints the Dr. ana Shook also evaluating the patient at present time her wound shows no signs of infection or abscess formation continues to do wound care twice a day Objective : Data - Labs CBC and BMP: 04/23/17 05:00 04/24/17 04:40 Labs - Last 24 Hours: Laboratory Results 04/24/17 Range/Units 04:40 Sodium 138 (135-145) meq/L Potassium 4.0 (3.8-5.2) meq/L Chloride 100 (98-112) meq/L Carbon Dioxide 26 (23-33) meq/L Anion Gap 12 (5-20) BUN 8 (7-22) mg/dL Creatinine 0.8 (0.50-1.20) mg/dL Estimated GFR > 60 (>60 ml/min/1.73m(2)) BUN/Creatinine Ratio 10.00 (6-20) Glucose 94 (78-110) mg/dL Calculated Osmolality 283.0 (267-292) mOsm/kg Calcium 9.2 (8.7-10.7) mg/dL Objective : Exam - GI/Abdominal Additional GI/Abdominal Exam Details: Right lower quadrant wound open no redness at does not look infected Dr. ana Shook examining at present time but visually I have looked at as well I do not see any redness and not be palpating is touching since the surgeon is just the has done it Assessment and Plan - Patient Problems (1) Nonhealing surgical wound Current Visit: Yes Status: Acute Comment: The wound is stable defer to Dr. ana Shook for wound care management. I did talk to the patient about her pain management she is on 100 mg of Demerol every 2 hours she has received 58 doses since admission and also on fentanyl 50 g every 2 hours and has received the 54 doses she also is on her usual chronic pain management meds. I've told her that these high doses of Demerol can be dangerous with side effects including seizures I have put in a call to 3 different med pain specialist at the [facility] and also in the [place] area waiting for callbacks on further guidance on the escalation of the IV and pain meds at present time we are going to do 15 mg's of Demerol every 3 hours and the fentanyl as we will go from every 2 hours to every 3 hours patient has agreed with this also she wanted to stop Demerol altogether I told her that this might not be safe to cut these kinds of medications all at once. I also discussed the if she wanted me to pursue transfer to [facility] where there is hyperbaric oxygen and wound care she said that she will speak to the and she will let me know Qualifiers: Encounter type: subsequent encounter Qualified Description: Non- healing surgical wound, subsequent encounter Qualifier Code(s): (T81.89XD ) Other complications of procedures, not elsewhere classified, subsequent encounter
--- NOTE | 2017-04-24 12:45 | PDOC(PROG) ---
Date and Time of Service: a 2016 at 12:30 Interval History: Patient's wound was looked at today again indurated area medial to the incision is getting a lot less. There is no fluctuations. No drainage. Objective : Data - Labs CBC and BMP: 04/23/17 05:00 04/24/17 04:40 Labs - Last 24 Hours: Laboratory Results 04/24/17 Range/Units 04:40 Sodium 138 (135-145) meq/L Potassium 4.0 (3.8-5.2) meq/L Chloride 100 (98-112) meq/L Carbon Dioxide 26 (23-33) meq/L Anion Gap 12 (5-20) BUN 8 (7-22) mg/dL Creatinine 0.8 (0.50-1.20) mg/dL Estimated GFR > 60 (>60 ml/min/1.73m(2)) BUN/Creatinine Ratio 10.00 (6-20) Glucose 94 (78-110) mg/dL Calculated Osmolality 283.0 (267-292) mOsm/kg Calcium 9.2 (8.7-10.7) mg/dL - Vital Signs Vital Signs and I&O: Vital Signs - Last Taken Temperature 97 F 04/24/17 11:08 Pulse Rate 88 04/24/17 11:08 Respiratory Rate 18 04/24/17 11:08 Blood Pressure 108/72 04/24/17 11:08 Pulse Ox 95 04/24/17 11:08 Intake and Output (24hr x 4 totals) 04/22/17 04/23/17 04/24/17 04/25/17 05:59 05:59 05:59 05:59 Intake Total 1900 1610 800 Output Total 100 Balance 1900 1610 700 Assessment and Plan - Patient Problems (1) Nonhealing surgical wound Current Visit: Yes Status: Acute Qualifiers: Qualified Description: Non-healing surgical wound, subsequent encounter Qualifier Code(s): (T81.89XD) Other complications of procedures, not elsewhere classified, subsequent encounter - Assessment / Plan Additional Assessment/Plan Details: Continue aggressive wound care with Multidex and gauze per physical therapy
[2017-04-24] MEDS ORDERED: fentaNYL Inj 100 MCG/2 ML VIAL IVP PRN (13:30)
[2017-04-24] MEDS ORDERED: Meperidine Inj 50 MG/ML CARPUJECT IVP PRN (14:30)
[2017-04-24] MEDS: NICOTINE 21 MG /DAY PATCH TRANSDERM SCH (16:54)
[2017-04-24] MEDS: AMITRIPTYLINE 25 MG TABLET PO SCH (20:41)
[2017-04-25] MEDS: fentaNYL Inj 100 MCG/2 ML VIAL IVP PRN ×3 (00:03→07:37)
[2017-04-25] MEDS: oxyCODONE IR Tab 15 MG TAB PO PRN ×3 (02:02→11:21)
[2017-04-25] MEDS: NORMAL SALINE 10 ML SYRINGE FLUSH IVP PRN ×2 (04:43→07:38)
[2017-04-25 07:24] VITALS: RESP 18; TEMP 97.6
--- NOTE | 2017-04-25 07:58 | PT.PROG ---
Progress Note Progress Note: S: Pt. states she thinks the wound still has more abscesses and wants the doctor to go in and remove more of the area. Dr. Vaughn and Dr. Rangel came into the room during dressing change. Dr. Domínguez spoke with patient about the wound looking good with no s/s of infection. Upon palpation Dr. Rangel states he does not feel that there are any other abscesses. Dr. Vaughn spoke with patient about adjusting her meds. O: Treatment consisted of wound care to abdomen. Removed soiled dressing and cleansed with saline and sterile 4x4. Wound was then packed with medihoney and covered with 4x4 gauze and mepilix. A: Pt's wound bed presents with 100% granulation tissue with induration noted around edges. No other swelling or redness noted on periwound. P: Will continue per POC per MD orders. Malena Harper, STRAPPING MACHINE TENDER
[2017-04-25] MEDS: Apixaban Tab 2.5 MG TABLET PO SCH (08:39)
[2017-04-25] MEDS: OXYCODONE PO SCH ×2 (08:40)
[2017-04-25] MEDS: Spironolactone Tab 50 MG TAB PO SCH (08:40)
[2017-04-25] MEDS: Metoprolol TARTRATE Tab 25 MG TAB PO SCH (08:40)
--- NOTE | 2017-04-25 10:36 | DCSUMMARY ---
Hospitalization Summary Hospital Course: Final Discharge Diagnosis: Current Visit Problems Problem Status Priority Diagnosed Code Cellulitis Acute L03.90 Dehydration Acute E86.0 History of DVT (deep vein thrombosis) Acute Z86.718 Hypokalemia Acute E87.6 Nausea and vomiting Acute R11.2 Nonhealing surgical wound Acute T81.89XA Postoperative abscess Acute T81.4XXA Chronic pain syndrome Chronic G89.4 Delayed gastric emptying Chronic K30 History of pulmonary embolism Chronic Z86.711 Tobacco abuse Chronic Z72.0 Transgendered Chronic F64.1 Leukocytosis Resolved D72.829 Diagnostic Data, Laboratory Data, and Procedures of Signifigance: Laboratory Results 04/18/17 04/19/17 04/20/17 Range/Units 09:40 04:26 04:51 WBC 13.59 H 15.31 H 11.50 H (4.8-10.8) 10^3/uL RBC 4.53 4.17 L 3.69 L (4.20-5.40) 10^6/uL Hgb 14.1 12.6 11.3 L (12.0-16.0) g/dL Hct 41.2 37.9 34.8 L (37.0-47.0) % MCV 90.9 90.9 94.3 (81-99) FL MCH 31.1 H 30.2 30.6 (27-31) PG MCHC 34.2 33.2 32.5 L (33-37) g/dL RDW Std Deviation 43.3 42.4 45.1 (39-50) fL RDW Coeff of Brennan 13.4 13.1 13.8 (11.5-14.5) % Plt Count 352 H 332 252 (140-350) 10*3/uL MPV 9.7 10.5 10.2 (7.4-12.2) FL Immature Gran % (Auto) 0.1 0.3 0.3 (0-5) % Neut % (Auto) 67.6 82.9 H 47.9 L (50-80) % Lymph % (Auto) 19.3 11.8 37.8 (10-50) % [place] % (Auto) 9.2 4.9 L 12.0 (5-15) % Eos % (Auto) 2.8 0 1.7 (0-8) % Baso % (Auto) 1.0 0.1 0.3 (0-1) % Immature Gran # (Auto) 0.02 0.05 0.03 10*3/UL Neut # (Auto) 9.19 12.70 5.50 10*3/UL Lymph # (Auto) 2.62 1.80 4.35 10*3/uL [place] # (Auto) 1.25 H 0.75 1.38 H (0.3-0.8) 10*3/UL Eos # (Auto) 0.38 0 0.20 10*3/UL Baso # (Auto) 0.13 0.01 0.04 10*3/UL WBC Morphology Comment Normal morphology Normal morphology Normal morphology (NORM) Plt Morphology Comment Normal morphology Normal morphology Normal morphology (NORM) RBC Morph Comment Normal morphology Normal morphology Normal morphology ( NORM) Sodium 137 138 140 (135-145) meq/L Potassium 4.1 4.3 3.4 L (3.8-5.2) meq/L Chloride 103 105 105 (98-112) meq/L Carbon Dioxide 26 25 29 (23-33) meq/L Anion Gap 8 8 6 (5-20) BUN 7 6 L 3 L (7-22) mg/dL Creatinine 0.6 0.5 0.6 (0.50-1.20) mg/dL Estimated GFR > 60 > 60 > 60 (>60 ml/min/1.73m(2)) BUN/Creatinine Ratio 11.66 12.00 5.00 L (6-20) Glucose 98 112 H 95 (78-110) mg/dL Calculated Osmolality 281.0 284.0 286.0 (267-292) mOsm/kg Lactic Acid 0.9 (0.70-2.10) MMOL/L Calcium 9.2 9.0 8.2 L (8.7-10.7) mg/dL Total Bilirubin 0.2 L (0.3-1.2) mg/dL AST 15 (8-39) IU/L ALT 27 (9-52) IU/L Alkaline Phosphatase 90 (38-126) IU/L C-Reactive Protein 4.0 H (0.0-0.9) mg/dL Total Protein 6.7 (6.1-8.0) g/dL Albumin 3.9 (3.5-4.8) g/dL Globulin 2.8 (2.50-4.10) g/dL Albumin/Globulin Ratio 1.30 (1.3-2.0) mg/g 04/21/17 04/23/17 04/24/17 Range/Units 04:15 05:00 04:40 WBC 8.24 8.74 (4.8-10.8) 10^3/uL RBC 3.98 L 4.34 (4.20-5.40) 10^6/uL Hgb 12.1 13.4 (12.0-16.0) g/dL Hct 37.2 40.7 (37.0-47.0) % MCV 93.5 93.8 (81-99) FL MCH 30.4 30.9 (27-31) PG MCHC 32.5 L 32.9 L (33-37) g/dL RDW Std Deviation 44.6 44.4 (39-50) fL RDW Coeff of Bernnan 13.6 13.5 (11.5-14.5) % Plt Count 292 320 (140-350) 10*3/uL MPV 10.4 9.8 (7.4-12.2) FL Immature Gran % (Auto) 0.1 0 (0-5) % Neut % (Auto) 42.7 L 41.9 L (50-80) % Lymph % (Auto) 40.5 39.0 (10-50) % Morris % (Auto) 12.3 10.3 (5-15) % Eos % (Auto) 3.9 8.0 (0-8) % Baso % (Auto) 0.5 0.8 (0-1) % Immature Gran # (Auto) 0.01 0 10*3/UL Neut # (Auto) 3.52 3.66 10*3/UL Lymph # (Auto) 3.34 3.41 10*3/uL Morris # (Auto) 1.01 H 0.90 H (0.3-0.8) 10*3/UL Eos # (Auto) 0.32 0.70 10*3/UL Baso # (Auto) 0.04 0.07 10*3/UL WBC Morphology Comment Normal morphology Normal morphology (NORM) Plt Morphology Comment Normal morphology Normal morphology (NORM) RBC Morph Comment Normal morphology Normal morphology (NORM) Sodium 139 138 (135-145) meq/L Potassium 3.6 L 4.0 (3.8-5.2) meq/L Chloride 100 100 (98-112) meq/L Carbon Dioxide 30 26 (23-33) meq/L Anion Gap 9 12 (5-20) BUN 4 L 8 (7-22) mg/dL Creatinine 0.6 0.8 (0.50-1.20) mg/dL Estimated GFR > 60 > 60 (>60 ml/min/1.73m(2)) BUN/Creatinine Ratio 6.66 10.00 (6-20) Glucose 81 94 (78-110) mg/dL Calculated Osmolality 283.0 283.0 (267-292) mOsm/kg Lactic Acid (0.70-2.10) MMOL/L Calcium 8.7 9.2 (8.7-10.7) mg/dL Total Bilirubin (0.3-1.2) mg/dL AST (8-39) IU/L ALT (9-52) IU/L Alkaline Phosphatase (38-126) IU/L C-Reactive Protein (0.0-0.9) mg/dL Total Protein (6.1-8.0) g/dL Albumin (3.5-4.8) g/dL Globulin (2.50-4.10) g/dL Albumin/Globulin Ratio (1.3-2.0) mg/g Microbiology 04/18/17 09:50 Blood Blood Culture - Final NO GROWTH AFTER 5 DAYS 04/18/17 09:40 Blood Blood Culture - Final NO GROWTH AFTER 5 DAYS 04/19/17 15:13 Abdomen Anaerobic Culture - Final 04/19/17 15:13 Abdomen Aerobic Culture - Final Citrobacter Freundii History and Physical pertinent to Admission: Past Medical History Medical History: 1. 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 2. Transgendered. 3. Delayed gastric emptying. 4. Status post excision of thymoma. 5. History of non-Hodgkin's lymphoma. 6. Tachycardia, non specific. Surgical History: 1. 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 2. Hernia repair. 3. Breast augmentation. 4. Boxer's fracture repair on right hand with subsequent hardware removal with one of the screws having a broken had and still being in place. She had no complaints of this today. 5. Excision of thymoma. 6. Appendectomy, laparoscopic. 7. Open drainage of abdominal wound abscess with drain placement. Drain was removed Pertinent Family History: Significant for diabetes Past Social History: Smoker, upwards of 2 packs per day, does not drink alcohol. Lives in [place], [place]. Has a significant other with 5 kids and she states she stays at home primarily to help raise the 5 children. Her primary care provider is in [place], [place]. 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 Tobacco Use: Current Every Day Smoker Course of Hospitalization: This very pleasant 32-year-old transgender patient with the past medical history and current history of chronic pain syndrome sees a primary care physician in [facility], also history DVT PE. Has had the nonhealing surgical wound in the right lower quadrant subsequent to appendicitis was put on antibiotics and the wound was cleaned and drain by Dr. ana Shook came back to the hospital with possible skin infection Dr. ana Shook evaluated the patient and the daughter was a small abscess he did drain it again and now the wound looks great cultures were reobtained and patient has been on Levaquin 750 at that time for a total of 10 days as recommended by infectious disease. Cultures show again the Citrobacter which was sensitive to Levaquin. I spoke to infectious disease discussed the case he recommended 5 more days of Levaquin 750 discussed the case with the also with Dr. ana Shook very unusual that this wound keeps getting an infected and nonhealing at this point. I also recommended to the patient to maybe seek care [place] for hyperbaric and specialized wound care or a [facility] hyperbarics or specialized wound care she will discuss it with her primary care physician and her mother that lives in [place]. I gave the patient the option of going to swing bed until the wound is healed but she has opted to go home at this point with her mother-in- law doing the wound changes and physical therapy as well. Today we will do another wound change she is also asked to have some fat no before to change and then also she will go to the pharmacy to get her medication. I also recommended to speak to her primary care physician to see maybe 4 change of plan on her by mouth if these need to be increased or decreased. Also offered the help if interested in going to chronic pain clinic she said that she has done this in the past and secondary to accidents had to get back on the pain meds. I just told her that we will like to help her as much as possible in any way we can to help her through her healing of this wound. Nurse Grisel and an Dorothea or in the room for this whole conversation patient agrees and understands On the date of discharge, the patient was examined: Gen.: [No acute distress, alert, nontoxic] Abdomen/GI: [Normal tones on auscultation, soft, nontender, nondistended] Musculoskeletal/extremities: [No clubbing, cyanosis, or edema] Vitals reviewed and are listed below Vital Signs (24 hrs) Temp Pulse Resp BP Pulse Ox 04/25/17 07:20 97.6 F 105 H 18 114/77 96 04/25/17 04:40 98.1 F 100 22 117/84 97 04/25/17 00:21 98.3 F 100 20 114/77 95 04/24/17 20:28 98.4 F 120 H 22 142/91 94 04/24/17 16:16 97.3 F 97 18 122/80 92 04/24/17 11:08 97 F 88 18 108/72 95 Assessment and Plan: 1. As per discharge assessments above 2. Disposition: Home 3. Condition on discharge, stable and improved. 4. Diet: regular diet 5. Activities: resume normal activities 6. Follow-Up: Dr. ana Shook and primary care physician tomorrow at 10 AM at [facility] in [facility] appointment already in place 1. [PCP] 2. 7. Medications at the Time of Discharge: Home Medications Medication Instructions Recorded Confirmed Type Estradiol 4 tab PO BID 10/14/15 04/18/17 History Spironolactone 1 tab PO DAILY 10/14/15 04/18/17 History Amitriptyline HCl 2 tab PO BEDTIME 01/22/17 04/18/17 History Metoprolol Tartrate Tab 1 tab PO BID 02/01/17 04/18/17 History [Lopressor Tab] Oxycodone HCl 2 tab PO Q4H PRN tab 02/07/17 04/18/17 History Oxycodone HCl [Oxycodone HCl ER] 1 tab PO BID tab 02/07/17 04/18/17 History Hydromorphone HCl [Dilaudid] 8 mg PO Q4H tab 03/09/17 04/18/17 History Promethazine HCl [Phenergan] 25 mg PO Q6H PRN 04/02/17 04/18/17 History Levofloxacin Tab [Levaquin Tab] 750 mg PO DAILY #3tab 8-15 04/28/17 Rx Apixaban [Eliquis] 2.5 mg PO BID 04/18/17 04/18/17 History 8. Time, care, counseling and coordination of care for this discharge is greater than 30 minutes. Exam - Vitals Vital Signs: Vital Signs Temperature 97.6 F Temperature Source Temporal Artery Scan Pulse Rate [Apical] 110 Pulse Rate [Pulse Oximeter] 105 Pulse Rate 97 Respiratory Rate 18 Blood Pressure [Right Arm] 114/77 Blood Pressure [Left Arm] 119/82 Blood Pressure 109/64 Pulse Ox 96 Oxygen Flow Rate 92 Oxygen Delivery Method Room Air Height 5 ft 9 in Weight 78.471 kg Patient Problems - Patient Problem List (1) Nonhealing surgical wound Current Visit: Yes Status: Acute Qualifiers: Encounter type: subsequent encounter Qualified Description: Non- healing surgical wound, subsequent encounter Qualifier Code(s): (T81.89XD ) Other complications of procedures, not elsewhere classified, subsequent encounter
[2017-04-25] MEDS ORDERED: fentaNYL Inj 100 MCG/2 ML VIAL IVP ONE (11:00)
--- NOTE | 2017-04-25 12:01 | PT.PROG ---
Progress Note Progress Note: S: Patient states that she wants to go home and will attempt to come in for outpatient dressing changes however may do dressing changes at home with her significant other and mother in-law. O: Treatment consisted of wound care to abdomen. Removed soiled dressing and cleansed with saline and sterile 4x4. Wound was then packed with medihoney and covered with 4x4 gauze and mepilix. A: Pt's wound bed presents with 100% granulation tissue with induration noted around edges. No other swelling or redness noted on periwound. P: Will continue per POC per MD orders.
== END 2017-04-25 11:30 | disposition home or self-care (01) | DRG 863 ==
LOC: ER 08:52 → MED/SURG 13:47
PROVIDERS: ADMIT Family Medicine; ATTEND Family Medicine
DX: T81.4XXA Infection following a procedure, initial encounter (principal); L03.311 Cellulitis of abdominal wall; L02.211 Cutaneous abscess of abdominal wall; E86.0 Dehydration; E87.6 Hypokalemia; R11.2 Nausea with vomiting, unspecified; G89.4 Chronic pain syndrome; K30 Functional dyspepsia; Z72.0 Tobacco use; F64.1 Dual role transvestism; D72.829 Elevated white blood cell count, unspecified
CPT/HCPCS: 36415; 74177; 80048; 80053; 83605; 85025; 86140; 87040; 87070; 87075; 87077; 87186; 87205; 93970; 94761; 96361; 96365; 96375; 97161; 99284; J0131; J1170; J1200; J2001; J2175; J2250; J2405; J3010; J7030; J7120; Q0169

== ENCOUNTER 2018-01-17 10:15 | Inpatient (IN) ==
[2018-01-17] MEDS ORDERED: Sodium Chloride 0.9% 1,000 ML PRIMARY IV ONE ×2 (10:32→13:11)
[2018-01-17] MEDS ORDERED: diphenhydrAMINE 50 MG/1 ML VIAL IVP ONE (10:33)
[2018-01-17] MEDS ORDERED: HYDROmorphone 2 MG/1 ML IVP ONE ×2 (10:41→13:10)
[2018-01-17] MEDS ORDERED: ONDANSETRON 4 MG/2 ML VIAL IVP ONE (10:41)
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
[2018-01-17] MEDS ORDERED: LIDOCAINE W/ SODIUM BICARB 0.5 ML SYR ONE (11:23)
[2018-01-17 11:34] LABS: BASOPHILS # (AUTO) 0.01 10*3/UL; BASOPHILS % (AUTO) 0.1 % (0-1); EOSINOPHILS # (AUTO) 0.07 10*3/UL; EOSINOPHILS % (AUTO) 0.5 % (0-8); Hematocrit [HCT] 39.6 % (37.0-47.0); Hemoglobin [HGB] 13.7 g/dL (12.0-16.0); LYMPHOCYTES # (AUTO) 1.79 10*3/uL; MEAN CORPUSCULAR HGB CONC 34.6 g/dL (33-37); MEAN CORPUSCULAR VOLUME 92.5 FL (81-99); MEAN PLATELET VOLUME 9.7 FL (7.4-12.2); MONOCYTES # (AUTO) 1.13 10*3/UL (0.3-0.8); MONOCYTES % (AUTO) 7.8 % (5-15); NEUTROPHILS % (AUTO) 79.1 % (50-80); RED BLOOD COUNT 4.28 10^6/uL (4.20-5.40)
[2018-01-17 11:35] LABS: PLATELET MORPHOLOGY COMMENT NORMAL MORPHOLOGY (NORM); RBC MORPHOLOGY COMMENT NORMAL MORPHOLOGY (NORM); WBC MORPHOLOGY COMMENT NORMAL MORPHOLOGY (NORM)
[2018-01-17 11:46] LABS: BLOOD UREA NITROGEN 5 mg/dL (7-22); SERUM ALBUMIN 4.6 g/dL (3.5-4.8)
[2018-01-17] MEDS ORDERED: methylPREDNISolone 125 MG/2 ML VIAL IVP ONE (12:56)
--- NOTE | 2018-01-17 14:34 | DI ---
PA /LATERAL CHEST, 01/17/2018 1:10 PM : Clinical History: Cough. Elevated white count. Previous Exam: 02/18/2017; 02/19/2017. There is no acute soft tissue or bony abnormality. Heart size is normal. Lungs are clear. Mediastinal structures are normal. There are no pulmonary nodules. The patient is status post median sternotomy. Reading: Normal chest x-ray. There has been no significant interval change.
--- NOTE | 2018-01-17 14:38 | DI ---
ULTRASOUND OF THE RIGHT LOWER QUADRANT, 01/17/2018 10:35 AM: Clinical History: Pain with swelling in the right lower quadrant abdominal wall. Previous Exam: 04/09/2017. Scans are performed in multiple projections through the right lower quadrant over the surgical scar. There is thickening of the rectus abdominis muscle on the posterior aspect similar to the last exam. There are bright echoes within this area of thickening over the appendectomy scar, probably represent ing sutures or calcifications. There is a small fluid collection probably no larger than 10 mm in juan ramon meter in proximity to these bright echoes. Reading: There is thickening of the rectus abdominis wall on the posterior aspect with a small fluid collectio n probably no more than 1 cm in diameter. The appearance is quite similar to the previous exam.
[2018-01-17] MEDS ORDERED: Ertapenem Inj 1 GM in Sodium Chloride 0.9% 100 ML IV ONE (15:05)
[2018-01-17] MEDS ORDERED: oxyCODONE IR Tab 15 MG TAB PO ONE (15:14)
[2018-01-17] MEDS ORDERED: ONDANSETRON 4 MG/2 ML VIAL IVP PRN (15:47)
[2018-01-17] MEDS ORDERED: DOCUSATE 100 MG CAPSULE PO PRN (15:47)
[2018-01-17] MEDS ORDERED: LIDOCAINE W/ SODIUM BICARB 0.5 ML SYR SUBD PRN (15:47)
[2018-01-17] MEDS ORDERED: CALCIUM CARBONATE 500 MG (TUMS) CHEWABLE TABLET PO PRN (15:47)
[2018-01-17] MEDS: HYDROmorphone 2 MG/1 ML IVP PRN ×3 (16:33→22:32)
[2018-01-17] MEDS: ACETAMINOPHEN 325 MG TABLET PO PRN (17:37)
[2018-01-17] MEDS ORDERED: oxyCODONE IR Tab 15 MG TAB PO PRN (17:58)
--- NOTE | 2018-01-17 18:15 | DI ---
CT ABDOMEN SCAN WITH IV CONTRAST, 01/17/2018 12:56 PM : Clinical History: Right lower quadrant abdominal pain. Elevated white count. Previous Exam: 07/20/2017. Scans are performed from the lower lung bases through the liver and kidneys with IV contrast. 50 mL o f Isovue 300 was injected IV. Because this patient had a very tenuous IV site, the contrast was hand injected by myself. No oral or rectal contrast was ordered. The lung bases are clear. The liver is normal. The gallbladder is grossly normal. There is no abnorma lity of the spleen, pancreas, and adrenal glands. Both kidneys are normal in size, shape, position an d contour. There is no hydronephrosis or hydroureter. There are bilateral nonobstructing renal calcul i ranging between 2-5 mm in diameter present in the upper and lower poles of each kidney There are no abnormal retrocrural or periaortic nodes. No ascites is present. READIN. Bilateral 2-5 mm diameter nonobstructing renal calculi in the upper lower poles. No ureteral calc eddi are present. 2. The remainder of the examination is normal. CT PELVIS SCAN WITH IV CONTRAST, 01/17/2018 12:56 PM: Clinical History: See above. Previous Exam: 07/20/2017. Scans are performed from just superior to the umbilicus to the symphysis pubis with IV contrast. This is the same bolus of contrast used for the CT scans of the abdomen. Scans through the lower abdomen and pelvis show no intra-abdominal masses, enhancing lesions, or abno rmal fluid collections. In the inferior aspect of the right rectus muscle near the surgical scar is a collection of gas bubbles without a definite fluid collection. There is inflammatory/infiltrative ch lakshmi in the mesenteric fat immediately deep to this area in the peritoneum is thickened. No definite abscess is identified. There is no adenopathy. The patient is status post appendectomy. The small bow el, terminal ileum, and ileocecal valve are normal. The colon is also normal. There are no hernias. READIN. There is thickening of the rectus abdominis muscle in the right lower quadrant directly over the scar from the previous appendectomy. In the posterior margin of the rectus muscle are some gas bubble s without evidence of an abscess cavity. The peritoneal lining is thickened in this location and ther e is some inflammatory/infiltrative change in the mesenteric fat deep to this thickened area of the r ectus muscle. No intra-abdominal abscess is identified. 2. The remaining scans are unremarkable.
[2018-01-17] MEDS ORDERED: LIDOCAINE 2% 20 MG/ML - 20 ML VIAL SUBCUT PRN (18:31)
[2018-01-17] MEDS ORDERED: Lidocaine 1% 10 MG/ML - 20 ML VIAL SUBCUT PRN (18:31)
[2018-01-17] MEDS ORDERED: NICOTINE 21 MG /DAY PATCH TRANSDERM ONE (19:34)
--- NOTE | 2018-01-17 19:41 | PDOC ---
HPI - History of Present Illness Date of Service: 01/17/18 Time of Service: 18:25 Chief Complaint: Abdominal pain and rash History of Present Illness: This is a 32-year-old transgendered female who has had recurrent abdominal abscesses that have required both open and percutaneous drainage since April 2017 after laparoscopic appendectomy. She comes in with a recent complex history regarding this infection in that she saw her primary surgeon, Dr. Rangel in early November. He sent her down to [facility] infectious disease specialist for another opinion on what to do in terms of these recurrent abscesses. She arranged for surgical evaluation and according to the patient, thinks that this could be a chronically infected abdominis rectus muscle. The patient and her significant other both told me that they were told that the patient would likely need to have his abdominis rectus removed and surgical consultation is planned for this Monday in the office to plan for such a surgery at the [facility]. The patient is been alternating antibiotics and has been completing an Augmentin course. She's been on and off antibiotics since 2012. She developed fevers as high as 103 per Joanna's girlfriend, and has now developed a total body rash. The rash seems to be fluctuant in terms of its appearance, is involved the back , chest, flexor and extensor surfaces of the legs and arms. She apparently had a rash like this in the past but it resolved spontaneously. It was not involved with any sort of antibiotic infusion. She has been off of antibiotics for some time in terms of IV antibiotics. She's not sure what is making her pain worsen or abdomen but it did seem to spike in terms of pain and discomfort. She states that due to the fever, abdominal pain, and rash, she came in for further evaluation as instructed by Dr. Rangel back in November. The patient states she tried to hold off as long as possible but the pain and rash were very concerning to the patient. Upon arrival, CT scan shows abdominis rectus thickening below the incision which appears healed, and some air in the abdominis rectus muscle without an obvious abscess and some subcutaneous fat tissue inflammatory changes as well. The emergency room physician spoke to the patient's infectious disease specialist at [facility] and it was recommended to keep her here with Invanz and vancomycin until her consultation in [place] on Monday. The patient and her girlfriend tell me that this consultation is scheduled for Dorian at 9 AM. Past Medical History Medical History: 1. 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 2. Transgendered. 3. Delayed gastric emptying. 4. Chronic abdominal abscess following laparoscopic appendectomy. 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 5. History of non-Hodgkin' s lymphoma. 6. Tachycardia, non specific. 7. Recently diagnosed neuropathy for which patient is on amitriptyline mostly affecting toes and fingertips Surgical History: 1. 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 2. Hernia repair. 3. Breast augmentation. 4. Boxer's fracture repair on right hand with subsequent hardware removal with one of the screws having a broken had and still being in place. She had no complaints of this today. 5. Excision of thymoma. 6. Appendectomy, laparoscopic. 7. Open drainage of abdominal wound abscess with drain placement. Drain was removed. The patient has had multiple open and percutaneous drains placed for recurrent abdominal abscesses Pertinent Family History: Significant for diabetes Past Social History: Smoker, she states this has escalated to 3-4 packs per day , does not drink alcohol. Lives in [place], [place]. Has a significant other with 5 kids and she states she stays at home primarily to help raise the 5 children. Her primary care provider is in [place], [place]. 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 Tobacco Use: Current Every Day Smoker In the Past 12 Months, Have Used or Abuse Any of the Following Substance: Opiate Pain Medication (I will note, that I spoke to the emergency room physician about her pain medication doses. Her provider in [place] instructed him that the patient has been on 30 mg of oxycodone IR every 4 hours and 100 g of fentanyl via patch every 72 hours. The patient tells me that she has in agreement with her provider of doing 60 mg oxycodone IR every 4 hours when necessary and 200 g of fentanyl every 72 hours. The patient's significant other agreed. I am inclined to believe the patient has an agreement as such. She typically has not been dishonest with me about her prescription medications on prior admissions.) Alcohol Use: None Medication / Allergies Home Medications: Home Medications 3 Medication Instructions Recorded Confirmed Type Estradiol 4 tab PO BID 10/14/15 01/17/18 History Spironolactone 1 tab PO bedtime 10/14/15 01/17/18 History Amitriptyline HCl 2 tab PO BEDTIME 01/22/17 01/17/18 History Metoprolol Tartrate Tab 1 tab PO BID 02/01/17 01/17/18 History [Lopressor Tab] Oxycodone HCl 2 tab PO Q4H PRN tab 02/07/17 01/17/18 History Amoxicillin/Potassium Clav 1 ea PO BID 01/17/18 01/17/18 History [Augmentin 875-125 Tablet] Warfarin Sodium [Coumadin] 5 mg PO DAILY 01/17/18 01/17/18 History Allergies/Adverse Reactions: Allergies 3 Allergy/AdvReac Type Severity Reaction Status Date / Time cyclobenzaprine HCl Allergy Severe HIVES Verified 01/17/18 15:58 [From Flexeril] venom-honey bee Allergy Severe Anaphylaxis Verified 01/17/18 15:58 [bee venom (honey bee)] iodine Allergy Intermediate RASH Verified 01/17/18 15:58 Iodine and Iodide Containing Allergy Intermediate VOMITING Verified 01/17/18 15: 58 Produc ketorolac tromethamine Allergy Intermediate HIVES Verified 01/17/18 15:58 [From Toradol] adhesive tape AdvReac Intermediate RASH Verified 01/17/18 15:58 lactose [Lactose] AdvReac Intermediate NOT Verified 01/17/18 15:58 APPLICABLE SEA FOOD AdvReac Intermediate HIVES Uncoded 01/17/18 15:58 Review of Systems - Review of Systems All Systems: Reviewed & No Additional Complaints Except as Stated (I did a 12 point review systems and it is negative other than that discussed in history present illness and that noted below.) - Constitutional Constitutional: REPORTS: Weight Gain (Attributed to fluid), Fever / Chills, Other (Sweats) - Respiratory Respiratory: REPORTS: Other (Has felt more short of breath as of late) - Cardiovascular Cardiovascular: REPORTS: Chest Pain (As of late) - Gastrointestinal Gastrointestinal / Abdominal: REPORTS: See HPI - Musculoskeletal Musculoskeletal: REPORTS: Other (Complains of joint pains, diffuse) - Neurological Neurologic: REPORTS: Numbness/Paresthesia (Some paresthesias attributed to peripheral neuropathy and fingertips and toes) - Additonal Details Additional ROS Details: Has some kidney stones which she states causes pain but on CT scan they appear nonobstructive and in the upper poles. Exam - Vitals Vital Signs: Vital Signs Temperature 97.7 F Temperature Source Oral Pulse Rate [Apical] 110 Pulse Rate [Pulse Oximeter] 107 Respiratory Rate 16 Blood Pressure [Left Arm] 146/79 Pulse Ox 96 Oxygen Delivery Method Room Air Height 5 ft 9 in Weight 171 lb 8 oz - General General Appearance: No Acute Distress, Cooperative Additional General Exam Details: Appears mildly pale and has what looks like mild diaphoresis on the face - Head Head Exam: Normal Inspection, Normocephalic, Atraumatic - Eye Eye Exam: POSITIVE: No Scleral Icterus - ENT ENT Exam: POSITIVE: Mucous Membranes Moist - Neck Neck Exam: Normal Inspection, No Tenderness, No Lymphadenopathy, No Thyromegaly , JVP is not Raised - Respiratory Respiratory Exam: POSITIVE: Clear to Auscultation - Bilaterally, Breathing Non Labored, Normal to Percussion and Palpation - Cardiovascular Cardiovascular Exam: POSITIVE: No Murmur, No Clicks, No Gallops, No Rubs, Tachycardia, No JVD - GI/Abdominal GI/Abdominal Exam: POSITIVE: Normal Bowel Sounds, Non Distended, Soft Additional GI/Abdominal Exam Details: Right upper quadrant skin/incision from prior appendectomy is healed, closed, very tender to palpation. - Rectal Rectal Exam: POSITIVE: Deferred - External Exam: POSITIVE: Deferred Exam: POSITIVE: Deferred - Extremities Extremities Exam: POSITIVE: No Clubbing Present, No Edema Present, No Cyanosis Present - Back Back Exam: POSITIVE: No CVA Tenderness - Neurological Neurological Exam: POSITIVE: Alert, Oriented x 3, No Facial Droop, Speech Intact / Clear, Moves All Extremities Equally - Psychiatric Psychiatric Exam: POSITIVE: Anxious - Integumentary Additional Integumentary Exam Details: There are target like lesions that are almost ringlike and macular in nature that look consistent with erythema multiforme - Central Line Examination Central Line Present on Admission: No Results - Labs CBC and BMP: 01/17/18 11:20 01/17/18 11:20 Additional Lab Results: Laboratory Results 01/17/18 01/17/18 01/17/18 Range/Units 11:20 11:20 11:20 WBC 14.53 H (4.8-10.8) 10^3/uL RBC 4.28 (4.20-5.40) 10^6/uL Hgb 13.7 (12.0-16.0) g/dL Hct 39.6 (37.0-47.0) % MCV 92.5 (81-99) FL MCH 32.0 H (27-31) PG MCHC 34.6 (33-37) g/dL RDW Std Deviation 44.2 (39-50) fL RDW Coeff of Brennan 13.4 (11.5-14.5) % Plt Count 310 (140-350) 10*3/uL MPV 9.7 (7.4-12.2) FL Immature Gran % (Auto) 0.2 (0-5) % Neut % (Auto) 79.1 (50-80) % Lymph % (Auto) 12.3 (10-50) % Ramsey % (Auto) 7.8 (5-15) % Eos % (Auto) 0.5 (0-8) % Baso % (Auto) 0.1 (0-1) % Immature Gran # (Auto) 0.03 10*3/UL Neut # (Auto) 11.50 10*3/UL Lymph # (Auto) 1.79 10*3/uL Ramsey # (Auto) 1.13 H (0.3-0.8) 10*3/UL Eos # (Auto) 0.07 10*3/UL Baso # (Auto) 0.01 10*3/UL WBC Morphology Comment Normal morphology (NORM) Plt Morphology Comment Normal morphology (NORM) RBC Morph Comment Normal morphology (NORM) PT (9.7-11.4) secs INR (0.00-5.90) N/A Sodium 138 (135-145) meq/L Potassium 3.2 L (3.8-5.2) meq/L Chloride 104 (98-112) meq/L Carbon Dioxide 19 L (23-33) meq/L Anion Gap 15 (5-20) BUN 5 L (7-22) mg/dL Creatinine 0.4 L (0.50-1.20) mg/dL Estimated GFR > 60 (>60 ml/min/1.73m(2)) BUN/Creatinine Ratio 12.50 (6-20) Glucose 116 H (78-110) mg/dL Calculated Osmolality 283.0 (267-292) mOsm/kg Lactic Acid 0.6 L (0.70-2.10) MMOL/L Calcium 9.0 (8.7-10.7) mg/dL Magnesium 1.6 (1.6-2.4) mg/dL Total Bilirubin 0.8 (0.3-1.2) mg/dL AST 17 (8-39) IU/L ALT 32 (9-52) IU/L Alkaline Phosphatase 82 (38-126) IU/L C-Reactive Protein 16.5 H (0.0-0.9) mg/dL Total Protein 7.8 (6.1-8.0) g/dL Albumin 4.6 (3.5-4.8) g/dL Globulin 3.2 (2.50-4.10) g/dL Albumin/Globulin Ratio 1.40 (1.3-2.0) mg/g 01/17/18 Range/Units 11:20 WBC (4.8-10.8) 10^3/uL RBC (4.20-5.40) 10^6/uL Hgb (12.0-16.0) g/dL Hct (37.0-47.0) % MCV (81-99) FL MCH (27-31) PG MCHC (33-37) g/dL RDW Std Deviation (39-50) fL RDW Coeff of Brennan (11.5-14.5) % Plt Count (140-350) 10*3/uL MPV (7.4-12.2) FL Immature Gran % (Auto) (0-5) % Neut % (Auto) (50-80) % Lymph % (Auto) (10-50) % Ramsey % (Auto) (5-15) % Eos % (Auto) (0-8) % Baso % (Auto) (0-1) % Immature Gran # (Auto) 10*3/UL Neut # (Auto) 10*3/UL Lymph # (Auto) 10*3/uL Ramsey # (Auto) (0.3-0.8) 10*3/UL Eos # (Auto) 10*3/UL Baso # (Auto) 10*3/UL WBC Morphology Comment (NORM) Plt Morphology Comment (NORM) RBC Morph Comment (NORM) PT 12.7 H (9.7-11.4) secs INR 1.20 (0.00-5.90) N/A Sodium (135-145) meq/L Potassium (3.8-5.2) meq/L Chloride (98-112) meq/L Carbon Dioxide (23-33) meq/L Anion Gap (5-20) BUN (7-22) mg/dL Creatinine (0.50-1.20) mg/dL Estimated GFR (>60 ml/min/1.73m(2)) BUN/Creatinine Ratio (6-20) Glucose (78-110) mg/dL Calculated Osmolality (267-292) mOsm/kg Lactic Acid (0.70-2.10) MMOL/L Calcium (8.7-10.7) mg/dL Magnesium (1.6-2.4) mg/dL Total Bilirubin (0.3-1.2) mg/dL AST (8-39) IU/L ALT (9-52) IU/L Alkaline Phosphatase (38-126) IU/L C-Reactive Protein (0.0-0.9) mg/dL Total Protein (6.1-8.0) g/dL Albumin (3.5-4.8) g/dL Globulin (2.50-4.10) g/dL Albumin/Globulin Ratio (1.3-2.0) mg/g - Imaging Status: Image Reviewed by Me (Chest x-ray appears negative on my view for acute event. 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 Code(s): K65.9 - Peritonitis, unspecified (2) Erythema multiforme Current Visit: Yes Status: Acute Code(s): L51.9 - Erythema multiforme, unspecified (3) Neuropathy Current Visit: Yes Status: Acute Code(s): G62.9 - Polyneuropathy, unspecified (4) Gastroparesis Current Visit: Yes Status: Acute Code(s): K31.84 - Gastroparesis (5) Transgendered Current Visit: Yes Status: Chronic Code(s): 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 Dr. Rangel will actually see the patient tomorrow on examination, but given the plan for surgical consultation and infectious disease evaluation in [place] on Monday, I think that this is reasonable to admit the patient, start Invanz and vancomycin as requested by the infectious disease team in [place]. I discussed a PICC line placement with the patient as she has a very small gauge IV and will not tolerate vancomycin. Given all this, although blood cultures are not negative at 48 hours, I feel very nervous about not having good IV access for IV antibiotic administration. Particularly with vancomycin. I discussed the risks of infection and blood clot, but I think that the benefits of having IV access for antibiotic administration probably outweigh those risks at this point. Given the low INR, Lovenox until INR is therapeutic. Patient Switched back to Coumadin as she cannot afford eliquis. I'll continue pain medication doses at what her and her partner told me. Dilaudid intermittently for when necessary uncontrolled pain. We'll plan on discharge early Monday a.m. so the patient can make it down to her appointment Try to discuss situation with infectious disease doctor tomorrow. In terms of the erythema multiforme, get HSV studies and also Mycoplasma pneumoniae studies. Given tachycardia, complaints of chest pain, I think we should make sure that there is no evidence of pulmonary emboli with a subtherapeutic INR. For now, given the contrast iodine allergy, I will do a blocking protocol and trying get the CT scan done tomorrow but I will treat with Lovenox at full strength until we know better. Discussed the plan above with the patient and her significant other and they agree. This was witnessed with RN at bedside.
[2018-01-17] MEDS: ENOXAPARIN SODIUM 100 MG/1 ML SYRINGE SUBCUT SCH (20:31)
[2018-01-17] MEDS: Spironolactone Tab 50 MG TAB PO SCH (20:32)
[2018-01-17] MEDS: predniSONE Tab 20 MG TAB PO SCH (20:32)
[2018-01-17] MEDS: AMITRIPTYLINE 25 MG TABLET PO SCH (20:32)
[2018-01-17] MEDS: Metoprolol TARTRATE Tab 25 MG TAB PO SCH (20:33)
[2018-01-17] MEDS: D5-1/2NS + 20mEq KCL 1,000 ML PRIMARY IV SCH (20:33)
--- NOTE | 2018-01-17 20:37 | DI ---
ULTRASOUND GUIDED VENOUS ACCESS, 01/17/2018 6:31 PM Clinical History: Abdominal infection. The patient will require long-term IV antibiotic therapy. The patient has no peripheral IV access site. Previous Exam: None at this facility. 2D ultrasound was used to identify the left brachial vein for venous access to place a PICC line. The puncture site was prepped with ChloraPrep with Tint and draped in the usual sterile fashion. This ve in was successfully cannulated using realtime ultrasound guidance. The introducer sheath was advanced and positioned without difficulty. Reading: Successful and uncomplicated cannulation of the left brachial vein.
[2018-01-17] MEDS: HEPARIN 500 UNIT/5 ML SYRINGE FOR CENTRAL LINE IVP PRN ×2 (20:39→20:48)
--- NOTE | 2018-01-17 20:39 | DI ---
AP CHEST X-RAY, 01/17/2018 6:31 PM : Clinical History: Abdominal infection. The patient will require long-term IV antibiotic therapy and h as no peripheral IV access. Verification of catheter tip location. Previous Exam: 01/17/2018. The catheter tip initially was barely into the right atrium and a second film was obtained after with drawing the catheter. The second film shows the catheter tip in the distal superior vena cava. Heart size is normal. Lungs are clear. Mediastinal structures are normal. There are no pulmonary nodules. Reading: The exam is normal. The catheter tip on the final image is located in the distal superior vena cava.
--- NOTE | 2018-01-17 20:41 | DI ---
INSERTION OF PICC LINE, 01/17/2018 6:31 PM: Clinical History: Abdominal infection. The patient will require long-term IV antibiotic therapy and h as no peripheral IV access site. Technique: A "time out" session was performed to verify the patient's name and date of prior to obtaining informed signed consent prior for this procedure. The left arm was prepped with ChloraPrep with Tint. Venipuncture was achieved under sterile conditions as already described in the ultrasound report. A 5 Setswana double lumen Bard Power Picc Solo PICC catheter was inserted without difficulty. The tip position was initially identified with an AP portable chest x-ray and then adjusted as necess mateo. The standard dry sterile dressing kit was used to secure the catheter. The patient tolerated the procedure well and was discharged in stable condition. Standard orders for wound care and dressing c hanges were written. Procedures Nurse: Khadar Barrientos MD Electric Melt Operator: None. Complications/Medications: None. Reading: PICC line placement as above.
[2018-01-17] MEDS: PROMETHAZINE 25 MG/1 ML VIAL IM PRN (20:43)
[2018-01-17] MEDS: diphenhydrAMINE 50 MG/1 ML VIAL IVP SCH (20:46)
[2018-01-17] MEDS: ESTRADIOL 4 MG PO SCH (20:50)
[2018-01-17] MEDS ORDERED: Warfarin 5 MG TAB PO SCH (21:00)
[2018-01-17] MEDS: oxyCODONE IR Tab 15 MG TAB PO SCH (22:32)
[2018-01-18] MEDS: HYDROmorphone 2 MG/1 ML IVP PRN ×12 (00:33→21:57)
[2018-01-18] MEDS: predniSONE Tab 20 MG TAB PO SCH ×3 (02:08→20:06)
[2018-01-18] MEDS: oxyCODONE IR Tab 15 MG TAB PO SCH ×6 (02:08→21:14)
[2018-01-18] MEDS: diphenhydrAMINE 50 MG/1 ML VIAL IVP SCH ×3 (02:09→20:11)
[2018-01-18] MEDS: PROMETHAZINE 25 MG/1 ML VIAL IM PRN ×4 (04:03→21:35)
[2018-01-18] MEDS: D5-1/2NS + 20mEq KCL 1,000 ML PRIMARY IV SCH ×2 (04:07→16:09)
[2018-01-18 04:56] LABS: BASOPHILS # (AUTO) 0.01 10*3/UL; BASOPHILS % (AUTO) 0.1 % (0-1); EOSINOPHILS # (AUTO) 0 10*3/UL; EOSINOPHILS % (AUTO) 0 % (0-8); Hematocrit [HCT] 33.9 % (37.0-47.0); Hemoglobin [HGB] 11.5 g/dL (12.0-16.0); LYMPHOCYTES # (AUTO) 1.56 10*3/uL; MEAN CORPUSCULAR HGB CONC 33.9 g/dL (33-37); MEAN CORPUSCULAR VOLUME 94.4 FL (81-99); MEAN PLATELET VOLUME 10.3 FL (7.4-12.2); MONOCYTES # (AUTO) 0.65 10*3/UL (0.3-0.8); MONOCYTES % (AUTO) 4.4 % (5-15); NEUTROPHILS % (AUTO) 84.7 % (50-80); RED BLOOD COUNT 3.59 10^6/uL (4.20-5.40)
[2018-01-18 05:22] LABS: BLOOD UREA NITROGEN 5 mg/dL (7-22); SERUM ALBUMIN 3.4 g/dL (3.5-4.8)
[2018-01-18 06:01] LABS: PLATELET MORPHOLOGY COMMENT NORMAL MORPHOLOGY (NORM); RBC MORPHOLOGY COMMENT NORMAL MORPHOLOGY (NORM); WBC MORPHOLOGY COMMENT NORMAL MORPHOLOGY (NORM)
[2018-01-18] MEDS: ENOXAPARIN SODIUM 100 MG/1 ML SYRINGE SUBCUT SCH ×2 (08:22→20:06)
[2018-01-18] MEDS: Metoprolol TARTRATE Tab 25 MG TAB PO SCH ×2 (08:22→21:13)
[2018-01-18] MEDS: ACETAMINOPHEN 325 MG TABLET PO PRN (08:35)
[2018-01-18] MEDS: NICOTINE 21 MG /DAY PATCH TRANSDERM SCH (08:36)
[2018-01-18] MEDS ORDERED: fentaNYL 100 MCG/HR PATCH TRANSDERM SCH (09:00)
[2018-01-18] MEDS: ESTRADIOL 4 MG PO SCH ×2 (09:25→21:26)
[2018-01-18] MEDS: HEPARIN 500 UNIT/5 ML SYRINGE FOR CENTRAL LINE IVP PRN (09:55)
--- NOTE | 2018-01-18 10:05 | DI ---
CT ANGIOGRAM OF THE CHEST, 01/18/2018 9:00 AM : Clinical History: Tachycardia. Abdominal infection. Previous Exam: 04/07/2017. Scans are performed from the base of the neck to the lower lung bases with IV contrast. 47 mL of Isov ue 370 was injected IV. Proprietary automated bolus tracking software was not used to verify the juan miguel ng of the injection. The injection was performed through the Bard Solo PICC 2 catheter without sequel a. The patient does have a history of contrast allergy and she was premedicated prior to this exam by the hospitalist. The base of the neck and thoracic inlet are normal. There are no abnormal axillary, supraclavicular, mediastinal, or hilar nodes. The heart is normal. The pulmonary arteries are normal. There is no pulm onary arterial hypertension. There is no evidence of pulmonary embolism or pulmonary infarction. The lungs are clear and there are no pulmonary nodules or masses. Both adrenal glands and the limited vie ws of the spleen, pancreas, and liver are normal. READIN. Normal CTA of the chest. There are no pulmonary emboli or pulmonary infarcts. 2. The remainder of the examination is normal. There has been no interval change. 3. No complications were encountered with either the injection or with the contrast.
[2018-01-18] MEDS: diphenhydrAMINE 50 MG/1 ML VIAL IVP PRN (12:28)
--- NOTE | 2018-01-18 12:41 | PDOC(PROG) ---
Date and Time of Service: 01/18/2018, 1235 Interval History: Patient felt some chills overnight, no current chest pain. CT scan of the chest was negative for pulmonary emboli. Rash is improved but still getting palmar itching and irritation. Abdominal pain persists. Objective : Data - Labs CBC and BMP: 01/18/18 04:35 01/18/18 04:35 - Imaging CT Scan Status: Image Reviewed by Me (No evidence of pneumonia on CT scan. I looked at the report and that was negative for pulmonary emboli.) Objective : Exam - General General Appearance: No Acute Distress, Cooperative Additional General Exam Details: Vital Signs - Last Taken Temperature 97.6 F 01/18/18 11:52 Pulse Rate 97 01/18/18 11:52 Respiratory Rate 18 01/18/18 11:52 Blood Pressure 120/65 01/18/18 11:52 Pulse Ox 95 01/18/18 11:52 - Eye Eye Exam: No Scleral Icterus - ENT ENT Exam: Mucous Membranes Moist - Respiratory Respiratory Exam: Clear to Auscultation - Bilaterally, Breathing Non Labored - Cardiovascular Cardiovascular Exam: RRR, No Murmur, No Clicks, No Gallops, No Rubs, No JVD - GI/Abdominal GI/Abdominal Exam: Normal Bowel Sounds, Non Distended, Soft Additional GI/Abdominal Exam Details: Tender right lower quadrant. - Extremities Extremities Exam: No Clubbing Present, No Edema Present, No Cyanosis Present - Neurological Neurological Exam: Alert, Oriented x 3, No Facial Droop, Speech Intact / Clear, Moves All Extremities Equally - Central Line Examination Central Line Present on Admission: No Central Line Type: PICC Line (Left upper extremity, no erythema.) Assessment and Plan - Patient Problems (1) Abdominal infection Current Visit: Yes Status: Acute Code(s): K65.9 - Peritonitis, unspecified (2) Erythema multiforme Current Visit: Yes Status: Acute Code(s): L51.9 - Erythema multiforme, unspecified (3) Neuropathy Current Visit: Yes Status: Acute Code(s): G62.9 - Polyneuropathy, unspecified (4) Gastroparesis Current Visit: Yes Status: Acute Code(s): K31.84 - Gastroparesis (5) Transgendered Current Visit: Yes Status: Chronic Code(s): 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 Benadryl when necessary itching. No change to pain medication regimen today. We'll get a dose of Invanz today, a.m. dose of vancomycin tomorrow, and discharge tomorrow so that patient can make her infectious disease clinic on [place]. Very encouraged by improvement/near resolution of erythema multiforme. Patient seen with nurse present in room. Patient agreed with plan.
[2018-01-18] MEDS ORDERED: Ertapenem Inj 1 GM in Sodium Chloride 0.9% 100 ML IV SCH (15:00)
[2018-01-18] MEDS: AMITRIPTYLINE 25 MG TABLET PO SCH (20:04)
[2018-01-18] MEDS: Spironolactone Tab 50 MG TAB PO SCH (20:05)
[2018-01-18 20:11] VITALS: RESP 20
[2018-01-18] MEDS ORDERED: Warfarin 5 MG TAB PO SCH (21:00)
[2018-01-18] MEDS ORDERED: HYDROmorphone 2 MG/1 ML IVP ONE (21:19)
[2018-01-19] MEDS: HYDROmorphone 2 MG/1 ML IVP PRN ×5 (00:05→08:55)
[2018-01-19] MEDS: D5-1/2NS + 20mEq KCL 1,000 ML PRIMARY IV SCH ×2 (00:36→01:01)
[2018-01-19] MEDS: oxyCODONE IR Tab 15 MG TAB PO SCH ×3 (01:58→08:56)
[2018-01-19] MEDS: PROMETHAZINE 25 MG/1 ML VIAL IM PRN (03:59)
[2018-01-19 04:09] VITALS: O2SAT 95
[2018-01-19 04:50] LABS: BASOPHILS # (AUTO) 0 10*3/UL; BASOPHILS % (AUTO) 0 % (0-1); EOSINOPHILS # (AUTO) 0 10*3/UL; EOSINOPHILS % (AUTO) 0 % (0-8); Hematocrit [HCT] 33.6 % (37.0-47.0); LYMPHOCYTES # (AUTO) 1.38 10*3/uL; MEAN CORPUSCULAR HEMOGLOBIN 31.5 PG (27-31); MEAN CORPUSCULAR HGB CONC 32.7 g/dL (33-37); MEAN CORPUSCULAR VOLUME 96.3 FL (81-99); MEAN PLATELET VOLUME 10.7 FL (7.4-12.2); MONOCYTES % (AUTO) 4.3 % (5-15); NEUTROPHILS # (AUTO) 16.39 10*3/UL; NEUTROPHILS % (AUTO) 88.1 % (50-80); RED BLOOD COUNT 3.49 10^6/uL (4.20-5.40)
[2018-01-19 05:08] LABS: BLOOD UREA NITROGEN 4 mg/dL (7-22); SERUM ALBUMIN 3.5 g/dL (3.5-4.8)
[2018-01-19 05:11] LABS: PLATELET MORPHOLOGY COMMENT NORMAL MORPHOLOGY (NORM); RBC MORPHOLOGY COMMENT NORMAL MORPHOLOGY (NORM); WBC MORPHOLOGY COMMENT NORMAL MORPHOLOGY (NORM)
[2018-01-19] MEDS: diphenhydrAMINE 50 MG/1 ML VIAL IVP PRN (07:19)
[2018-01-19 07:29] VITALS: BP 134/64; TEMP 97.7
[2018-01-19] MEDS ORDERED: POTASSIUM CHLORIDE 20 MEQ TAB PO ONE (08:48)
[2018-01-19] MEDS: Metoprolol TARTRATE Tab 25 MG TAB PO SCH (08:55)
[2018-01-19] MEDS: ENOXAPARIN SODIUM 100 MG/1 ML SYRINGE SUBCUT SCH (08:56)
[2018-01-19] MEDS: NICOTINE 21 MG /DAY PATCH TRANSDERM SCH (08:56)
--- NOTE | 2018-01-19 08:58 | DCSUMMARY ---
Hospitalization Summary Admit Date: 01/17/2018 Discharge Date: 01/19/18 Primary Diagnosis:: possible abdominis rectus muscle infection Hospital Course: This is a 32-year-old transgendered female who's had multiple problems with post appendicitis abscesses that have been surgically and percutaneously drained. It is felt now that the patient might have a chronic abdominis rectus muscle and she has an appointment with the [facility] surgery Department to determine further evaluation and management of this potential. The patient was admitted here with increasing pain, sweating and diaphoresis, increased white blood cell, and small air pockets found in the abdominis rectus muscle along with fat stranding in relation to the prior scar and surgical site for the appendectomy. The patient was admitted and it was advised that we keep the patient on Invanz and vancomycin per the infectious disease specialist in [place]. Sylvester's note I called the office, but the patient 's infectious disease doctor, Dr. Paola Loco. The office today with texture message and I gave my cell phone number so that she could call back and we can discuss the patient's case further. During the hospital stay, the patient also had a rash initially on recent dictation that looked consistent with erythema multiforme he so we did do HSV testing. Mycoplasma testing was negative. The rash resolved spontaneously. Today, the patient complains of abdominal pain and states that it radiates to her right hip. She denies any chest pain or shortness breath. White blood cell count is elevated. She does have a PICC line in place that looks clean, dry, intact and no erythema. Assessment and Plan: 1. As per discharge assessments noted 2. Disposition: Patient is discharged home. Follow-up with [facility] surgery Department today 3. Condition on discharge, stable and improved. 4. Diet: regular diet 5. Activities: resume normal activities 6. Follow-Up: 1. follow up with Joana Suggs, family nurse practitioner, in 1 week 2. 7. Medications at the Time of Discharge: Home Medications 3 Medication Instructions Recorded Confirmed Type Estradiol 4 tab PO BID 10/14/15 01/17/18 History Spironolactone 1 tab PO bedtime 10/14/15 01/17/18 History Amitriptyline HCl 2 tab PO BEDTIME 01/22/17 01/17/18 History Metoprolol Tartrate Tab 1 tab PO BID 02/01/17 01/17/18 History [Lopressor Tab] Oxycodone HCl 2 tab PO Q4H PRN tab 02/07/17 01/17/18 History Warfarin Sodium [Coumadin] 5 mg PO DAILY 01/17/18 01/17/18 History Ertapenem Inj [INVanz Inj] 1 gm IV Q24H vial 01/19/18 Rx Vancomycin Inj [Vancocin Inj] 1 gm IV Q12H vial 01/19/18 Rx fentaNYL Patch 100mcg [Duragesic 2 patch TRANSDERM Q72H patch 01/19/18 Rx Patch 100mcg] 8. Time, care, counseling and coordination of care for this discharge is less than 30 minutes. Exam - Vitals Vital Signs: Vital Signs Temperature 97.7 F Temperature Source Temporal Artery Scan Pulse Rate [Apical] 100 Pulse Rate [Pulse Oximeter] 109 Pulse Rate 108 Respiratory Rate 20 Blood Pressure [Right Arm] 134/64 Blood Pressure [Left Arm] 121/67 Pulse Ox 95 Oxygen Delivery Method Room Air Height 5 ft 9 in Weight 178 lb - General General Appearance: No Acute Distress, Cooperative - Head Head Exam: Normal Inspection, Normocephalic, Atraumatic - Eye Eye Exam: POSITIVE: No Scleral Icterus - ENT ENT Exam: POSITIVE: Mucous Membranes Moist - Respiratory Respiratory Exam: POSITIVE: Clear to Auscultation - Bilaterally, Breathing Non Labored - Cardiovascular Cardiovascular Exam: POSITIVE: No Murmur, No Clicks, No Gallops, No Rubs, Tachycardia, No JVD - GI/Abdominal GI/Abdominal Exam: POSITIVE: Non Distended, Soft - Extremities Extremities Exam: POSITIVE: No Clubbing Present, No Edema Present, No Cyanosis Present Additional Extremities Exam Details: tender right lower quadrant with radiation to hip - Neurological Neurological Exam: POSITIVE: Alert, Oriented x 3, No Facial Droop, Speech Intact / Clear, Moves All Extremities Equally - Central Line Examination Central Line Type: PICC Line (no erythema, left upper extremity) Data Peritnent Studies: 01/19/18 01/19/18 01/19/18 04:26 04:26 04:26 WBC 18.61 H Hgb 11.0 L Hct 33.6 L Plt Count 265 Neut % (Auto) 88.1 H Lymph % (Auto) 7.4 L [place] % (Auto) 4.3 L PT 10.4 INR 0.98 Sodium 141 Potassium 3.7 L Chloride 108 Carbon Dioxide 23 Anion Gap 10 BUN 4 L Creatinine 0.4 L Estimated GFR > 60 BUN/Creatinine Ratio 10.00 Glucose 206 H Calculated Osmolality 294.0 H Calcium 8.7 Total Bilirubin 0.1 L D AST 24 ALT 26 Alkaline Phosphatase 60 Total Protein 6.5 Albumin 3.5 Globulin 3.0 Albumin/Globulin Ratio 1.10 L Procedures: [address] Medicine. [facility] [place] [address] PH: DD: [phone] FAX: [phone] ~DIAGNOSTIC IMAGING REPORT~ Patient: Joanna Prado : 1985 Sex: F Age: 32 Exam Name: CT CTA Chest Non-Coronary [facility] Exam Date: 01/18/18 Report # : [id number] CPT Code: 31350 EMR/MR #: [id number] Ordering: RAMILA HARDY Admiting: RAMILA HARDY DO Primary: NONE,NONE Attending: RAMILA HARDY DO Signed CT ANGIOGRAM OF THE CHEST, 01/18/2018 9:00 AM : Clinical History: Tachycardia. Abdominal infection. Previous Exam: 04/07/2017. Scans are performed from the base of the neck to the lower lung bases with IV contrast. 47 mL of Isovue 370 was injected IV. Proprietary automated bolus tracking software was not used to verify the timing of the injection. The injection was performed through the Milabra Solo PICC 2 catheter without sequela. The patient does have a history of contrast allergy and she was premedicated prior to this exam by the hospitalist. The base of the neck and thoracic inlet are normal. There are no abnormal axillary, supraclavicular, mediastinal, or hilar nodes. The heart is normal. The pulmonary arteries are normal. There is no pulmonary arterial hypertension. There is no evidence of pulmonary embolism or pulmonary infarction. The lungs are clear and there are no pulmonary nodules or masses. Both adrenal glands and the limited views of the spleen, pancreas, and liver are normal. READIN. Normal CTA of the chest. There are no pulmonary emboli or pulmonary infarcts. 2. The remainder of the examination is normal. There has been no interval change. 3. No complications were encountered with either the injection or with the contrast. Dictated By: 01/18/18 0954 HAKAN ROSENTHAL MD. Signed By: 01/18/18 1005 HAKAN ROSENTHAL MD. [address] [facility] [place] [address] PH: DD: [phone] FAX: [phone] ~DIAGNOSTIC IMAGING REPORT~ Patient: Joanna Prado : 1985 Sex: F Age: 32 Exam Name: CT Abdomen/Pelvis W Contrast Exam Date: 01/17/18 Report # : [id number] CPT Code: 70544 EMR/MR #: [id number] Ordering: KESHAV POSEY Admiting: RAMILA HARDY DO Primary: NONE,NONE Attending: RAMILA HARDY DO Signed CT ABDOMEN SCAN WITH IV CONTRAST, 01/17/2018 12:56 PM : Clinical History: Right lower quadrant abdominal pain. Elevated white count. Previous Exam: 07/20/2017. Scans are performed from the lower lung bases through the liver and kidneys with IV contrast. 50 mL of Isovue 300 was injected IV. Because this patient had a very tenuous IV site, the contrast was hand injected by myself. No oral or rectal contrast was ordered. The lung bases are clear. The liver is normal. The gallbladder is grossly normal. There is no abnormality of the spleen, pancreas, and adrenal glands. Both kidneys are normal in size, shape, position and contour. There is no hydronephrosis or hydroureter. There are bilateral nonobstructing renal calculi ranging between 2-5 mm in diameter present in the upper and lower poles of each kidney There are no abnormal retrocrural or periaortic nodes. No ascites is present. READIN. Bilateral 2-5 mm diameter nonobstructing renal calculi in the upper lower poles. No ureteral calculi are present. 2. The remainder of the examination is normal. CT PELVIS SCAN WITH IV CONTRAST, 01/17/2018 12:56 PM: Clinical History: See above. Previous Exam: 07/20/2017. Scans are performed from just superior to the umbilicus to the symphysis pubis with IV contrast. This is the same bolus of contrast used for the CT scans of the abdomen. Scans through the lower abdomen and pelvis show no intra-abdominal masses, enhancing lesions, or abnormal fluid collections. In the inferior aspect of the right rectus muscle near the surgical scar is a collection of gas bubbles without a definite fluid collection. There is inflammatory/infiltrative change in the mesenteric fat immediately deep to this area in the peritoneum is thickened. No definite abscess is identified. There is no adenopathy. The patient is status post appendectomy. The small bowel, terminal ileum, and ileocecal valve are normal. The colon is also normal. There are no hernias. READIN. There is thickening of the rectus abdominis muscle in the right lower quadrant directly over the scar from the previous appendectomy. In the posterior margin of the rectus muscle are some gas bubbles without evidence of an abscess cavity. The peritoneal lining is thickened in this location and there is some inflammatory/infiltrative change in the mesenteric fat deep to this thickened area of the rectus muscle. No intra-abdominal abscess is identified. 2. The remaining scans are unremarkable. Dictated By: 01/17/18 1758 HAKAN ROSENTHAL MD. Signed By: 01/17/18 1815 HAKAN ROSENTHAL MD. 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
[2018-01-19] MEDS: HEPARIN 500 UNIT/5 ML SYRINGE FOR CENTRAL LINE IVP PRN (08:59)
== END 2018-01-19 09:10 | disposition home or self-care (01) | DRG 558 ==
LOC: ER 10:15 → MED/SURG 15:46
PROVIDERS: ADMIT Family Medicine; ATTEND Family Medicine

== ENCOUNTER 2018-01-19 09:51 | Inpatient (IN) ==
[2018-01-19] MEDS ORDERED: HYDROmorphone 2 MG/1 ML IVP PRN (16:20)
[2018-01-19] MEDS ORDERED: CALCIUM CARBONATE 500 MG (TUMS) CHEWABLE TABLET PO PRN (16:20)
[2018-01-19] MEDS ORDERED: LIDOCAINE W/ SODIUM BICARB 0.5 ML SYR SUBD PRN (16:20)
[2018-01-19] MEDS ORDERED: DOCUSATE 100 MG CAPSULE PO PRN (16:20)
[2018-01-19] MEDS ORDERED: Vancomycin Inj 1gm vial IV SCH (16:30)
[2018-01-19] MEDS ORDERED: ERTAPENEM 1 GM VIAL IV SCH (16:30)
[2018-01-19] MEDS ORDERED: NICOTINE 21 MG /DAY PATCH TRANSDERM ONE (22:01)
[2018-01-19] MEDS: ENOXAPARIN SODIUM 100 MG/1 ML SYRINGE SUBCUT SCH (22:30)
[2018-01-19] MEDS: Ertapenem Inj 1 GM in Sodium Chloride 0.9% 100 ML IV SCH (22:30)
[2018-01-19] MEDS: AMITRIPTYLINE 25 MG TABLET PO SCH (22:31)
[2018-01-19] MEDS: oxyCODONE IR Tab 15 MG TAB PO SCH (22:31)
[2018-01-19] MEDS: Metoprolol TARTRATE Tab 25 MG TAB PO SCH (22:32)
[2018-01-19] MEDS: Spironolactone Tab 50 MG TAB PO SCH (22:32)
[2018-01-19] MEDS: ESTRADIOL 2 MG PO SCH (22:40)
[2018-01-19] MEDS: SODIUM CHLORIDE 0.9% IVP SCH (22:58)
[2018-01-19] MEDS: HYDROMORPHONE IVP SCH (22:58)
--- NOTE | 2018-01-19 22:58 | PDOC ---
HPI - History of Present Illness Date of Service: 01/19/18 Time of Service: 22:47 Chief Complaint: abdominal pain History of Present Illness: This is a 32-year-old transgendered female with recurrent abdominal abscesses and infections post appendectomy about a year ago. The appendectomy was done laparoscopically, but the patient developed postoperative infections. As of late, the patient had been referred to an infectious disease specialist at [facility] by the name of Dr. Paola Loco, and her phone number appears in the patient's prior hospital stay documentation. She arranged for surgical consultation. That took place today at [facility]. The patient had been admitted here for the last 48 hours or so as she had developed worsening abdominal pain, chills, elevated white blood cell count , and had air bubbles in the abdominis rectus muscle along with inflammation in the surrounding fat tissue. When the patient arrives back here, she states to me that her surgical consultation went okay and that she was told that she would need extensive muscle removal and surgery planned in stages with their trauma surgery team. They apparently plan to call within 24 hours with the plan of when to get the patient into surgery. In the meantime they requested the patient remain on IV antibiotics which is why the patient presents back here. She states she had chills but no additional fevers today. Abdominal pain is unchanged. She has a PICC line in the left upper extremity that is without erythema. She is developing or skin rash again and complains of palmar itching. She had been diagnosed with erythema multiforme on the prior hospital stay as well. No other exacerbating factors and it sounds as if there is a plan in place. We will continue the patient on Invanz and vancomycin here. Past Medical History Medical History: 1. 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 2. Transgendered. 3. Delayed gastric emptying. 4. Chronic abdominal abscess following laparoscopic appendectomy. Possible abdominis rectus chronic muscle infection is for surgery at [facility] in the upcoming week. 5. History of non-Hodgkin's lymphoma. 6. Tachycardia, non specific. 7. Recently diagnosed neuropathy for which patient is on amitriptyline mostly affecting toes and fingertips Surgical History: 1. 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 2. Hernia repair. 3. Breast augmentation. 4. Boxer's fracture repair on right hand with subsequent hardware removal with one of the screws having a broken had and still being in place. She had no complaints of this today. 5. Excision of thymoma. 6. Appendectomy, laparoscopic. 7. Open drainage of abdominal wound abscess with drain placement. Drain was removed. The patient has had multiple open and percutaneous drains placed for recurrent abdominal abscesses Pertinent Family History: Significant for diabetes Past Social History: Smoker, she states this has escalated to 3-4 packs per day , does not drink alcohol. Lives in [place], [place]. Has a significant other with 4 daughters, and she stays at home to help raise the daughters. Her primary care provider is in [place], [place], Joana Suggs, family nurse practitioner. 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 Tobacco Use: Current Every Day Smoker In the Past 12 Months, Have Used or Abuse Any of the Following Substance: Opiate Pain Medication Alcohol Use: None Medication / Allergies Home Medications: Home Medications 3 Medication Instructions Recorded Confirmed Type Estradiol 4 tab PO BID 10/14/15 01/17/18 History Spironolactone 1 tab PO bedtime 10/14/15 01/17/18 History Amitriptyline HCl 2 tab PO BEDTIME 01/22/17 01/17/18 History Metoprolol Tartrate Tab 1 tab PO BID 02/01/17 01/17/18 History [Lopressor Tab] Oxycodone HCl 2 tab PO Q4H PRN tab 02/07/17 01/17/18 History Warfarin Sodium [Coumadin] 5 mg PO DAILY 01/17/18 01/17/18 History Ertapenem Inj [INVanz Inj] 1 gm IV Q24H vial 01/19/18 Rx Vancomycin Inj [Vancocin Inj] 1 gm IV Q12H vial 01/19/18 Rx fentaNYL Patch 100mcg [Duragesic 2 patch TRANSDERM Q72H patch 01/19/18 Rx Patch 100mcg] Allergies/Adverse Reactions: Allergies 3 Allergy/AdvReac Type Severity Reaction Status Date / Time cyclobenzaprine HCl Allergy Severe HIVES Verified 01/19/18 08:08 [From Flexeril] venom-honey bee Allergy Severe Anaphylaxis Verified 01/19/18 08:08 [bee venom (honey bee)] iodine Allergy Intermediate RASH Verified 01/19/18 08:08 Iodine and Iodide Containing Allergy Intermediate VOMITING Verified 01/19/18 08: 08 Produc ketorolac tromethamine Allergy Intermediate HIVES Verified 01/19/18 08:08 [From Toradol] adhesive tape AdvReac Intermediate RASH Verified 01/19/18 08:08 lactose [Lactose] AdvReac Intermediate NOT Verified 01/19/18 08:08 APPLICABLE SEA FOOD AdvReac Intermediate HIVES Uncoded 01/19/18 08:08 Review of Systems - Constitutional Constitutional: REPORTS: Fever / Chills - Respiratory Respiratory: REPORTS: Negative System Review - Cardiovascular Cardiovascular: REPORTS: Other (Has tachycardia, chronic issue) - Gastrointestinal Gastrointestinal / Abdominal: REPORTS: Abdominal Pain (Right lower quadrant radiates to hip) Exam - Vitals Vital Signs: Vital Signs Temperature 97.2 F Temperature Source Temporal Artery Scan Pulse Rate [Pulse Oximeter] 104 Respiratory Rate 20 Blood Pressure [Right Arm] 145/89 Pulse Ox 94 Oxygen Delivery Method Room Air Weight 180 lb - General General Appearance: No Acute Distress, Cooperative - Head Head Exam: Normal Inspection, Normocephalic, Atraumatic - Eye Eye Exam: POSITIVE: No Scleral Icterus - ENT ENT Exam: POSITIVE: Mucous Membranes Moist - Neck Neck Exam: Normal Inspection, JVP is not Raised - Respiratory Respiratory Exam: POSITIVE: Clear to Auscultation - Bilaterally, Breathing Non Labored, Normal to Percussion and Palpation - Cardiovascular Cardiovascular Exam: POSITIVE: No Murmur, No Clicks, No Gallops, No Rubs, Tachycardia, No JVD - GI/Abdominal GI/Abdominal Exam: POSITIVE: Normal Bowel Sounds, Non Distended, Soft Additional GI/Abdominal Exam Details: Tender right lower quadrant to palpation - Rectal Rectal Exam: POSITIVE: Deferred - External Exam: POSITIVE: Deferred Exam: POSITIVE: Deferred - Extremities Extremities Exam: POSITIVE: No Clubbing Present, No Edema Present, No Cyanosis Present - Back Back Exam: POSITIVE: No CVA Tenderness - Neurological Neurological Exam: POSITIVE: Alert, Oriented x 3, No Facial Droop, Speech Intact / Clear, Moves All Extremities Equally - Integumentary Additional Integumentary Exam Details: Perhaps slight rash with occasional ringlike lesions on the palms. One lesion on the flexor surface of the forearm. Macular. - Central Line Examination Central Line Present on Admission: Yes Central Line Type: PICC Line (Left upper extremity, clean on admission no erythema) Results - Labs Additional Lab Results: I have a comprehensive metabolic panel, CBC with differential, both pending for tomorrow. 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 For now hold off on Coumadin and give Lovenox at of therapeutic dosing for prevention of pulmonary embolism and DVT. Hold prior to surgery for anywhere from 12-24 hours prior to planned surgical procedure. PICC line care per routine. Continue Invanz and vancomycin. Continue home pain medications as described, 200 g every 72 hours and 60 mg of oxycodone every 4 hours. We'll give Dilaudid on a pump here 1 mg daily 90 minutes. Check labs in a.m. including comprehensive metabolic panel and CBC with differential. Benadryl when necessary for pruritus with rash. Continue home medications otherwise. Nicotine patch for tobacco abuse
[2018-01-19] MEDS: diphenhydrAMINE 50 MG/1 ML VIAL IVP PRN (23:45)
[2018-01-19] MEDS: PROMETHAZINE 25 MG/1 ML VIAL IM PRN (23:45)
[2018-01-20] MEDS: Sodium Chloride 0.9% 1,000 ML PRIMARY IV SCH ×2 (00:03→20:16)
[2018-01-20] MEDS: oxyCODONE IR Tab 15 MG TAB PO SCH ×6 (00:58→20:04)
[2018-01-20] MEDS: HYDROMORPHONE IVP SCH ×16 (01:11→22:24)
[2018-01-20] MEDS: SODIUM CHLORIDE 0.9% IVP SCH ×16 (01:11→22:24)
[2018-01-20] MEDS: PROMETHAZINE 25 MG/1 ML VIAL IM PRN ×4 (04:34→21:29)
[2018-01-20] MEDS: diphenhydrAMINE 50 MG/1 ML VIAL IVP PRN ×4 (04:34→21:29)
[2018-01-20 04:58] LABS: BASOPHILS # (AUTO) 0 10*3/UL; BASOPHILS % (AUTO) 0 % (0-1); EOSINOPHILS # (AUTO) 0.08 10*3/UL; EOSINOPHILS % (AUTO) 0.8 % (0-8); Hematocrit [HCT] 31.2 % (37.0-47.0); Hemoglobin [HGB] 10.1 g/dL (12.0-16.0); LYMPHOCYTES # (AUTO) 4.69 10*3/uL; MEAN CORPUSCULAR HEMOGLOBIN 31.5 PG (27-31); MEAN CORPUSCULAR HGB CONC 32.4 g/dL (33-37); MEAN CORPUSCULAR VOLUME 97.2 FL (81-99); MEAN PLATELET VOLUME 10.3 FL (7.4-12.2); MONOCYTES # (AUTO) 1.07 10*3/UL (0.3-0.8); MONOCYTES % (AUTO) 10.3 % (5-15); NEUTROPHILS # (AUTO) 4.52 10*3/UL; NEUTROPHILS % (AUTO) 43.6 % (50-80); RED BLOOD COUNT 3.21 10^6/uL (4.20-5.40)
[2018-01-20 05:06] LABS: PLATELET MORPHOLOGY COMMENT NORMAL MORPHOLOGY (NORM); RBC MORPHOLOGY COMMENT NORMAL MORPHOLOGY (NORM); WBC MORPHOLOGY COMMENT NORMAL MORPHOLOGY (NORM)
[2018-01-20 05:13] LABS: BLOOD UREA NITROGEN 4 mg/dL (7-22); BUN/CREATININE RATIO 6.66 (6-20); SERUM ALBUMIN 3.1 g/dL (3.5-4.8)
[2018-01-20] MEDS: NICOTINE 21 MG /DAY PATCH TRANSDERM SCH (08:34)
[2018-01-20] MEDS: ENOXAPARIN SODIUM 100 MG/1 ML SYRINGE SUBCUT SCH ×2 (08:34→20:03)
[2018-01-20] MEDS: Metoprolol TARTRATE Tab 25 MG TAB PO SCH ×2 (08:37→20:04)
[2018-01-20] MEDS: ESTRADIOL 2 MG PO SCH ×2 (08:46→20:18)
--- NOTE | 2018-01-20 10:01 | PDOC(PROG) ---
Date and Time of Service: 01/20/2018 10 AM Interval History: Subjective Patient came into the hospital with worsening abdominal pain and rash. In addition there was fever at home. CT showed thickening of the rectus abdominis muscle below the incision and some air in the abdominis rectus muscle without an obvious abscess, there is a inflammation and thickening of the peritoneal area with infiltrative changes in the mesenteric fat deep to the rectus muscle apparently this was discussed with the infectious disease at the [facility] and they suggested admission with IV antibiotics. Patient had an appointment with the surgeon yesterday. the surgeon per her reports said they will call her about the date of surgery. Otherwise does not remember the name of the surgeon. She said she continue to complain from pain in the right lower quadrant. No other symptoms. The rash seemed to be improved. She said the last time she had a PE was about 3 months ago. Objective : Data - Labs CBC and BMP: 01/20/18 04:30 01/20/18 04:30 Objective : Exam - General General Appearance: No Acute Distress, Cooperative - Head Head Exam: Normal Inspection - Eye Eye Exam: Normal Appearance - Neck Neck Exam: Normal Inspection - Respiratory Respiratory Exam: Clear to Auscultation - Bilaterally - Cardiovascular Cardiovascular Exam: RRR - GI/Abdominal GI/Abdominal Exam: Normal Bowel Sounds, Non Distended, Soft, No Organomegaly Additional GI/Abdominal Exam Details: There is a scar of previous operation seemed to be healed in the right lower quadrant. Some swelling in the right lower quadrant. The area is tender. 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 She is also on Dilaudid [employer]. Code(s): G89.4 - Chronic pain syndrome (3) History of pulmonary embolism Current Visit: Yes Status: Chronic Comment: I think because of the recent PE will continue with the current bridging with Lovenox until we hear back from her surgeon in [place]. Continue holding the Coumadin. Code(s): Z86.711 - Personal history of pulmonary embolism (4) Abdominal infection Current Visit: Yes Status: Acute Comment: Continue current antibiotics with the vancomycin and ertapenem. We'll try to speak with [facility] and see whether we get Hold of the surgeon. Code(s): K65.9 - Peritonitis, unspecified (5) Erythema multiforme Current Visit: Yes Status: Acute Comment: This seemed to be resolved Code(s): L51.9 - Erythema multiforme, unspecified
[2018-01-20] MEDS ORDERED: Vancomycin-PHA to Dose IV PRN (10:13)
[2018-01-20] MEDS ORDERED: Potassium Chloride Tab 10 MEQ TAB PO ONE (11:02)
[2018-01-20] MEDS: ACETAMINOPHEN 325 MG TABLET PO PRN (17:27)
[2018-01-20] MEDS: Ertapenem Inj 1 GM in Sodium Chloride 0.9% 100 ML IV SCH (20:03)
[2018-01-20] MEDS: AMITRIPTYLINE 25 MG TABLET PO SCH (20:04)
[2018-01-20] MEDS: Spironolactone Tab 50 MG TAB PO SCH (20:04)
[2018-01-21] MEDS: oxyCODONE IR Tab 15 MG TAB PO SCH ×6 (00:51→20:28)
[2018-01-21] MEDS: ACETAMINOPHEN 325 MG TABLET PO PRN (00:53)
[2018-01-21] MEDS: HYDROMORPHONE IVP SCH ×15 (02:01→21:43)
[2018-01-21] MEDS: SODIUM CHLORIDE 0.9% IVP SCH ×15 (02:01→21:43)
[2018-01-21] MEDS: diphenhydrAMINE 50 MG/1 ML VIAL IVP PRN ×4 (04:46→22:17)
[2018-01-21] MEDS: PROMETHAZINE 25 MG/1 ML VIAL IM PRN ×4 (04:46→22:17)
[2018-01-21 05:01] LABS: BASOPHILS # (AUTO) 0.01 10*3/UL; BASOPHILS % (AUTO) 0.1 % (0-1); EOSINOPHILS % (AUTO) 1.7 % (0-8); Hemoglobin [HGB] 11.7 g/dL (12.0-16.0); LYMPHOCYTES # (AUTO) 3.67 10*3/uL; MEAN CORPUSCULAR HEMOGLOBIN 32.1 PG (27-31); MEAN CORPUSCULAR HGB CONC 33.4 g/dL (33-37); MEAN CORPUSCULAR VOLUME 95.9 FL (81-99); MEAN PLATELET VOLUME 9.6 FL (7.4-12.2); MONOCYTES # (AUTO) 1.48 10*3/UL (0.3-0.8); MONOCYTES % (AUTO) 12.4 % (5-15); NEUTROPHILS # (AUTO) 6.53 10*3/UL; NEUTROPHILS % (AUTO) 54.8 % (50-80); RED BLOOD COUNT 3.65 10^6/uL (4.20-5.40)
[2018-01-21 05:07] LABS: PLATELET MORPHOLOGY COMMENT NORMAL MORPHOLOGY (NORM); RBC MORPHOLOGY COMMENT NORMAL MORPHOLOGY (NORM); WBC MORPHOLOGY COMMENT NORMAL MORPHOLOGY (NORM)
[2018-01-21 05:14] LABS: BLOOD UREA NITROGEN 5 mg/dL (7-22); SERUM ALBUMIN 3.2 g/dL (3.5-4.8)
[2018-01-21] MEDS: ESTRADIOL 2 MG PO SCH ×2 (08:47→20:15)
[2018-01-21] MEDS ORDERED: fentaNYL 100 MCG/HR PATCH TRANSDERM SCH ×2 (09:00)
[2018-01-21] MEDS ORDERED: fentaNYL 50 MCG/ HR PATCH TRANSDERM SCH (09:00)
[2018-01-21] MEDS: Metoprolol TARTRATE Tab 25 MG TAB PO SCH ×2 (09:11→20:28)
[2018-01-21] MEDS: ENOXAPARIN SODIUM 100 MG/1 ML SYRINGE SUBCUT SCH ×2 (09:12→20:28)
[2018-01-21] MEDS: Sodium Chloride 0.9% 1,000 ML PRIMARY IV SCH (09:13)
[2018-01-21] MEDS: NICOTINE 21 MG /DAY PATCH TRANSDERM SCH (09:13)
[2018-01-21] MEDS ORDERED: Potassium Chloride Tab 10 MEQ TAB PO ONE (09:27)
[2018-01-21] MEDS ORDERED: Vancomycin Inj 1gm vial ONE ×2 (09:36→09:44)
--- NOTE | 2018-01-21 09:37 | PDOC(PROG) ---
Date and Time of Service: 01/21/2018 9:37 AM Interval History: Subjective Patient continued to complain from pain in the right lower quadrant. Doesn't feel that there is significant improvement. Tolerating diet. Normal bowel movement. Objective : Data - Labs CBC and BMP: 01/21/18 04:51 01/21/18 04:51 Objective : Exam - General General Appearance: No Acute Distress, Cooperative - Head Head Exam: Normal Inspection - Eye Eye Exam: Normal Appearance - ENT ENT Exam: Normal Exam - Neck Neck Exam: Normal Inspection - Respiratory Respiratory Exam: Clear to Auscultation - Bilaterally - Cardiovascular Cardiovascular Exam: RRR - GI/Abdominal GI/Abdominal Exam: Normal Bowel Sounds, Soft Additional GI/Abdominal Exam Details: There is still tenderness in the right lower quadrant scar previous operation heel. There is some swelling right lower quadrant which is similar to yesterday. - Rectal Rectal Exam: Deferred - External Exam: Deferred - Extremities Extremities Exam: Normal Inspection - Back Back Exam: Normal Inspection - Neurological Neurological Exam: Alert, Oriented x 3, CN II-XII Intact, No Facial Droop, Speech Intact / Clear, Moves All Extremities Equally - Psychiatric Psychiatric Exam: Normal Affect Assessment and Plan - Patient Problems (1) Abdominal infection Current Visit: Yes Status: Acute Comment: Seem that there is a infection of the rectus abdominis muscle. The thinking this may be a chronic infection. At least now maybe there is an acute superimposed infection. I did manage to speak with the surgeon extractions technologist who spoke with the surgeon that saw the patient they will arrange thing for her on Monday. Continue current IV antibiotics. I think will repeat the ultrasound of the abdomen see there is any change in the area. Code(s): K65.9 - Peritonitis, unspecified (2) Chronic pain syndrome Current Visit: Yes Status: Chronic Comment: Continue same pain medication Code(s): G89.4 - Chronic pain syndrome (3) History of pulmonary embolism Current Visit: Yes Status: Chronic Comment: Because of the recent history of PE will continue with the therapeutic dose Lovenox Code(s): Z86.711 - Personal history of pulmonary embolism (4) Erythema multiforme Current Visit: Yes Status: Acute Comment: Apparently had this when she came in. She is on Benadryl as needed. Code(s): L51.9 - Erythema multiforme, unspecified
[2018-01-21] MEDS ORDERED: Sodium Chloride 0.9% 250 ML IV ONE ×2 (09:38→09:43)
--- NOTE | 2018-01-21 12:06 | DI ---
INDICATION: Fluid collection TECHNIQUE: Real-time imaging of the abdomen is performed in transverse and longitudinal projections. COMPARISON: Ultrasound dated 01/17/18 FINDINGS: Stable 11 x 9 x 13 mm fluid collection seen at the incision site, likely postoperative with areas of echogenicity seen, this can represent gas versus tiny calcifications. The overall appearance of which is grossly unchanged. No mass. No new fluid collection. IMPRESSION: Stable 11 x 9 x 13 mm fluid collection seen at the incision site, likely postoperative with areas of echogenicity seen, this can represent gas versus tiny calcifications. The overall appearance of which is grossly unchanged.
[2018-01-21] MEDS: AMITRIPTYLINE 25 MG TABLET PO SCH (20:28)
[2018-01-21] MEDS: Spironolactone Tab 50 MG TAB PO SCH (20:28)
[2018-01-21] MEDS: Ertapenem Inj 1 GM in Sodium Chloride 0.9% 100 ML IV SCH (20:29)
[2018-01-22] MEDS: oxyCODONE IR Tab 15 MG TAB PO SCH ×6 (00:54→20:07)
[2018-01-22] MEDS: SODIUM CHLORIDE 0.9% IVP SCH ×13 (02:01→21:35)
[2018-01-22] MEDS: HYDROMORPHONE IVP SCH ×13 (02:01→21:35)
[2018-01-22] MEDS: diphenhydrAMINE 50 MG/1 ML VIAL IVP PRN ×4 (04:06→22:04)
[2018-01-22] MEDS: PROMETHAZINE 25 MG/1 ML VIAL IM PRN ×4 (04:06→22:03)
[2018-01-22 05:11] LABS: BASOPHILS # (AUTO) 0.01 10*3/UL; BASOPHILS % (AUTO) 0.1 % (0-1); EOSINOPHILS # (AUTO) 0.36 10*3/UL; EOSINOPHILS % (AUTO) 3.2 % (0-8); Hemoglobin [HGB] 10.7 g/dL (12.0-16.0); LYMPHOCYTES # (AUTO) 3.25 10*3/uL; MEAN CORPUSCULAR HEMOGLOBIN 32.3 PG (27-31); MEAN CORPUSCULAR HGB CONC 33.4 g/dL (33-37); MEAN CORPUSCULAR VOLUME 96.7 FL (81-99); MEAN PLATELET VOLUME 10.6 FL (7.4-12.2); MONOCYTES # (AUTO) 1.35 10*3/UL (0.3-0.8); MONOCYTES % (AUTO) 12.1 % (5-15); NEUTROPHILS # (AUTO) 6.17 10*3/UL; NEUTROPHILS % (AUTO) 55.2 % (50-80); RED BLOOD COUNT 3.31 10^6/uL (4.20-5.40)
[2018-01-22 05:23] LABS: BLOOD UREA NITROGEN 5 mg/dL (7-22); SERUM ALBUMIN 3.2 g/dL (3.5-4.8)
[2018-01-22 05:38] LABS: PLATELET MORPHOLOGY COMMENT NORMAL MORPHOLOGY (NORM); RBC MORPHOLOGY COMMENT NORMAL MORPHOLOGY (NORM); WBC MORPHOLOGY COMMENT NORMAL MORPHOLOGY (NORM)
[2018-01-22] MEDS: ENOXAPARIN SODIUM 100 MG/1 ML SYRINGE SUBCUT SCH ×2 (08:56→20:07)
[2018-01-22] MEDS: NICOTINE 21 MG /DAY PATCH TRANSDERM SCH (08:56)
[2018-01-22] MEDS: Metoprolol TARTRATE Tab 25 MG TAB PO SCH ×2 (08:56→20:08)
[2018-01-22] MEDS: ESTRADIOL 2 MG PO SCH ×2 (08:57→20:14)
[2018-01-22] MEDS: HEPARIN 500 UNIT/5 ML SYRINGE FOR CENTRAL LINE IVP PRN ×2 (09:30→12:35)
--- NOTE | 2018-01-22 10:27 | PDOC(PROG) ---
Date and Time of Service: 01/22/2018 10:27 AM Interval History: Subjective She said she is not making progress. The pain seemed to be a under control but she doesn't feel better. Still have bowel movements. No other symptoms. She is tolerating diet. She said the surgeon Dr. Haq called her and apparently changed his mind and talking about aspiration instead of surgery. Objective : Data - Labs CBC and BMP: 01/22/18 04:10 01/22/18 04:10 Objective : Exam - General General Appearance: No Acute Distress, Cooperative - Head Head Exam: Normal Inspection - Eye Eye Exam: Normal Appearance - ENT ENT Exam: Normal Exam - Neck Neck Exam: Normal Inspection - Respiratory Respiratory Exam: Clear to Auscultation - Bilaterally - Cardiovascular Cardiovascular Exam: RRR - GI/Abdominal GI/Abdominal Exam: Normal Bowel Sounds, Soft, No Organomegaly Additional GI/Abdominal Exam Details: There is tenderness around the lower right abdominal scar - Rectal Rectal Exam: Deferred - External Exam: Deferred - Extremities Extremities Exam: Normal Inspection - Back Back Exam: Normal Inspection - Neurological Neurological Exam: Alert, Oriented x 3, CN II-XII Intact - Psychiatric Psychiatric Exam: Normal Affect Assessment and Plan - Patient Problems (1) Abdominal infection Current Visit: Yes Status: Acute Comment: Continue current antibiotics. I did call [facility] to speak directly with the surgeon he was not on-call They sent him a text. I did speak with infectious disease on-call she read the surgeon notes and he was talking also about surgery. Her recommendation in general if no surgery she said to continue IV antibiotic for 2 weeks and have another CT scan and see the progress they may need 2-4 weeks of IV antibiotics in cases of pyomyositis. Code(s): K65.9 - Peritonitis, unspecified (2) Chronic pain syndrome Current Visit: Yes Status: Chronic Comment: Same medication Code(s): G89.4 - Chronic pain syndrome (3) History of pulmonary embolism Current Visit: Yes Status: Chronic Comment: Continue Lovenox for now Code(s): Z86.711 - Personal history of pulmonary embolism (4) Erythema multiforme Current Visit: Yes Status: Acute Comment: This is resolved Code(s): L51.9 - Erythema multiforme, unspecified
[2018-01-22] MEDS ORDERED: POTASSIUM CHLORIDE 20 MEQ TAB PO ONE (11:33)
--- NOTE | 2018-01-22 14:48 | PDOC(PROG) ---
Date and Time of Service: 01/22/2018 at 245 Interval History: Patient states that she is feeling more swelling in the right lower quadrant. [facility] ultrasound has of 01/21/2018 shows only 1 cm fluid collection and set her previous surgery. Her white count is down to 11.1. She is afebrile Objective : Data - Labs CBC and BMP: 01/22/18 04:10 01/22/18 04:10 - Vital Signs Vital Signs and I&O: Vital Signs - Last Taken Temperature 97.4 F 01/22/18 07:29 Pulse Rate 91 01/22/18 11:00 Respiratory Rate 18 01/22/18 07:29 Blood Pressure 98/48 01/22/18 07:29 Pulse Ox 94 01/22/18 11:00 Intake and Output (24hr x 4 totals) 01/20/18 01/21/18 01/22/18 01/23/18 05:59 05:59 05:59 05:59 Intake Total 185 / 185 1794 / 1794 2455 / 2455 560 / 560 Output Total 400 / 400 1900 / 1900 Balance -215 / -215 -106 / -106 2455 / 2455 560 / 560 Objective : Exam - GI/Abdominal Additional GI/Abdominal Exam Details: Tenderness in the right lower quadrant. No erythema or fluctuant masses. Assessment and Plan - Patient Problems (1) Abdominal infection Current Visit: Yes Status: Acute Code(s): K65.9 - Peritonitis, unspecified - Assessment / Plan Additional Assessment/Plan Details: At this point a sizable fluid collection is not such that I can be surgically drained. Will continue IV antibiotics. If the fluid collection gets largesse would recommend percutaneous drainage. I recommend very conservative therapy
[2018-01-22] MEDS: Ertapenem Inj 1 GM in Sodium Chloride 0.9% 100 ML IV SCH (20:06)
[2018-01-22] MEDS: AMITRIPTYLINE 25 MG TABLET PO SCH (20:07)
[2018-01-22] MEDS: Sodium Chloride 0.9% 1,000 ML PRIMARY IV SCH (20:08)
[2018-01-22] MEDS: Spironolactone Tab 50 MG TAB PO SCH (20:08)
[2018-01-23] MEDS: SODIUM CHLORIDE 0.9% IVP SCH ×9 (00:40→16:04)
[2018-01-23] MEDS: HYDROMORPHONE IVP SCH ×9 (00:40→16:04)
[2018-01-23] MEDS: oxyCODONE IR Tab 15 MG TAB PO SCH ×4 (00:58→12:43)
[2018-01-23] MEDS: diphenhydrAMINE 50 MG/1 ML VIAL IVP PRN ×2 (04:36→10:20)
[2018-01-23] MEDS: PROMETHAZINE 25 MG/1 ML VIAL IM PRN ×2 (04:36→10:20)
[2018-01-23] MEDS ORDERED: Sodium Chloride 0.9% 50 ML ONE (04:50)
[2018-01-23 04:52] LABS: BASOPHILS # (AUTO) 0.01 10*3/UL; BASOPHILS % (AUTO) 0.1 % (0-1); EOSINOPHILS # (AUTO) 0.44 10*3/UL; EOSINOPHILS % (AUTO) 3.8 % (0-8); Hematocrit [HCT] 33.1 % (37.0-47.0); LYMPHOCYTES # (AUTO) 2.89 10*3/uL; MEAN CORPUSCULAR HEMOGLOBIN 31.8 PG (27-31); MEAN CORPUSCULAR HGB CONC 33.2 g/dL (33-37); MEAN CORPUSCULAR VOLUME 95.7 FL (81-99); MONOCYTES # (AUTO) 1.27 10*3/UL (0.3-0.8); MONOCYTES % (AUTO) 10.9 % (5-15); NEUTROPHILS # (AUTO) 7.02 10*3/UL; NEUTROPHILS % (AUTO) 60.1 % (50-80); RED BLOOD COUNT 3.46 10^6/uL (4.20-5.40)
[2018-01-23 05:00] LABS: BLOOD UREA NITROGEN 4 mg/dL (7-22)
[2018-01-23 05:24] LABS: PLATELET MORPHOLOGY COMMENT NORMAL MORPHOLOGY (NORM); RBC MORPHOLOGY COMMENT NORMAL MORPHOLOGY (NORM); WBC MORPHOLOGY COMMENT NORMAL MORPHOLOGY (NORM)
[2018-01-23] MEDS ORDERED: HYDROmorphone/PF/PCA 9 MG/30 ML IV PRN (06:04)
[2018-01-23 06:59] VITALS: O2SAT 94
--- NOTE | 2018-01-23 08:19 | PDOC(PROG) ---
Date and Time of Service: 01/23/2018 8:18 AM Interval History: Subjective Patient does not feel much improvement. Still have the pain. No other new symptoms. Objective : Data - Labs CBC and BMP: 01/23/18 04:40 01/23/18 04:40 Objective : Exam - General General Appearance: No Acute Distress, Cooperative - Head Head Exam: Normal Inspection - Eye Eye Exam: Normal Appearance - ENT ENT Exam: Normal Exam - Neck Neck Exam: Normal Inspection - Respiratory Respiratory Exam: Clear to Auscultation - Bilaterally - Cardiovascular Cardiovascular Exam: RRR - GI/Abdominal GI/Abdominal Exam: Normal Bowel Sounds, Soft Additional GI/Abdominal Exam Details: Still tenderness in the right lower quadrant. Scar of previous operation noted. - Rectal Rectal Exam: Deferred - External Exam: Deferred Exam: Deferred - Extremities Extremities Exam: Normal Inspection - Back Back Exam: Normal Inspection - Neurological Neurological Exam: Alert, Oriented x 3, Normal Gait, CN II-XII Intact, Speech Intact / Clear, Moves All Extremities Equally - Psychiatric Psychiatric Exam: Normal Affect Assessment and Plan - Patient Problems (1) Abdominal infection Current Visit: Yes Status: Acute Comment: As I said yesterday I did speak with the surgeon they are not going to do surgery. I did speak with infectious disease they recommended 2 weeks for IV antibiotics and may be a scan then . Since the patient saying that the area is getting harder and the pain is not improving I think will repeat the CT I did speak with Dr. Barrientos and can do with oral contrast no need for IV and then will see the collection need drainage. Code(s): K65.9 - Peritonitis, unspecified (2) Chronic pain syndrome Current Visit: Yes Status: Chronic Comment: Continue current pain medications Code(s): G89.4 - Chronic pain syndrome (3) History of pulmonary embolism Current Visit: Yes Status: Chronic Comment: On Lovenox now just in case need drainage. If no need for surgical intervention will think about restarting the Coumadin. Code(s): Z86.711 - Personal history of pulmonary embolism (4) Erythema multiforme Current Visit: Yes Status: Acute Comment: This is resolved Code(s): L51.9 - Erythema multiforme, unspecified
[2018-01-23] MEDS: NICOTINE 21 MG /DAY PATCH TRANSDERM SCH (08:53)
[2018-01-23] MEDS: ENOXAPARIN SODIUM 100 MG/1 ML SYRINGE SUBCUT SCH (08:54)
[2018-01-23] MEDS: Metoprolol TARTRATE Tab 25 MG TAB PO SCH (08:55)
[2018-01-23] MEDS: ESTRADIOL 2 MG PO SCH (09:38)
--- NOTE | 2018-01-23 10:20 | DI ---
CT ABDOMEN SCAN WITHOUT IV CONTRAST, 01/23/2018 8:17 AM : Clinical History: Abdominal pain. Previous Exam: 01/17/2018. Scans are performed from the lower lung bases through the liver and kidneys without IV contrast. Sagi ttal and coronal reformatted images are generated. No oral or rectal contrast was ordered. The lung bases are clear. The liver is normal. The gallbladder is grossly normal. There is no abnorma lity of the spleen, pancreas, and adrenal glands. Both kidneys are normal in size, shape, position an d contour. There is no hydronephrosis or hydroureter. Bilateral renal calculi are again identified as on the most recent previous study. No ureteral calculi are seen. There are no abnormal retrocrural o r periaortic nodes. No ascites is present. READIN. Bilateral nonobstructing renal calculi without ureteral calculi. The pattern is unchanged from 01/17/2018. 2. The exam is otherwise normal. CT PELVIS SCAN WITHOUT IV CONTRAST, 01/23/2018 8:17 AM : Clinical History: See above. Previous Exam: 01/17/2018. Scans are performed from the inferior margin of the liver and kidneys to the symphysis pubis without IV contrast. Scans through the lower abdomen and pelvis show no abnormal fluid collections. There is no adenopathy . The appendix is surgically absent. The small bowel, terminal ileum, and ileocecal valve are normal. The colon is also normal. There are no hernias. In the right lower quadrant at the site of the forme r appendectomy scar, there is thickening of the right rectus muscle with development of a lucent area roughly 25 x 25 x 20 mm. There is a small gas bubble within this lucent area and another gas bubble in the rectus muscle itself. This is consistent with a small abscess in this is developed since the l ast examination. There is thickening of the soft tissues deep to the peritoneum over the site of the abscess and this may represent phlegmonous change in the mesenteric fat. READIN. Interval development of a fluid collection with a small gas bubble. The fluid collection measures roughly 25 x 25 x 20 mm. Deep to the peritoneum is tissue that is of high density that is larger reinaldo n before and probably represents phlegmonous change of the mesenteric fat. 2. Scans of the pelvis are otherwise normal.
[2018-01-23 10:45] VITALS: BP 94/54; RESP 18; TEMP 99.5
--- NOTE | 2018-01-23 13:03 | DCSUMMARY ---
Hospitalization Summary Admit Date: 01/19/2018 Discharge Date: 01/23/18 Hospital Course: Transfer diagnoses 1. Thickening of the right rectus muscle with development of lucent area roughly 25 x 25 x 20 mm. There is a small gas bubble within this lucent area another gas bubble and the rectus muscle itself. This is consistent with a small abscess. 2. Thickening of the soft tissue deep to the peritoneum over the site of the abscess this may represent phlegmonous change in the mesenteric fat 3. Chronic Pain syndrome on multiple pain medications 4. 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 History of non-Hodgkin lymphoma in childhood 6. Multiple recurrent abdominal abscesses infection post appendectomy with history of multiple percutaneous drainage 7. Transgender 8. History of tachycardia nonspecific. History of A. fib before. 9. History of neuropathy 10. History of DVT and PE before on anticoagulant 11. 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 Breast augmentation 13. History of open drainage of abdominal wound abscess with drain placement Hospital course This is a 32 years old transgender female with history of non-Hodgkin lymphoma in childhood, history of thymic carcinoma surgery before, history of DVT and PE on anticoagulant with history of recurrent abdominal abscesses and infection post appendectomy year before who presented to the hospital with history of fever, chills and abdominal pain and elevated white count. A CT of the abdomen showed air bubbles in the rectus abdominis muscle along with inflammation in the surrounding fat tissue.. The case was discussed with infectious disease whom the patient have seen before Dr. Jess Loco who suggested admission to the hospital for IV antibiotic therapy patient was admitted to the hospital by Dr. Padilla please see his note. Patient was started on Invanz and vancomycin. Patient already had an appointment scheduled with Dr. Haq last January 19 patient went to her appointment and then came back. Her understanding that there was a plan for her to have surgery this week. I took over on Monday I continued with the same antibiotics. I tried to reach Dr. Salgado over the weekend I was not able to but I did speak with Dr. Ibarra the surgeon public relations associate and my understanding based on his discussion with Dr. Pompa that there was a still a plan for her to have surgery done this week. In addition to continuation of the same antibiotics I did do an ultrasound on Monday which did not show a change in the size of the collection from the ultrasound that she had when she came in. Yesterday however the patient received a phone call from Dr. Haq that they will not do surgery. I did speak with him and he confirmed that to me. We continued with the same antibiotics and I did ask Dr. Rangel to see the patient. We decided to repeat the abdominal CT scan today. The patient herself said that there is no improvement in the pain and she thinks the area is getting harder and larger. The CT showed Interval development of a fluid collection with a small gas bubble. The fluid collection measures roughly 25 x 25 x 20 mm. Deep to the peritoneum is tissue that is of high density that is larger than before and probably represents phlegmonous change of the mesenteric fat. Because of the fluid collection is getting larger in size I did discussed with Dr. Rangel who suggested transfer to tertiary care center. I spoke with the hospitalist who requested that I speak with the surgeon and the surgeon I too spoke requested to speak directly to our surgeon Dr. Rangel. The two surgeons talked to each other and I was informed by Dr. Rangel that the hospitalist service at [facility] will take the patient. I called the the hospital the patient was accepted by Dr. love. Before calling the [facility] I did explain the findings to the patient though she was frustrated by the whole situation eventually she did accept transfer. Since initially it was thought that the patient was scheduled to have surgery this week the Coumadin was discontinued and was switched to Lovenox. Lovenox dosage is therapeutic dose as the patient had 2 or 3 months ago a PE so we kept her on the high therapeutic dosage. Patient pain regimen is also complex we continued with the same pain medication that she was taking at home but In addition the patient was started on KENNEL ATTENDANT pump with hydromorphone and I continued with that. Abnormal Lab Results (Last 24 Hours) Range/Units 01/23/18 01/23/18 04:40 04:40 WBC (4.8-10.8) 10^3/uL 11.66 H RBC (4.20-5.40) 10^6/uL 3.46 L Hgb (12.0-16.0) g/dL 11.0 L Hct (37.0-47.0) % 33.1 L MCH (27-31) PG 31.8 H Mcnairy # (Auto) (0.3-0.8) 10*3/UL 1.27 H Potassium (3.8-5.2) meq/L 3.5 L BUN (7-22) mg/dL 4 L Glucose (78-110) mg/dL 130 H Calcium (8.7-10.7) mg/dL 8.3 L Discharge instruction Diet regular Activity as started Medications Active Medications Acetaminophen (Tylenol) 650 mg PO Q6H PRN PRN Reason: Pain or Fever Last Admin: 01/21/18 00:53 Dose: 650 mg Amitriptyline HCl (Amitriptyline Hcl) 100 mg PO BEDTIME [facility] Last Admin: 01/22/18 20:07 Dose: 100 mg Calcium Carbonate (Tums) 1 - 2 tab PO Q6H PRN PRN Reason: Heartburn Diphenhydramine HCl (Benadryl Inj) 50 mg IVP Q6H PRN PRN Reason: pruritis, rash Last Admin: 01/23/18 10:20 Dose: 50 mg Docusate Sodium (Colace) 100 mg PO BID PRN PRN Reason: Constipation Enoxaparin Sodium (Lovenox Inj) 90 mg SUBCUT Q12H [facility] Last Admin: 01/23/18 08:54 Dose: 90 mg Fentanyl (Duragesic Patch 100mcg) 1 patch TRANSDERM Q72H [facility] Last Admin: 01/21/18 09:05 Dose: 1 patch Fentanyl (Duragesic Patch 50mcg) 2 each TRANSDERM Q72H [facility] Last Admin: 01/21/18 09:10 Dose: 2 each Heparin Sodium (Porcine) (Heparin Lock Inj (For Central Line)) 500 unit IVP DAILY PRN PRN Reason: Flush Last Admin: 01/22/18 12:35 Dose: 500 unit Ertapenem 1 gm/ Sodium (Chloride) 100 mls @ 200 mls/hr IV Q24H [facility] Last Admin: 01/22/18 20:06 Dose: 200 mls/hr Sodium Chloride (Normal Saline) 1,000 mls @ 30 mls/hr PRIMARY IV .Q24H [facility] Last Admin: 01/22/18 20:08 Dose: 30 mls/hr Vancomycin HCl 1 gm/ Sodium (Chloride) 250 mls @ 250 mls/hr IV Q8H [facility] Last Admin: 01/23/18 07:41 Dose: 250 mls/hr Hydromorphone HCl 30 mg/ (Sodium Chloride) 30 mls @ 0 mls/hr IVP Q90M [facility]; Protocol Last Admin: 01/23/18 12:15 Dose: Not Given Lidocaine HCl (Lidocaine Buffered Inj) 0.5 ml SUBD ONCE PRN PRN Reason: IV Starts Metoprolol Tartrate (Lopressor Tab) 25 mg PO BID [facility] Last Admin: 01/23/18 08:55 Dose: 25 mg Nicotine (Nicoderm Cq 21mg Patch) 1 patch TRANSDERM DAILY [facility] Last Admin: 01/23/18 08:53 Dose: 1 patch Own Med : Estradiol (2 Mg Tablet) 2 tab PO BID [facility] Last Admin: 01/23/18 09:38 Dose: Not Given Oxycodone HCl (Oxyir Tab) 60 mg PO Q4H [facility] Last Admin: 01/23/18 12:43 Dose: 60 mg Promethazine HCl (Phenergan Inj) 25 mg IM Q6H PRN PRN Reason: NAUSEA / VOMITING Last Admin: 01/23/18 10:20 Dose: 25 mg Spironolactone (Aldactone) 100 mg PO BEDTIME [facility] Last Admin: 01/22/18 20:08 Dose: 100 mg Follow-up per [facility] post discharge. Exam - Vitals Vital Signs: Vital Signs Temperature 99.5 F Temperature Source Oral Pulse Rate [Pulse Oximeter] 98 Pulse Rate 95 Respiratory Rate [Abdomen] 14 Respiratory Rate 18 Blood Pressure [Right Arm] 94/54 Pulse Ox 94 Oxygen Flow Rate [Abdomen] 1 Oxygen Flow Rate 1 Oxygen Delivery Method Nasal Cannula Height 5 ft 9 in Weight 169 lb 12.8 oz Patient Problems - Patient Problem List (1) Abdominal infection Current Visit: Yes Status: Acute Code(s): K65.9 - Peritonitis, unspecified Category: Medical (2) Chronic pain syndrome Current Visit: Yes Status: Chronic Code(s): G89.4 - Chronic pain syndrome Category: Medical (3) History of pulmonary embolism Current Visit: Yes Status: Chronic Code(s): Z86.711 - Personal history of pulmonary embolism Category: Medical (4) Erythema multiforme Current Visit: Yes Status: Acute Code(s): L51.9 - Erythema multiforme, unspecified Category: Medical
[2018-01-23] MEDS: HEPARIN 500 UNIT/5 ML SYRINGE FOR CENTRAL LINE IVP PRN (14:11)
== END 2018-01-23 14:17 | disposition short-term general hospital (02) | DRG 602 ==
LOC: MED/SURG 21:39
PROVIDERS: ADMIT Family Medicine; ATTEND Family Medicine